=== PATIENT | male | born 1940 | race Two or more races ===

== ENCOUNTER 2019-03-22 18:59 | Emergency (ER) | payer MEDICARE, MEDICAID ==
[~2019-03-22] VITALS: Ht 167.6 cm; Wt 68.0 kg
[~2019-03-22 18:59] MED LIST: CLOPIDOGREL75 MG ORAL; ESCITALOPRAM OX20 MG ORAL; METOPROLOL TART25 MG ORAL; PRAVASTATIN SOD80 M1 PO
--- NOTE | 2019-03-22 19:05 | NUR ---
ED Nurse Note: Pt brought in by ambulance from [facility]. staff repiorted abnormal labs and pt with increased altered mental status. Pt is A&Ox1, cooperative. VSS
[2019-03-22 19:41] VITALS: BP 118/64
[2019-03-22 20:06] LABS: HEMOGLOBIN 12.7 G/DL (14.2-18.0); MEAN CORPUSCULAR VOLUME 88 FL (80-99); PLATELET COUNT 101 K/UL (150-450); RED BLOOD COUNT 4.33 M/UL (4.70-6.10); RED CELL DISTRIBUTION WIDTH 14.2 % (11.6-14.8); WHITE BLOOD COUNT 5.6 K/UL (4.8-10.8)
[2019-03-22 20:09] LABS: ANION GAP 10 mmol/L (5-15); BLOOD UREA NITROGEN 9 mg/dL (7-18); CALCIUM 8.8 MG/DL (8.5-10.1); CARBON DIOXIDE 30 MMOL/L (21-32); CHLORIDE 104 MMOL/L (98-107); POTASSIUM 4.1 MMOL/L (3.5-5.1); SODIUM 144 MMOL/L (136-145)
[2019-03-22 20:10] LABS: INR 0.9 (0.9-1.1)
[2019-03-22 20:21] LABS: ALANINE AMINOTRANSFERASE 63 U/L (12-78); ALBUMIN 2.7 G/DL (3.4-5.0); ALBUMIN/GLOBULIN RATIO 0.6 (1.0-2.7); ALKALINE PHOSPHATASE 42 U/L (46-116); ASPARTATE AMINO TRANSFERASE 38 U/L (15-37); BILIRUBIN,TOTAL 0.4 MG/DL (0.2-1.0)
--- NOTE | 2019-03-22 21:00 | NUR ---
ED Nurse Note: Pt resting in bed with eyes closed, non-labored breathing, awaiting transport back to SNF
--- NOTE | 2019-03-22 22:01 | Emergency Room Report ---
History of Present Illness General Chief Complaint: Abnormal Labs Source: Patient Present Illness HPI Patient is sent in by paramedics from nursing facility with low platelet count patient himself is a poor historian Does not recall why he was sent to the hospital patient also appears to have had previous CVAs Denies any chest pain denies any vomiting or diarrhea Denies any abdominal pain Allergies: Coded Allergies: No Known Allergies (Unverified , 01/19/13) Patient History Limited by: medical condition Past Medical History: see triage record Reviewed Nursing Documentation: PMH: Agreed; PSxH: Agreed Nursing Documentation-PMH Past Medical History: No History, Except For Hx Cardiac Problems: Yes Hx Hypertension: Yes Hx Cancer: No Hx Gastrointestinal Problems: No Hx Cerebrovascular Accident: Yes - 2008 Review of Systems All Other Systems: limited - Other than the ones mentioned in the history of present illness all others are reviewed however they do stay limited due to the patient's mental status Physical Exam Vital Signs Date Time Temp Pulse Resp B/P (MAP) Pulse Ox O2 Delivery O2 Flow Rate FiO2 03/22/19 19:00 97.9 63 18 118/64 (82) 93 Room Air Sp02 EP Interpretation: reviewed, normal General Appearance: no apparent distress Head: normocephalic, atraumatic Eyes: bilateral eye PERRL ENT: EOM grossly intact Neck: supple Respiratory: lungs clear, no respiratory distress, no retraction Cardiovascular #1: regular rate, rhythm Gastrointestinal: non tender, soft Musculoskeletal: other - Deficits from previous CVA Neurologic: other - Responsive Psychiatric: mood/affect normal Skin: no rash - No petechiae no bruising Lymphatic: normal inspection Medical Decision Making Diagnostic Impression: Primary Impression: thrombocytopenia ER Course Given the patient's complaints from nursing facility blood work is repeated patient's a platelet count is Above 100 Blood work from 2012 reveals levels of 112 This does not appear to be a significant change patient does not show any signs of petechiae or acute hemorrhage Case was discussed with the patient's primary physician at the nursing facility And is considered stable for close outpatient follow-up Labs Test 03/22/19 19:30 White Blood Count 5.6 K/UL (4.8-10.8) Red Blood Count 4.33 M/UL (4.70-6.10) Hemoglobin 12.7 G/DL (14.2-18.0) Hematocrit 38.0 % (42.0-52.0) Mean Corpuscular Volume 88 FL (80-99) Mean Corpuscular Hemoglobin 29.3 PG (27.0-31.0) Mean Corpuscular Hemoglobin Concent 33.3 G/DL (32.0-36.0) Red Cell Distribution Width 14.2 % (11.6-14.8) Platelet Count 101 K/UL (150-450) Mean Platelet Volume 13.6 FL (6.5-10.1) Neutrophils (%) (Auto) % (45.0-75.0) Lymphocytes (%) (Auto) % (20.0-45.0) Monocytes (%) (Auto) % (1.0-10.0) Eosinophils (%) (Auto) % (0.0-3.0) Basophils (%) (Auto) % (0.0-2.0) Differential Total Cells Counted 100 Neutrophils % (Manual) 38 % (45-75) Lymphocytes % (Manual) 44 % (20-45) Monocytes % (Manual) 16 % (1-10) Eosinophils % (Manual) 0 % (0-3) Basophils % (Manual) 0 % (0-2) Band Neutrophils 2 % (0-8) Platelet Estimate Decreased Platelet Morphology Normal Red Blood Cell Morphology Normal Prothrombin Time 9.9 SEC (9.30-11.50) Prothromb Time International Ratio 0.9 (0.9-1.1) Activated Partial Thromboplast Time 23 SEC (23-33) Sodium Level 144 MMOL/L (136-145) Potassium Level 4.1 MMOL/L (3.5-5.1) Chloride Level 104 MMOL/L (98-107) Carbon Dioxide Level 30 MMOL/L (21-32) Anion Gap 10 mmol/L (5-15) Blood Urea Nitrogen 9 mg/dL (7-18) Creatinine 1.0 MG/DL (0.55-1.30) Estimat Glomerular Filtration Rate mL/min (>60) Glucose Level 179 MG/DL (74-106) Calcium Level 8.8 MG/DL (8.5-10.1) Total Bilirubin 0.4 MG/DL (0.2-1.0) Aspartate Amino Transf (AST/SGOT) 38 U/L (15-37) Alanine Aminotransferase (ALT/SGPT) 63 U/L (12-78) Alkaline Phosphatase 42 U/L (46-116) Total Protein 7.1 G/DL (6.4-8.2) Albumin 2.7 G/DL (3.4-5.0) Globulin 4.4 g/dL Albumin/Globulin Ratio 0.6 (1.0-2.7) Rhythm Strip Diag. Results EP Interpretation: yes Rate: 80 Rhythm: NSR, no PVC's, no ectopy Last Vital Signs Date Time Temp Pulse Resp B/P (MAP) Pulse Ox O2 Delivery O2 Flow Rate FiO2 03/22/19 19:41 97.9 100 18 118/64 93 Room Air Status: improved Disposition: ER SNF Condition: Stable Referrals: Edwardo Langley MD (PCP) Patient Instructions: Thrombocytopenia, [id number] Additional Instructions: Contact was made with the primary physician following at the nursing facility. They will arrange appropriate outpatient follow-up Patient's platelet count in 2012 was 112. Today we have a reading of 101 And patient stable for close follow-up Lon Avery DO Mar 22, 2019 22:01
[2019-03-22 22:45] VITALS: BP 118/64
--- NOTE | 2019-03-22 22:45 | NUR ---
ER DISCHARGE NOTE: Patient is cleared to be discharged per ERMD, pt is aox1 per baseline, on room air, with stable vital signs. pt was given dc , pt was able to verbalize understanding, pt id band and iv site removed without complications. pt taken via private ambulance to SNF. pt took all belongings.
--- NOTE | 2019-03-23 10:52 | Diagnostic Imaging Report ---
Indication: Chest pain Technique: One view of the chest Comparison: 01/20/2013 Findings: Exam less heavily exposed. I habitus limits evaluation. No definite acute infiltrates, effusions, or congestion. Normal heart size. Tortuous ectatic calcified aorta. Old healed left rib fracture deformity again demonstrated Impression: No acute process
== END 2019-03-22 22:45 ==
LOC: EDBD 18:59 → EMR 19:20
DX: D69.6 Thrombocytopenia, unspecified (principal); I10 Essential (primary) hypertension; Z86.73 Personal history of transient ischemic attack (TIA), and cerebral infarction without residual deficits
CPT/HCPCS: 36415; 71045; 80053; 85007; 85025; 85610; 85730; 99283

== ENCOUNTER 2019-09-03 10:41 | Inpatient (IN) | payer MEDICARE, MEDICAID ==
[~2019-09-03] VITALS: Ht 170.2 cm; Wt 63.5 kg
[2019-09-03 10:50] VITALS: BP 108/58
--- NOTE | 2019-09-03 10:50 | NUR ---
ED Nurse Note: [id number] c/o fever and episode of desaturation. Pt has hx of COPD. 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 Pt is on 2L nc. Breathing even and unlabored. AAO3, verbally responsive. Pt placed on shank stapler. Covid isolation precaution observed.
--- NOTE | 2019-09-03 11:10 | NUR ---
ED Nurse Note: IV line established. Blood specimen and Covid swab collected and sent to lab.
--- NOTE | 2019-09-03 11:14 | NUR ---
ED Nurse Note: Xray at bedside.
[2019-09-03 11:23] LABS: HEMATOCRIT 32.8 % (42.0-52.0); HEMOGLOBIN 11.5 G/DL (14.2-18.0); MEAN CORPUSCULAR VOLUME 84 FL (80-99); PLATELET COUNT 42 K/UL (150-450); RED BLOOD COUNT 3.92 M/UL (4.70-6.10); RED CELL DISTRIBUTION WIDTH 13.3 % (11.6-14.8); WHITE BLOOD COUNT 9.3 K/UL (4.8-10.8)
[2019-09-03 11:28] LABS: ANION GAP 12 mmol/L (5-15); BLOOD UREA NITROGEN 14 mg/dL (7-18); CALCIUM 8.5 MG/DL (8.5-10.1); CARBON DIOXIDE 24 MMOL/L (21-32); CHLORIDE 106 MMOL/L (98-107); CREATININE 1.3 MG/DL (0.55-1.30); SODIUM 142 MMOL/L (136-145)
[2019-09-03 11:41] LABS: ALANINE AMINOTRANSFERASE 45 U/L (12-78); ALBUMIN 2.6 G/DL (3.4-5.0); ALBUMIN/GLOBULIN RATIO 0.6 (1.0-2.7); ALKALINE PHOSPHATASE 34 U/L (46-116); ASPARTATE AMINO TRANSFERASE 43 U/L (15-37); BILIRUBIN,TOTAL 0.6 MG/DL (0.2-1.0); CKMB < 0.5 NG/ML (0.0-3.6); CREATINE KINASE 57 U/L (26-308)
[2019-09-03] MEDS ORDERED: Milk of Magnesia 30ml Ud ORAL PRN (11:45)
[2019-09-03] MEDS ORDERED: Miralax 17gm pkt ORAL PRN (11:45)
[2019-09-03 12:00] VITALS: BP 110/62
--- NOTE | 2019-09-03 12:08 | NUR ---
ED Nurse Note: Urine specimen collected and sent to lab.
--- NOTE | 2019-09-03 12:14 | History and Physical ---
History of Present Illness General Reason for Hospitalization: Fever Present Illness HPI 79-year-old male with PMH of T2DM, COPD, dysphasia, HLD, HTN, thrombocytopenia, APL and dementia who presents from group home for fevers and hypoxia. Patient poor historian due to history of dementia, history obtained via chart review and patient. According to records, patient was found hypoxic at group home, SPO2 88%, with fevers of 102. Patient has known exposure to COVID as his roommate at the facility was tested COVID positive. Pt currently denies any GRAF, SOB, cough, f/c, CP, abd pain, dysuria, hematuria/hematochezia, pt states he is "thirsty". ED course: On admission, pt w/fever 101.5, thrombocytopenia, and elevated d- dimer. Pt admitted for further treatment and evaluation and for COVID rule out. PMH: Type II DM, dementia, HLD, HTN, COPD, thrombocytopenia, APL, history of internal hemorrhoids, h/o malignant neoplasm of pyloric antrum, major depressive disorder FH: Reviewed and not pertinent Sx: Reviewed, no surgical history SH: Lives at [facility], no tobacco/ETOH use Allergies: NKDA Allergies: Coded Allergies: No Known Allergies (Unverified , 01/19/13) COVID-19 Screening Contact w/high risk pt: No Recent Travel to affected area: No Experienced COVID-19 symptoms?: Yes COVID-19 symptoms experienced: Fever (T>100.4F or >38C), Shortness of Breath, Cough Medication History Scheduled Amlodipine Besylate* (Amlodipine Besylate*), 2.5 MG ORAL DAILY, (Reported) Atenolol* (Tenormin*), 50 MG ORAL DAILY, (Reported) Ca Cmb 1/Vit D3/B-6/Fa/B12/Av (Vitamin D3-Aloe 1,000 Unit Tab), 2 EACH PO DAILY, (Reported) Clopidogrel* (Clopidogrel*), 75 MG ORAL DAILY, (Reported) Danazol (Danazol), 200 MG ORAL TWICE A DAY, (Reported) Docusate Sodium* (Docusate Sodium*), 100 MG ORAL TWICE A DAY, (Reported) Escitalopram Oxalate (Escitalopram Oxalate*), 20 MG ORAL DAILY, (Reported) Lactulose (Lactulose), 20 GM PO Q12HR, (Reported) Metoprolol Tartrate* (Metoprolol Tartrate*), 25 MG ORAL BID, (Reported) Multivitamin With Minerals (Multivitamins With Minerals*), 1 TAB ORAL DAILY, ( Reported) Almond-3 Fatty Acids/Fish Oil (Fish Oil 1,000 Mg Softgel), 1 CAP ORAL DAILY, ( Reported) Pravastatin Sod (Pravastatin Sod), 80 MG PO DAILY, (Reported) Pravastatin Sod (Pravastatin Sod), 40 MG ORAL BEDTIME, (Reported) Sennosides (Cari-Jeremy), 17.2 MG PO BEDTIME, (Reported) Tretinoin (Tretinoin), 10 MG PO TWICE A DAY, (Reported) Scheduled PRN Acetaminophen* (Acetaminophen 325MG Tablet*), 650 MG ORAL Q6H PRN for For Pain, (Reported) Diphenhydramine Hcl* (Benadryl*), 25 MG ORAL Q6H PRN for Itching, (Reported) Patient History Limited by: medical condition - pt with dementia, poor historian Healthcare decision maker Resuscitation status Advanced Directive on File Review of Systems Constitutional: Denies: no symptoms, see HPI, chills, sweats, fever, malaise, weakness, other Eye: Denies: no symptoms, see HPI, eye pain, blurred vision, tearing, double vision, nose pain, nose congestion, acuity changes, discharge, other Respiratory: Denies: no symptoms, see HPI, cough, orthopnea, shortness of breath, stridor, wheezing, GILMAN, sputum, other Cardiovascular: Denies: no symptoms, see HPI, chest pain, edema, palpitations, syncope, PND, other Gastrointestinal: Denies: no symptoms, see HPI, abdominal pain, constipation, diarrhea, nausea, vomiting, melena, hematemesis, other Genitourinary: Denies: no symptoms, see HPI, discharge, dysuria, frequency, hematuria, pain, retention, incontinence, urgency, vag bleed/dc, other Musculoskeletal: Denies: no symptoms, see HPI, back pain, gout, joint pain, joint swelling, muscle pain, muscle stiffness, other Psychiatric: Denies: no symptoms, see HPI, prior hx, anxiety, depressed feelings, emotional problems, SI, HI, hallucinations, other Neurological: Denies: no symptoms, see HPI, headache, numbness, paresthesia, seizure, tingling, tremors, focal weakness, syncope, dizziness, other All Other Systems: negative except mentioned in HPI Physical Exam Physical Exam Narrative General: NAD, awake, alert, not fully participating in questions HEENT: NCAT, EOMi, dry MM CV: RRR, no murmurs, rubs, or gallops Pulm: CTAB, No wheezes, rhonchi, or rales, no accessory muscle usage or conversational dyspnea GI: Soft, nontender, nondistended, bowel sounds present Ext: No lower extremity edema bilaterally Skin: no rashes lesions or ulcers Msk: Joints symmetrical in upper extremity and lower extremity bilaterally, no joint swelling. Neuro: CN 2-12 grossly intact bilaterally, no focal signs. Last 24 Hour Vital Signs Date Time Temp Pulse Resp B/P (MAP) Pulse Ox O2 Delivery O2 Flow Rate FiO2 09/03/19 10:50 74 20 Room Air 09/03/19 10:50 99.2 72 23 108/58 95 Nasal Cannula 2.0 09/03/19 10:42 101.8 74 20 132/62 (85) 92 Room Air Laboratory Tests Test 09/03/19 10:58 White Blood Count 9.3 K/UL (4.8-10.8) Red Blood Count 3.92 M/UL (4.70-6.10) L Hemoglobin 11.5 G/DL (14.2-18.0) L Hematocrit 32.8 % (42.0-52.0) L Mean Corpuscular Volume 84 FL (80-99) Mean Corpuscular Hemoglobin 29.4 PG (27.0-31.0) Mean Corpuscular Hemoglobin Concent 35.2 G/DL (32.0-36.0) Red Cell Distribution Width 13.3 % (11.6-14.8) Platelet Count 42 K/UL (150-450) L Mean Platelet Volume 11.7 FL (6.5-10.1) H Neutrophils (%) (Auto) % (45.0-75.0) Lymphocytes (%) (Auto) % (20.0-45.0) Monocytes (%) (Auto) % (1.0-10.0) Eosinophils (%) (Auto) % (0.0-3.0) Basophils (%) (Auto) % (0.0-2.0) Differential Total Cells Counted 100 Neutrophils % (Manual) 64 % (45-75) Lymphocytes % (Manual) 13 % (20-45) L Monocytes % (Manual) 20 % (1-10) H Eosinophils % (Manual) 0 % (0-3) Basophils % (Manual) 0 % (0-2) Band Neutrophils 3 % (0-8) Platelet Estimate Decreased L Platelet Morphology Normal Hypochromasia 1+ Prothrombin Time 10.4 SEC (9.30-11.50) Prothromb Time International Ratio 1.0 (0.9-1.1) Activated Partial Thromboplast Time 21 SEC (23-33) L D-Dimer 7.00 mg/L FEU (0.00-0.49) H Sodium Level 142 MMOL/L (136-145) Potassium Level 4.0 MMOL/L (3.5-5.1) Chloride Level 106 MMOL/L (98-107) Carbon Dioxide Level 24 MMOL/L (21-32) Anion Gap 12 mmol/L (5-15) Blood Urea Nitrogen 14 mg/dL (7-18) Creatinine 1.3 MG/DL (0.55-1.30) Estimat Glomerular Filtration Rate 53.4 mL/min (>60) Glucose Level 123 MG/DL (74-106) H Lactic Acid Level 1.60 mmol/L (0.4-2.0) Calcium Level 8.5 MG/DL (8.5-10.1) Total Bilirubin 0.6 MG/DL (0.2-1.0) Aspartate Amino Transf (AST/SGOT) 43 U/L (15-37) H Alanine Aminotransferase (ALT/SGPT) 45 U/L (12-78) Alkaline Phosphatase 34 U/L (46-116) L Total Creatine Kinase 57 U/L (26-308) Creatine Kinase MB < 0.5 NG/ML (0.0-3.6) Creatine Kinase MB Relative Index 0.8 Troponin I 0.000 ng/mL (0.000-0.056) C-Reactive Protein, Quantitative 16.8 mg/dL (0.00-0.90) H Total Protein 6.9 G/DL (6.4-8.2) Albumin 2.6 G/DL (3.4-5.0) L Globulin 4.3 g/dL Albumin/Globulin Ratio 0.6 (1.0-2.7) L Height (Feet): 5 Height (Inches): 7.00 Weight (Pounds): 175 Assessment/Plan Assessment/Plan: 79-year-old male with PMH of T2DM, COPD, dysphasia, HLD, HTN, thrombocytopenia, hx of APL and dementia who presents from group home for fevers and hypoxia. On admission, pt w/fever 101.5, thrombocytopenia, and elevated d-dimer. Pt admitted for further treatment and evaluation and for COVID rule out. #Suspect COVID #Fevers, Hypoxia #Elevated d-dimer #Possible HCAP/asp PNA -admit to in-pt, tele -COVID isolation protocol -elevated d-dimer, 7.0, and CRP -pt currently 2L NC SpO2 96% -COVID PCR ordered -monitor predictive parameters q3d, CRP, d-dimer, lactic acid -BCx ordered -Pulm consulted, recs appreciated -ID consulted, d/w ID, will start pt on abx for presumptive nosocomial and aspiration PNA, Vanc and Zosyn, pharmacy to dose #H/o COPD -currently not in exacerbation -ctm, management as above #HTN #HLD -cont home meds, amlodipine 2.5 mg, atenolol 50 mg, -hold home pravastatin 40 mg qhs due to mildly elevated AST #elevated AST -likely 2/2 to infection #Thrombocytopenia #Hx of Acute Promyelocytic Leukemia -plts 42 today, on 08/29 plts 29 -pt f/u w/Dr. Jose as o/p, on danazol 200 mg PO q daily for thrombocytopenia and tretinoin 10 mg PO BID for APL -medications not on formulary per pharmacy -Heme consulted, Dr. Navarrete consulted, recs appreciated DVT PPx - SCDs for now given low plts Time spent on encounter: 71 mins, >50% on counseling, coordination of care, discussed case w/ER physician, Pulm, ID and Heme/Onc. Time of note doesn't reflect time of encounter. Jeremi Toure M.D. September 03, 2019 12:14
[2019-09-03] MEDS ORDERED: ACETAMINOPHEN325 M1 ORAL (12:35)
[2019-09-03] MEDS ORDERED: FISH OIL 1,0001 EAC4 ORAL (12:35)
[2019-09-03] MEDS ORDERED: MULTIVITAMINS1 EAC8 ORAL (12:35)
[2019-09-03] MEDS ORDERED: AMLODIPINE BES2.5 MG ORAL (12:35)
[2019-09-03] MEDS ORDERED: PRAVASTATIN SOD40 M1 ORAL (12:35)
[2019-09-03] MEDS ORDERED: TRETINOIN10 MG PO (12:35)
[2019-09-03] MEDS ORDERED: BENADRYL25 MG ORAL (12:35)
[2019-09-03] MEDS ORDERED: ATENOLOL50 MG ORAL (12:35)
[2019-09-03] MEDS ORDERED: LACTULOSE10 GM/153 PO (12:35)
[2019-09-03] MEDS ORDERED: DANAZOL200 MG ORAL (12:35)
[2019-09-03] MEDS ORDERED: GERI-KOT8.6 MG PO (12:35)
[2019-09-03] MEDS ORDERED: VITAMIN D3-ALO1 EACH PO (12:35)
[2019-09-03] MEDS ORDERED: DOCUSATE SODIU100 MG ORAL (12:35)
[2019-09-03 12:39] LABS: APPEARANCE,URINE CLEAR; BILIRUBIN, URINE 2+ (NEGATIVE); GLUCOSE, URINE (UA) NEGATIVE (NEGATIVE); LEUKOCYTE ESTERASE ,URINE 2+ (NEGATIVE); NITRITE,URINE POSITIVE (NEGATIVE); PH,URINE 5 (4.5-8.0); PROTEIN,URINE 3+ (NEGATIVE); UROBILINOGEN,URINE 12 MG/DL (0.0-1.0)
--- NOTE | 2019-09-03 12:53 | Emergency Room Report ---
History of Present Illness General Chief Complaint: Fever Source: Medical Record, EMS Present Illness HPI This patient is brought in by EMS from a [facility] facility. This nursing facility has had positive COVID 19 cases. The patient is sent in because of hypoxia, fever and cough and concern for COVID-19. There is no report of respiratory distress. There are no other complaints. Allergies: Coded Allergies: No Known Allergies (Unverified , 01/19/13) COVID-19 Screening Contact w/high risk pt: No Recent Travel to affected area: No Experienced COVID-19 symptoms?: Yes COVID-19 symptoms experienced: Fever (T>100.4F or >38C), Shortness of Breath, Cough COVID-19 Testing performed PRESCRIPTION CLERK: No Patient History Past Medical History: see triage record, DM, HTN, PR, CAD, CHF, COPD, GERD, CVA /TIA, dementia Social History: Denies: smoking, alcohol use, drug use Reviewed Nursing Documentation: PMH: Agreed; PSxH: Agreed Nursing Documentation-PMH Past Medical History: No History, Except For Hx Cardiac Problems: Yes Hx Hypertension: Yes Hx Cancer: No Hx Gastrointestinal Problems: No Hx Cerebrovascular Accident: Yes - 2008 Review of Systems All Other Systems: negative except mentioned in HPI Physical Exam Vital Signs Date Time Temp Pulse Resp B/P (MAP) Pulse Ox O2 Delivery O2 Flow Rate FiO2 09/03/19 10:42 101.8 74 20 132/62 (85) 92 Room Air 09/03/19 10:50 2.0 Sp02 EP Interpretation: reviewed, normal General Appearance: no apparent distress, alert, GCS 15, non-toxic Head: normocephalic, atraumatic Eyes: bilateral eye normal inspection, bilateral eye PERRL ENT: hearing grossly normal, normal pharynx, no angioedema, normal voice Neck: full range of motion, supple/symm/no masses Respiratory: no respiratory distress, no retraction, no accessory muscle use Cardiovascular #1: regular rate, rhythm, no edema Gastrointestinal: soft, non-distended, no guarding, no rebound Rectal: deferred Musculoskeletal: normal inspection, normal range of motion, non-tender Neurologic: alert, responsive, no focal defects Psychiatric: mood/affect normal Skin: normal color, other - See RN skin exam Medical Decision Making Diagnostic Impression: Primary Impression: Suspected 2019 novel coronavirus infection Additional Impressions: Fever Hypoxia ER Course This patient presents from a [facility] facility with a presentation consistent with COVID-19. The patient was placed in isolation with droplet precautions. The patient was also given broad-spectrum antibiotics as a precaution given his fever. The patient was maintaining normal oxygen saturations on 2 L nasal cannula and had no evidence of respiratory distress or impending respiratory failure. Therefore, no further airway intervention was indicated during this ED course. The patient is admitted to the ICU stepdown unit. This patient required complex medical decision-making, aggressive intervention, extensive laboratory workup and monitoring. Critical care time: 40 minutes. This patient was evaluated in the context of the global COVID-19 pandemic, which necessitated consideration that the patient might be at risk for infection with the [id number] virus that causes COVID-19. Institutional protocols and algorithms that pertain to the evaluation of patients at risk for COVID-19 and the state of rapid change based on information released by multiple regulatory bodies including the CDC and federal and state organizations. These policies and algorithms were followed during the patient' s care in the ED. Laboratory Tests Test 09/03/19 10:58 09/03/19 12:08 White Blood Count 9.3 K/UL (4.8-10.8) Red Blood Count 3.92 M/UL (4.70-6.10) L Hemoglobin 11.5 G/DL (14.2-18.0) L Hematocrit 32.8 % (42.0-52.0) L Mean Corpuscular Volume 84 FL (80-99) Mean Corpuscular Hemoglobin 29.4 PG (27.0-31.0) Mean Corpuscular Hemoglobin Concent 35.2 G/DL (32.0-36.0) Red Cell Distribution Width 13.3 % (11.6-14.8) Platelet Count 42 K/UL (150-450) L Mean Platelet Volume 11.7 FL (6.5-10.1) H Neutrophils (%) (Auto) % (45.0-75.0) Lymphocytes (%) (Auto) % (20.0-45.0) Monocytes (%) (Auto) % (1.0-10.0) Eosinophils (%) (Auto) % (0.0-3.0) Basophils (%) (Auto) % (0.0-2.0) Differential Total Cells Counted 100 Neutrophils % (Manual) 64 % (45-75) Lymphocytes % (Manual) 13 % (20-45) L Monocytes % (Manual) 20 % (1-10) H Eosinophils % (Manual) 0 % (0-3) Basophils % (Manual) 0 % (0-2) Band Neutrophils 3 % (0-8) Platelet Estimate Decreased L Platelet Morphology Normal Hypochromasia 1+ Prothrombin Time 10.4 SEC (9.30-11.50) Prothrombin Time INR 1.0 (0.9-1.1) Activated Partial Thromboplast Time 21 SEC (23-33) L D-Dimer 7.00 mg/L FEU (0.00-0.49) H Sodium Level 142 MMOL/L (136-145) Potassium Level 4.0 MMOL/L (3.5-5.1) Chloride Level 106 MMOL/L (98-107) Carbon Dioxide Level 24 MMOL/L (21-32) Anion Gap 12 mmol/L (5-15) Blood Urea Nitrogen 14 mg/dL (7-18) Creatinine 1.3 MG/DL (0.55-1.30) Estimated Glomerular Filtration Rate 53.4 mL/min (>60) Glucose Level 123 MG/DL (74-106) H Lactic Acid Level 1.60 mmol/L (0.4-2.0) Calcium Level 8.5 MG/DL (8.5-10.1) Total Bilirubin 0.6 MG/DL (0.2-1.0) Aspartate Amino Transferase (AST) 43 U/L (15-37) H Alanine Aminotransferase (ALT) 45 U/L (12-78) Alkaline Phosphatase 34 U/L (46-116) L Total Creatine Kinase 57 U/L (26-308) Creatine Kinase MB < 0.5 NG/ML (0.0-3.6) Creatine Kinase MB Relative Index 0.8 Troponin I 0.000 ng/mL (0.000-0.056) C-Reactive Protein, Quantitative 16.8 mg/dL (0.00-0.90) H Total Protein 6.9 G/DL (6.4-8.2) Albumin 2.6 G/DL (3.4-5.0) L Globulin 4.3 g/dL Albumin/Globulin Ratio 0.6 (1.0-2.7) L Urine Color Yellow Urine Appearance Clear Urine pH 5 (4.5-8.0) Urine Specific [place] 1.015 (1.005-1.035) Urine Protein 3+ (NEGATIVE) H Urine Glucose (UA) Negative (NEGATIVE) Urine Ketones 1+ (NEGATIVE) H Urine Blood 4+ (NEGATIVE) H Urine Nitrite Positive (NEGATIVE) H Urine Bilirubin 2+ (NEGATIVE) H Urine Ictotest Negative (NEGATIVE) Urine Urobilinogen 12 MG/DL (0.0-1.0) H Urine Leukocyte Esterase 2+ (NEGATIVE) H Urine RBC 2-4 /HPF (0 - 0) H Urine WBC 5-10 /HPF (0 - 0) H Urine Squamous Epithelial Cells Few /LPF (NONE/OCC) Urine Bacteria Few /HPF (NONE) EKG Diagnostic Results Rate: normal Rhythm: NSR ST Segments: no acute changes Rhythm Strip Diag. Results EP Interpretation: yes Rate: 80's Rhythm: NSR, no PVC's, no ectopy Chest X-Ray Diagnostic Results Chest X-Ray Diagnostic Results : Chest X-Ray Ordered: Yes # of Views/Limited/Complete: 1 View Indication: Shortness of Breath EP Interpretation: Yes Interpretation: other - bilateral opacities (poor inspiration) Impression: Other - See above Electronically Signed by: Violette Dawn DO Last Vital Signs Date Time Temp Pulse Resp B/P (MAP) Pulse Ox O2 Delivery O2 Flow Rate FiO2 09/03/19 10:50 74 20 Room Air 09/03/19 10:50 99.2 108/58 95 2.0 Disposition: ADMITTED INPATIENT Condition: Serious Referrals: Edwardo Langley MD (PCP) Violette Dawn DO September 03, 2019 12:53
--- NOTE | 2019-09-03 13:00 | NUR ---
ED Nurse Note: Noted with multiple scratches on bilateral thigh.
--- NOTE | 2019-09-03 13:01 | Infectious Diseases Prog Note ---
Assessment/Plan Assessment/Plan Full consult to follow: A) 1) pna, fevers, sepsis 2) possible covid-19 infection 3) pmh noted 4) allergies - nkda P) 1) zosyn and vancomycin 2) f/u on cultures 3) d/w Dr. Toure 4) thank you Subjective Allergies: Coded Allergies: No Known Allergies (Unverified , 01/19/13) Objective Vital Signs Last 24 Hour Vital Signs Date Time Temp Pulse Resp B/P (MAP) Pulse Ox O2 Delivery O2 Flow Rate FiO2 09/03/19 10:50 74 20 Room Air 09/03/19 10:50 99.2 72 23 108/58 95 Nasal Cannula 2.0 09/03/19 10:42 101.8 74 20 132/62 (85) 92 Room Air Height (Feet): 5 Height (Inches): 7.00 Weight (Pounds): 175 Laboratory Tests Test 09/03/19 10:58 09/03/19 12:08 White Blood Count 9.3 K/UL (4.8-10.8) Red Blood Count 3.92 M/UL (4.70-6.10) L Hemoglobin 11.5 G/DL (14.2-18.0) L Hematocrit 32.8 % (42.0-52.0) L Mean Corpuscular Volume 84 FL (80-99) Mean Corpuscular Hemoglobin 29.4 PG (27.0-31.0) Mean Corpuscular Hemoglobin Concent 35.2 G/DL (32.0-36.0) Red Cell Distribution Width 13.3 % (11.6-14.8) Platelet Count 42 K/UL (150-450) L Mean Platelet Volume 11.7 FL (6.5-10.1) H Neutrophils (%) (Auto) % (45.0-75.0) Lymphocytes (%) (Auto) % (20.0-45.0) Monocytes (%) (Auto) % (1.0-10.0) Eosinophils (%) (Auto) % (0.0-3.0) Basophils (%) (Auto) % (0.0-2.0) Differential Total Cells Counted 100 Neutrophils % (Manual) 64 % (45-75) Lymphocytes % (Manual) 13 % (20-45) L Monocytes % (Manual) 20 % (1-10) H Eosinophils % (Manual) 0 % (0-3) Basophils % (Manual) 0 % (0-2) Band Neutrophils 3 % (0-8) Platelet Estimate Decreased L Platelet Morphology Normal Hypochromasia 1+ Prothrombin Time 10.4 SEC (9.30-11.50) Prothromb Time International Ratio 1.0 (0.9-1.1) Activated Partial Thromboplast Time 21 SEC (23-33) L D-Dimer 7.00 mg/L FEU (0.00-0.49) H Sodium Level 142 MMOL/L (136-145) Potassium Level 4.0 MMOL/L (3.5-5.1) Chloride Level 106 MMOL/L (98-107) Carbon Dioxide Level 24 MMOL/L (21-32) Anion Gap 12 mmol/L (5-15) Blood Urea Nitrogen 14 mg/dL (7-18) Creatinine 1.3 MG/DL (0.55-1.30) Estimat Glomerular Filtration Rate 53.4 mL/min (>60) Glucose Level 123 MG/DL (74-106) H Lactic Acid Level 1.60 mmol/L (0.4-2.0) Calcium Level 8.5 MG/DL (8.5-10.1) Total Bilirubin 0.6 MG/DL (0.2-1.0) Aspartate Amino Transf (AST/SGOT) 43 U/L (15-37) H Alanine Aminotransferase (ALT/SGPT) 45 U/L (12-78) Alkaline Phosphatase 34 U/L (46-116) L Total Creatine Kinase 57 U/L (26-308) Creatine Kinase MB < 0.5 NG/ML (0.0-3.6) Creatine Kinase MB Relative Index 0.8 Troponin I 0.000 ng/mL (0.000-0.056) C-Reactive Protein, Quantitative 16.8 mg/dL (0.00-0.90) H Total Protein 6.9 G/DL (6.4-8.2) Albumin 2.6 G/DL (3.4-5.0) L Globulin 4.3 g/dL Albumin/Globulin Ratio 0.6 (1.0-2.7) L Urine Color Pending Urine Appearance Pending Urine pH Pending Urine Specific [place] Pending Urine Protein Pending Urine Glucose (UA) Pending Urine Ketones Pending Urine Blood Pending Urine Nitrite Pending Urine Bilirubin Pending Urine Urobilinogen Pending Urine Leukocyte Esterase Pending Current Medications Medications (Trade) Dose Ordered Sig/Karlos Route PRN Reason Start Time Stop Time Status Last Admin Dose Admin Acetaminophen (Tylenol) 650 mg Q4H PRN ORAL Mild Pain (Pain Scale 1-3) 09/03/19 11:45 10/03/19 11:44 UNV Acetaminophen (Tylenol) 650 mg Q4H PRN ORAL Temp >100.5 09/03/19 11:45 10/03/19 11:44 UNV Amlodipine Besylate (Norvasc) 2.5 mg DAILY ORAL 09/04/19 09:00 10/04/19 08:59 UNV Atenolol (Tenormin) 50 mg DAILY ORAL 09/04/19 09:00 10/04/19 08:59 UNV Bisacodyl (Dulcolax) 10 mg DAILYPRN PRN RECTAL Constipation 09/03/19 11:45 12/02/19 11:44 UNV Dextrose (Dextrose 50%) 25 ml Q30M PRN IV Hypoglycemia 09/03/19 11:45 12/02/19 11:44 UNV Dextrose (Dextrose 50%) 50 ml Q30M PRN IV Hypoglycemia 09/03/19 11:45 12/02/19 11:44 UNV Docusate Sodium (Colace) 100 mg EVERY 12 HOURS ORAL 09/03/19 21:00 10/03/19 20:59 UNV Magnesium Hydroxide (Mom) 30 ml HSPRN PRN ORAL Constipation 09/03/19 11:45 10/03/19 11:44 UNV Piperacillin Sod/ Tazobactam Sod 3.375 gm/Sodium Chloride 110 ml @ 220 mls/hr DAILY IVPB 09/03/19 12:45 09/10/19 12:44 UNV Polyethylene Glycol (Miralax) 17 gm DAILYPRN PRN ORAL Constipation 09/03/19 11:45 10/03/19 11:44 UNV Vancomycin HCl (Vanco rx to dose) 1 ea DAILY PRN MISC Per rx protocol 09/03/19 12:45 10/03/19 12:44 UNV Vancomycin/Sodium Chloride 275 ml @ 183.333 mls/hr Q24H IVPB 09/03/19 12:45 09/08/19 12:44 Lb Frost MD September 03, 2019 13:01
[2019-09-03 13:04] LABS: KETONES,URINE 1+ (NEGATIVE)
[2019-09-03 13:06] LABS: COLOR,URINE YELLOW
--- NOTE | 2019-09-03 13:21 | NUR ---
ED Nurse Note: Report given to John TONY.
[2019-09-03 13:28] VITALS: BP 112/83
--- NOTE | 2019-09-03 13:28 | NUR ---
TRANSFER TO FLOOR: Patient transferred to Telemetry. Report given to John. Pt AAOx3, verbally responisve. On 2L nc. Sinus rhtym. IV line on right AC 22g patent and intact. Covid isolation precaution observed. Pt left with all belongings.
[2019-09-03] MEDS: Vancomycin 1.25gm/NS Premix 275 ML IVPB SCH (15:30)
[2019-09-03 16:00] VITALS: BP 115/79
[2019-09-03] MEDS: Piperacillin/Tazobactam 3.375 GM in NS 110 ML IVPB SCH (16:00)
--- NOTE | 2019-09-03 16:31 | Diagnostic Imaging Report ---
Procedure: XRAY Chest 1v Reason for study: Cough. Weakness. Comparison films: 03/22/2019. FINDINGS: Left upper lung partially obscured by the patient's hand. Vascularity is normal. There is mild hazy infiltrates lateral right lung. There is mild cardiomegaly. CP angles are sharp. The bony thorax appear unremarkable. IMPRESSION: Hazy right lung infiltrates.
--- NOTE | 2019-09-03 19:29 | Consultation ---
DATE OF CONSULTATION: 09/03/2019 PULMONARY CONSULTATION HISTORY OF PRESENT ILLNESS: The patient is a 79-year-old male with past medical history of diabetes mellitus, COPD, dysphagia, alf resident. He is also known to have hypertension, hyperlipidemia, thrombocytopenia, and dementia. He was brought to the hospital with fever and hypoxia. In the ER, he was found to be saturating 91% on 2 L of oxygen. The patient unable to provide any further history. The patient denies any headaches, cough, shortness of breath. The patient was febrile in the ER to 101.5. He also had elevated D-dimer. PAST MEDICAL HISTORY: COPD, thrombocytopenia, hemorrhoids, depression, dementia, diabetes mellitus. PAST SURGICAL HISTORY: Previous abdominal surgery. ALLERGIES: None. HOME MEDICATIONS: Plavix, Lexapro, metoprolol, and pravastatin. PHYSICAL EXAMINATION: GENERAL: Reveals a 79-year-old male. HEENT: Unremarkable. CHEST: Clear breath sounds bilaterally. ABDOMEN: Soft. EXTREMITIES: There is no edema. LABORATORY AND DIAGNOSTIC DATA: X-ray chest obtained, which shows bilateral hazy infiltrates. Lab testing shows hemoglobin 11.5, otherwise normal CBC and BMP, glucose 125. CRP is 16.8. Lactic acid 1.6. Troponin is negative. D-dimer is elevated to 7. IMPRESSION: 1. Probable COVID-19 pneumonia. 2. Diabetes mellitus. 3. Hypertension. 4. Hyperlipidemia. 5. Thrombocytopenia. DISCUSSION: Admitted to the hospital. Agree with oxygen and pulmonary hygiene. Agree to isolate, rule out COVID-19. We will follow as placement specialist. We will order oxygen and pulmonary hygiene. Elias Marie M.D. DR: Eleazar JOB#: [id number] CC:
[2019-09-03 20:00] VITALS: BP 126/73
--- NOTE | 2019-09-03 20:20 | NUR ---
NURSE NOTES: Received patient report from CECILY Lopez. Patient AO x 1. Shows no signs of distress or pain at the time. IV patent and flushed. There are no signs of erythema, infiltration, or bleeding. Bed is in the lowest position, call light within reach, side rails up x 3, and bed alarm on. Will continue to monitor.
[2019-09-03] MEDS: Docusate 100mg cap ORAL SCH (21:26)
[2019-09-04] VITALS: BP 116/69
[2019-09-04 04:00] VITALS: BP 120/72
--- NOTE | 2019-09-04 07:36 | NUR ---
HAND-OFF: Report given to John. Patient shows no signs of distress or pain at the time. Endorsed plan of care.
[2019-09-04 07:45] LABS: HEMATOCRIT 36.1 % (42.0-52.0); HEMOGLOBIN 12.4 G/DL (14.2-18.0); MEAN CORPUSCULAR VOLUME 84 FL (80-99); PLATELET COUNT 34 K/UL (150-450); RED BLOOD COUNT 4.32 M/UL (4.70-6.10); RED CELL DISTRIBUTION WIDTH 13.4 % (11.6-14.8); WHITE BLOOD COUNT 6.7 K/UL (4.8-10.8)
[2019-09-04 07:55] LABS: ALANINE AMINOTRANSFERASE 42 U/L (12-78); ALBUMIN 2.6 G/DL (3.4-5.0); ALBUMIN/GLOBULIN RATIO 0.6 (1.0-2.7); ALKALINE PHOSPHATASE 32 U/L (46-116); ANION GAP 13 mmol/L (5-15); ASPARTATE AMINO TRANSFERASE 49 U/L (15-37); BILIRUBIN,TOTAL 0.7 MG/DL (0.2-1.0); BLOOD UREA NITROGEN 15 mg/dL (7-18); CALCIUM 8.4 MG/DL (8.5-10.1); CARBON DIOXIDE 24 MMOL/L (21-32); CHLORIDE 107 MMOL/L (98-107); CREATININE 1.2 MG/DL (0.55-1.30); POTASSIUM 3.9 MMOL/L (3.5-5.1); SODIUM 144 MMOL/L (136-145)
[2019-09-04 08:00] VITALS: BP 150/77
[2019-09-04] MEDS: Piperacillin/Tazobactam 3.375 GM in NS 110 ML IVPB SCH ×5 (08:01→23:30)
[2019-09-04] MEDS: Docusate 100mg cap ORAL SCH ×2 (09:00→21:10)
--- NOTE | 2019-09-04 11:56 | Pulmonology Progress Note ---
Subjective Interval Events: None new Constitutional: Reports: no symptoms HEENT: Repors: no symptoms Respiratory: Reports: no symptoms Cardiovascular: Reports: no symptoms Gastrointestinal/Abdominal: Reports: no symptoms Genitourinary: Reports: no symptoms Allergies: Coded Allergies: No Known Allergies (Unverified , 01/19/13) Objective Last 24 Hour Vital Signs Date Time Temp Pulse Resp B/P (MAP) Pulse Ox O2 Delivery O2 Flow Rate FiO2 09/04/19 09:00 66 120/72 09/04/19 09:00 66 120/72 09/04/19 08:00 69 09/04/19 08:00 98.6 69 19 150/77 (101) 93 09/04/19 04:00 66 09/04/19 04:00 98.6 78 18 120/72 (88) 99 09/04/19 00:00 83 09/04/19 00:00 98.9 86 18 116/69 (85) 98 09/03/19 23:51 99.0 09/03/19 21:00 Nasal Cannula 2.0 09/03/19 20:00 101.9 84 18 126/73 (90) 97 09/03/19 20:00 86 09/03/19 20:00 86 09/03/19 16:00 99.2 82 25 115/79 (91) 95 09/03/19 14:15 Nasal Cannula 2.0 09/03/19 13:28 99.2 81 25 112/83 95 Nasal Cannula 2.0 09/03/19 13:28 99.2 81 25 112/83 95 Nasal Cannula 2.0 09/03/19 12:00 99.2 77 29 110/62 94 Nasal Cannula 2.0 Intake and Output 09/03/19 09/04/19 19:00 07:00 Intake Total 150 ml Balance 150 ml Intake Oral 150 ml # Voids 2 2 General Appearance: no acute distress HEENT: normocephalic Respiratory: chest wall non-tender, lungs clear Cardiovascular: normal peripheral pulses Abdomen: normal bowel sounds Laboratory Tests 09/03/19 12:08: Urine Color Yellow, Urine Appearance Clear, Urine pH 5, Urine Specific [place] 1.015, Urine Protein 3+H, Urine Glucose (UA) Negative, Urine Ketones 1+H, Urine Blood 4+H, Urine Nitrite PositiveH, Urine Bilirubin 2+H, Urine Ictotest Negative , Urine Urobilinogen 12H, Urine Leukocyte Esterase 2+H, Urine RBC 2-4H, Urine WBC 5-10H, Urine Squamous Epithelial Cells Few, Urine Bacteria Few 09/04/19 07:05: White Blood Count 6.7, Red Blood Count 4.32L, Hemoglobin 12.4L, Hematocrit 36.1L , Mean Corpuscular Volume 84, Mean Corpuscular Hemoglobin 28.6, Mean Corpuscular Hemoglobin Concent 34.2, Red Cell Distribution Width 13.4, Platelet Count 34L, Mean Platelet Volume 12.6H, Neutrophils (%) (Auto) , Lymphocytes (%) (Auto) , Monocytes (%) (Auto) , Eosinophils (%) (Auto) , Basophils (%) (Auto) , Differential Total Cells Counted 100, Neutrophils % (Manual) 47, Lymphocytes % ( Manual) 20, Monocytes % (Manual) 33H, Eosinophils % (Manual) 0, Basophils % ( Manual) 0, Band Neutrophils 0, Platelet Estimate DecreasedL, Platelet Morphology Normal, Red Blood Cell Morphology Normal, Sodium Level 144, Potassium Level 3.9, Chloride Level 107, Carbon Dioxide Level 24, Anion Gap 13, Blood Urea Nitrogen 15, Creatinine 1.2, Estimat Glomerular Filtration Rate 58.6 , Glucose Level 101, Calcium Level 8.4L, Total Bilirubin 0.7, Aspartate Amino Transf (AST/SGOT) 49H, Alanine Aminotransferase (ALT/SGPT) 42, Alkaline Phosphatase 32L, Total Protein 7.0, Albumin 2.6L, Globulin 4.4, Albumin/ Globulin Ratio 0.6L Current Medications Medications (Trade) Dose Ordered Sig/Karlos Route PRN Reason Start Time Stop Time Status Last Admin Dose Admin Acetaminophen (Tylenol) 650 mg Q4H PRN ORAL Mild Pain (Pain Scale 1-3) 09/03/19 11:45 10/03/19 11:44 09/03/19 23:21 Acetaminophen (Tylenol) 650 mg Q4H PRN ORAL Temp >100.5 09/03/19 11:45 10/03/19 11:44 Amlodipine Besylate (Norvasc) 2.5 mg DAILY ORAL 09/04/19 09:00 10/04/19 08:59 09/04/19 09:00 Atenolol (Tenormin) 50 mg DAILY ORAL 09/04/19 09:00 10/04/19 08:59 09/04/19 09:00 Bisacodyl (Dulcolax) 10 mg DAILYPRN PRN RECTAL Constipation 09/03/19 11:45 12/02/19 11:44 Dextrose (Dextrose 50%) 25 ml Q30M PRN IV Hypoglycemia 09/03/19 11:45 12/02/19 11:44 Dextrose (Dextrose 50%) 50 ml Q30M PRN IV Hypoglycemia 09/03/19 11:45 12/02/19 11:44 Docusate Sodium (Colace) 100 mg EVERY 12 HOURS ORAL 09/03/19 21:00 10/03/19 20:59 09/04/19 09:00 Magnesium Hydroxide (Mom) 30 ml HSPRN PRN ORAL Constipation 09/03/19 11:45 10/03/19 11:44 Piperacillin Sod/ Tazobactam Sod 3.375 gm/Sodium Chloride 110 ml @ 27.5 mls/hr Q8H IVPB 09/03/19 16:00 09/10/19 15:59 09/04/19 08:01 Polyethylene Glycol (Miralax) 17 gm DAILYPRN PRN ORAL Constipation 09/03/19 11:45 10/03/19 11:44 Vancomycin HCl (Vanco rx to dose) 1 ea DAILY PRN MISC Per rx protocol 09/03/19 12:45 10/03/19 12:44 Vancomycin/Sodium Chloride 275 ml @ 183.333 mls/hr Q24H IVPB 09/03/19 15:30 09/08/19 15:29 09/03/19 15:30 Assessment/Plan Assessment/Plan IMPRESSION: 1. Probable COVID-19 pneumonia. 2. Diabetes mellitus. 3. Hypertension. 4. Hyperlipidemia. 5. Thrombocytopenia. DISCUSSION: Continue oxygen and pulmonary hygiene. Agree to isolate, rule out COVID-19. 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 I will order oxygen and pulmonary hygiene. Tresa Mcclellan Omar Syed MD September 04, 2019 11:56
[2019-09-04 12:00] VITALS: BP 131/75
[2019-09-04] MEDS: Vancomycin 1.25gm/NS Premix 275 ML IVPB SCH (15:30)
[2019-09-04 16:00] VITALS: BP 148/66
[2019-09-04 20:00] VITALS: BP 135/86
--- NOTE | 2019-09-04 20:00 | NUR ---
NURSE NOTES: RECEIVED PATIENT LYING IN BED, EYES OPEN, A/O TO PERSON, ALL NEEDS ANTICIPATED AND MET BY NURSING STAFF. HEAD OF BED ELEVATED TO FACILITATE BREATHING, DENIES PAIN, NO SIGNS AND SYMPTOMS OF ACUTE CARDIO RESPIRATORY DISTRESS/SHORTNESS OF BREATH, NO PERIPHERAL EDEMA NOTED, CONTINUE ON LEGAL EDITOR, TEMPERATURE 102.6, BLOOD CULTURES PREVIOUSLY DRAWN/SWABBED FOR COVID 19 ON 09/02 - MEDICATED WITH TYLENOL 650MG PO, TOLERATED WELL. NO REPORT OF GI DISCOMFORT, NO N/V/D, INCONTINENT, CARE PROVIDED, ASSISTED WITH REPOSITIONING, TOLERATED WELL. SIDE RAILS UP X3/BED IN LOWEST POSITION FOR SAFETY, FREQUENT ROUNDING FOR SAFETY/NEEDS. CONTINUE WITH CURRENT PLAN OF CARE. NAD.
--- NOTE | 2019-09-04 20:22 | General Progress Note ---
Assessment/Plan Assessment/Plan: 79-year-old male with PMH of T2DM, COPD, dysphasia, HLD, HTN, thrombocytopenia, hx of APL and dementia who [facility] and [facility]. On admission, pt w/fever 101.5, thrombocytopenia, and elevated d-dimer. Pt admitted for further treatment and evaluation and for COVID rule out. #Suspect COVID #Fevers, Hypoxia #Elevated d-dimer #Possible HCAP/asp PNA -admit to in-pt, tele -COVID isolation protocol -elevated d-dimer, 7.0, and CRP -pt currently 2L NC SpO2 96% -COVID PCR ordered -monitor predictive parameters q3d, CRP, d-dimer, lactic acid -BCx ordered -Pulm consulted, recs appreciated -ID consulted, d/w ID, will start pt on abx for presumptive nosocomial and aspiration PNA, Vanc and Zosyn, pharmacy to dose - Will check venous duplex LE. D/w Heme/onc. If Positive then place IVC filter. Anticoagulation contraindicated due to thrombocytopenia. Unable to check CT PA or VQ scan at this time per hospital protocol. Elevated d-dimer suspected due to presumed COVID infection #H/o COPD -currently not in exacerbation -ctm, management as above #HTN #HLD -cont home meds, amlodipine 2.5 mg, atenolol 50 mg, -hold home pravastatin 40 mg qhs due to mildly elevated AST #elevated AST -likely 2/2 to infection #Thrombocytopenia #Hx of Acute Promyelocytic Leukemia -plts 42 today, on 08/29 plts 29 -pt f/u w/Dr. Jose as o/p, on danazol 200 mg PO q daily for thrombocytopenia and tretinoin 10 mg PO BID for APL -medications not on formulary per pharmacy -Heme consulted, Dr. Navarrete consulted, recs appreciated DVT PPx - SCDs for now given low plts Time spent on encounter: 40 mins, 22 on counseling, coordination of care, discussed case w/ Pulm, ID and Heme/Onc. Time of note doesn't reflect time of encounter. Subjective Date patient seen: September 04, 2019 Allergies: Coded Allergies: No Known Allergies (Unverified , 01/19/13) All Systems: reviewed and negative except above - +Cough, SOB, and fatigue Objective Last 24 Hour Vital Signs Date Time Temp Pulse Resp B/P (MAP) Pulse Ox O2 Delivery O2 Flow Rate FiO2 09/04/19 16:00 74 09/04/19 16:00 96.4 92 19 148/66 (93) 97 09/04/19 12:00 97.2 79 20 131/75 (93) 93 09/04/19 12:00 72 09/04/19 09:00 66 120/72 09/04/19 09:00 66 120/72 09/04/19 09:00 Nasal Cannula 2.0 09/04/19 08:00 69 09/04/19 08:00 98.6 69 19 150/77 (101) 93 09/04/19 04:00 66 09/04/19 04:00 98.6 78 18 120/72 (88) 99 09/04/19 00:00 83 09/04/19 00:00 98.9 86 18 116/69 (85) 98 09/03/19 23:51 99.0 09/03/19 21:00 Nasal Cannula 2.0 Intake and Output 09/03/19 09/04/19 19:00 07:00 Intake Total 150 ml Balance 150 ml Intake Oral 150 ml # Voids 2 2 Laboratory Tests 09/04/19 07:05: White Blood Count 6.7, Red Blood Count 4.32L, Hemoglobin 12.4L, Hematocrit 36.1L , Mean Corpuscular Volume 84, Mean Corpuscular Hemoglobin 28.6, Mean Corpuscular Hemoglobin Concent 34.2, Red Cell Distribution Width 13.4, Platelet Count 34L, Mean Platelet Volume 12.6H, Neutrophils (%) (Auto) , Lymphocytes (%) (Auto) , Monocytes (%) (Auto) , Eosinophils (%) (Auto) , Basophils (%) (Auto) , Differential Total Cells Counted 100, Neutrophils % (Manual) 47, Lymphocytes % ( Manual) 20, Monocytes % (Manual) 33H, Eosinophils % (Manual) 0, Basophils % ( Manual) 0, Band Neutrophils 0, Platelet Estimate DecreasedL, Platelet Morphology Normal, Red Blood Cell Morphology Normal, Sodium Level 144, Potassium Level 3.9, Chloride Level 107, Carbon Dioxide Level 24, Anion Gap 13, Blood Urea Nitrogen 15, Creatinine 1.2, Estimat Glomerular Filtration Rate 58.6 , Glucose Level 101, Calcium Level 8.4L, Total Bilirubin 0.7, Aspartate Amino Transf (AST/SGOT) 49H, Alanine Aminotransferase (ALT/SGPT) 42, Alkaline Phosphatase 32L, Total Protein 7.0, Albumin 2.6L, Globulin 4.4, Albumin/ Globulin Ratio 0.6L Height (Feet): 5 Height (Inches): 7.00 Weight (Pounds): 130 General Appearance: WD/WN, alert oriented x3, other - mild distress EENT: PERRL/EOMI, normal ENT inspection Neck: non-tender, normal alignment Cardiovascular: normal peripheral pulses, normal rate, regular rhythm Respiratory/Chest: other - coarse breath sounds bilaterally Abdomen: normal bowel sounds, non tender, soft Edema: other - no LE edema bilaterally Neurologic: automatic 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 September 04, 2019 20:21
[2019-09-05] VITALS: BP 103/61
--- NOTE | 2019-09-05 00:21 | NUR ---
NURSE NOTES: RESTING WELL ON ROUNDS. NAD.
--- NOTE | 2019-09-05 02:45 | Consultation ---
DATE OF CONSULTATION: 09/04/2019 INFECTIOUS DISEASE CONSULTATION ATTENDING PHYSICIAN: Edwardo Langley MD REFERRING PHYSICIAN: Jaida Toure MD REASON FOR CONSULTATION: Possible COVID-19 virus infection and pneumonia, community-acquired pneumonia, UTI, sepsis, fevers. The patient's chief complaint coming to the hospital is sepsis, possible COVID-19 virus infection. HPI: This is a 79-year-old male who comes into [facility]. The patient is febrile. Temperature has consistently been over 101, as high as 101.8 and 101.9. The patient is in COVID-19 virus isolation for possible COVID-19 virus infection. Chest x-ray has a pneumonia in the right lower lobe with infiltrate. The patient currently is on Zosyn and vancomycin to cover pneumonia and sepsis. Infectious disease consultation is requested for antibiotic management. Cultures are pending at this time. Urinalysis was also positive and patient could have UTI in addition to community-acquired pneumonia. The patient will continue vancomycin and Zosyn at this time. Case was communicated with Dr. Toure yesterday. REVIEW OF SYSTEMS: CONSTITUTIONAL: I did not see a central line or Gregorio. He has generalized fatigue, weakness, mostly nonverbal. He did have fevers. HEAD AND NECK: No head pain or neck pain. CARDIAC: No chest pain. GASTROINTESTINAL: No nausea, vomiting, or diarrhea. GENITOURINARY: I did not see a Gregorio. PULMONARY: No significant congestion, shortness of breath, or lot of secretion. There is mild cough and congestion. SKIN: No rash or itching. EXTREMITIES: No pain. NEUROLOGIC: No seizures. Denies fatigue. No obvious focal weakness. PAST MEDICAL HISTORY: Patient has a past medical history of type 2 diabetes, hypertension, COPD, dysphagia, hyperlipidemia, thrombocytopenia, dementia, APL. ALLERGIES: No known drug allergies. No antibiotic allergies. SOCIAL HISTORY: Negative for smoking, alcohol, or drug abuse. FAMILY HISTORY: Noncontributory. Negative for tuberculosis or cancer. MEDICATIONS: Upon reviewing MAR, the patient is on following medications: He is on Norvasc or amlodipine, atenolol, Zosyn, vancomycin, dosed by pharmacy, acetaminophen, bisacodyl, IV fluids. Outside medications noted and reconciliated. PHYSICAL EXAMINATION: VITAL SIGNS: Temperature is 98.6, pulse rate is 69, respiratory rate 19, blood pressure 115/77, and saturation 93% on 2 L. Patient's temperature maximum was 101.9. Highest respiratory rate was as high as 25. GENERAL: Alert. Opens eyes. Mostly nonverbal. HEENT: Oral exam, no thrush. Eye exam, no icterus. Normocephalic. No icterus or thrush. NECK: Supple. No JVD. HEART: Regular. No gallop or murmur. No friction rub. ABDOMEN: Soft. Positive bowel sounds. Nontender. LUNGS: Fairly clear anteriorly with rales at the bases of the right. SKIN: No rash. MUSCULOSKELETAL: No effusions. Legs have without cellulitis. PERIPHERAL VASCULAR: No cyanosis or gangrene. GENITOURINARY: I do not see a Gregorio. LINE SITES: Without phlebitis. NEUROLOGIC: Generalized weakness, responsive, opens eyes. LABORATORY DATA: UA had positive nitrite and 5-10 white blood cells. Creatinine is 1.2. White count 6.7, hemoglobin 12.4. Cultures are pending. Imaging studies show right-sided infiltrate as noted and reviewed. ASSESSMENT AND PLAN: 1. The patient has possible COVID-19 virus infection with high risk because I think he is [place]. In addition, he has fevers with possible COVID-19 virus pneumonia in addition to COVID-19 virus infection. Continue isolation for COVID-19 virus. Check PCR testing. With regard to the pneumonia, he also could have a community-acquired pneumonia, possible aspiration pneumonia, or healthcare-acquired pneumonia. He also could have UTI. He has fevers, SIRS criteria, and sepsis. Continue vancomycin and Zosyn for pneumonia, UTI, pending cultures. Check followup labs and chest x-ray. Continue supportive care for COVID-19 virus infection. Await PCR testing. Continue isolation for COVID-19 virus. No indication of hydroxychloroquine at this time. 2. The patient has type 2 diabetes. 3. COPD. 4. Dysphagia. 5. Aspiration risk. 6. Hyperlipidemia. 7. Hypertension. 8. Diabetes . 9. Thrombocytopenia. 10. APL. 11. No known drug allergies. 12. Social history is negative. 13. Family history noncontributory. 14. MAR was noted. 15. Case discussed with RN. 16. Continue treatment per primary consultants. 17. Case communicated with Dr. Toure. Lb Solo M.D. DR: ODALIS JOB#: [id number] CC:
[2019-09-05 04:00] VITALS: BP 135/75
--- NOTE | 2019-09-05 05:00 | NUR ---
Episodes of SB mid 30's to 40's. Pt sleeping. Asymptomatic. EKG revealed SR 68. Sent to Dr. Matta. no new orders received. Continue to monitor pt.
--- NOTE | 2019-09-05 06:48 | NUR ---
NURSE NOTES: RESTED WELL, AFEBRILE. NAD.
--- NOTE | 2019-09-05 07:02 | NUR ---
HAND-OFF: Report given to LIBBY Ornelas RN.
[2019-09-05 07:34] LABS: ALANINE AMINOTRANSFERASE 50 U/L (12-78); ALBUMIN 2.4 G/DL (3.4-5.0); ALBUMIN/GLOBULIN RATIO 0.5 (1.0-2.7); ALKALINE PHOSPHATASE 35 U/L (46-116); ANION GAP 12 mmol/L (5-15); ASPARTATE AMINO TRANSFERASE 72 U/L (15-37); BILIRUBIN,TOTAL 0.6 MG/DL (0.2-1.0); BLOOD UREA NITROGEN 15 mg/dL (7-18); CALCIUM 8.3 MG/DL (8.5-10.1); CARBON DIOXIDE 25 MMOL/L (21-32); CHLORIDE 109 MMOL/L (98-107); CREATININE 1.2 MG/DL (0.55-1.30); POTASSIUM 4.1 MMOL/L (3.5-5.1); SODIUM 146 MMOL/L (136-145)
[2019-09-05 07:41] LABS: PHOSPHORUS 3.5 MG/DL (2.5-4.9)
[2019-09-05] MEDS: Piperacillin/Tazobactam 3.375 GM in NS 110 ML IVPB SCH ×2 (08:00→16:03)
[2019-09-05 08:07] VITALS: BP 147/80
--- NOTE | 2019-09-05 08:33 | Pulmonology Progress Note ---
Subjective Interval Events: None new Constitutional: Reports: no symptoms HEENT: Repors: no symptoms Respiratory: Reports: no symptoms Cardiovascular: Reports: no symptoms Gastrointestinal/Abdominal: Reports: no symptoms Genitourinary: Reports: no symptoms Allergies: Coded Allergies: No Known Allergies (Unverified , 01/19/13) All Systems: reviewed and negative except above - +Cough, SOB, and fatigue Objective Last 24 Hour Vital Signs Date Time Temp Pulse Resp B/P (MAP) Pulse Ox O2 Delivery O2 Flow Rate FiO2 09/05/19 08:18 Nasal Cannula 2.0 09/05/19 08:07 100.4 88 18 147/80 (102) 97 09/05/19 04:00 72 09/05/19 04:00 98.8 73 22 135/75 (95) 96 09/05/19 00:00 79 09/05/19 00:00 101.7 83 20 103/61 (75) 94 09/04/19 23:31 99.9 09/04/19 21:00 Nasal Cannula 2.0 09/04/19 20:00 97 09/04/19 20:00 102.6 102 28 135/86 (102) 94 09/04/19 16:00 74 09/04/19 16:00 96.4 92 19 148/66 (93) 97 09/04/19 12:00 97.2 79 20 131/75 (93) 93 09/04/19 12:00 72 09/04/19 09:00 66 120/72 09/04/19 09:00 66 120/72 09/04/19 09:00 Nasal Cannula 2.0 Intake and Output 09/04/19 09/05/19 19:00 07:00 Intake Total 367.5 ml 437.5 ml Output Total 1 ml Balance 366.5 ml 437.5 ml Intake Oral 340 ml 300 ml IV Total 27.5 ml 137.5 ml Output Urine Total 1 ml # Voids 1 3 # Bowel Movements 1 General Appearance: no acute distress HEENT: normocephalic Respiratory: chest wall non-tender, lungs clear Cardiovascular: normal peripheral pulses Abdomen: normal bowel sounds Microbiology Date/Time Source Procedure Growth Status 09/03/19 10:58 Blood Blood Culture - Preliminary NO GROWTH AFTER 24 HOURS Resulted 09/03/19 10:35 Blood Blood Culture - Preliminary NO GROWTH AFTER 24 HOURS Resulted Laboratory Tests 09/05/19 05:30: Sodium Level 146H, Potassium Level 4.1, Chloride Level 109H, Carbon Dioxide Level 25, Anion Gap 12, Blood Urea Nitrogen 15, Creatinine 1.2, Estimat Glomerular Filtration Rate 58.6, Glucose Level 106, Calcium Level 8.3L, Phosphorus Level 3.5, Magnesium Level 2.3, Total Bilirubin 0.6, Aspartate Amino Transf (AST/SGOT) 72H, Alanine Aminotransferase (ALT/SGPT) 50, Alkaline Phosphatase 35L, Total Protein 6.8, Albumin 2.4L, Globulin 4.4, Albumin/ Globulin Ratio 0.5L Current Medications Medications (Trade) Dose Ordered Sig/Karlos Route PRN Reason Start Time Stop Time Status Last Admin Dose Admin Acetaminophen (Tylenol) 650 mg Q4H PRN ORAL Mild Pain (Pain Scale 1-3) 09/03/19 11:45 10/03/19 11:44 09/04/19 21:10 Acetaminophen (Tylenol) 650 mg Q4H PRN ORAL Temp >100.5 09/03/19 11:45 10/03/19 11:44 Amlodipine Besylate (Norvasc) 2.5 mg DAILY ORAL 09/04/19 09:00 10/04/19 08:59 09/04/19 09:00 Atenolol (Tenormin) 50 mg DAILY ORAL 09/04/19 09:00 10/04/19 08:59 09/04/19 09:00 Bisacodyl (Dulcolax) 10 mg DAILYPRN PRN RECTAL Constipation 09/03/19 11:45 12/02/19 11:44 Dextrose (Dextrose 50%) 25 ml Q30M PRN IV Hypoglycemia 09/03/19 11:45 12/02/19 11:44 Dextrose (Dextrose 50%) 50 ml Q30M PRN IV Hypoglycemia 09/03/19 11:45 12/02/19 11:44 Docusate Sodium (Colace) 100 mg EVERY 12 HOURS ORAL 09/03/19 21:00 10/03/19 20:59 09/04/19 21:10 Insulin Aspart (NovoLOG) BEFORE MEALS AND HS SUBQ 09/05/19 11:30 12/04/19 11:29 Magnesium Hydroxide (Mom) 30 ml HSPRN PRN ORAL Constipation 09/03/19 11:45 10/03/19 11:44 Piperacillin Sod/ Tazobactam Sod 3.375 gm/Sodium Chloride 110 ml @ 27.5 mls/hr Q8H IVPB 09/03/19 16:00 09/10/19 15:59 09/04/19 23:30 Polyethylene Glycol (Miralax) 17 gm DAILYPRN PRN ORAL Constipation 09/03/19 11:45 10/03/19 11:44 Vancomycin HCl (Vanco rx to dose) 1 ea DAILY PRN MISC Per rx protocol 09/03/19 12:45 10/03/19 12:44 Vancomycin/Sodium Chloride 275 ml @ 183.333 mls/hr Q24H IVPB 09/03/19 15:30 09/08/19 15:29 09/04/19 15:30 Assessment/Plan Assessment/Plan IMPRESSION: 1. Probable COVID-19 pneumonia. 2. Diabetes mellitus. 3. Hypertension. 4. Hyperlipidemia. 5. Thrombocytopenia. DISCUSSION: Continue oxygen and pulmonary hygiene. Agree to isolate, rule out COVID-19. 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 I will order oxygen and pulmonary hygiene. Currently saturating well on 2L/min o2 Tresa Mcclellan Omar Syed MD September 05, 2019 08:33
--- NOTE | 2019-09-05 08:36 | Diagnostic Imaging Report ---
EXAM: XR Chest, 1 View CLINICAL HISTORY: Shortness of breath TECHNIQUE: Frontal view of the chest. COMPARISON: Chest x-ray dated 09/03/19 FINDINGS: Lungs: Hazy opacities/consolidation along the periphery of bilateral lungs, concerning for pneumonia. Pleural space: Unremarkable. The costophrenic angles are sharp. No visible pneumothorax. Heart: Unremarkable. No cardiomegaly. Mediastinum: Unremarkable. Bones/joints: Degenerative changes throughout the visualized spine and shoulder joints. Vasculature: Atherosclerotic calcifications within the aortic arch. Other findings: Transplant telemetry IMPRESSION: Hazy opacities/consolidation along the periphery of bilateral lungs, concerning for pneumonia. Appearance is not significantly changed compared to the prior chest x-ray.
[2019-09-05] MEDS: Docusate 100mg cap ORAL SCH ×2 (09:00→22:19)
[2019-09-05] MEDS: NovoLOG Insulin Flexpen SUBQ SCH ×3 (11:30→22:36)
--- NOTE | 2019-09-05 12:53 | Consultation ---
History of Present Illness General Chief Complaint: Fever Present Illness Allergies: Coded Allergies: No Known Allergies (Unverified , 01/19/13) Medication History Scheduled Amlodipine Besylate* (Amlodipine Besylate*), 2.5 MG ORAL DAILY, (Reported) Atenolol* (Tenormin*), 50 MG ORAL DAILY, (Reported) Ca Cmb 1/Vit D3/B-6/Fa/B12/Av (Vitamin D3-Aloe 1,000 Unit Tab), 2 EACH PO DAILY, (Reported) Clopidogrel* (Clopidogrel*), 75 MG ORAL DAILY, (Reported) Danazol (Danazol), 200 MG ORAL TWICE A DAY, (Reported) Docusate Sodium* (Docusate Sodium*), 100 MG ORAL TWICE A DAY, (Reported) Multivitamin With Minerals (Multivitamins With Minerals*), 1 TAB ORAL DAILY, ( Reported) [place]-3 Fatty Acids/Fish Oil (Fish Oil 1,000 Mg Softgel), 4 CAP ORAL DAILY, ( Reported) Pravastatin Sod (Pravastatin Sod), 40 MG ORAL BEDTIME, (Reported) Sennosides (Cari-Jeremy), 17.2 MG PO BEDTIME, (Reported) Tretinoin (Tretinoin), 10 MG PO TWICE A DAY, (Reported) Scheduled PRN Acetaminophen* (Acetaminophen 325MG Tablet*), 650 MG ORAL Q6H PRN for For Pain, (Reported) Diphenhydramine Hcl* (Benadryl*), 25 MG ORAL Q12HR PRN for Itching, (Reported) Lactulose (Lactulose), 20 GM PO Q12HR PRN for Constipation, (Reported) Discontinued Medications Escitalopram Oxalate (Escitalopram Oxalate*), 20 MG ORAL DAILY, (Reported) Discontinued Reason: Therapy completed Metoprolol Tartrate* (Metoprolol Tartrate*), 25 MG ORAL BID, (Reported) Discontinued Reason: Therapy completed Pravastatin Sod (Pravastatin Sod), 80 MG PO DAILY, (Reported) Discontinued Reason: Therapy completed Patient History Healthcare decision maker Resuscitation status Advanced Directive on File Physical Exam Last 24 Hour Vital Signs Date Time Temp Pulse Resp B/P (MAP) Pulse Ox O2 Delivery O2 Flow Rate FiO2 09/05/19 12:00 85 09/05/19 09:00 88 147/80 09/05/19 09:00 88 147/80 09/05/19 08:18 Nasal Cannula 2.0 09/05/19 08:07 100.4 88 18 147/80 (102) 97 09/05/19 08:00 87 09/05/19 04:00 72 09/05/19 04:00 98.8 73 22 135/75 (95) 96 09/05/19 00:00 79 09/05/19 00:00 101.7 83 20 103/61 (75) 94 09/04/19 23:31 99.9 09/04/19 21:00 Nasal Cannula 2.0 09/04/19 20:00 97 09/04/19 20:00 102.6 102 28 135/86 (102) 94 09/04/19 16:00 74 09/04/19 16:00 96.4 92 19 148/66 (93) 97 Intake and Output 09/04/19 09/05/19 19:00 07:00 Intake Total 367.5 ml 437.5 ml Output Total 1 ml Balance 366.5 ml 437.5 ml Intake Oral 340 ml 300 ml IV Total 27.5 ml 137.5 ml Output Urine Total 1 ml # Voids 1 3 # Bowel Movements 1 Laboratory Tests Test 09/05/19 05:30 Sodium Level 146 MMOL/L (136-145) H Potassium Level 4.1 MMOL/L (3.5-5.1) Chloride Level 109 MMOL/L (98-107) H Carbon Dioxide Level 25 MMOL/L (21-32) Anion Gap 12 mmol/L (5-15) Blood Urea Nitrogen 15 mg/dL (7-18) Creatinine 1.2 MG/DL (0.55-1.30) Estimat Glomerular Filtration Rate 58.6 mL/min (>60) Glucose Level 106 MG/DL (74-106) Calcium Level 8.3 MG/DL (8.5-10.1) L Phosphorus Level 3.5 MG/DL (2.5-4.9) Magnesium Level 2.3 MG/DL (1.8-2.4) Total Bilirubin 0.6 MG/DL (0.2-1.0) Aspartate Amino Transf (AST/SGOT) 72 U/L (15-37) H Alanine Aminotransferase (ALT/SGPT) 50 U/L (12-78) Alkaline Phosphatase 35 U/L (46-116) L Total Protein 6.8 G/DL (6.4-8.2) Albumin 2.4 G/DL (3.4-5.0) L Globulin 4.4 g/dL Albumin/Globulin Ratio 0.5 (1.0-2.7) L Height (Feet): 5 Height (Inches): 7.00 Weight (Pounds): 130 Medications Current Medications Medications (Trade) Dose Ordered Sig/Karlos Route PRN Reason Start Time Stop Time Status Last Admin Dose Admin Acetaminophen (Tylenol) 650 mg Q4H PRN ORAL Mild Pain (Pain Scale 1-3) 09/03/19 11:45 10/03/19 11:44 09/04/19 21:10 Acetaminophen (Tylenol) 650 mg Q4H PRN ORAL Temp >100.5 09/03/19 11:45 10/03/19 11:44 Amlodipine Besylate (Norvasc) 2.5 mg DAILY ORAL 09/04/19 09:00 10/04/19 08:59 09/05/19 09:00 Atenolol (Tenormin) 50 mg DAILY ORAL 09/04/19 09:00 10/04/19 08:59 09/05/19 09:00 Bisacodyl (Dulcolax) 10 mg DAILYPRN PRN RECTAL Constipation 09/03/19 11:45 12/02/19 11:44 Dextrose (Dextrose 50%) 25 ml Q30M PRN IV Hypoglycemia 09/03/19 11:45 12/02/19 11:44 Dextrose (Dextrose 50%) 50 ml Q30M PRN IV Hypoglycemia 09/03/19 11:45 12/02/19 11:44 Docusate Sodium (Colace) 100 mg EVERY 12 HOURS ORAL 09/03/19 21:00 10/03/19 20:59 09/05/19 09:00 Insulin Aspart (NovoLOG) BEFORE MEALS AND HS SUBQ 09/05/19 11:30 12/04/19 11:29 Magnesium Hydroxide (Mom) 30 ml HSPRN PRN ORAL Constipation 09/03/19 11:45 10/03/19 11:44 Piperacillin Sod/ Tazobactam Sod 3.375 gm/Sodium Chloride 110 ml @ 27.5 mls/hr Q8H IVPB 09/03/19 16:00 09/10/19 15:59 09/05/19 08:00 Polyethylene Glycol (Miralax) 17 gm DAILYPRN PRN ORAL Constipation 09/03/19 11:45 10/03/19 11:44 Vancomycin HCl (Vanco rx to dose) 1 ea DAILY PRN MISC Per rx protocol 09/03/19 12:45 10/03/19 12:44 Vancomycin/Sodium Chloride 275 ml @ 183.333 mls/hr Q24H IVPB 09/03/19 15:30 09/08/19 15:29 09/04/19 15:30 Assessment/Plan Assessment/Plan: Hematology Consultation REQ MD: Ochoa Langley DOS: 09/03/2019 RFC: APL HPI 79-year-old male with PMH of T2DM, COPD, dysphasia, HLD, HTN, thrombocytopenia, APL and dementia who presents from longterm for fevers and hypoxia. Patient poor historian due to history of dementia, history obtained via chart review and patient. According to records, patient was found hypoxic at longterm, SPO2 88%, with fevers of 102. Patient has known exposure to COVID as his roommate at the facility was tested COVID positive. Pt currently denies any GRAF, SOB, cough, f/c, CP, abd pain, dysuria, hematuria/hematochezia, pt states he is "thirsty". ED course: On admission, pt w/fever 101.5, thrombocytopenia, and elevated d- dimer. Pt admitted for further treatment and evaluation and for COVID rule out. I have seen him before at [facility] and he has a hx of APL, his usual plt count approx 90-100k PMH: Type II DM, dementia, HLD, HTN, COPD, thrombocytopenia, APL, history of internal hemorrhoids, h/o malignant neoplasm of pyloric antrum, major depressive disorder FH: Reviewed and not pertinent Sx: No surgical history SH: Lives at [facility], no tobacco/ETOH use Coded Allergies: No Known Allergies (Unverified , 01/19/13) COVID-19 Screening Contact w/high risk pt: No Recent Travel to affected area: No Experienced COVID-19 symptoms?: Yes COVID-19 symptoms experienced: Fever (T>100.4F or >38C), Shortness of Breath, Cough Medication History Scheduled Amlodipine Besylate* (Amlodipine Besylate*), 2.5 MG ORAL DAILY, (Reported) Atenolol* (Tenormin*), 50 MG ORAL DAILY, (Reported) Ca Cmb 1/Vit D3/B-6/Fa/B12/Av (Vitamin D3-Aloe 1,000 Unit Tab), 2 EACH PO DAILY , (Reported) Clopidogrel* (Clopidogrel*), 75 MG ORAL DAILY, (Reported) Danazol (Danazol), 200 MG ORAL TWICE A DAY, (Reported) Docusate Sodium* (Docusate Sodium*), 100 MG ORAL TWICE A DAY, (Reported) Escitalopram Oxalate (Escitalopram Oxalate*), 20 MG ORAL DAILY, (Reported) Lactulose (Lactulose), 20 GM PO Q12HR, (Reported) Metoprolol Tartrate* (Metoprolol Tartrate*), 25 MG ORAL BID, (Reported) Multivitamin With Minerals (Multivitamins With Minerals*), 1 TAB ORAL DAILY, ( Reported) [place]-3 Fatty Acids/Fish Oil (Fish Oil 1,000 Mg Softgel), 1 CAP ORAL DAILY, ( Reported) Pravastatin Sod (Pravastatin Sod), 80 MG PO DAILY, (Reported) Pravastatin Sod (Pravastatin Sod), 40 MG ORAL BEDTIME, (Reported) Sennosides (Cari-Jeremy), 17.2 MG PO BEDTIME, (Reported) Tretinoin (Tretinoin), 10 MG PO TWICE A DAY, (Reported) Review of Systems Constitutional: Denies: no symptoms, see HPI, chills, sweats, fever, malaise, weakness, other Eye: Denies: no symptoms, see HPI, eye pain, blurred vision, tearing Respiratory: Denies: no symptoms, see HPI, cough, orthopnea Cardiovascular: Denies: no symptoms, see HPI, chest pain, edema, palpitations, syncope, PND, other Gastrointestinal: Denies: no symptoms, see HPI, abdominal pain Genitourinary: Denies: no symptoms, see HPI, discharge, dysuria Musculoskeletal: Denies: no symptoms, see HPI, back pain Psychiatric: Denies: no symptoms, see HPI, prior hx, anxiety Neurological: Denies: no symptoms, see HPi All Other Systems: negative except Physical Exam Physical Exam Narrative General: NAD, awake, alert, not fully participating in questions HEENT: NCAT, EOMi, dry MM CV: RRR, no murmurs, rubs, or gallops Pulm: CTAB, No wheezes, rhonchi, or rales GI: Soft, nontender, nondistended, bowel sounds present Ext: No lower extremity edema bilaterally Skin: no rashes lesions or ulcers Msk: Joints symmetrical in upper extremity and lower extremity bilaterally Neuro: CN 2-12 grossly intact bilaterally, no focal signs. Labs: noted Imaging: reviewed Assessment and Recs # Thombocytopenia is likely related to APL he has at baseline as well as coivd infection --> trend as needed plt 42k --> abx okay for zosyn and vanc --> smear is noted --> labs reviewed, c/w infection --> ok to continue home apl meds --> if plt less than 20k transfuse # Acute promyelocytic leukemia --> need to obtain hematology number so can contact them re his meds --> okay at this time to resume home meds --> important for next week heme followup --> was on danazol and tretinoin the last time i saw him # Fevers and chills rule out covid --> covid19 testing --> per id # T2DM --> iss and as per endo # COPD # Dysphasia, HLD, HTN The timing of this note does not necessarily reflect the time of the patient was seen. Greatly appreciate consultation. Kashmir Jose MD September 05, 2019 12:53
[2019-09-05 15:17] LABS: HEMATOCRIT 37.5 % (42.0-52.0); HEMOGLOBIN 12.8 G/DL (14.2-18.0); MEAN CORPUSCULAR VOLUME 85 FL (80-99); PLATELET COUNT 42 K/UL (150-450); RED BLOOD COUNT 4.44 M/UL (4.70-6.10); RED CELL DISTRIBUTION WIDTH 13.8 % (11.6-14.8); WHITE BLOOD COUNT 7.5 K/UL (4.8-10.8)
[2019-09-05 16:24] VITALS: BP 135/75
[2019-09-05] MEDS: Vancomycin 750 MG in NS 275 ML IVPB SCH (17:10)
--- NOTE | 2019-09-05 19:19 | General Progress Note ---
Assessment/Plan Assessment/Plan: 79-year-old male with PMH of T2DM, COPD, dysphasia, HLD, HTN, thrombocytopenia, hx of APL and dementia who presents from custodial for fevers and hypoxia. On admission, pt w/fever 101.5, thrombocytopenia, and elevated d-dimer. Pt admitted for further treatment and evaluation and for COVID rule out. #Suspect COVID #Fevers, Hypoxia #Elevated d-dimer #Possible HCAP/asp PNA -admit to in-pt, tele -COVID isolation protocol -elevated d-dimer, 7.0, and CRP -pt currently 2L NC SpO2 96% -COVID PCR ordered - STILL PENDING -monitor predictive parameters q3d, CRP, d-dimer, lactic acid -BCx ordered: Pending -Pulm consulted, recs appreciated -ID consulted, d/w ID, will start pt on abx for presumptive nosocomial and aspiration PNA, Vanc and Zosyn, pharmacy to dose - Will check venous duplex LE. D/w Heme/onc. If Positive then place IVC filter. Anticoagulation contraindicated due to thrombocytopenia. Unable to check CT PA or VQ scan at this time per hospital protocol. Elevated d-dimer suspected due to presumed COVID infection - Unable to also check venous duplex at this time due to COVID still pending #H/o COPD -currently not in exacerbation -ctm, management as above #HTN #HLD -cont home meds, amlodipine 2.5 mg, atenolol 50 mg, -hold home pravastatin 40 mg qhs due to mildly elevated AST #elevated AST -likely 2/2 to infection #Thrombocytopenia #Hx of Acute Promyelocytic Leukemia -plts 42 today, on 08/29 plts 29 -pt f/u w/Dr. Jose as o/p, on danazol 200 mg PO q daily for thrombocytopenia and tretinoin 10 mg PO BID for APL -medications not on formulary per pharmacy -Heme consulted, Dr. Navarrete consulted, recs appreciated DVT PPx - SCDs for now given low plts Time spent on encounter: 38 mins, 21 on counseling, coordination of care, discussed case w/ Pulm, ID and Heme/Onc. Time of note doesn't reflect time of encounter. Subjective Date patient seen: September 05, 2019 Constitutional: Reports: weakness Allergies: Coded Allergies: No Known Allergies (Unverified , 01/19/13) All Systems: reviewed and negative except above - 12 point ROS Subjective Patient feels much better today. Stable on 2L nasal cannula. Venous duplex still pending. Continues to spike fevers. on Broad spectrum abx. Clinically improving. Objective Last 24 Hour Vital Signs Date Time Temp Pulse Resp B/P (MAP) Pulse Ox O2 Delivery O2 Flow Rate FiO2 09/05/19 16:24 98.0 73 22 135/75 (95) 96 09/05/19 16:00 72 09/05/19 12:00 85 09/05/19 09:00 88 147/80 09/05/19 09:00 88 147/80 09/05/19 08:18 Nasal Cannula 2.0 09/05/19 08:07 100.4 88 18 147/80 (102) 97 09/05/19 08:00 87 09/05/19 04:00 72 09/05/19 04:00 98.8 73 22 135/75 (95) 96 09/05/19 00:00 79 09/05/19 00:00 101.7 83 20 103/61 (75) 94 09/04/19 23:31 99.9 09/04/19 21:00 Nasal Cannula 2.0 09/04/19 20:00 97 09/04/19 20:00 102.6 102 28 135/86 (102) 94 Intake and Output 09/04/19 09/05/19 19:00 07:00 Intake Total 367.5 ml 437.5 ml Output Total 1 ml Balance 366.5 ml 437.5 ml Intake Oral 340 ml 300 ml IV Total 27.5 ml 137.5 ml Output Urine Total 1 ml # Voids 1 3 # Bowel Movements 1 Laboratory Tests 09/05/19 05:30: Sodium Level 146H, Potassium Level 4.1, Chloride Level 109H, Carbon Dioxide Level 25, Anion Gap 12, Blood Urea Nitrogen 15, Creatinine 1.2, Estimat Glomerular Filtration Rate 58.6, Glucose Level 106, Calcium Level 8.3L, Phosphorus Level 3.5, Magnesium Level 2.3, Total Bilirubin 0.6, Aspartate Amino Transf (AST/SGOT) 72H, Alanine Aminotransferase (ALT/SGPT) 50, Alkaline Phosphatase 35L, Total Protein 6.8, Albumin 2.4L, Globulin 4.4, Albumin/ Globulin Ratio 0.5L 09/05/19 15:00: White Blood Count 7.5, Red Blood Count 4.44L, Hemoglobin 12.8L, Hematocrit 37.5L , Mean Corpuscular Volume 85, Mean Corpuscular Hemoglobin 28.9, Mean Corpuscular Hemoglobin Concent 34.2, Red Cell Distribution Width 13.8, Platelet Count 42L, Mean Platelet Volume 12.0H, Neutrophils (%) (Auto) , Lymphocytes (%) (Auto) , Monocytes (%) (Auto) , Eosinophils (%) (Auto) , Basophils (%) (Auto) , Differential Total Cells Counted 100, Neutrophils % (Manual) 20L, Lymphocytes % (Manual) 52H, Monocytes % (Manual) 27H, Eosinophils % (Manual) 0, Basophils % ( Manual) 0, Band Neutrophils 1, Nucleated Red Blood Cells 2, Platelet Estimate DecreasedL, Platelet Morphology See comment, Giant Platelets Occasional, Anisocytosis 1+, Hemoglobin A1c 5.9, Vancomycin Level Trough 6.8 Height (Feet): 5 Height (Inches): 7.00 Weight (Pounds): 130 General Appearance: WD/WN, no apparent distress EENT: PERRL/EOMI, normal ENT inspection Neck: non-tender, normal alignment Cardiovascular: normal peripheral pulses, normal rate, regular rhythm Respiratory/Chest: chest wall non-tender, lungs clear, normal breath sounds Abdomen: normal bowel sounds, non tender, soft, no organomegaly, no mass Extremities: normal range of motion, other - no LE edema bilaterally Edema: other - No LE edema bilaterally 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 September 05, 2019 19:19
[2019-09-05 20:00] VITALS: BP 142/73
--- NOTE | 2019-09-05 20:07 | NUR ---
HAND-OFF: Report given to Kirsty Dunn RN. Patient sitting up in bed, awake and alert to name, bed in lowest position, call light within reach, side rails up x 3, on 2 liters nasal cannula, patient is sinus tachycardia, paroxysmal 109 to 130's. Kirsty Dunn RN, contacted Dr. Edwardo Langley's office.
--- NOTE | 2019-09-05 20:10 | NUR ---
HANDOFF REPORT PM Received handoff report from Gene TONY. Pt awake in bed heart rate 109 with episodes increasing rate into 160's non-sustained. Pt asymptomatic. Left page for Dr. Stephens office for call back.
--- NOTE | 2019-09-05 20:20 | NUR ---
NURSING NOTES Received call from on-call Dr. Matta. order received for EKG to be sent directly to . Atenolol 5o mg po after EKG. Pt remains Asymptomatic.
[2019-09-06] VITALS (21 sets, daily range): BP systolic 77–143; BP diastolic 49–87
[2019-09-06] MEDS: Piperacillin/Tazobactam 3.375 GM in NS 110 ML IVPB SCH ×4 (01:07→21:51)
[2019-09-06] MEDS: NovoLOG Insulin Flexpen SUBQ SCH ×4 (06:30→21:00)
[2019-09-06 06:51] LABS: HEMATOCRIT 35.2 % (42.0-52.0); HEMOGLOBIN 12.4 G/DL (14.2-18.0); MEAN CORPUSCULAR VOLUME 83 FL (80-99); PLATELET COUNT 46 K/UL (150-450); RED BLOOD COUNT 4.24 M/UL (4.70-6.10); RED CELL DISTRIBUTION WIDTH 13.5 % (11.6-14.8); WHITE BLOOD COUNT 7.2 K/UL (4.8-10.8)
[2019-09-06] MEDS: Vancomycin 750 MG in NS 275 ML IVPB SCH ×2 (07:04→18:15)
[2019-09-06 07:18] LABS: ALANINE AMINOTRANSFERASE 61 U/L (12-78); ALBUMIN 2.2 G/DL (3.4-5.0); ALBUMIN/GLOBULIN RATIO 0.5 (1.0-2.7); ALKALINE PHOSPHATASE 30 U/L (46-116); ANION GAP 13 mmol/L (5-15); ASPARTATE AMINO TRANSFERASE 94 U/L (15-37); BILIRUBIN,TOTAL 0.6 MG/DL (0.2-1.0); BLOOD UREA NITROGEN 17 mg/dL (7-18); CARBON DIOXIDE 23 MMOL/L (21-32); CHLORIDE 109 MMOL/L (98-107); CREATININE 1.5 MG/DL (0.55-1.30); POTASSIUM 3.8 MMOL/L (3.5-5.1); SODIUM 145 MMOL/L (136-145)
--- NOTE | 2019-09-06 07:30 | NUR ---
HANDOFF REPORT: Verbal report given to Gilda TONY. Endorsed contacted Dr. Matta with EKG's for tachy and [place] episodes, see nurses notes. Pt remains asymptomatic thru out. Denies chest pain or respiratory distress. Enc. deep breathing. O2 sat 91-93%.
--- NOTE | 2019-09-06 07:40 | NUR ---
NURSE NOTES: Received report from CECILY Dunn. The patient is being anxious and agitated. The patient is AOx2, verbal, and able to make needs known but confused. The patient's bed in the lowest position, call light in reach, and fall and aspiration precaution reinforced. IV site on R AC 20G and R FA 22G intact and patent and running antibiotics per order. 2L NC, but oxygen saturation was of 71% noted upon checking the SpO2 during initial assessment. Immediately notified to Dr. Marie and changed oxygen therapy to non-rebreather per order. Oxygen saturation rechecked and checked as 96% on non-rebreather. The patient is incontinent x2 and no skin issue noted. Will continue plan of care. 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 Will closely monitor the patient. Will continue plan of care.
[2019-09-06] MEDS: Docusate 100mg cap ORAL SCH ×2 (08:43→21:00)
--- NOTE | 2019-09-06 09:10 | NUR ---
AMBULATORY CARE COORDINATOR Swallow Evaluation Report (please see complete report in care activity section.) PT REFERRED FOR BEDSIDE SWALLOW EVALUATION BY: Dr. Toure DYSPHAGIA RISK FACTORS FOR THIS 79 Y.O. MALE ACUTE ISSUES: Sepsis, PNA (community acquired vs COVID 19), possible UTI, fatigue, weakness, fever. COMORBIDITIES: Thrombocytopenia, diverticulitis of intestine, malignant neoplasm of pyloric antrum, DM w/ hyperglycemia, hypercholesterolemia, oropharyngeal dysphagia, acute promyelocytic leukemia, hyperlipidemia, HTN, acute promyelocytic leukemias, personal h/o PNA, Dementia, COPD. RELEVANT MEDICATIONS: N/A. POLST: Ok w/ temporary alternative nutrition/hydration and for medication management. RESPIRATORY STATUS: on 3 L nasal cannula, Baseline RR: 21; SP02 91%, SPEECH/LANGUAGE: Pt is able to communicate basic wants and needs, however, responses are delayed and Pt's overall output is limited to short phrases, Pt is irritable. RN REPORTS: Pt was able to swallow PO medications whole w/ o any overt s/s of aspiration. INITIAL IMPRESSIONS: Moderate Oral and probable Moderate Pharyngeal phase Dysphagia compounded by PNA (community acquired vs COVID-19), fatigue, h/o Dementia and COPD r/i poor breathing-swallowing coordination and overt s/s of aspiration w/ all PO trials (thin, nectar thick, puree). Laryngeal elevation is poor per palpations. Given Thin liquids via straw, cup sip, and teaspoon Pt w/ overt s/s of aspiration (coughing), throat clear, and seen w/ multiple swallows. Given Puree solids w/ SP02 drop to 78% (baseline 91%) w/ immediate overt s/s of aspiration, RR increased to 27 bpm. PATIENT IS A RISK FOR SILENT ASPIRATION DUE TO POOR BREATHING SWALLOW COORDINATION, HX OF DEMENTIA, AND OVERALL WEAKNESS. RECOMMENDATIONS: 1. NPO w/ NGT (depending on goals of care; 12 Estonian) for nutrition, hydration, and med management/ 2. PLEASE ASSIST PT W/ ORAL HYGIENE BID w/ SUCTION/ 3. ST TO F/U for PO trials and determine Pt's appropriateness for PO diet. RN Made aware of results and recommendations, oral hygiene needs, and aspiration precautions
--- NOTE | 2019-09-06 09:30 | NUR ---
NURSE NOTES: Notified Dr. Marie regarding abnormal ABG. Awaiting for further order. Will closely monitor the patient. Will continue plan of care.
--- NOTE | 2019-09-06 09:30 | Pulmonology Progress Note ---
Subjective Interval Events: oxygenation worse today Constitutional: Reports: no symptoms HEENT: Repors: no symptoms Respiratory: Reports: dry cough, shortness of breath Cardiovascular: Reports: no symptoms Gastrointestinal/Abdominal: Reports: no symptoms Genitourinary: Reports: no symptoms Allergies: Coded Allergies: No Known Allergies (Unverified , 01/19/13) All Systems: reviewed and negative except above - 12 point ROS Objective Last 24 Hour Vital Signs Date Time Temp Pulse Resp B/P (MAP) Pulse Ox O2 Delivery O2 Flow Rate FiO2 09/06/19 08:43 59 109/63 09/06/19 08:43 59 109/63 09/06/19 04:00 97.9 70 21 99/59 (72) 91 09/06/19 04:00 66 09/06/19 00:01 72 19 131/60 (83) 94 09/06/19 00:00 70 09/06/19 00:00 97.9 09/05/19 23:00 99.5 09/05/19 22:49 109 142/73 09/05/19 22:49 99.5 09/05/19 21:00 Nasal Cannula 2.0 09/05/19 20:00 102.4 109 22 142/73 (96) 89 09/05/19 20:00 116 09/05/19 16:24 98.0 73 22 135/75 (95) 96 09/05/19 16:00 72 09/05/19 12:00 85 Intake and Output 09/05/19 09/06/19 19:00 07:00 Intake Total 339.5 ml 500 ml Output Total 1200 ml Balance -860.5 ml 500 ml Intake Oral 120 ml 500 ml IV Total 219.5 ml Output Urine Total 1200 ml # Voids 3 2 General Appearance: no acute distress HEENT: normocephalic Respiratory: chest wall non-tender, lungs clear Cardiovascular: normal peripheral pulses Abdomen: normal bowel sounds Microbiology Date/Time Source Procedure Growth Status 09/03/19 10:58 Blood Blood Culture - Preliminary Gram Positive Cocci Resulted 09/03/19 10:35 Blood Blood Culture - Preliminary NO GROWTH AFTER 48 HOURS Resulted 09/03/19 11:00 Nasopharynx Coronavirus COVID-19 PCR ([facility]) - Final Complete Laboratory Tests 09/05/19 15:00: White Blood Count 7.5, Red Blood Count 4.44L, Hemoglobin 12.8L, Hematocrit 37.5L , Mean Corpuscular Volume 85, Mean Corpuscular Hemoglobin 28.9, Mean Corpuscular Hemoglobin Concent 34.2, Red Cell Distribution Width 13.8, Platelet Count 42L, Mean Platelet Volume 12.0H, Neutrophils (%) (Auto) , Lymphocytes (%) (Auto) , Monocytes (%) (Auto) , Eosinophils (%) (Auto) , Basophils (%) (Auto) , Differential Total Cells Counted 100, Neutrophils % (Manual) 20L, Lymphocytes % (Manual) 52H, Monocytes % (Manual) 27H, Eosinophils % (Manual) 0, Basophils % ( Manual) 0, Band Neutrophils 1, Nucleated Red Blood Cells 2, Platelet Estimate DecreasedL, Platelet Morphology See comment, Giant Platelets Occasional, Anisocytosis 1+, Hemoglobin A1c 5.9, Vancomycin Level Trough 6.8 09/06/19 05:48: White Blood Count 7.2, Red Blood Count 4.24L, Hemoglobin 12.4L, Hematocrit 35.2L , Mean Corpuscular Volume 83, Mean Corpuscular Hemoglobin 29.3, Mean Corpuscular Hemoglobin Concent 35.3, Red Cell Distribution Width 13.5, Platelet Count 46L, Mean Platelet Volume 12.6H, Neutrophils (%) (Auto) , Lymphocytes (%) (Auto) , Monocytes (%) (Auto) , Eosinophils (%) (Auto) , Basophils (%) (Auto) , Differential Total Cells Counted 100, Neutrophils % (Manual) 29L, Lymphocytes % (Manual) 32, Monocytes % (Manual) 37H, Eosinophils % (Manual) 0, Basophils % ( Manual) 0, Band Neutrophils 2, Platelet Estimate DecreasedL, Platelet Morphology , Giant Platelets Occasional, Red Blood Cell Morphology Normal, Sodium Level 145, Potassium Level 3.8, Chloride Level 109H, Carbon Dioxide Level 23, Anion Gap 13, Blood Urea Nitrogen 17, Creatinine 1.5H, Estimat Glomerular Filtration Rate 45.3, Glucose Level 97, Calcium Level 8.0L, Total Bilirubin 0.6, Aspartate Amino Transf (AST/SGOT) 94H, Alanine Aminotransferase ( ALT/SGPT) 61, Alkaline Phosphatase 30L, Total Protein 6.4, Albumin 2.2L, Globulin 4.2, Albumin/Globulin Ratio 0.5L Current Medications Medications (Trade) Dose Ordered Sig/Karlos Route PRN Reason Start Time Stop Time Status Last Admin Dose Admin Acetaminophen (Tylenol) 650 mg Q4H PRN ORAL Mild Pain (Pain Scale 1-3) 09/03/19 11:45 10/03/19 11:44 09/05/19 22:19 Acetaminophen (Tylenol) 650 mg Q4H PRN ORAL Temp >100.5 09/03/19 11:45 10/03/19 11:44 Amlodipine Besylate (Norvasc) 2.5 mg DAILY ORAL 09/04/19 09:00 10/04/19 08:59 09/05/19 09:00 Atenolol (Tenormin) 50 mg DAILY ORAL 09/04/19 09:00 10/04/19 08:59 09/05/19 09:00 Bisacodyl (Dulcolax) 10 mg DAILYPRN PRN RECTAL Constipation 09/03/19 11:45 12/02/19 11:44 Dextrose (Dextrose 50%) 25 ml Q30M PRN IV Hypoglycemia 09/03/19 11:45 12/02/19 11:44 Dextrose (Dextrose 50%) 50 ml Q30M PRN IV Hypoglycemia 09/03/19 11:45 12/02/19 11:44 Docusate Sodium (Colace) 100 mg EVERY 12 HOURS ORAL 09/03/19 21:00 10/03/19 20:59 09/06/19 08:43 Insulin Aspart (NovoLOG) BEFORE MEALS AND HS SUBQ 09/05/19 11:30 12/04/19 11:29 09/05/19 22:36 Magnesium Hydroxide (Mom) 30 ml HSPRN PRN ORAL Constipation 09/03/19 11:45 10/03/19 11:44 Piperacillin Sod/ Tazobactam Sod 3.375 gm/Sodium Chloride 110 ml @ 27.5 mls/hr Q8H IVPB 09/03/19 16:00 09/10/19 15:59 09/06/19 08:43 Polyethylene Glycol (Miralax) 17 gm DAILYPRN PRN ORAL Constipation 09/03/19 11:45 10/03/19 11:44 Vancomycin HCl (Vanco rx to dose) 1 ea DAILY PRN MISC Per rx protocol 09/03/19 12:45 10/03/19 12:44 Vancomycin HCl 750 mg/Sodium Chloride 275 ml @ 183.333 mls/hr Q12HR@0500,1700 IVPB 09/05/19 17:00 09/10/19 16:59 09/06/19 07:04 Assessment/Plan Assessment/Plan IMPRESSION: 1. Confirmed COVID-19 pneumonia. 2. Diabetes mellitus. 3. Hypertension. 4. Hyperlipidemia. 5. Thrombocytopenia. 6. Worsening oxygenation DISCUSSION: Continue oxygen and pulmonary hygiene. 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 Tresa Mcclellan Omar Syed MD September 06, 2019 09:30
--- NOTE | 2019-09-06 09:59 | NUR ---
RADIOLOGY DEPT., CHEST X-RAY DONE.-P.DYE
--- NOTE | 2019-09-06 10:00 | NUR ---
NURSE NOTES: Morning medication administered as ordered. No acute distress at this time. The patient is on 15L non-rebreather and oxygen saturation is 95%. Will closely monitor the patient. Will continue plan of care. Addendum: 09/06/19 at 2206 by Gómez Ratliff RN Unable to administer Amlodipine and Atenolol as the patient's vital signs were out of parameter. Will closely monitor the patient. Will continue plan of care.
--- NOTE | 2019-09-06 10:06 | Diagnostic Imaging Report ---
Procedure: XRAY Chest 1v Reason for study: Shortness of breath Comparison films: 09/05/2019. FINDINGS: A single one view chest is obtained. Bilateral infiltrates not significantly changed. Cardiac and mediastinal silhouette are within normal limits. CP angles are sharp. The bony thorax appear unremarkable. IMPRESSION: NO SIGNIFICANT CHANGE COMPARED TO PREVIOUS EXAM.
--- NOTE | 2019-09-06 10:27 | Hematology/Onc Progress Note ---
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 Greatly appreciate consultation. Subjective Allergies: Coded Allergies: No Known Allergies (Unverified , 01/19/13) All Systems: reviewed and negative except above Subjective 09/05 remains confused, as per cards, pulm and id recs, with tachycardia, plt stable Objective Objective Current Medications Medications (Trade) Dose Ordered Sig/Karlos Route PRN Reason Start Time Stop Time Status Last Admin Dose Admin Acetaminophen (Tylenol) 650 mg Q4H PRN ORAL Mild Pain (Pain Scale 1-3) 09/03/19 11:45 10/03/19 11:44 09/05/19 22:19 Acetaminophen (Tylenol) 650 mg Q4H PRN ORAL Temp >100.5 09/03/19 11:45 10/03/19 11:44 Amlodipine Besylate (Norvasc) 2.5 mg DAILY ORAL 09/04/19 09:00 10/04/19 08:59 09/05/19 09:00 Atenolol (Tenormin) 50 mg DAILY ORAL 09/04/19 09:00 10/04/19 08:59 09/05/19 09:00 Bisacodyl (Dulcolax) 10 mg DAILYPRN PRN RECTAL Constipation 09/03/19 11:45 12/02/19 11:44 Dextrose (Dextrose 50%) 25 ml Q30M PRN IV Hypoglycemia 09/03/19 11:45 12/02/19 11:44 Dextrose (Dextrose 50%) 50 ml Q30M PRN IV Hypoglycemia 09/03/19 11:45 12/02/19 11:44 Docusate Sodium (Colace) 100 mg EVERY 12 HOURS ORAL 09/03/19 21:00 10/03/19 20:59 09/06/19 08:43 Insulin Aspart (NovoLOG) BEFORE MEALS AND HS SUBQ 09/05/19 11:30 12/04/19 11:29 09/05/19 22:36 Magnesium Hydroxide (Mom) 30 ml HSPRN PRN ORAL Constipation 09/03/19 11:45 10/03/19 11:44 Piperacillin Sod/ Tazobactam Sod 3.375 gm/Sodium Chloride 110 ml @ 27.5 mls/hr Q8H IVPB 09/03/19 16:00 09/10/19 15:59 09/06/19 08:43 Polyethylene Glycol (Miralax) 17 gm DAILYPRN PRN ORAL Constipation 09/03/19 11:45 10/03/19 11:44 Vancomycin HCl (Vanco rx to dose) 1 ea DAILY PRN MISC Per rx protocol 09/03/19 12:45 10/03/19 12:44 Vancomycin HCl 750 mg/Sodium Chloride 275 ml @ 183.333 mls/hr Q12HR@0500,1700 IVPB 09/05/19 17:00 09/10/19 16:59 09/06/19 07:04 Last 24 Hour Vital Signs Date Time Temp Pulse Resp B/P (MAP) Pulse Ox O2 Delivery O2 Flow Rate FiO2 09/06/19 08:43 59 109/63 09/06/19 08:43 59 109/63 09/06/19 04:00 97.9 70 21 99/59 (72) 91 09/06/19 04:00 66 09/06/19 00:01 72 19 131/60 (83) 94 09/06/19 00:00 70 09/06/19 00:00 97.9 09/05/19 23:00 99.5 09/05/19 22:49 109 142/73 09/05/19 22:49 99.5 09/05/19 21:00 Nasal Cannula 2.0 09/05/19 20:00 102.4 109 22 142/73 (96) 89 09/05/19 20:00 116 09/05/19 16:24 98.0 73 22 135/75 (95) 96 09/05/19 16:00 72 09/05/19 12:00 85 09/05/19 09:00 88 147/80 09/05/19 09:00 88 147/80 09/05/19 08:18 Nasal Cannula 2.0 09/05/19 08:07 100.4 88 18 147/80 (102) 97 09/05/19 08:00 87 09/05/19 04:00 72 09/05/19 04:00 98.8 73 22 135/75 (95) 96 09/05/19 00:00 79 09/05/19 00:00 101.7 83 20 103/61 (75) 94 09/04/19 21:00 Nasal Cannula 2.0 09/04/19 20:00 97 09/04/19 20:00 102.6 102 28 135/86 (102) 94 09/04/19 16:00 74 09/04/19 16:00 96.4 92 19 148/66 (93) 97 09/04/19 12:00 97.2 79 20 131/75 (93) 93 09/04/19 12:00 72 Intake and Output 09/05/19 09/06/19 19:00 07:00 Intake Total 339.5 ml 500 ml Output Total 1200 ml Balance -860.5 ml 500 ml Intake Oral 120 ml 500 ml IV Total 219.5 ml Output Urine Total 1200 ml # Voids 3 2 Labs Test 09/03/19 10:58 09/03/19 12:08 09/04/19 07:05 09/05/19 05:30 White Blood Count 9.3 K/UL (4.8-10.8) 6.7 K/UL (4.8-10.8) Red Blood Count 3.92 M/UL (4.70-6.10) 4.32 M/UL (4.70-6.10) Hemoglobin 11.5 G/DL (14.2-18.0) 12.4 G/DL (14.2-18.0) Hematocrit 32.8 % (42.0-52.0) 36.1 % (42.0-52.0) Mean Corpuscular Volume 84 FL (80-99) 84 FL (80-99) Mean Corpuscular Hemoglobin 29.4 PG (27.0-31.0) 28.6 PG (27.0-31.0) Mean Corpuscular Hemoglobin Concent 35.2 G/DL (32.0-36.0) 34.2 G/DL (32.0-36.0) Red Cell Distribution Width 13.3 % (11.6-14.8) 13.4 % (11.6-14.8) Platelet Count 42 K/UL (150-450) 34 K/UL (150-450) Mean Platelet Volume 11.7 FL (6.5-10.1) 12.6 FL (6.5-10.1) Neutrophils (%) (Auto) % (45.0-75.0) % (45.0-75.0) Lymphocytes (%) (Auto) % (20.0-45.0) % (20.0-45.0) Monocytes (%) (Auto) % (1.0-10.0) % (1.0-10.0) Eosinophils (%) (Auto) % (0.0-3.0) % (0.0-3.0) Basophils (%) (Auto) % (0.0-2.0) % (0.0-2.0) Differential Total Cells Counted 100 100 Neutrophils % (Manual) 64 % (45-75) 47 % (45-75) Lymphocytes % (Manual) 13 % (20-45) 20 % (20-45) Monocytes % (Manual) 20 % (1-10) 33 % (1-10) Eosinophils % (Manual) 0 % (0-3) 0 % (0-3) Basophils % (Manual) 0 % (0-2) 0 % (0-2) Band Neutrophils 3 % (0-8) 0 % (0-8) Platelet Estimate Decreased Decreased Platelet Morphology Normal Normal Hypochromasia 1+ Prothrombin Time 10.4 SEC (9.30-11.50) Prothromb Time International Ratio 1.0 (0.9-1.1) Activated Partial Thromboplast Time 21 SEC (23-33) D-Dimer 7.00 mg/L FEU (0.00-0.49) Sodium Level 142 MMOL/L (136-145) 144 MMOL/L (136-145) 146 MMOL/L (136-145) Potassium Level 4.0 MMOL/L (3.5-5.1) 3.9 MMOL/L (3.5-5.1) 4.1 MMOL/L (3.5-5.1) Chloride Level 106 MMOL/L (98-107) 107 MMOL/L (98-107) 109 MMOL/L (98-107) Carbon Dioxide Level 24 MMOL/L (21-32) 24 MMOL/L (21-32) 25 MMOL/L (21-32) Anion Gap 12 mmol/L (5-15) 13 mmol/L (5-15) 12 mmol/L (5-15) Blood Urea Nitrogen 14 mg/dL (7-18) 15 mg/dL (7-18) 15 mg/dL (7-18) Creatinine 1.3 MG/DL (0.55-1.30) 1.2 MG/DL (0.55-1.30) 1.2 MG/DL (0.55-1.30) Estimat Glomerular Filtration Rate 53.4 mL/min (>60) 58.6 mL/min (>60) 58.6 mL/min (>60) Glucose Level 123 MG/DL (74-106) 101 MG/DL (74-106) 106 MG/DL (74-106) Lactic Acid Level 1.60 mmol/L (0.4-2.0) Calcium Level 8.5 MG/DL (8.5-10.1) 8.4 MG/DL (8.5-10.1) 8.3 MG/DL (8.5-10.1) Total Bilirubin 0.6 MG/DL (0.2-1.0) 0.7 MG/DL (0.2-1.0) 0.6 MG/DL (0.2-1.0) Aspartate Amino Transf (AST/SGOT) 43 U/L (15-37) 49 U/L (15-37) 72 U/L (15-37) Alanine Aminotransferase (ALT/SGPT) 45 U/L (12-78) 42 U/L (12-78) 50 U/L (12-78) Alkaline Phosphatase 34 U/L (46-116) 32 U/L (46-116) 35 U/L (46-116) Total Creatine Kinase 57 U/L (26-308) Creatine Kinase MB < 0.5 NG/ML (0.0-3.6) Creatine Kinase MB Relative Index 0.8 Troponin I 0.000 ng/mL (0.000-0.056) C-Reactive Protein, Quantitative 16.8 mg/dL (0.00-0.90) Total Protein 6.9 G/DL (6.4-8.2) 7.0 G/DL (6.4-8.2) 6.8 G/DL (6.4-8.2) Albumin 2.6 G/DL (3.4-5.0) 2.6 G/DL (3.4-5.0) 2.4 G/DL (3.4-5.0) Globulin 4.3 g/dL 4.4 g/dL 4.4 g/dL Albumin/Globulin Ratio 0.6 (1.0-2.7) 0.6 (1.0-2.7) 0.5 (1.0-2.7) Urine Color Yellow Urine Appearance Clear Urine pH 5 (4.5-8.0) Urine Specific [place] 1.015 (1.005-1.035) Urine Protein 3+ (NEGATIVE) Urine Glucose (UA) Negative (NEGATIVE) Urine Ketones 1+ (NEGATIVE) Urine Blood 4+ (NEGATIVE) Urine Nitrite Positive (NEGATIVE) Urine Bilirubin 2+ (NEGATIVE) Urine Ictotest Negative (NEGATIVE) Urine Urobilinogen 12 MG/DL (0.0-1.0) Urine Leukocyte Esterase 2+ (NEGATIVE) Urine RBC 2-4 /HPF (0 - 0) Urine WBC 5-10 /HPF (0 - 0) Urine Squamous Epithelial Cells Few /LPF (NONE/OCC) Urine Bacteria Few /HPF (NONE) Red Blood Cell Morphology Normal Phosphorus Level 3.5 MG/DL (2.5-4.9) Magnesium Level 2.3 MG/DL (1.8-2.4) Test 09/05/19 15:00 09/06/19 05:48 09/06/19 09:16 White Blood Count 7.5 K/UL (4.8-10.8) 7.2 K/UL (4.8-10.8) Red Blood Count 4.44 M/UL (4.70-6.10) 4.24 M/UL (4.70-6.10) Hemoglobin 12.8 G/DL (14.2-18.0) 12.4 G/DL (14.2-18.0) Hematocrit 37.5 % (42.0-52.0) 35.2 % (42.0-52.0) Mean Corpuscular Volume 85 FL (80-99) 83 FL (80-99) Mean Corpuscular Hemoglobin 28.9 PG (27.0-31.0) 29.3 PG (27.0-31.0) Mean Corpuscular Hemoglobin Concent 34.2 G/DL (32.0-36.0) 35.3 G/DL (32.0-36.0) Red Cell Distribution Width 13.8 % (11.6-14.8) 13.5 % (11.6-14.8) Platelet Count 42 K/UL (150-450) 46 K/UL (150-450) Mean Platelet Volume 12.0 FL (6.5-10.1) 12.6 FL (6.5-10.1) Neutrophils (%) (Auto) % (45.0-75.0) % (45.0-75.0) Lymphocytes (%) (Auto) % (20.0-45.0) % (20.0-45.0) Monocytes (%) (Auto) % (1.0-10.0) % (1.0-10.0) Eosinophils (%) (Auto) % (0.0-3.0) % (0.0-3.0) Basophils (%) (Auto) % (0.0-2.0) % (0.0-2.0) Differential Total Cells Counted 100 100 Neutrophils % (Manual) 20 % (45-75) 29 % (45-75) Lymphocytes % (Manual) 52 % (20-45) 32 % (20-45) Monocytes % (Manual) 27 % (1-10) 37 % (1-10) Eosinophils % (Manual) 0 % (0-3) 0 % (0-3) Basophils % (Manual) 0 % (0-2) 0 % (0-2) Band Neutrophils 1 % (0-8) 2 % (0-8) Nucleated Red Blood Cells 2 /100 WBC Platelet Estimate Decreased Decreased Platelet Morphology See comment Giant Platelets Occasional Occasional Anisocytosis 1+ Hemoglobin A1c 5.9 % (4.3-6.0) Vancomycin Level Trough 6.8 ug/mL (5.0-12.0) Red Blood Cell Morphology Normal Sodium Level 145 MMOL/L (136-145) Potassium Level 3.8 MMOL/L (3.5-5.1) Chloride Level 109 MMOL/L (98-107) Carbon Dioxide Level 23 MMOL/L (21-32) Anion Gap 13 mmol/L (5-15) Blood Urea Nitrogen 17 mg/dL (7-18) Creatinine 1.5 MG/DL (0.55-1.30) Estimat Glomerular Filtration Rate 45.3 mL/min (>60) Glucose Level 97 MG/DL (74-106) Calcium Level 8.0 MG/DL (8.5-10.1) Total Bilirubin 0.6 MG/DL (0.2-1.0) Aspartate Amino Transf (AST/SGOT) 94 U/L (15-37) Alanine Aminotransferase (ALT/SGPT) 61 U/L (12-78) Alkaline Phosphatase 30 U/L (46-116) Total Protein 6.4 G/DL (6.4-8.2) Albumin 2.2 G/DL (3.4-5.0) Globulin 4.2 g/dL Albumin/Globulin Ratio 0.5 (1.0-2.7) Arterial Blood pH 7.480 (7.350-7.450) Arterial Blood Partial Pressure CO2 27.2 mmHg (35.0-45.0) Arterial Blood Partial Pressure O2 60.7 mmHg (75.0-100.0) Arterial Blood HCO3 19.8 mmol/L (22.0-26.0) Arterial Blood Oxygen Saturation 90.2 % (95-100) Arterial Blood Base Excess -2.5 (-2-2) Freddie Test Positive Height (Feet): 5 Height (Inches): 7.00 Weight (Pounds): 130 Objective General: NAD, awake, alert, not fully participating in questions HEENT: NCAT, EOMi, dry MM CV: RRR, no murmurs, rubs, or gallops Pulm: CTAB, No wheezes, rhonchi, or rales GI: Soft, nontender, nondistended, bowel sounds present Ext: No lower extremity edema bilaterally Skin: no rashes lesions or ulcers Msk: Joints symmetrical in upper extremity and lower extremity bilaterally Neuro: CN 2-12 grossly intact bilaterally, no focal signs. Kashmir Jose MD September 06, 2019 10:27
--- NOTE | 2019-09-06 11:30 | NUR ---
NURSE NOTES: Blood sugar of 113 noted. Per protocol, Novolog not administered. Will closely monitor the patient. Will continue plan of care.
--- NOTE | 2019-09-06 12:29 | General Progress Note ---
Assessment/Plan Assessment/Plan: 79-year-old male with PMH of T2DM, COPD, dysphasia, HLD, HTN, thrombocytopenia, hx of APL and dementia who presents from assisted for fevers and hypoxia. On admission, pt w/fever 101.5, thrombocytopenia, and elevated d-dimer. #Severe sepsis, present on admission #Acute hypoxic respiratory failure, present on admission #COVID19 positive #Elevated d-dimer #Possible HCAP/asp PNA -Continue inpatient level of care -COVID isolation protocol -elevated d-dimer, 7.0, and CRP -Continue supplemental oxygen -monitor predictive parameters q3d, CRP, d-dimer, lactic acid -Pulm and ID following -Cont vanco and Zosyn #H/o COPD -currently not in exacerbation -ctm, management as above #HTN #HLD -cont home meds, amlodipine 2.5 mg, atenolol 50 mg, -hold home pravastatin 40 mg qhs due to mildly elevated AST #elevated AST -likely 2/2 to infection #Thrombocytopenia #Hx of Acute Promyelocytic Leukemia -pt f/u w/Dr. Jose as o/p, on danazol 200 mg PO q daily for thrombocytopenia and tretinoin 10 mg PO BID for APL -medications not on formulary per pharmacy -Heme eval appreciated DVT PPx - SCDs for now given low plts Time spent on encounter: 35 mins, 20 on counseling, coordination of care, discussed case w/ RN, Pulm, ID and Heme/Onc. I spent an additional 36 minutes on review of medical records including prior hospital records, consult notes, progress notes, procedures, imaging, labs, hemodynamics, and other clinical documentation. Subjective Date patient seen: September 06, 2019 Time patient seen: 12:00 ROS Limited/Unobtainable: Yes Constitutional: Denies: fever Cardiovascular: Denies: chest pain Respiratory: Denies: cough Gastrointestinal/Abdominal: Denies: abdominal pain Allergies: Coded Allergies: No Known Allergies (Unverified , 01/19/13) Subjective Follow up for sepsis, acute hypoxic respiratory failure, COVID19+ Patient remains tenuous, now on NRB mask. Objective Last 24 Hour Vital Signs Date Time Temp Pulse Resp B/P (MAP) Pulse Ox O2 Delivery O2 Flow Rate FiO2 09/06/19 08:43 59 109/63 5/18/20 08:43 59 109/63 09/06/19 08:00 69 09/06/19 04:00 97.9 70 21 99/59 (72) 91 09/06/19 04:00 66 09/06/19 00:01 72 19 131/60 (83) 94 09/06/19 00:00 70 09/06/19 00:00 97.9 09/05/19 23:00 99.5 09/05/19 22:49 109 142/73 09/05/19 22:49 99.5 09/05/19 21:00 Nasal Cannula 2.0 09/05/19 20:00 102.4 109 22 142/73 (96) 89 09/05/19 20:00 116 09/05/19 16:24 98.0 73 22 135/75 (95) 96 09/05/19 16:00 72 Intake and Output 09/05/19 09/06/19 19:00 07:00 Intake Total 339.5 ml 500 ml Output Total 1200 ml Balance -860.5 ml 500 ml Intake Oral 120 ml 500 ml IV Total 219.5 ml Output Urine Total 1200 ml # Voids 3 2 Laboratory Tests 09/05/19 15:00: White Blood Count 7.5, Red Blood Count 4.44L, Hemoglobin 12.8L, Hematocrit 37.5L , Mean Corpuscular Volume 85, Mean Corpuscular Hemoglobin 28.9, Mean Corpuscular Hemoglobin Concent 34.2, Red Cell Distribution Width 13.8, Platelet Count 42L, Mean Platelet Volume 12.0H, Neutrophils (%) (Auto) , Lymphocytes (%) (Auto) , Monocytes (%) (Auto) , Eosinophils (%) (Auto) , Basophils (%) (Auto) , Differential Total Cells Counted 100, Neutrophils % (Manual) 20L, Lymphocytes % (Manual) 52H, Monocytes % (Manual) 27H, Eosinophils % (Manual) 0, Basophils % ( Manual) 0, Band Neutrophils 1, Nucleated Red Blood Cells 2, Platelet Estimate DecreasedL, Platelet Morphology See comment, Giant Platelets Occasional, Anisocytosis 1+, Hemoglobin A1c 5.9, Vancomycin Level Trough 6.8 09/06/19 05:48: White Blood Count 7.2, Red Blood Count 4.24L, Hemoglobin 12.4L, Hematocrit 35.2L , Mean Corpuscular Volume 83, Mean Corpuscular Hemoglobin 29.3, Mean Corpuscular Hemoglobin Concent 35.3, Red Cell Distribution Width 13.5, Platelet Count 46L, Mean Platelet Volume 12.6H, Neutrophils (%) (Auto) , Lymphocytes (%) (Auto) , Monocytes (%) (Auto) , Eosinophils (%) (Auto) , Basophils (%) (Auto) , Differential Total Cells Counted 100, Neutrophils % (Manual) 29L, Lymphocytes % (Manual) 32, Monocytes % (Manual) 37H, Eosinophils % (Manual) 0, Basophils % ( Manual) 0, Band Neutrophils 2, Platelet Estimate DecreasedL, Platelet Morphology , Giant Platelets Occasional, Red Blood Cell Morphology Normal, Sodium Level 145, Potassium Level 3.8, Chloride Level 109H, Carbon Dioxide Level 23, Anion Gap 13, Blood Urea Nitrogen 17, Creatinine 1.5H, Estimat Glomerular Filtration Rate 45.3, Glucose Level 97, Calcium Level 8.0L, Total Bilirubin 0.6, Aspartate Amino Transf (AST/SGOT) 94H, Alanine Aminotransferase ( ALT/SGPT) 61, Alkaline Phosphatase 30L, Total Protein 6.4, Albumin 2.2L, Globulin 4.2, Albumin/Globulin Ratio 0.5L 09/06/19 09:16: Arterial Blood pH 7.480H, Arterial Blood Partial Pressure CO2 27.2L, Arterial Blood Partial Pressure O2 60.7L, Arterial Blood HCO3 19.8L, Arterial Blood Oxygen Saturation 90.2L, Arterial Blood Base Excess -2.5L, Freddie Test Positive Height (Feet): 5 Height (Inches): 7.00 Weight (Pounds): 130 General Appearance: alert Neck: normal alignment, supple Cardiovascular: normal rate, regular rhythm Respiratory/Chest: lungs clear, normal breath sounds, no respiratory distress, no accessory muscle use Abdomen: non tender, soft Seth Mullen MD September 06, 2019 12:29
--- NOTE | 2019-09-06 12:30 | NUR ---
NURSE NOTES: Paged Dr. Marie regarding abnormal ABG again and oxygen saturation of 88-95% on 15L non-rebreather. The patient is confused and tachypnic. Dr. Marie ordered the patient to be transferred to ICU for intubation. Notified to charge nurse and incinerator plant supervisor. Will continue plan of care until transfer to ICU.
--- NOTE | 2019-09-06 12:55 | NUR ---
CASE MANAGEMENT:REVIEW 79 YR OLD MALE BIBA FROM [facility] CC: FEVER AND DESATURATION SI: SEPSIS. SUSPECTED COVID 19 FEVER. HYPOXIA 101.8 74 20 108/58 92% ON RA H/H-11.5/32.8 PLT-42 PH-7.48 PCO2-27.2 PO2-60.7 HCO3-19.8 IS: BLOOD CX CHEST XRAY : TO TELEMETRY 09/06/19 SI: COVID 19 PNA H/O PROMYELOCYTIC LEUKEMIA TEMP 103.4 AND 99.5 LAST NIGHT 97.9 70 21 99/59 91% ON 2L/NC H/H-12.4/35.2 PLT-46 CR+1.5 IS: IV VANCOMYCIN Q12 IV ZOSYN Q8HRS NORVASC PO QD ATENOLOL PO QD : TELEMETRY STATUS DCP: FROM [facility] PLAN: TRANSFER TO ICU
--- NOTE | 2019-09-06 13:30 | NUR ---
NURSE NOTES: The patient is still agitated and confused. The patient is on 15L non-rebreather and saturation fluctuating from 90-93%. Awaiting from the bed to be transferred to ICU. Will closely monitor the patient until transfer. Will continue plan of care.
--- NOTE | 2019-09-06 14:06 | Consultation ---
History of Present Illness General Chief Complaint: Fever Reason for Consultation: ALEXUS Present Illness HPI This is a 79 addison old male with past medical history of T2DM, COPD, dysphasia, HLD, HTN, thrombocytopenia, APL and dementia who presents from [facility] for fevers and hypoxia. Patient poor historian due to history of dementia, history obtained via chart review and patient. According to records, patient was found hypoxic at [facility], SPO2 88%, with fevers of 102. Patient has known exposure to COVID as his roommate at the facility was tested COVID positive. ED course: On admission, pt w/fever 101.5, thrombocytopenia, and elevated d- dimer. Pt admitted for further treatment and evaluation and for COVID rule out. PMH: Type II DM, dementia, HLD, HTN, COPD, thrombocytopenia, APL, history of internal hemorrhoids, h/o malignant neoplasm of pyloric antrum, major depressive disorder chest xray: Bilateral infiltrates not significantly changed. Cardiac and mediastinal silhouette are within normal limits. CP angles are sharp. The bony thorax appear unremarkable. Allergies: Coded Allergies: No Known Allergies (Unverified , 01/19/13) Medication History Scheduled Amlodipine Besylate* (Amlodipine Besylate*), 2.5 MG ORAL DAILY, (Reported) Atenolol* (Tenormin*), 50 MG ORAL DAILY, (Reported) Ca Cmb 1/Vit D3/B-6/Fa/B12/Av (Vitamin D3-Aloe 1,000 Unit Tab), 2 EACH PO DAILY, (Reported) Clopidogrel* (Clopidogrel*), 75 MG ORAL DAILY, (Reported) Danazol (Danazol), 200 MG ORAL TWICE A DAY, (Reported) Docusate Sodium* (Docusate Sodium*), 100 MG ORAL TWICE A DAY, (Reported) Multivitamin With Minerals (Multivitamins With Minerals*), 1 TAB ORAL DAILY, ( Reported) [place]-3 Fatty Acids/Fish Oil (Fish Oil 1,000 Mg Softgel), 4 CAP ORAL DAILY, ( Reported) Pravastatin Sod (Pravastatin Sod), 40 MG ORAL BEDTIME, (Reported) Sennosides (Cari-Jeremy), 17.2 MG PO BEDTIME, (Reported) Tretinoin (Tretinoin), 10 MG PO TWICE A DAY, (Reported) Scheduled PRN Acetaminophen* (Acetaminophen 325MG Tablet*), 650 MG ORAL Q6H PRN for For Pain, (Reported) Diphenhydramine Hcl* (Benadryl*), 25 MG ORAL Q12HR PRN for Itching, (Reported) Lactulose (Lactulose), 20 GM PO Q12HR PRN for Constipation, (Reported) Discontinued Medications Escitalopram Oxalate (Escitalopram Oxalate*), 20 MG ORAL DAILY, (Reported) Discontinued Reason: Therapy completed Metoprolol Tartrate* (Metoprolol Tartrate*), 25 MG ORAL BID, (Reported) Discontinued Reason: Therapy completed Pravastatin Sod (Pravastatin Sod), 80 MG PO DAILY, (Reported) Discontinued Reason: Therapy completed Patient History Limited by: medical condition History Provided By: Medical Record Healthcare decision maker Resuscitation status Advanced Directive on File Physical Exam Physical Exam Narrative General Appearance: alert Neck: normal alignment, supple Cardiovascular: normal rate, regular rhythm Respiratory/Chest: lungs clear, normal breath sounds, no respiratory distress, no accessory muscle use Abdomen: non tender, soft Last 24 Hour Vital Signs Date Time Temp Pulse Resp B/P (MAP) Pulse Ox O2 Delivery O2 Flow Rate FiO2 09/06/19 08:43 59 109/63 09/06/19 08:43 59 109/63 09/06/19 08:00 69 09/06/19 04:00 97.9 70 21 99/59 (72) 91 09/06/19 04:00 66 09/06/19 00:01 72 19 131/60 (83) 94 09/06/19 00:00 70 09/06/19 00:00 97.9 09/05/19 23:00 99.5 09/05/19 22:49 109 142/73 09/05/19 22:49 99.5 09/05/19 21:00 Nasal Cannula 2.0 09/05/19 20:00 102.4 109 22 142/73 (96) 89 09/05/19 20:00 116 09/05/19 16:24 98.0 73 22 135/75 (95) 96 09/05/19 16:00 72 Intake and Output 09/05/19 09/06/19 19:00 07:00 Intake Total 339.5 ml 500 ml Output Total 1200 ml Balance -860.5 ml 500 ml Intake Oral 120 ml 500 ml IV Total 219.5 ml Output Urine Total 1200 ml # Voids 3 2 Laboratory Tests Test 09/05/19 15:00 09/06/19 05:48 09/06/19 09:16 White Blood Count 7.5 K/UL (4.8-10.8) 7.2 K/UL (4.8-10.8) Red Blood Count 4.44 M/UL (4.70-6.10) L 4.24 M/UL (4.70-6.10) L Hemoglobin 12.8 G/DL (14.2-18.0) L 12.4 G/DL (14.2-18.0) L Hematocrit 37.5 % (42.0-52.0) L 35.2 % (42.0-52.0) L Mean Corpuscular Volume 85 FL (80-99) 83 FL (80-99) Mean Corpuscular Hemoglobin 28.9 PG (27.0-31.0) 29.3 PG (27.0-31.0) Mean Corpuscular Hemoglobin Concent 34.2 G/DL (32.0-36.0) 35.3 G/DL (32.0-36.0) Red Cell Distribution Width 13.8 % (11.6-14.8) 13.5 % (11.6-14.8) Platelet Count 42 K/UL (150-450) L 46 K/UL (150-450) L Mean Platelet Volume 12.0 FL (6.5-10.1) H 12.6 FL (6.5-10.1) H Neutrophils (%) (Auto) % (45.0-75.0) % (45.0-75.0) Lymphocytes (%) (Auto) % (20.0-45.0) % (20.0-45.0) Monocytes (%) (Auto) % (1.0-10.0) % (1.0-10.0) Eosinophils (%) (Auto) % (0.0-3.0) % (0.0-3.0) Basophils (%) (Auto) % (0.0-2.0) % (0.0-2.0) Differential Total Cells Counted 100 100 Neutrophils % (Manual) 20 % (45-75) L 29 % (45-75) L Lymphocytes % (Manual) 52 % (20-45) H 32 % (20-45) Monocytes % (Manual) 27 % (1-10) H 37 % (1-10) H Eosinophils % (Manual) 0 % (0-3) 0 % (0-3) Basophils % (Manual) 0 % (0-2) 0 % (0-2) Band Neutrophils 1 % (0-8) 2 % (0-8) Nucleated Red Blood Cells 2 /100 WBC Platelet Estimate Decreased L Decreased L Platelet Morphology See comment Giant Platelets Occasional Occasional Anisocytosis 1+ Hemoglobin A1c 5.9 % (4.3-6.0) Vancomycin Level Trough 6.8 ug/mL (5.0-12.0) Red Blood Cell Morphology Normal Sodium Level 145 MMOL/L (136-145) Potassium Level 3.8 MMOL/L (3.5-5.1) Chloride Level 109 MMOL/L (98-107) H Carbon Dioxide Level 23 MMOL/L (21-32) Anion Gap 13 mmol/L (5-15) Blood Urea Nitrogen 17 mg/dL (7-18) Creatinine 1.5 MG/DL (0.55-1.30) H Estimat Glomerular Filtration Rate 45.3 mL/min (>60) Glucose Level 97 MG/DL (74-106) Calcium Level 8.0 MG/DL (8.5-10.1) L Total Bilirubin 0.6 MG/DL (0.2-1.0) Aspartate Amino Transf (AST/SGOT) 94 U/L (15-37) H Alanine Aminotransferase (ALT/SGPT) 61 U/L (12-78) Alkaline Phosphatase 30 U/L (46-116) L Total Protein 6.4 G/DL (6.4-8.2) Albumin 2.2 G/DL (3.4-5.0) L Globulin 4.2 g/dL Albumin/Globulin Ratio 0.5 (1.0-2.7) L Arterial Blood pH 7.480 (7.350-7.450) Arterial Blood Partial Pressure CO2 27.2 mmHg (35.0-45.0) L Arterial Blood Partial Pressure O2 60.7 mmHg (75.0-100.0) L Arterial Blood HCO3 19.8 mmol/L (22.0-26.0) L Arterial Blood Oxygen Saturation 90.2 % (95-100) L Arterial Blood Base Excess -2.5 (-2-2) L Freddie Test Positive Height (Feet): 5 Height (Inches): 7.00 Weight (Pounds): 130 Medications Current Medications Medications (Trade) Dose Ordered Sig/Karlos Route PRN Reason Start Time Stop Time Status Last Admin Dose Admin Acetaminophen (Tylenol) 650 mg Q4H PRN ORAL Mild Pain (Pain Scale 1-3) 09/03/19 11:45 10/03/19 11:44 09/05/19 22:19 Acetaminophen (Tylenol) 650 mg Q4H PRN ORAL Temp >100.5 09/03/19 11:45 10/03/19 11:44 Amlodipine Besylate (Norvasc) 2.5 mg DAILY ORAL 09/04/19 09:00 10/04/19 08:59 09/05/19 09:00 Atenolol (Tenormin) 50 mg DAILY ORAL 09/04/19 09:00 10/04/19 08:59 09/05/19 09:00 Bisacodyl (Dulcolax) 10 mg DAILYPRN PRN RECTAL Constipation 09/03/19 11:45 12/02/19 11:44 Dextrose (Dextrose 50%) 25 ml Q30M PRN IV Hypoglycemia 09/03/19 11:45 12/02/19 11:44 Dextrose (Dextrose 50%) 50 ml Q30M PRN IV Hypoglycemia 09/03/19 11:45 12/02/19 11:44 Docusate Sodium (Colace) 100 mg EVERY 12 HOURS ORAL 09/03/19 21:00 10/03/19 20:59 09/06/19 08:43 Insulin Aspart (NovoLOG) BEFORE MEALS AND HS SUBQ 09/05/19 11:30 12/04/19 11:29 09/05/19 22:36 Magnesium Hydroxide (Mom) 30 ml HSPRN PRN ORAL Constipation 09/03/19 11:45 10/03/19 11:44 Piperacillin Sod/ Tazobactam Sod 3.375 gm/Sodium Chloride 110 ml @ 27.5 mls/hr Q8H IVPB 09/03/19 16:00 09/10/19 15:59 09/06/19 08:43 Polyethylene Glycol (Miralax) 17 gm DAILYPRN PRN ORAL Constipation 09/03/19 11:45 10/03/19 11:44 Vancomycin HCl (Vanco rx to dose) 1 ea DAILY PRN MISC Per rx protocol 09/03/19 12:45 10/03/19 12:44 Vancomycin HCl 750 mg/Sodium Chloride 275 ml @ 183.333 mls/hr Q12HR@0500,1700 IVPB 09/05/19 17:00 09/10/19 16:59 09/06/19 07:04 Assessment/Plan Diagnosis Bonifay I: #Acute kidney injury due to pre- renal azotemia- concerns for vanco toxicity #COVID infection #Hypoxemic respiratory failure #pneumonia #T2DM # COPD #Dysphasia #HLD #HTN #thrombocytopenia, #APL #dementia #hypoalbuminemia - check urine chem - check urine microscopy - on vanco and zosyn - avoid supratherapeutic level - consider switching vanco if Cr continues to rise - avoid nephrooxins - strict I&Os - monitor weights - Defer renal imaging for now - continue atenolol 50mg daily - continue amlodipine 2.5mg daily - monitor BP closely - check BMP, mag and phos daily Time spent 70min, more than 50% on care coordination and counseling Janelle Guzman M.D. September 06, 2019 14:06
--- NOTE | 2019-09-06 14:30 | NUR ---
NURSE NOTES: The patient's mental status is same as before. The patient is on 15L non-rebreather and saturation is 88-95%. Bed bath given and cleaned the patient's bowel movement. Awaiting for bed to be transferred to ICU. Will continue plan of care until transfer.
--- NOTE | 2019-09-06 15:00 | NUR ---
NURSE NOTES: The patient got safely transferred to ICU [id number] for intubation based on Dr. Marie's order. Paged Dr. Marie so that Dr. Marie can contact ERMD for intubation procedure. Notified Angelica critical care chargemaster specialist regarding communication made with Dr. Marie. Will continue plan of care and follow up the status for intubation. Will continue plan of care.
--- NOTE | 2019-09-06 16:00 | NUR ---
NURSE NOTES: Still awaiting for ERMD to come for intubation procedure. Called ED to follow up the status and was told that ERMD was notified regarding the patient's intubation and will come up as soon as possible. The patient is still on 15L non-rebreather and saturation is 90-92%. Will closely monitor the patient. Will continue plan of care.
[2019-09-06] MEDS ORDERED: Acetaminophen 650 MG SUPP RECTAL PRN (16:30)
--- NOTE | 2019-09-06 16:30 | NUR ---
NURSE NOTES: Medication administered per order. Per protocol, Novolog not administered as the patient's blood glucose is within normal range. Will closely monitor the patient. Will continue plan of care.
--- NOTE | 2019-09-06 17:00 | NUR ---
NURSE NOTES: PRN rectal Tylenol administered per order due to fever. Cooling measure applied to the patient for fever. Will recheck the body temperature. Will continue plan of care.
--- NOTE | 2019-09-06 17:20 | NUR ---
NURSE NOTES: ADRID at the bedside for intubation. CECILY Milligan administered following medication prior to intubation: Etomidate 20mg IVP and Rocuronium 100mg IVP. The patient got safely intubated at the bedside by ERMD, and RT set up the ventilator setting as follows: ETT 7.5, 23 @ Lipline, AC 16, TV 450, PEEP 5, FiO2 100%. Will closely monitor the patient. Will continue plan of care.
--- NOTE | 2019-09-06 17:30 | NUR ---
NURSE NOTES: Rechecked the patient's body temperature. Body temperature dropped from 100.6F to 99.5F. Will closely monitor the patient. Will continue plan of care.
--- NOTE | 2019-09-06 18:00 | NUR ---
NURSE NOTES: Dr. Keys at the bedside assessed the patient. Notified Dr. Keys regarding fever today. Dr. Keys will make further review and give orders. Will closely monitor the patient. Will continue plan of care.
--- NOTE | 2019-09-06 18:20 | NUR ---
NURSE NOTES: Notified Dr. Marie regarding abnormal ABG 1hour s/p intubation. Awaiting for response. No new order at this time. Will closely monitor the patient. Will continue plan of care.
--- NOTE | 2019-09-06 18:30 | NUR ---
NURSE NOTES: The patient is tolerating vent setting well. Will closely monitor the patient. Will continue plan of care.
--- NOTE | 2019-09-06 18:30 | Diagnostic Imaging Report ---
EXAM: XR Chest, 1 View CLINICAL HISTORY: Tube placement TECHNIQUE: Frontal view of the chest. COMPARISON: 09/06/19 at 0939 hours. FINDINGS: Interval intubation. The tip of the endotracheal tube is appropriately positioned, projecting 2.2 cm above the delroy. Redemonstrated extensive pulmonary parenchymal consolidation, most pronounced in the upper lobes, right greater than left. Atypical gas densities projecting over the right upper arm. I spoke with the nurse, who states there isn't been a procedure in this area. This could be from overlying materials. Recommend a single frontal humerus view with all materials removed to ensure that there are sternotomy more sinister process such as gas-forming infection. IMPRESSION: Appropriately positioned ET tube. Stable upper lobe-predominant airspace consolidation. Recommend frontal right humerus radiograph with removal of any overlying materials to exclude soft tissue gas. <MYCVCSECTION> Communications: 09/06/19 18:25 Call Nurse charge poster ALma
--- NOTE | 2019-09-06 18:49 | NUR ---
NURSE NOTES: Dr. Aguila ordered bilateral soft wrist restraints for pulling out the certified medical technician. Applied bilateral soft wrist restraints per order. The patient is stable at this time. Will closely monitor the patient.
--- NOTE | 2019-09-06 19:00 | Emergency Room Report ---
Physical Exam Vital Signs Date Time Temp Pulse Resp B/P (MAP) Pulse Ox O2 Delivery O2 Flow Rate FiO2 09/03/19 10:42 101.8 74 20 132/62 (85) 92 Room Air 09/03/19 10:50 2.0 09/06/19 17:19 100 Medical Decision Making Diagnostic Impression: Primary Impression: Suspected 2019 novel coronavirus infection Additional Impressions: Fever Hypoxia ER Course Called to the ICU for emergency intubation of patient for respiratory failure. Full PPE was warned by me, nursing staff and respiratory therapy. Patient was successfully intubated on first attempt with a 7.5 endotracheal tube secured at 24 cm at the lip. Intubated using glide scope with direct visualization of tube passing through the cords. Post procedure x-ray shows ET tube is in appropriate position. Remainder of care per ICU team. Recall as needed. Last Vital Signs Date Time Temp Pulse Resp B/P (MAP) Pulse Ox O2 Delivery O2 Flow Rate FiO2 09/06/19 17:19 113 16 100 Mechanical Ventilator 100 09/06/19 17:13 99.5 09/06/19 08:43 109/63 09/05/19 21:00 2.0 Disposition: ADMITTED INPATIENT Condition: Serious Referrals: Edwardo Langley MD (PCP) Procedures Intubation Intubation : Consent: Emergent Intubation Method: orotracheal Tube Size (cm): 7.5 Medications: Etomidate, Rocuronium Breath Sounds after Intubation: equal Intubation Complications: no complications Post Intubation Xray: Yes Progress/Xray Impression: Endotracheal tube in position above the delroy Attempts: One Patient Tolerated: Well Complications: None Niels Vela MD September 06, 2019 19:00
--- NOTE | 2019-09-06 19:20 | NUR ---
HAND-OFF: Report given to CECILY Gaytan. The patient is resting on the bed without acute distress or shortness of breath. The patient's bed in the lowest position, call light in reach, and fall and aspiration precaution reinforced. The patient is on following vent setting: ETT 7.5, 23 @ lip line, AC 16, TV 450, PEEP 5, FiO2 100%, and oxygen saturation is 100%. Bilateral soft wrist restraints on per order and skin and circulation intact. IV site on R AC 20G, R FA 22G, and L hand 20G intact and patent. Condom cath draining by gravity and intact. Asked CECILY Gaytan to follow up followings: diet and abnormal chest x-ray and recommendation from x-ray department for frontal right arm humurus 1 view x-ray. Endorsed plan of care.
--- NOTE | 2019-09-06 19:30 | NUR ---
NURSE NOTES: Received pt from CECILY Vo. pt is observed in bed, nonverbal, no s/sx of pain noted at this time. pt is intubated: ET tube: 7.5, 24 cm at lip line, AC: 16, VT: 450, FiO2: 100%; no s/sx of respiratory distress noted at this time. no acute cardiac distress noted at this time. condom catheter applied to patient. RAC 20 G, LH 20 G, RFA 22 G IV sites are patent and intact, asymptomatic. bed in lowest position and locked, siderails up X3, all needs attended to. will continue to monitor. will follow up with MD regarding sedation and diet.
--- NOTE | 2019-09-06 19:52 | NUR ---
NURSE NOTES: left message with Dr. Aguila's answering service regarding order for sedation and diet. awaiting call back.
--- NOTE | 2019-09-06 19:56 | NUR ---
NURSE NOTES: Received call from Dr. Matta to follow up with Dr. Marie regarding sedation and diet orders.
--- NOTE | 2019-09-06 19:58 | Infectious Diseases Prog Note ---
Assessment/Plan Assessment/Plan ASSESSMENT AND PLAN: 1. covid-19 virus infection/pna, ? aspiration pna/HCAP, ? cap, sepsis, respiratory failure, vent, fevers, leukocytosis ? gram + bacteremia, ? uti, + ua - vancomycin and zosyn - f/u on sputum culture, bc, uc, labs and chest x-ray - continue supportive care - d/w RN 2. respiratory failure, vent, icu care 3. COPD. 4. Dysphagia. 5. Aspiration risk. 6. Hyperlipidemia. 7. Hypertension - treatment per primary team 8. Diabetes type 2- tx per primary team 9. Thrombocytopenia. 10. APL. 11. No known drug allergies. 12. Social history is negative. 13. Family history noncontributory. 14. MAR was noted. 15. Case discussed with RN. 16. Continue treatment per primary consultants. 17. Case communicated with primary care team Subjective Constitutional: Reports: fever, fatigue, other - on vent, no pressors HEENT: Denies: congestion Respiratory: Denies: shortness of breath Cardiovascular: Reports: other - no pressors Gastrointestinal/Abdominal: Denies: nausea, vomiting, diarrhea Genitourinary: Reports: other - + sales Neurologic: Reports: weakness, other - lethargic Psychiatric: Reports: other - NA Skin: Denies: rash Hematologic: Denies: bleeding Musculoskeletal: Denies: pain Allergies: Coded Allergies: No Known Allergies (Unverified , 01/19/13) Objective Vital Signs Last 24 Hour Vital Signs Date Time Temp Pulse Resp B/P (MAP) Pulse Ox O2 Delivery O2 Flow Rate FiO2 09/06/19 19:43 113 18 100 09/06/19 17:19 113 16 100 Mechanical Ventilator 100 09/06/19 17:19 113 16 100 09/06/19 17:13 99.5 09/06/19 08:43 59 109/63 09/06/19 08:43 59 109/63 09/06/19 08:00 69 09/06/19 04:00 97.9 70 21 99/59 (72) 91 09/06/19 04:00 66 09/06/19 00:01 72 19 131/60 (83) 94 09/06/19 00:00 70 09/06/19 00:00 97.9 09/05/19 23:00 99.5 09/05/19 22:49 109 142/73 09/05/19 22:49 99.5 09/05/19 21:00 Nasal Cannula 2.0 09/05/19 20:00 102.4 109 22 142/73 (96) 89 09/05/19 20:00 116 Height (Feet): 5 Height (Inches): 7.00 Weight (Pounds): 130 General Appearance: no acute distress HEENT: normocephalic, atraumatic, anicteric, mucous membranes moist Respiratory/Chest: crackles/rales, rhonchi - bilaterally Cardiovascular: normal rate, regular rhythm, no gallop/murmur, no JVD Abdomen: normal bowel sounds, soft, non tender, no organomegaly, non distended Genitourinary: other - + sales - urine clear Extremities: no cyanosis Skin: no rash Neurologic/Psychiatric: paperhanger contractor II-XII grossly normal, other - sedated, weak Lymphatic: no neck adenopathy Musculoskeletal: no effusion Objective CLINICAL HISTORY: Tube placement TECHNIQUE: Frontal view of the chest. COMPARISON: 09/06/19 at 0939 hours. FINDINGS: Interval intubation. The tip of the endotracheal tube is appropriately positioned, projecting 2.2 cm above the delroy. Redemonstrated extensive pulmonary parenchymal consolidation, most pronounced in the upper lobes, right greater than left. Atypical gas densities projecting over the right upper arm. I spoke with the nurse, who states there isn't been a procedure in this area. This could be from overlying materials. Recommend a single frontal humerus view with all materials removed to ensure that there are sternotomy more sinister process such as gas-forming infection. IMPRESSION: Appropriately positioned ET tube. Stable upper lobe-predominant airspace consolidation. Microbiology Date/Time Source Procedure Growth Status 09/03/19 10:58 Blood Blood Culture - Preliminary Gram Positive Cocci Resulted 09/03/19 11:00 Nasopharynx Coronavirus COVID-19 PCR ([facility]) - Final Complete covid - pcr test + Laboratory Tests Test 09/06/19 05:48 09/06/19 09:16 09/06/19 18:10 White Blood Count 7.2 K/UL (4.8-10.8) Red Blood Count 4.24 M/UL (4.70-6.10) L Hemoglobin 12.4 G/DL (14.2-18.0) L Hematocrit 35.2 % (42.0-52.0) L Mean Corpuscular Volume 83 FL (80-99) Mean Corpuscular Hemoglobin 29.3 PG (27.0-31.0) Mean Corpuscular Hemoglobin Concent 35.3 G/DL (32.0-36.0) Red Cell Distribution Width 13.5 % (11.6-14.8) Platelet Count 46 K/UL (150-450) L Mean Platelet Volume 12.6 FL (6.5-10.1) H Neutrophils (%) (Auto) % (45.0-75.0) Lymphocytes (%) (Auto) % (20.0-45.0) Monocytes (%) (Auto) % (1.0-10.0) Eosinophils (%) (Auto) % (0.0-3.0) Basophils (%) (Auto) % (0.0-2.0) Differential Total Cells Counted 100 Neutrophils % (Manual) 29 % (45-75) L Lymphocytes % (Manual) 32 % (20-45) Monocytes % (Manual) 37 % (1-10) H Eosinophils % (Manual) 0 % (0-3) Basophils % (Manual) 0 % (0-2) Band Neutrophils 2 % (0-8) Platelet Estimate Decreased L Platelet Morphology Giant Platelets Occasional Red Blood Cell Morphology Normal Sodium Level 145 MMOL/L (136-145) Potassium Level 3.8 MMOL/L (3.5-5.1) Chloride Level 109 MMOL/L (98-107) H Carbon Dioxide Level 23 MMOL/L (21-32) Anion Gap 13 mmol/L (5-15) Blood Urea Nitrogen 17 mg/dL (7-18) Creatinine 1.5 MG/DL (0.55-1.30) H Estimat Glomerular Filtration Rate 45.3 mL/min (>60) Glucose Level 97 MG/DL (74-106) Calcium Level 8.0 MG/DL (8.5-10.1) L Total Bilirubin 0.6 MG/DL (0.2-1.0) Aspartate Amino Transf (AST/SGOT) 94 U/L (15-37) H Alanine Aminotransferase (ALT/SGPT) 61 U/L (12-78) Alkaline Phosphatase 30 U/L (46-116) L Total Protein 6.4 G/DL (6.4-8.2) Albumin 2.2 G/DL (3.4-5.0) L Globulin 4.2 g/dL Albumin/Globulin Ratio 0.5 (1.0-2.7) L Arterial Blood pH 7.480 (7.350-7.450) 7.224 (7.350-7.450) Arterial Blood Partial Pressure CO2 27.2 mmHg (35.0-45.0) L 48.8 mmHg (35.0-45.0) H Arterial Blood Partial Pressure O2 60.7 mmHg (75.0-100.0) L 151.5 mmHg (75.0-100.0) H Arterial Blood HCO3 19.8 mmol/L (22.0-26.0) L 19.7 mmol/L (22.0-26.0) L Arterial Blood Oxygen Saturation 90.2 % (95-100) L 98.2 % (95-100) Arterial Blood Base Excess -2.5 (-2-2) L -8.0 (-2-2) L Freddie Test Positive Positive Current Medications Medications (Trade) Dose Ordered Sig/Karlos Route PRN Reason Start Time Stop Time Status Last Admin Dose Admin Acetaminophen (Tylenol) 650 mg Q4H PRN ORAL Mild Pain (Pain Scale 1-3) 09/03/19 11:45 10/03/19 11:44 09/05/19 22:19 Acetaminophen (Tylenol) 650 mg Q4H PRN ORAL Temp >100.5 09/03/19 11:45 10/03/19 11:44 Acetaminophen (Tylenol) 650 mg Q4H PRN RECTAL Temp >100.5 09/06/19 16:30 10/06/19 16:29 09/06/19 16:43 Amlodipine Besylate (Norvasc) 2.5 mg DAILY ORAL 09/04/19 09:00 10/04/19 08:59 09/05/19 09:00 Atenolol (Tenormin) 50 mg DAILY ORAL 09/04/19 09:00 10/04/19 08:59 09/05/19 09:00 Bisacodyl (Dulcolax) 10 mg DAILYPRN PRN RECTAL Constipation 09/03/19 11:45 12/02/19 11:44 Dextrose (Dextrose 50%) 25 ml Q30M PRN IV Hypoglycemia 09/03/19 11:45 12/02/19 11:44 Dextrose (Dextrose 50%) 50 ml Q30M PRN IV Hypoglycemia 09/03/19 11:45 12/02/19 11:44 Docusate Sodium (Colace) 100 mg EVERY 12 HOURS ORAL 09/03/19 21:00 10/03/19 20:59 09/06/19 08:43 Insulin Aspart (NovoLOG) BEFORE MEALS AND HS SUBQ 09/05/19 11:30 12/04/19 11:29 09/05/19 22:36 Magnesium Hydroxide (Mom) 30 ml HSPRN PRN ORAL Constipation 09/03/19 11:45 10/03/19 11:44 Piperacillin Sod/ Tazobactam Sod 3.375 gm/Sodium Chloride 110 ml @ 27.5 mls/hr Q8H IVPB 09/03/19 16:00 09/10/19 15:59 09/06/19 16:41 Polyethylene Glycol (Miralax) 17 gm DAILYPRN PRN ORAL Constipation 09/03/19 11:45 10/03/19 11:44 Vancomycin HCl (Vanco rx to dose) 1 ea DAILY PRN MISC Per rx protocol 09/03/19 12:45 10/03/19 12:44 Vancomycin HCl 750 mg/Sodium Chloride 275 ml @ 183.333 mls/hr Q12HR@0500,1700 IVPB 09/05/19 17:00 09/10/19 16:59 09/06/19 18:15 bL Solo MD September 06, 2019 19:58
--- NOTE | 2019-09-06 20:26 | NUR ---
NURSE NOTES: spoke with Dr. Marie and received order for propofol drip. will carry out.
[2019-09-06] MEDS ORDERED: propofoL 1,000mg/100ml 100 ML IV SCH (20:45)
--- NOTE | 2019-09-06 21:20 | NUR ---
NURSE NOTES: Received call from Dr. Marie with new orders. will carry out.
--- NOTE | 2019-09-06 22:50 | NUR ---
NURSE NOTES: propofol drip started and titrated as per protocol. NGT and F/C inserted as ordered per MD. no s/sx of acute distress noted. will continue to monitor.
[2019-09-07] VITALS (30 sets, daily range): BP systolic 67–119; BP diastolic 41–65
--- NOTE | 2019-09-07 00:06 | Diagnostic Imaging Report ---
EXAM: XR Abdomen, 1 View CLINICAL HISTORY: NGT TECHNIQUE: Frontal supine view of the abdomen/pelvis. COMPARISON: No relevant prior studies available. FINDINGS: Lower thorax: Bilateral interstitial pulmonary opacities. Gastrointestinal tract: Unremarkable. Bones/joints: No acute fracture. Tubes, lines and devices: Enteric tube in the stomach. Other findings: Single view 09/06/19 at 2328 IMPRESSION: Enteric tube in the stomach.
--- NOTE | 2019-09-07 00:15 | NUR ---
NURSE NOTES: pt's SBP: 91. pt continues to receive propofol at 10 mcg/kg/hr. will continue to monitor closely.
--- NOTE | 2019-09-07 02:00 | NUR ---
NURSE NOTES: pt's BP noted to be 101/56. no s/sx of acute distress noted at this time. will continue to monitor.
[2019-09-07 03:29] LABS: APPEARANCE,URINE TURBID; COLOR,URINE YELLOW
[2019-09-07 03:30] LABS: BILIRUBIN, URINE NEGATIVE (NEGATIVE); GLUCOSE, URINE (UA) 1+ (NEGATIVE); KETONES,URINE 3+ (NEGATIVE); PH,URINE 5 (4.5-8.0); PROTEIN,URINE 3+ (NEGATIVE)
[2019-09-07 03:31] LABS: LEUKOCYTE ESTERASE ,URINE NEGATIVE (NEGATIVE); NITRITE,URINE NEGATIVE (NEGATIVE); UROBILINOGEN,URINE 1 MG/DL (0.0-1.0)
--- NOTE | 2019-09-07 04:00 | NUR ---
NURSE NOTES: AM labs drawn. bed bath given; new gown and linens applied. pt tolerated well. bed in lowest position and locked, siderails up X3, all needs attended to. VS: BP: 119/65, HR: 79, RR: 22, sat: 100%, temp: 98.7. will continue to monitor.
[2019-09-07] MEDS ORDERED: Acetaminophen 650 MG SUPP RECTAL PRN (04:30)
[2019-09-07] MEDS: Vancomycin 750 MG in NS 275 ML IVPB SCH ×2 (05:00→17:47)
[2019-09-07 05:25] LABS: HEMATOCRIT 32.8 % (42.0-52.0); HEMOGLOBIN 11.3 G/DL (14.2-18.0); MEAN CORPUSCULAR VOLUME 84 FL (80-99); PLATELET COUNT 64 K/UL (150-450); RED BLOOD COUNT 3.89 M/UL (4.70-6.10); RED CELL DISTRIBUTION WIDTH 13.8 % (11.6-14.8); WHITE BLOOD COUNT 6.5 K/UL (4.8-10.8)
[2019-09-07 05:48] LABS: ALANINE AMINOTRANSFERASE 57 U/L (12-78); ALBUMIN/GLOBULIN RATIO 0.5 (1.0-2.7); ALKALINE PHOSPHATASE 37 U/L (46-116); ANION GAP 14 mmol/L (5-15); ASPARTATE AMINO TRANSFERASE 97 U/L (15-37); BILIRUBIN,TOTAL 0.7 MG/DL (0.2-1.0); BLOOD UREA NITROGEN 22 mg/dL (7-18); CALCIUM 7.7 MG/DL (8.5-10.1); CARBON DIOXIDE 21 MMOL/L (21-32); CHLORIDE 112 MMOL/L (98-107); CREATININE 1.6 MG/DL (0.55-1.30); PHOSPHORUS 3.7 MG/DL (2.5-4.9); POTASSIUM 3.7 MMOL/L (3.5-5.1); SODIUM 147 MMOL/L (136-145); TRIGLYCERIDES 236 MG/DL (30-150)
--- NOTE | 2019-09-07 06:15 | NUR ---
NURSE NOTES: pt's bedside glucose: 99. per sliding scale, no insulin coverage needed. will continue to monitor.
[2019-09-07] MEDS: NovoLOG Insulin Flexpen SUBQ SCH ×4 (06:30→21:00)
--- NOTE | 2019-09-07 07:35 | NUR ---
HAND-OFF: Report given to CECILY Thomas. endorsed plan of care.
--- NOTE | 2019-09-07 07:40 | Hematology/Onc Progress Note ---
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 Greatly appreciate consultation. Subjective Allergies: Coded Allergies: No Known Allergies (Unverified , 01/19/13) Subjective 09/05 remains confused, as per cards, pulm and id recs, with tachycardia, plt stable 09/06 icu, no overnight events, vent, iv abx Objective Objective Current Medications Medications (Trade) Dose Ordered Sig/Karlos Route PRN Reason Start Time Stop Time Status Last Admin Dose Admin Acetaminophen (Tylenol) 650 mg Q4H PRN ORAL Mild Pain (Pain Scale 1-3) 09/07/19 03:45 10/03/19 11:44 Acetaminophen (Tylenol) 650 mg Q4H PRN ORAL Temp >100.5 09/07/19 03:45 10/03/19 11:44 Acetaminophen (Tylenol) 650 mg Q4H PRN RECTAL Temp >100.5 09/07/19 04:30 10/06/19 16:29 Amlodipine Besylate (Norvasc) 2.5 mg DAILY ORAL 09/07/19 09:00 10/04/19 08:59 Atenolol (Tenormin) 50 mg DAILY ORAL 09/07/19 09:00 10/04/19 08:59 Bisacodyl (Dulcolax) 10 mg DAILYPRN PRN RECTAL Constipation 09/07/19 11:45 12/02/19 11:44 Dextrose (Dextrose 50%) 25 ml Q30M PRN IV Hypoglycemia 09/07/19 00:45 12/02/19 11:44 Dextrose (Dextrose 50%) 50 ml Q30M PRN IV Hypoglycemia 09/07/19 00:45 12/02/19 11:44 Docusate Sodium (Colace) 100 mg EVERY 12 HOURS ORAL 09/07/19 09:00 10/03/19 20:59 Insulin Aspart (NovoLOG) BEFORE MEALS AND HS SUBQ 09/07/19 06:30 12/04/19 11:29 Magnesium Hydroxide (Mom) 30 ml HSPRN PRN ORAL Constipation 09/07/19 11:45 10/03/19 11:44 Piperacillin Sod/ Tazobactam Sod 3.375 gm/Sodium Chloride 110 ml @ 27.5 mls/hr Q8H IVPB 09/07/19 08:00 09/10/19 15:59 Polyethylene Glycol (Miralax) 17 gm DAILYPRN PRN ORAL Constipation 09/07/19 11:45 10/03/19 11:44 Propofol 100 ml @ 0 mls/hr Q24H IV 09/07/19 20:45 09/09/19 20:44 09/06/19 22:00 Vancomycin HCl (Vanco rx to dose) 1 ea DAILY PRN MISC Per rx protocol 09/07/19 09:00 10/03/19 12:44 Vancomycin HCl 750 mg/Sodium Chloride 275 ml @ 183.333 mls/hr Q12HR@0500,1700 IVPB 09/07/19 05:00 09/10/19 16:59 09/07/19 05:00 Last 24 Hour Vital Signs Date Time Temp Pulse Resp B/P (MAP) Pulse Ox O2 Delivery O2 Flow Rate FiO2 09/07/19 07:00 83 31 99/61 (74) 99 09/07/19 06:00 85 29 97/61 (73) 100 09/07/19 05:00 29 104/60 Mechanical Ventilator 80 09/07/19 05:00 76 29 104/60 (75) 100 09/07/19 04:00 77 09/07/19 04:00 80 09/07/19 04:00 98.7 79 22 119/65 (83) 100 09/07/19 04:00 22 119/65 Mechanical Ventilator 80 09/07/19 04:00 Mechanical Ventilator 09/07/19 03:04 76 34 80 09/07/19 03:00 23 107/63 Mechanical Ventilator 100 09/07/19 03:00 70 23 107/63 (78) 99 09/07/19 02:00 73 27 101/56 (71) 100 73 09/07/19 02:00 27 101/56 Mechanical Ventilator 100 09/07/19 01:00 71 29 92/58 (69) 100 09/07/19 01:00 29 92/58 Mechanical Ventilator 100 09/07/19 00:45 74 33 92/52 (65) 100 09/07/19 00:45 33 92/52 Mechanical Ventilator 100 09/07/19 00:30 74 33 91/56 (68) 100 09/07/19 00:30 33 91/56 Mechanical Ventilator 100 09/07/19 00:15 31 91/54 Mechanical Ventilator 100 09/07/19 00:15 81 31 91/54 (66) 100 09/07/19 00:00 Mechanical Ventilator 09/07/19 00:00 87 09/07/19 00:00 36 98/61 Mechanical Ventilator 100 09/07/19 00:00 100 09/07/19 00:00 98.7 80 36 98/61 (73) 100 09/06/19 23:45 38 105/68 Mechanical Ventilator 100 09/06/19 23:30 40 110/71 Mechanical Ventilator 100 09/06/19 23:30 86 40 110/71 (84) 100 09/06/19 23:21 78 33 78/49 (59) 100 09/06/19 23:15 79 33 77/52 (60) 100 09/06/19 23:15 33 77/52 Mechanical Ventilator 100 09/06/19 23:00 83 32 81/55 (64) 100 09/06/19 23:00 32 81/55 Mechanical Ventilator 100 09/06/19 22:54 75 26 100 09/06/19 22:45 36 102/69 Mechanical Ventilator 100 09/06/19 22:45 92 36 102/69 (80) 100 09/06/19 22:30 102 30 124/65 (84) 100 09/06/19 22:30 30 124/65 Mechanical Ventilator 100 5/18/20 22:15 102 25 131/74 (93) 100 09/06/19 22:15 30 131/74 Mechanical Ventilator 100 09/06/19 22:00 93 32 101/61 (74) 100 09/06/19 22:00 20 123/56 Mechanical Ventilator 100 20 21:48 18 125/71 Mechanical Ventilator 100 09/06/19 21:45 99 31 108/64 (79) 99 09/06/19 21:00 104 29 108/65 (79) 100 09/06/19 20:00 98.9 109 33 126/68 (87) 100 109 09/06/19 20:00 Mechanical Ventilator 09/06/19 20:00 100 09/06/19 20:00 101 09/06/19 19:43 113 18 100 09/06/19 19:00 117 17 124/80 (95) 100 09/06/19 18:00 127 16 143/75 (97) 100 09/06/19 17:20 100 09/06/19 17:19 113 16 100 Mechanical Ventilator 100 09/06/19 17:19 113 16 100 09/06/19 17:13 99.5 09/06/19 17:00 106 16 142/86 (104) 100 09/06/19 16:30 100.6 89 25 114/67 (83) 93 09/06/19 16:00 91 09/06/19 16:00 89 25 114/67 (83) 93 09/06/19 16:00 Non-Rebreather 15.0 09/06/19 15:00 86 30 106/87 (93) 95 09/06/19 14:47 86 09/06/19 12:00 98.9 82 20 115/66 (82) 93 09/06/19 09:00 Non-Rebreather 15.0 09/06/19 08:43 59 109/63 09/06/19 08:43 59 109/63 09/06/19 08:00 69 09/06/19 08:00 98.2 79 20 126/63 (84) 95 79 09/06/19 04:00 97.9 70 21 99/59 (72) 91 09/06/19 04:00 66 09/06/19 00:01 72 19 131/60 (83) 94 09/06/19 00:00 70 09/06/19 00:00 97.9 09/05/19 23:00 99.5 09/05/19 22:49 109 142/73 09/05/19 22:49 99.5 09/05/19 21:00 Nasal Cannula 2.0 09/05/19 20:00 102.4 109 22 142/73 (96) 89 09/05/19 20:00 116 09/05/19 16:24 98.0 73 22 135/75 (95) 96 09/05/19 16:00 72 09/05/19 12:00 85 09/05/19 09:00 88 147/80 09/05/19 09:00 88 147/80 09/05/19 08:18 Nasal Cannula 2.0 09/05/19 08:07 100.4 88 18 147/80 (102) 97 09/05/19 08:00 87 Intake and Output 09/06/19 09/07/19 19:00 07:00 Intake Total 240 ml 316.075 ml Output Total 800 ml Balance -560 ml 316.075 ml Intake Oral 240 ml IV Total 286.075 ml Tube Feeding 30 ml Output Urine Total 800 ml # Voids 161 # Bowel Movements 3 Labs Test 09/05/19 05:30 09/05/19 15:00 09/06/19 05:48 09/06/19 09:16 Sodium Level 146 MMOL/L (136-145) 145 MMOL/L (136-145) Potassium Level 4.1 MMOL/L (3.5-5.1) 3.8 MMOL/L (3.5-5.1) Chloride Level 109 MMOL/L (98-107) 109 MMOL/L (98-107) Carbon Dioxide Level 25 MMOL/L (21-32) 23 MMOL/L (21-32) Anion Gap 12 mmol/L (5-15) 13 mmol/L (5-15) Blood Urea Nitrogen 15 mg/dL (7-18) 17 mg/dL (7-18) Creatinine 1.2 MG/DL (0.55-1.30) 1.5 MG/DL (0.55-1.30) Estimat Glomerular Filtration Rate 58.6 mL/min (>60) 45.3 mL/min (>60) Glucose Level 106 MG/DL (74-106) 97 MG/DL (74-106) Calcium Level 8.3 MG/DL (8.5-10.1) 8.0 MG/DL (8.5-10.1) Phosphorus Level 3.5 MG/DL (2.5-4.9) Magnesium Level 2.3 MG/DL (1.8-2.4) Total Bilirubin 0.6 MG/DL (0.2-1.0) 0.6 MG/DL (0.2-1.0) Aspartate Amino Transf (AST/SGOT) 72 U/L (15-37) 94 U/L (15-37) Alanine Aminotransferase (ALT/SGPT) 50 U/L (12-78) 61 U/L (12-78) Alkaline Phosphatase 35 U/L (46-116) 30 U/L (46-116) Total Protein 6.8 G/DL (6.4-8.2) 6.4 G/DL (6.4-8.2) Albumin 2.4 G/DL (3.4-5.0) 2.2 G/DL (3.4-5.0) Globulin 4.4 g/dL 4.2 g/dL Albumin/Globulin Ratio 0.5 (1.0-2.7) 0.5 (1.0-2.7) White Blood Count 7.5 K/UL (4.8-10.8) 7.2 K/UL (4.8-10.8) Red Blood Count 4.44 M/UL (4.70-6.10) 4.24 M/UL (4.70-6.10) Hemoglobin 12.8 G/DL (14.2-18.0) 12.4 G/DL (14.2-18.0) Hematocrit 37.5 % (42.0-52.0) 35.2 % (42.0-52.0) Mean Corpuscular Volume 85 FL (80-99) 83 FL (80-99) Mean Corpuscular Hemoglobin 28.9 PG (27.0-31.0) 29.3 PG (27.0-31.0) Mean Corpuscular Hemoglobin Concent 34.2 G/DL (32.0-36.0) 35.3 G/DL (32.0-36.0) Red Cell Distribution Width 13.8 % (11.6-14.8) 13.5 % (11.6-14.8) Platelet Count 42 K/UL (150-450) 46 K/UL (150-450) Mean Platelet Volume 12.0 FL (6.5-10.1) 12.6 FL (6.5-10.1) Neutrophils (%) (Auto) % (45.0-75.0) % (45.0-75.0) Lymphocytes (%) (Auto) % (20.0-45.0) % (20.0-45.0) Monocytes (%) (Auto) % (1.0-10.0) % (1.0-10.0) Eosinophils (%) (Auto) % (0.0-3.0) % (0.0-3.0) Basophils (%) (Auto) % (0.0-2.0) % (0.0-2.0) Differential Total Cells Counted 100 100 Neutrophils % (Manual) 20 % (45-75) 29 % (45-75) Lymphocytes % (Manual) 52 % (20-45) 32 % (20-45) Monocytes % (Manual) 27 % (1-10) 37 % (1-10) Eosinophils % (Manual) 0 % (0-3) 0 % (0-3) Basophils % (Manual) 0 % (0-2) 0 % (0-2) Band Neutrophils 1 % (0-8) 2 % (0-8) Nucleated Red Blood Cells 2 /100 WBC Platelet Estimate Decreased Decreased Platelet Morphology See comment Giant Platelets Occasional Occasional Anisocytosis 1+ Hemoglobin A1c 5.9 % (4.3-6.0) Vancomycin Level Trough 6.8 ug/mL (5.0-12.0) Red Blood Cell Morphology Normal Triglycerides Level 187 MG/DL (30-150) Arterial Blood pH 7.480 (7.350-7.450) Arterial Blood Partial Pressure CO2 27.2 mmHg (35.0-45.0) Arterial Blood Partial Pressure O2 60.7 mmHg (75.0-100.0) Arterial Blood HCO3 19.8 mmol/L (22.0-26.0) Arterial Blood Oxygen Saturation 90.2 % (95-100) Arterial Blood Base Excess -2.5 (-2-2) Freddie Test Positive Test 09/06/19 18:10 09/06/19 22:30 09/07/19 04:15 Arterial Blood pH 7.224 (7.350-7.450) Arterial Blood Partial Pressure CO2 48.8 mmHg (35.0-45.0) Arterial Blood Partial Pressure O2 151.5 mmHg (75.0-100.0) Arterial Blood HCO3 19.7 mmol/L (22.0-26.0) Arterial Blood Oxygen Saturation 98.2 % (95-100) Arterial Blood Base Excess -8.0 (-2-2) Freddie Test Positive Urine Color Yellow Urine Appearance Turbid Urine pH 5 (4.5-8.0) Urine Specific [place] 1.025 (1.005-1.035) Urine Protein 3+ (NEGATIVE) Urine Glucose (UA) 1+ (NEGATIVE) Urine Ketones 3+ (NEGATIVE) Urine Blood 4+ (NEGATIVE) Urine Nitrite Negative (NEGATIVE) Urine Bilirubin Negative (NEGATIVE) Urine Urobilinogen 1 MG/DL (0.0-1.0) Urine Leukocyte Esterase Negative (NEGATIVE) Urine RBC 10-15 /HPF (0 - 0) Urine WBC 2-4 /HPF (0 - 0) Urine Squamous Epithelial Cells Few /LPF (NONE/OCC) Urine Amorphous Sediment Many /LPF (NONE) Urine Bacteria Many /HPF (NONE) Urine Coarse Granular Casts 5-10 /LPF (NONE) Urine Random Sodium < 20 mmol/L (20-110) Urine Creatinine < 5.0 MG/DL (30.0-125.0) White Blood Count 6.5 K/UL (4.8-10.8) Red Blood Count 3.89 M/UL (4.70-6.10) Hemoglobin 11.3 G/DL (14.2-18.0) Hematocrit 32.8 % (42.0-52.0) Mean Corpuscular Volume 84 FL (80-99) Mean Corpuscular Hemoglobin 29.0 PG (27.0-31.0) Mean Corpuscular Hemoglobin Concent 34.4 G/DL (32.0-36.0) Red Cell Distribution Width 13.8 % (11.6-14.8) Platelet Count 64 K/UL (150-450) Mean Platelet Volume 12.3 FL (6.5-10.1) Neutrophils (%) (Auto) % (45.0-75.0) Lymphocytes (%) (Auto) % (20.0-45.0) Monocytes (%) (Auto) % (1.0-10.0) Eosinophils (%) (Auto) % (0.0-3.0) Basophils (%) (Auto) % (0.0-2.0) Sodium Level 147 MMOL/L (136-145) Potassium Level 3.7 MMOL/L (3.5-5.1) Chloride Level 112 MMOL/L (98-107) Carbon Dioxide Level 21 MMOL/L (21-32) Anion Gap 14 mmol/L (5-15) Blood Urea Nitrogen 22 mg/dL (7-18) Creatinine 1.6 MG/DL (0.55-1.30) Estimat Glomerular Filtration Rate 42.0 mL/min (>60) Glucose Level 98 MG/DL (74-106) Calcium Level 7.7 MG/DL (8.5-10.1) Phosphorus Level 3.7 MG/DL (2.5-4.9) Magnesium Level 2.3 MG/DL (1.8-2.4) Total Bilirubin 0.7 MG/DL (0.2-1.0) Aspartate Amino Transf (AST/SGOT) 97 U/L (15-37) Alanine Aminotransferase (ALT/SGPT) 57 U/L (12-78) Alkaline Phosphatase 37 U/L (46-116) Total Protein 6.1 G/DL (6.4-8.2) Albumin 2.0 G/DL (3.4-5.0) Globulin 4.1 g/dL Albumin/Globulin Ratio 0.5 (1.0-2.7) Triglycerides Level 236 MG/DL (30-150) Height (Feet): 5 Height (Inches): 7.00 Weight (Pounds): 125 Objective General: NAD HEENT: NCAT, EOMi, dry MM CV: RRR, no murmurs, rubs, or gallops Pulm: vent+ GI: Soft, nontender, nondistended, bowel sounds present Ext: No lower extremity edema bilaterally Skin: no rashes lesions or ulcers Msk: Joints symmetrical in upper extremity and lower extremity bilaterally Neuro: CN 2-12 grossly intact bilaterally, no focal signs. Kashmir Jose MD September 07, 2019 07:40
--- NOTE | 2019-09-07 07:48 | NUR ---
NURSE NOTES: Report received from CECILY Gaytan.Patient asleep, easily arousal to tactile stimuli.Afebrile at this time, orally intubated at 7.5/24 AC 16 VT 450 Fio2 60% and Peep 5. NGT in place feeding running Glucerna 1.2 at 10cc with goal 30cc/hr.No residual at this time.HOB elevated to prevent aspiration. Peripheral line LH running Propofol at 10mcg/hr and RFA with no apparent infiltrate at this time.Mouth care done, turned and repositioned for skin management.Will continue close monitoring. Addendum: 09/07/19 at 0802 by Martha Maxwell RN Isolation precaution to be maintained at all the times. Good handwashing done before and after care.COV (+) 09/02.
--- NOTE | 2019-09-07 08:58 | NUR ---
RD ASSESSMENT & RECOMMENDATIONS SEE CARE ACTIVITY FOR COMPLETE ASSESSMENT DAILY ESTIMATED NEEDS: Needs based on Critical care 56.7kg 22-28 kcals/kg 0935-3777 total kcals 1.2-2 g protein/kg 68-113 g total protein 25-30 mL/kg 6043-8615 total fluid mLs NUTRITION DIAGNOSIS: Swallowing difficulty r/t respiratory failure as evidenced by pt is covid pna++, s/p emergency intubation, on NGT feeds. (CURRENT TF: Glucerna 1.2 @30) ENTERAL NUTRITION RECOMMENDATIONS: Glucerna 1.2 OOS-> rec TF change to Glucerna 1.5 goal 35ml/hr x24 hrs to provide 840ml, 1260 kcal, 69g pro, 638ml free H2O - Rec TF change to Glucerna 1.5 as Glucerna 1.2 is OOS. - Start @15ml/hr for 6hrs, advance as tolerated 10ml/hr q4-6 hrs to goal. - Flush per MD. HOB over 30 degrees. * TF at goal meets 100% est kcal and pro needs. * With current propofol @3.538ml/hr, added 93kcal, does not exceed est needs (Reassess TF rate w/ propofol cessation) ----- ADDITIONAL RECOMMENDATIONS: 1) Maintain calibrated bed scale wts 2) Tf recs as above/ reassess w/ propofol cessation 3) rec WC RN for wound photo 4) Feed w/ hemodynamic stability
[2019-09-07] MEDS: Piperacillin/Tazobactam 3.375 GM in NS 110 ML IVPB SCH ×3 (09:03→23:47)
[2019-09-07] MEDS: Docusate 100mg cap ORAL SCH ×2 (09:04→21:20)
--- NOTE | 2019-09-07 10:11 | NUR ---
NURSE NOTES: Patient turned and repositioned for skin management. Will continue close monitoring. No significant change at this time. On Propofol at 15mcg/hr and pt remains restless. Will titrated as tolerated.
[2019-09-07] MEDS ORDERED: propofoL 1,000mg/100ml 100 ML IV SCH ×2 (10:30→20:45)
--- NOTE | 2019-09-07 11:00 | NUR ---
NURSE NOTES: Propofol scanned at 1054 but never started due to Elevated triglyceride level result 236. Dr Marie paged for Fentanyl order.
[2019-09-07] MEDS ORDERED: Miralax 17gm pkt ORAL PRN (11:45)
[2019-09-07] MEDS ORDERED: Milk of Magnesia 30ml Ud ORAL PRN (11:45)
--- NOTE | 2019-09-07 12:35 | NUR ---
NURSE NOTES: Received call back from Dr Marie with order to change Propofol to Fentanyl drip due to elevated Triglyceride 236.Order noted and carried out.Pt turned and repositioned for skin management.Mouth care done, HOB elevated at 35 degree to prevent aspiration.Update given to the sister Leigh Ann Whitney and made aware of the transfer in ICU and pt been COV(+) and intubated. Will continue close monitoring.
--- NOTE | 2019-09-07 12:56 | Cardiac Electrophysiology PN ---
Subjective Subjective [id number] Objective Last 24 Hour Vital Signs Date Time Temp Pulse Resp B/P (MAP) Pulse Ox O2 Delivery O2 Flow Rate FiO2 09/07/19 12:00 Mechanical Ventilator 09/07/19 12:00 60 09/07/19 11:24 86 33 60 09/07/19 11:00 87 23 107/63 (78) 100 87 09/07/19 10:54 42 101/60 Mechanical Ventilator 09/07/19 10:00 85 32 101/60 (74) 100 85 09/07/19 10:00 29 109/62 Mechanical Ventilator 09/07/19 10:00 26 138/60 Mechanical Ventilator 09/07/19 10:00 29 109/62 Mechanical Ventilator 09/07/19 09:04 85 109/62 09/07/19 09:03 85 109/62 09/07/19 09:03 30 101/60 Mechanical Ventilator 09/07/19 09:03 30 101/60 Mechanical Ventilator 09/07/19 09:03 26 137/60 Mechanical Ventilator 09/07/19 09:00 87 29 109/62 (78) 100 87 09/07/19 08:00 79 09/07/19 08:00 60 09/07/19 08:00 29 126/55 Mechanical Ventilator 09/07/19 08:00 28 115/61 Mechanical Ventilator 09/07/19 08:00 28 115/61 Mechanical Ventilator 09/07/19 08:00 99.8 86 31 115/61 (79) 100 86 09/07/19 08:00 Mechanical Ventilator 09/07/19 07:28 88 36 60 09/07/19 07:00 83 31 99/61 (74) 99 09/07/19 07:00 31 99/61 Mechanical Ventilator 60 09/07/19 06:00 29 97/61 Mechanical Ventilator 60 09/07/19 06:00 85 29 97/61 (73) 100 09/07/19 05:00 29 104/60 Mechanical Ventilator 80 09/07/19 05:00 76 29 104/60 (75) 100 09/07/19 04:00 77 09/07/19 04:00 80 09/07/19 04:00 98.7 79 22 119/65 (83) 100 09/07/19 04:00 22 119/65 Mechanical Ventilator 80 09/07/19 04:00 Mechanical Ventilator 09/07/19 03:04 76 34 80 09/07/19 03:00 23 107/63 Mechanical Ventilator 100 09/07/19 03:00 70 23 107/63 (78) 99 09/07/19 02:00 73 27 101/56 (71) 100 73 09/07/19 02:00 27 101/56 Mechanical Ventilator 100 09/07/19 01:00 71 29 92/58 (69) 100 09/07/19 01:00 29 92/58 Mechanical Ventilator 100 09/07/19 00:45 74 33 92/52 (65) 100 09/07/19 00:45 33 92/52 Mechanical Ventilator 100 09/07/19 00:30 74 33 91/56 (68) 100 09/07/19 00:30 33 91/56 Mechanical Ventilator 100 09/07/19 00:15 31 91/54 Mechanical Ventilator 100 09/07/19 00:15 81 31 91/54 (66) 100 09/07/19 00:00 Mechanical Ventilator 09/07/19 00:00 87 09/07/19 00:00 36 98/61 Mechanical Ventilator 100 09/07/19 00:00 100 09/07/19 00:00 98.7 80 36 98/61 (73) 100 09/06/19 23:45 38 105/68 Mechanical Ventilator 100 09/06/19 23:30 40 110/71 Mechanical Ventilator 100 09/06/19 23:30 86 40 110/71 (84) 100 09/06/19 23:21 78 33 78/49 (59) 100 09/06/19 23:15 79 33 77/52 (60) 100 09/06/19 23:15 33 77/52 Mechanical Ventilator 100 09/06/19 23:00 83 32 81/55 (64) 100 09/06/19 23:00 32 81/55 Mechanical Ventilator 100 09/06/19 22:54 75 26 100 09/06/19 22:45 36 102/69 Mechanical Ventilator 100 09/06/19 22:45 92 36 102/69 (80) 100 09/06/19 22:30 102 30 124/65 (84) 100 09/06/19 22:30 30 124/65 Mechanical Ventilator 100 09/06/19 22:15 102 25 131/74 (93) 100 09/06/19 22:15 30 131/74 Mechanical Ventilator 100 09/06/19 22:00 93 32 101/61 (74) 100 09/06/19 22:00 20 123/56 Mechanical Ventilator 100 09/06/19 21:48 18 125/71 Mechanical Ventilator 100 09/06/19 21:45 99 31 108/64 (79) 99 09/06/19 21:00 104 29 108/65 (79) 100 09/06/19 20:00 98.9 109 33 126/68 (87) 100 109 09/06/19 20:00 Mechanical Ventilator 09/06/19 20:00 100 09/06/19 20:00 101 09/06/19 19:43 113 18 100 09/06/19 19:00 117 17 124/80 (95) 100 09/06/19 18:00 127 16 143/75 (97) 100 09/06/19 17:20 100 09/06/19 17:19 113 16 100 Mechanical Ventilator 100 09/06/19 17:19 113 16 100 09/06/19 17:13 99.5 09/06/19 17:00 106 16 142/86 (104) 100 09/06/19 16:30 100.6 89 25 114/67 (83) 93 09/06/19 16:00 91 09/06/19 16:00 89 25 114/67 (83) 93 09/06/19 16:00 Non-Rebreather 15.0 09/06/19 15:00 86 30 106/87 (93) 95 09/06/19 14:47 86 Intake and Output 09/06/19 09/07/19 19:00 07:00 Intake Total 240 ml 316.960 ml Output Total 800 ml Balance -560 ml 316.960 ml Intake Oral 240 ml IV Total 286.960 ml Tube Feeding 30 ml Output Urine Total 800 ml # Voids 161 # Bowel Movements 3 Laboratory Tests Test 09/06/19 18:10 09/06/19 22:30 09/07/19 04:15 09/07/19 08:06 Arterial Blood pH 7.224 (7.350-7.450) 7.407 (7.350-7.450) Arterial Blood Partial Pressure CO2 48.8 mmHg (35.0-45.0) H 30.4 mmHg (35.0-45.0) L Arterial Blood Partial Pressure O2 151.5 mmHg (75.0-100.0) H 105.8 mmHg (75.0-100.0) H Arterial Blood HCO3 19.7 mmol/L (22.0-26.0) L 18.7 mmol/L (22.0-26.0) L Arterial Blood Oxygen Saturation 98.2 % (95-100) 97.1 % (95-100) Arterial Blood Base Excess -8.0 (-2-2) L -4.9 (-2-2) L Freddie Test Positive Positive Urine Color Yellow Urine Appearance Turbid Urine pH 5 (4.5-8.0) Urine Specific [place] 1.025 (1.005-1.035) Urine Protein 3+ (NEGATIVE) H Urine Glucose (UA) 1+ (NEGATIVE) H Urine Ketones 3+ (NEGATIVE) H Urine Blood 4+ (NEGATIVE) H Urine Nitrite Negative (NEGATIVE) Urine Bilirubin Negative (NEGATIVE) Urine Urobilinogen 1 MG/DL (0.0-1.0) H Urine Leukocyte Esterase Negative (NEGATIVE) Urine RBC 10-15 /HPF (0 - 0) H Urine WBC 2-4 /HPF (0 - 0) Urine Squamous Epithelial Cells Few /LPF (NONE/OCC) Urine Amorphous Sediment Many /LPF (NONE) H Urine Bacteria Many /HPF (NONE) H Urine Coarse Granular Casts 5-10 /LPF (NONE) H Urine Random Sodium < 20 mmol/L (20-110) L Urine Creatinine < 5.0 MG/DL (30.0-125.0) L White Blood Count 6.5 K/UL (4.8-10.8) Red Blood Count 3.89 M/UL (4.70-6.10) L Hemoglobin 11.3 G/DL (14.2-18.0) L Hematocrit 32.8 % (42.0-52.0) L Mean Corpuscular Volume 84 FL (80-99) Mean Corpuscular Hemoglobin 29.0 PG (27.0-31.0) Mean Corpuscular Hemoglobin Concent 34.4 G/DL (32.0-36.0) Red Cell Distribution Width 13.8 % (11.6-14.8) Platelet Count 64 K/UL (150-450) L Mean Platelet Volume 12.3 FL (6.5-10.1) H Neutrophils (%) (Auto) % (45.0-75.0) Lymphocytes (%) (Auto) % (20.0-45.0) Monocytes (%) (Auto) % (1.0-10.0) Eosinophils (%) (Auto) % (0.0-3.0) Basophils (%) (Auto) % (0.0-2.0) Differential Total Cells Counted 100 Neutrophils % (Manual) 26 % (45-75) L Lymphocytes % (Manual) 32 % (20-45) Monocytes % (Manual) 41 % (1-10) H Eosinophils % (Manual) 0 % (0-3) Basophils % (Manual) 0 % (0-2) Band Neutrophils 1 % (0-8) Platelet Estimate Decreased L Platelet Morphology Normal Red Blood Cell Morphology Normal Sodium Level 147 MMOL/L (136-145) H Potassium Level 3.7 MMOL/L (3.5-5.1) Chloride Level 112 MMOL/L (98-107) H Carbon Dioxide Level 21 MMOL/L (21-32) Anion Gap 14 mmol/L (5-15) Blood Urea Nitrogen 22 mg/dL (7-18) H Creatinine 1.6 MG/DL (0.55-1.30) H Estimat Glomerular Filtration Rate 42.0 mL/min (>60) Glucose Level 98 MG/DL (74-106) Calcium Level 7.7 MG/DL (8.5-10.1) L Phosphorus Level 3.7 MG/DL (2.5-4.9) Magnesium Level 2.3 MG/DL (1.8-2.4) Total Bilirubin 0.7 MG/DL (0.2-1.0) Aspartate Amino Transf (AST/SGOT) 97 U/L (15-37) H Alanine Aminotransferase (ALT/SGPT) 57 U/L (12-78) Alkaline Phosphatase 37 U/L (46-116) L Total Protein 6.1 G/DL (6.4-8.2) L Albumin 2.0 G/DL (3.4-5.0) L Globulin 4.1 g/dL Albumin/Globulin Ratio 0.5 (1.0-2.7) L Triglycerides Level 236 MG/DL (30-150) H Gabriel Cantor MD September 07, 2019 12:56
[2019-09-07] MEDS: fentaNYL 2500mcg/NS 250ml 250 ML IV SCH ×2 (12:58→21:22)
--- NOTE | 2019-09-07 13:42 | Nephrology Progress Note ---
Assessment/Plan Plan #Acute kidney injury due to pre- renal azotemia- concerns for vanco toxicity #hypernatremia with free water deficit #COVID infection #Hypoxemic respiratory failure now intubated #pneumonia #T2DM # COPD #Dysphasia #HLD #HTN #thrombocytopenia, #APL #dementia #hypoalbuminemia - D5w 500cc x1 - on vanco and zosyn - avoid supratherapeutic level - consider switching vanco if Cr continues to rise - avoid nephrooxins - strict I&Os - monitor weights - Defer renal imaging for now - continue atenolol 50mg daily - hold amlodipine 2.5mg daily - monitor BP closely - check BMP, mag and phos daily Time spent 70min, more than 50% on care coordination and counseling Critical Care Services performed include: Telemetry Review Hemodynamic measurement interpretation Laboratory data review and interpretation Radiology image review and interpretation Ventilator setting review, management, and adjustment Interpretation of ABG's Discussion of patient's care with ICU team, ICU Nursing staff and/or consulting services Subjective ROS Limited/Unobtainable: Yes Subjective Transferred to ICU Intubated Cr slighly uptrending sodium uptrending Objective Objective Last 24 Hour Vital Signs Date Time Temp Pulse Resp B/P (MAP) Pulse Ox O2 Delivery O2 Flow Rate FiO2 09/07/19 12:58 33 85/51 Mechanical Ventilator 09/07/19 12:00 Mechanical Ventilator 09/07/19 12:00 60 09/07/19 11:24 86 33 60 09/07/19 11:00 87 23 107/63 (78) 100 87 09/07/19 10:54 42 101/60 Mechanical Ventilator 09/07/19 10:00 85 32 101/60 (74) 100 85 09/07/19 10:00 29 109/62 Mechanical Ventilator 09/07/19 10:00 26 138/60 Mechanical Ventilator 09/07/19 10:00 29 109/62 Mechanical Ventilator 09/07/19 09:04 85 109/62 09/07/19 09:03 85 109/62 09/07/19 09:03 30 101/60 Mechanical Ventilator 09/07/19 09:03 30 101/60 Mechanical Ventilator 09/07/19 09:03 26 137/60 Mechanical Ventilator 09/07/19 09:00 87 29 109/62 (78) 100 87 5/19/20 08:00 79 09/07/19 08:00 60 09/07/19 08:00 29 126/55 Mechanical Ventilator 09/07/19 08:00 28 115/61 Mechanical Ventilator 09/07/19 08:00 28 115/61 Mechanical Ventilator 09/07/19 08:00 99.8 86 31 115/61 (79) 100 86 09/07/19 08:00 Mechanical Ventilator 09/07/19 07:28 88 36 60 09/07/19 07:00 83 31 99/61 (74) 99 09/07/19 07:00 31 99/61 Mechanical Ventilator 60 09/07/19 06:00 29 97/61 Mechanical Ventilator 60 09/07/19 06:00 85 29 97/61 (73) 100 09/07/19 05:00 29 104/60 Mechanical Ventilator 80 09/07/19 05:00 76 29 104/60 (75) 100 09/07/19 04:00 77 09/07/19 04:00 80 09/07/19 04:00 98.7 79 22 119/65 (83) 100 09/07/19 04:00 22 119/65 Mechanical Ventilator 80 09/07/19 04:00 Mechanical Ventilator 09/07/19 03:04 76 34 80 09/07/19 03:00 23 107/63 Mechanical Ventilator 100 09/07/19 03:00 70 23 107/63 (78) 99 09/07/19 02:00 73 27 101/56 (71) 100 73 09/07/19 02:00 27 101/56 Mechanical Ventilator 100 09/07/19 01:00 71 29 92/58 (69) 100 09/07/19 01:00 29 92/58 Mechanical Ventilator 100 09/07/19 00:45 74 33 92/52 (65) 100 09/07/19 00:45 33 92/52 Mechanical Ventilator 100 09/07/19 00:30 74 33 91/56 (68) 100 09/07/19 00:30 33 91/56 Mechanical Ventilator 100 09/07/19 00:15 31 91/54 Mechanical Ventilator 100 09/07/19 00:15 81 31 91/54 (66) 100 09/07/19 00:00 Mechanical Ventilator 09/07/19 00:00 87 09/07/19 00:00 36 98/61 Mechanical Ventilator 100 09/07/19 00:00 100 09/07/19 00:00 98.7 80 36 98/61 (73) 100 09/06/19 23:45 38 105/68 Mechanical Ventilator 100 09/06/19 23:30 40 110/71 Mechanical Ventilator 100 09/06/19 23:30 86 40 110/71 (84) 100 09/06/19 23:21 78 33 78/49 (59) 100 09/06/19 23:15 79 33 77/52 (60) 100 09/06/19 23:15 33 77/52 Mechanical Ventilator 100 09/06/19 23:00 83 32 81/55 (64) 100 09/06/19 23:00 32 81/55 Mechanical Ventilator 100 09/06/19 22:54 75 26 100 09/06/19 22:45 36 102/69 Mechanical Ventilator 100 09/06/19 22:45 92 36 102/69 (80) 100 09/06/19 22:30 102 30 124/65 (84) 100 09/06/19 22:30 30 124/65 Mechanical Ventilator 100 09/06/19 22:15 102 25 131/74 (93) 100 09/06/19 22:15 30 131/74 Mechanical Ventilator 100 09/06/19 22:00 93 32 101/61 (74) 100 09/06/19 22:00 20 123/56 Mechanical Ventilator 100 09/06/19 21:48 18 125/71 Mechanical Ventilator 100 09/06/19 21:45 99 31 108/64 (79) 99 20 21:00 104 29 108/65 (79) 100 09/06/19 20:00 98.9 109 33 126/68 (87) 100 109 20 20:00 Mechanical Ventilator 20 20:00 100 20 20:00 101 20 19:43 113 18 100 09/06/19 19:00 117 17 124/80 (95) 100 09/06/19 18:00 127 16 143/75 (97) 100 20 17:20 100 20 17:19 113 16 100 Mechanical Ventilator 100 09/06/19 17:19 113 16 100 09/06/19 17:13 99.5 09/06/19 17:00 106 16 142/86 (104) 100 5/18/20 16:30 100.6 89 25 114/67 (83) 93 09/06/19 16:00 91 09/06/19 16:00 89 25 114/67 (83) 93 09/06/19 16:00 Non-Rebreather 15.0 09/06/19 15:00 86 30 106/87 (93) 95 09/06/19 14:47 86 Intake and Output 09/06/19 09/07/19 19:00 07:00 Intake Total 240 ml 316.960 ml Output Total 800 ml Balance -560 ml 316.960 ml Intake Oral 240 ml IV Total 286.960 ml Tube Feeding 30 ml Output Urine Total 800 ml # Voids 161 # Bowel Movements 3 Laboratory Tests 09/06/19 18:10: Arterial Blood pH 7.224*L, Arterial Blood Partial Pressure CO2 48.8H, Arterial Blood Partial Pressure O2 151.5H, Arterial Blood HCO3 19.7L, Arterial Blood Oxygen Saturation 98.2, Arterial Blood Base Excess -8.0L, Freddie Test Positive 09/06/19 22:30: Urine Color Yellow, Urine Appearance Turbid, Urine pH 5, Urine Specific [place] 1.025, Urine Protein 3+H, Urine Glucose (UA) 1+H, Urine Ketones 3+H, Urine Blood 4+H, Urine Nitrite Negative, Urine Bilirubin Negative, Urine Urobilinogen 1H, Urine Leukocyte Esterase Negative, Urine RBC 10-15H, Urine WBC 2-4, Urine Squamous Epithelial Cells Few, Urine Amorphous Sediment ManyH, Urine Bacteria ManyH, Urine Coarse Granular Casts 5-10H, Urine Random Sodium < 20L, Urine Creatinine < 5.0L 09/07/19 04:15: White Blood Count 6.5, Red Blood Count 3.89L, Hemoglobin 11.3L, Hematocrit 32.8L , Mean Corpuscular Volume 84, Mean Corpuscular Hemoglobin 29.0, Mean Corpuscular Hemoglobin Concent 34.4, Red Cell Distribution Width 13.8, Platelet Count 64L, Mean Platelet Volume 12.3H, Neutrophils (%) (Auto) , Lymphocytes (%) (Auto) , Monocytes (%) (Auto) , Eosinophils (%) (Auto) , Basophils (%) (Auto) , Differential Total Cells Counted 100, Neutrophils % (Manual) 26L, Lymphocytes % (Manual) 32, Monocytes % (Manual) 41H, Eosinophils % (Manual) 0, Basophils % ( Manual) 0, Band Neutrophils 1, Platelet Estimate DecreasedL, Platelet Morphology Normal, Red Blood Cell Morphology Normal, Sodium Level 147H, Potassium Level 3.7, Chloride Level 112H, Carbon Dioxide Level 21, Anion Gap 14 , Blood Urea Nitrogen 22H, Creatinine 1.6H, Estimat Glomerular Filtration Rate 42.0, Glucose Level 98, Calcium Level 7.7L, Phosphorus Level 3.7, Magnesium Level 2.3, Total Bilirubin 0.7, Aspartate Amino Transf (AST/SGOT) 97H, Alanine Aminotransferase (ALT/SGPT) 57, Alkaline Phosphatase 37L, Total Protein 6.1L, Albumin 2.0L, Globulin 4.1, Albumin/Globulin Ratio 0.5L, Triglycerides Level 236H 09/07/19 08:06: Arterial Blood pH 7.407, Arterial Blood Partial Pressure CO2 30.4L, Arterial Blood Partial Pressure O2 105.8H, Arterial Blood HCO3 18.7L, Arterial Blood Oxygen Saturation 97.1, Arterial Blood Base Excess -4.9L, Freddie Test Positive Height (Feet): 5 Height (Inches): 7.00 Weight (Pounds): 125 General Appearance: other - intubatd Cardiovascular: normal peripheral pulses Respiratory/Chest: rhonchi - bilaterally Abdomen: normal bowel sounds, no organomegaly, no mass, hypoactive bowel sounds Extremities: no edema Janelle Guzman M.D. September 07, 2019 13:42
--- NOTE | 2019-09-07 14:04 | NUR ---
NURSE NOTES: Patient propofol was picked up by clinical pharmacy specialist. Pt started on Fentanyl drip, will continue close monitoring.Turned and repositioned for skin management.HOB elevated at 35 degree to prevent aspiration.No significant change in condition at this time.Will continue close monitoring
--- NOTE | 2019-09-07 15:21 | NUR ---
LAWN CARE TECHNICIAN NOTE Pt was transferred to ICU on 09/06/2019. PEr chart review, pt is currently non-verbal and is intubated. There is a copy of POLST in chart-full code signed by pt in March 2019. Pt is from [address] [address] SW attempted to call pt's sister, Leigh Ann Whitney [phone], no answer and no vm option. SW will attempt again.
--- NOTE | 2019-09-07 15:30 | Pulmonology Progress Note ---
Subjective ROS Limited/Unobtainable: Yes Interval Events: S/p intubation 09/06/19 HEENT: Repors: no symptoms Respiratory: Reports: no symptoms Cardiovascular: Reports: no symptoms Gastrointestinal/Abdominal: Denies: nausea, vomiting, diarrhea Genitourinary: Reports: no symptoms Psychiatric: Reports: other - NA Skin: Denies: rash Musculoskeletal: Denies: pain Allergies: Coded Allergies: No Known Allergies (Unverified , 01/19/13) All Systems: reviewed and negative except above Objective Last 24 Hour Vital Signs Date Time Temp Pulse Resp B/P (MAP) Pulse Ox O2 Delivery O2 Flow Rate FiO2 09/07/19 13:00 83 31 92/58 (69) 99 83 09/07/19 12:58 33 85/51 Mechanical Ventilator 09/07/19 12:00 Mechanical Ventilator 09/07/19 12:00 83 09/07/19 12:00 60 09/07/19 12:00 98.8 82 30 85/51 (62) 100 82 09/07/19 11:24 86 33 60 09/07/19 11:00 87 23 107/63 (78) 100 87 09/07/19 10:54 42 101/60 Mechanical Ventilator 09/07/19 10:00 85 32 101/60 (74) 100 85 09/07/19 10:00 29 109/62 Mechanical Ventilator 09/07/19 10:00 26 138/60 Mechanical Ventilator 09/07/19 10:00 29 109/62 Mechanical Ventilator 09/07/19 09:04 85 109/62 09/07/19 09:03 85 109/62 09/07/19 09:03 30 101/60 Mechanical Ventilator 09/07/19 09:03 30 101/60 Mechanical Ventilator 09/07/19 09:03 26 137/60 Mechanical Ventilator 09/07/19 09:00 87 29 109/62 (78) 100 87 09/07/19 08:00 79 09/07/19 08:00 60 09/07/19 08:00 29 126/55 Mechanical Ventilator 09/07/19 08:00 28 115/61 Mechanical Ventilator 09/07/19 08:00 28 115/61 Mechanical Ventilator 09/07/19 08:00 99.8 86 31 115/61 (79) 100 86 09/07/19 08:00 Mechanical Ventilator 09/07/19 07:28 88 36 60 09/07/19 07:00 83 31 99/61 (74) 99 09/07/19 07:00 31 99/61 Mechanical Ventilator 60 09/07/19 06:00 29 97/61 Mechanical Ventilator 60 09/07/19 06:00 85 29 97/61 (73) 100 09/07/19 05:00 29 104/60 Mechanical Ventilator 80 09/07/19 05:00 76 29 104/60 (75) 100 09/07/19 04:00 77 09/07/19 04:00 80 09/07/19 04:00 98.7 79 22 119/65 (83) 100 09/07/19 04:00 22 119/65 Mechanical Ventilator 80 09/07/19 04:00 Mechanical Ventilator 09/07/19 03:04 76 34 80 09/07/19 03:00 23 107/63 Mechanical Ventilator 100 09/07/19 03:00 70 23 107/63 (78) 99 09/07/19 02:00 73 27 101/56 (71) 100 73 09/07/19 02:00 27 101/56 Mechanical Ventilator 100 09/07/19 01:00 71 29 92/58 (69) 100 09/07/19 01:00 29 92/58 Mechanical Ventilator 100 09/07/19 00:45 74 33 92/52 (65) 100 09/07/19 00:45 33 92/52 Mechanical Ventilator 100 09/07/19 00:30 74 33 91/56 (68) 100 09/07/19 00:30 33 91/56 Mechanical Ventilator 100 09/07/19 00:15 31 91/54 Mechanical Ventilator 100 09/07/19 00:15 81 31 91/54 (66) 100 09/07/19 00:00 Mechanical Ventilator 09/07/19 00:00 87 09/07/19 00:00 36 98/61 Mechanical Ventilator 100 09/07/19 00:00 100 09/07/19 00:00 98.7 80 36 98/61 (73) 100 09/06/19 23:45 38 105/68 Mechanical Ventilator 100 09/06/19 23:30 40 110/71 Mechanical Ventilator 100 09/06/19 23:30 86 40 110/71 (84) 100 09/06/19 23:21 78 33 78/49 (59) 100 09/06/19 23:15 79 33 77/52 (60) 100 20 23:15 33 77/52 Mechanical Ventilator 100 09/06/19 23:00 83 32 81/55 (64) 100 18/20 23:00 32 81/55 Mechanical Ventilator 100 1820 22:54 75 26 100 09/06/19 22:45 36 102/69 Mechanical Ventilator 100 20 22:45 92 36 102/69 (80) 100 20 22:30 102 30 124/65 (84) 100 20 22:30 30 124/65 Mechanical Ventilator 100 09/06/19 22:15 102 25 131/74 (93) 100 20 22:15 30 131/74 Mechanical Ventilator 100 09/06/19 22:00 93 32 101/61 (74) 100 09/06/19 22:00 20 123/56 Mechanical Ventilator 100 09/06/19 21:48 18 125/71 Mechanical Ventilator 100 09/06/19 21:45 99 31 108/64 (79) 99 09/06/19 21:00 104 29 108/65 (79) 100 20 20:00 98.9 109 33 126/68 (87) 100 109 20 20:00 Mechanical Ventilator 09/06/19 20:00 100 09/06/19 20:00 101 09/06/19 19:43 113 18 100 09/06/19 19:00 117 17 124/80 (95) 100 09/06/19 18:00 127 16 143/75 (97) 100 09/06/19 17:20 100 09/06/19 17:19 113 16 100 Mechanical Ventilator 100 09/06/19 17:19 113 16 100 09/06/19 17:13 99.5 09/06/19 17:00 106 16 142/86 (104) 100 09/06/19 16:30 100.6 89 25 114/67 (83) 93 20 16:00 91 09/06/19 16:00 89 25 114/67 (83) 93 09/06/19 16:00 Non-Rebreather 15.0 Intake and Output 20 09/07/19 19:00 07:00 Intake Total 240 ml 316.960 ml Output Total 800 ml Balance -560 ml 316.960 ml Intake Oral 240 ml IV Total 286.960 ml Tube Feeding 30 ml Output Urine Total 800 ml # Voids 161 # Bowel Movements 3 General Appearance: no acute distress HEENT: normocephalic Respiratory: chest wall non-tender, lungs clear Cardiovascular: normal peripheral pulses Abdomen: normal bowel sounds Laboratory Tests 09/06/19 18:10: Arterial Blood pH 7.224*L, Arterial Blood Partial Pressure CO2 48.8H, Arterial Blood Partial Pressure O2 151.5H, Arterial Blood HCO3 19.7L, Arterial Blood Oxygen Saturation 98.2, Arterial Blood Base Excess -8.0L, Freddie Test Positive 09/06/19 22:30: Urine Color Yellow, Urine Appearance Turbid, Urine pH 5, Urine Specific [place] 1.025, Urine Protein 3+H, Urine Glucose (UA) 1+H, Urine Ketones 3+H, Urine Blood 4+H, Urine Nitrite Negative, Urine Bilirubin Negative, Urine Urobilinogen 1H, Urine Leukocyte Esterase Negative, Urine RBC 10-15H, Urine WBC 2-4, Urine Squamous Epithelial Cells Few, Urine Amorphous Sediment ManyH, Urine Bacteria ManyH, Urine Coarse Granular Casts 5-10H, Urine Random Sodium < 20L, Urine Creatinine < 5.0L 09/07/19 04:15: White Blood Count 6.5, Red Blood Count 3.89L, Hemoglobin 11.3L, Hematocrit 32.8L , Mean Corpuscular Volume 84, Mean Corpuscular Hemoglobin 29.0, Mean Corpuscular Hemoglobin Concent 34.4, Red Cell Distribution Width 13.8, Platelet Count 64L, Mean Platelet Volume 12.3H, Neutrophils (%) (Auto) , Lymphocytes (%) (Auto) , Monocytes (%) (Auto) , Eosinophils (%) (Auto) , Basophils (%) (Auto) , Differential Total Cells Counted 100, Neutrophils % (Manual) 26L, Lymphocytes % (Manual) 32, Monocytes % (Manual) 41H, Eosinophils % (Manual) 0, Basophils % ( Manual) 0, Band Neutrophils 1, Platelet Estimate DecreasedL, Platelet Morphology Normal, Red Blood Cell Morphology Normal, Sodium Level 147H, Potassium Level 3.7, Chloride Level 112H, Carbon Dioxide Level 21, Anion Gap 14 , Blood Urea Nitrogen 22H, Creatinine 1.6H, Estimat Glomerular Filtration Rate 42.0, Glucose Level 98, Calcium Level 7.7L, Phosphorus Level 3.7, Magnesium Level 2.3, Total Bilirubin 0.7, Aspartate Amino Transf (AST/SGOT) 97H, Alanine Aminotransferase (ALT/SGPT) 57, Alkaline Phosphatase 37L, Total Protein 6.1L, Albumin 2.0L, Globulin 4.1, Albumin/Globulin Ratio 0.5L, Triglycerides Level 236H 09/07/19 08:06: Arterial Blood pH 7.407, Arterial Blood Partial Pressure CO2 30.4L, Arterial Blood Partial Pressure O2 105.8H, Arterial Blood HCO3 18.7L, Arterial Blood Oxygen Saturation 97.1, Arterial Blood Base Excess -4.9L, Freddie Test Positive Current Medications Medications (Trade) Dose Ordered Sig/Karlos Route PRN Reason Start Time Stop Time Status Last Admin Dose Admin Acetaminophen (Tylenol) 650 mg Q4H PRN ORAL Mild Pain (Pain Scale 1-3) 09/07/19 03:45 10/03/19 11:44 Acetaminophen (Tylenol) 650 mg Q4H PRN ORAL Temp >100.5 09/07/19 03:45 10/03/19 11:44 Acetaminophen (Tylenol) 650 mg Q4H PRN RECTAL Temp >100.5 09/07/19 04:30 10/06/19 16:29 Atenolol (Tenormin) 50 mg DAILY ORAL 09/07/19 09:00 10/04/19 08:59 09/07/19 09:04 Bisacodyl (Dulcolax) 10 mg DAILYPRN PRN RECTAL Constipation 09/07/19 11:45 12/02/19 11:44 Dextrose (Dextrose 50%) 25 ml Q30M PRN IV Hypoglycemia 09/07/19 00:45 12/02/19 11:44 Dextrose (Dextrose 50%) 50 ml Q30M PRN IV Hypoglycemia 09/07/19 00:45 12/02/19 11:44 Docusate Sodium (Colace) 100 mg EVERY 12 HOURS ORAL 09/07/19 09:00 10/03/19 20:59 09/07/19 09:04 Fentanyl Citrate 250 ml @ 0 mls/hr Q24H IV 09/07/19 12:45 12/06/19 12:44 09/07/19 12:58 Insulin Aspart (NovoLOG) BEFORE MEALS AND HS SUBQ 09/07/19 06:30 12/04/19 11:29 Magnesium Hydroxide (Mom) 30 ml HSPRN PRN ORAL Constipation 09/07/19 11:45 10/03/19 11:44 Piperacillin Sod/ Tazobactam Sod 3.375 gm/Sodium Chloride 110 ml @ 27.5 mls/hr Q8H IVPB 09/07/19 08:00 09/10/19 15:59 09/07/19 15:00 Polyethylene Glycol (Miralax) 17 gm DAILYPRN PRN ORAL Constipation 09/07/19 11:45 10/03/19 11:44 Vancomycin HCl (Vanco rx to dose) 1 ea DAILY PRN MISC Per rx protocol 09/07/19 09:00 10/03/19 12:44 Vancomycin HCl 750 mg/Sodium Chloride 275 ml @ 183.333 mls/hr Q12HR@0500,1700 IVPB 09/07/19 05:00 09/10/19 16:59 09/07/19 05:00 Assessment/Plan Assessment/Plan IMPRESSION: 1. Confirmed COVID-19 pneumonia. 2. Diabetes mellitus. 3. Hypertension. 4. Hyperlipidemia. 5. Thrombocytopenia. 6. Respiratory failure DISCUSSION: Continue vent as is Propofol switch to Fentanyl due to high TG I will follow as sheet sorter. Tresa Mcclellan Omar Syed MD September 07, 2019 15:30
--- NOTE | 2019-09-07 16:15 | NUR ---
NURSE NOTES: Feeding held for an hour due residual and episode of tachypnea. Pt on Fentanyl at 300mcg/hr, suctioned and tolerated and Fi02 increase to 70% will continue close monitoring.
--- NOTE | 2019-09-07 16:31 | NUR ---
CASE MANAGEMENT: REVIEW SI: COVID-19 PNEUMONIA . DM . RESP FAILURE T 98.8 HR 82 RR 30 BP 85/51 SAT 99% MECH VENT FIO2 60 NA 147 BUN 22 CR 1.6 CALCIUM 7.7 ABG: PCO2 30.4 PO2 105.8 2D ECHO PENDING BLOOD CX -- GRAM POS [facility]I [employer] IS: FENTANYL IV Q24HR ZOSYN IV Q8HR VANCOMYCIN IV Q12HR ICU STATUS DCP: PATIENT IS FROM [facility]
--- NOTE | 2019-09-07 17:47 | General Progress Note ---
Assessment/Plan Assessment/Plan: 79-year-old male with PMH of T2DM, COPD, dysphasia, HLD, HTN, thrombocytopenia, hx of APL and dementia who presents from long term for fevers and hypoxia. On admission, pt w/fever 101.5, thrombocytopenia, and elevated d-dimer. #Severe sepsis, present on admission #Acute hypoxic respiratory failure, present on admission #COVID19 positive #Elevated d-dimer #Possible HCAP/asp PNA -Continue ICU level of care -COVID isolation protocol -elevated d-dimer, 7.0, and CRP -Vent management as per [facility] -monitor predictive parameters q3d, CRP, d-dimer, lactic acid -Pulm and ID following -Cont vanco and Zosyn #H/o COPD -currently not in exacerbation -ctm, management as above #HTN #HLD -cont atenolol -amlodipine stopped -hold home pravastatin 40 mg qhs due to mildly elevated AST #elevated AST -likely 2/2 to infection #Thrombocytopenia, improved counts #Hx of Acute Promyelocytic Leukemia -pt f/u w/Dr. Jose as o/p, on danazol 200 mg PO q daily for thrombocytopenia and tretinoin 10 mg PO BID for APL -medications not on formulary per pharmacy -Heme following -monitor CBC DVT PPx - SCDs for now given low plts .I spent 76 minutes on this patient's case, and 39 mins was dedicated to critical care Critical Care Services performed include: Telemetry Review Hemodynamic measurement interpretation Laboratory data review and interpretation Radiology image review and interpretation Ventilator setting review, management, and adjustment Interpretation of ABG's Discussion of patient's care with ICU team, ICU Nursing staff and/or consulting services Subjective Date patient seen: September 07, 2019 Time patient seen: 09:00 ROS Limited/Unobtainable: Yes Allergies: Coded Allergies: No Known Allergies (Unverified , 01/19/13) Subjective Follow up for sepsis, acute hypoxic respiratory failure, COVID19+ Intubated and admitted to ICU yesterday. Objective Last 24 Hour Vital Signs Date Time Temp Pulse Resp B/P (MAP) Pulse Ox O2 Delivery O2 Flow Rate FiO2 09/07/19 17:00 100 26 103/63 (76) 91 100 09/07/19 16:00 70 09/07/19 16:00 99.4 99 25 99/62 (74) 94 99 09/07/19 16:00 Mechanical Ventilator 09/07/19 16:00 92 09/07/19 15:17 98 29 70 09/07/19 15:00 91 26 101/59 (73) 91 91 09/07/19 14:00 88 31 94/58 (70) 96 88 09/07/19 13:00 83 31 92/58 (69) 99 83 09/07/19 12:58 33 85/51 Mechanical Ventilator 09/07/19 12:00 Mechanical Ventilator 09/07/19 12:00 83 09/07/19 12:00 60 09/07/19 12:00 98.8 82 30 85/51 (62) 100 82 09/07/19 11:24 86 33 60 09/07/19 11:00 87 23 107/63 (78) 100 87 09/07/19 10:54 42 101/60 Mechanical Ventilator 09/07/19 10:00 85 32 101/60 (74) 100 85 09/07/19 10:00 29 109/62 Mechanical Ventilator 09/07/19 10:00 26 138/60 Mechanical Ventilator 09/07/19 10:00 29 109/62 Mechanical Ventilator 09/07/19 09:04 85 109/62 09/07/19 09:03 85 109/62 09/07/19 09:03 30 101/60 Mechanical Ventilator 09/07/19 09:03 30 101/60 Mechanical Ventilator 09/07/19 09:03 26 137/60 Mechanical Ventilator 09/07/19 09:00 87 29 109/62 (78) 100 87 09/07/19 08:00 79 09/07/19 08:00 60 09/07/19 08:00 29 126/55 Mechanical Ventilator 09/07/19 08:00 28 115/61 Mechanical Ventilator 09/07/19 08:00 28 115/61 Mechanical Ventilator 09/07/19 08:00 99.8 86 31 115/61 (79) 100 86 09/07/19 08:00 Mechanical Ventilator 09/07/19 07:28 88 36 60 09/07/19 07:00 83 31 99/61 (74) 99 09/07/19 07:00 31 99/61 Mechanical Ventilator 60 09/07/19 06:00 29 97/61 Mechanical Ventilator 60 09/07/19 06:00 85 29 97/61 (73) 100 09/07/19 05:00 29 104/60 Mechanical Ventilator 80 09/07/19 05:00 76 29 104/60 (75) 100 09/07/19 04:00 77 09/07/19 04:00 80 09/07/19 04:00 98.7 79 22 119/65 (83) 100 09/07/19 04:00 22 119/65 Mechanical Ventilator 80 09/07/19 04:00 Mechanical Ventilator 09/07/19 03:04 76 34 80 09/07/19 03:00 23 107/63 Mechanical Ventilator 100 09/07/19 03:00 70 23 107/63 (78) 99 09/07/19 02:00 73 27 101/56 (71) 100 73 09/07/19 02:00 27 101/56 Mechanical Ventilator 100 09/07/19 01:00 71 29 92/58 (69) 100 09/07/19 01:00 29 92/58 Mechanical Ventilator 100 09/07/19 00:45 74 33 92/52 (65) 100 09/07/19 00:45 33 92/52 Mechanical Ventilator 100 09/07/19 00:30 74 33 91/56 (68) 100 09/07/19 00:30 33 91/56 Mechanical Ventilator 100 09/07/19 00:15 31 91/54 Mechanical Ventilator 100 09/07/19 00:15 81 31 91/54 (66) 100 09/07/19 00:00 Mechanical Ventilator 09/07/19 00:00 87 09/07/19 00:00 36 98/61 Mechanical Ventilator 100 09/07/19 00:00 100 09/07/19 00:00 98.7 80 36 98/61 (73) 100 09/06/19 23:45 38 105/68 Mechanical Ventilator 100 09/06/19 23:30 40 110/71 Mechanical Ventilator 100 09/06/19 23:30 86 40 110/71 (84) 100 09/06/19 23:21 78 33 78/49 (59) 100 09/06/19 23:15 79 33 77/52 (60) 100 09/06/19 23:15 33 77/52 Mechanical Ventilator 100 09/06/19 23:00 83 32 81/55 (64) 100 09/06/19 23:00 32 81/55 Mechanical Ventilator 100 09/06/19 22:54 75 26 100 5/18/20 22:45 36 102/69 Mechanical Ventilator 100 09/06/19 22:45 92 36 102/69 (80) 100 09/06/19 22:30 102 30 124/65 (84) 100 09/06/19 22:30 30 124/65 Mechanical Ventilator 100 09/06/19 22:15 102 25 131/74 (93) 100 09/06/19 22:15 30 131/74 Mechanical Ventilator 100 09/06/19 22:00 93 32 101/61 (74) 100 09/06/19 22:00 20 123/56 Mechanical Ventilator 100 09/06/19 21:48 18 125/71 Mechanical Ventilator 100 09/06/19 21:45 99 31 108/64 (79) 99 09/06/19 21:00 104 29 108/65 (79) 100 09/06/19 20:00 98.9 109 33 126/68 (87) 100 109 09/06/19 20:00 Mechanical Ventilator 09/06/19 20:00 100 09/06/19 20:00 101 09/06/19 19:43 113 18 100 09/06/19 19:00 117 17 124/80 (95) 100 09/06/19 18:00 127 16 143/75 (97) 100 Intake and Output 09/06/19 09/07/19 19:00 07:00 Intake Total 240 ml 316.960 ml Output Total 800 ml Balance -560 ml 316.960 ml Intake Oral 240 ml IV Total 286.960 ml Tube Feeding 30 ml Output Urine Total 800 ml # Voids 161 # Bowel Movements 3 Laboratory Tests 09/06/19 18:10: Arterial Blood pH 7.224*L, Arterial Blood Partial Pressure CO2 48.8H, Arterial Blood Partial Pressure O2 151.5H, Arterial Blood HCO3 19.7L, Arterial Blood Oxygen Saturation 98.2, Arterial Blood Base Excess -8.0L, Freddie Test Positive 09/06/19 22:30: Urine Color Yellow, Urine Appearance Turbid, Urine pH 5, Urine Specific [place] 1.025, Urine Protein 3+H, Urine Glucose (UA) 1+H, Urine Ketones 3+H, Urine Blood 4+H, Urine Nitrite Negative, Urine Bilirubin Negative, Urine Urobilinogen 1H, Urine Leukocyte Esterase Negative, Urine RBC 10-15H, Urine WBC 2-4, Urine Squamous Epithelial Cells Few, Urine Amorphous Sediment ManyH, Urine Bacteria ManyH, Urine Coarse Granular Casts 5-10H, Urine Random Sodium < 20L, Urine Creatinine < 5.0L 09/07/19 04:15: White Blood Count 6.5, Red Blood Count 3.89L, Hemoglobin 11.3L, Hematocrit 32.8L , Mean Corpuscular Volume 84, Mean Corpuscular Hemoglobin 29.0, Mean Corpuscular Hemoglobin Concent 34.4, Red Cell Distribution Width 13.8, Platelet Count 64L, Mean Platelet Volume 12.3H, Neutrophils (%) (Auto) , Lymphocytes (%) (Auto) , Monocytes (%) (Auto) , Eosinophils (%) (Auto) , Basophils (%) (Auto) , Differential Total Cells Counted 100, Neutrophils % (Manual) 26L, Lymphocytes % (Manual) 32, Monocytes % (Manual) 41H, Eosinophils % (Manual) 0, Basophils % ( Manual) 0, Band Neutrophils 1, Platelet Estimate DecreasedL, Platelet Morphology Normal, Red Blood Cell Morphology Normal, Sodium Level 147H, Potassium Level 3.7, Chloride Level 112H, Carbon Dioxide Level 21, Anion Gap 14 , Blood Urea Nitrogen 22H, Creatinine 1.6H, Estimat Glomerular Filtration Rate 42.0, Glucose Level 98, Calcium Level 7.7L, Phosphorus Level 3.7, Magnesium Level 2.3, Total Bilirubin 0.7, Aspartate Amino Transf (AST/SGOT) 97H, Alanine Aminotransferase (ALT/SGPT) 57, Alkaline Phosphatase 37L, Total Protein 6.1L, Albumin 2.0L, Globulin 4.1, Albumin/Globulin Ratio 0.5L, Triglycerides Level 236H 09/07/19 08:06: Arterial Blood pH 7.407, Arterial Blood Partial Pressure CO2 30.4L, Arterial Blood Partial Pressure O2 105.8H, Arterial Blood HCO3 18.7L, Arterial Blood Oxygen Saturation 97.1, Arterial Blood Base Excess -4.9L, Freddie Test Positive 09/07/19 16:00: Vancomycin Level Trough 15.7H Height (Feet): 5 Height (Inches): 7.00 Weight (Pounds): 125 General Appearance: no apparent distress, other - Intubated Cardiovascular: normal rate, regular rhythm Respiratory/Chest: lungs clear, normal breath sounds Abdomen: non tender, soft Molazadeh-Yazdi,Seth MD September 07, 2019 17:47
--- NOTE | 2019-09-07 18:07 | NUR ---
NURSE NOTES: Adls done, turned and repositioned.Mouth care perform, HOB elevated to prevent aspiration. Call light within easy reach.Will continue to monitor
--- NOTE | 2019-09-07 19:35 | NUR ---
NURSE NOTES: Received pt from CECILY Thomas. pt is observed in bed, arousable to name and light shaking, no s/sx of pain noted at this time. pt is intubated: ETT: 7.5, 24 cm at lip, AC: 16, VT: 450, PEEP: 5, FiO2: 100%. pt appears to have even and labored breathing, saturation at 89%. will monitor closely. NGT noted in left nare, marked at 70 cm. per previous shift nurse, feeding stopped d/t tachypnea and risk for aspiration. will reassess. HOB elevated to 30 degrees at this time. F/C is patent and intact, draining [place] urine to gravity. LH 20 G and RFA 22 G IV sites are patent and intact, asymptomatic; currently running Fentanyl and 300 mcg/kg/hr and Vancomycin at prescribed rate. Bilateral soft restraints in place; skin in surrounding areas intact, bilateral peripheral pulses present upon palpation. bed in lowest position and locked, siderails up X3, all needs attended to. will continue to monitor closely.
--- NOTE | 2019-09-07 19:40 | NUR ---
HAND-OFF: Report given to CECILY SCHMIDT.
--- NOTE | 2019-09-07 21:14 | Consultation ---
DATE OF CONSULTATION: 09/07/2019 CARDIOLOGY CONSULTATION CONSULTING PHYSICIAN: Gabriel Cantor MD. REFERRING PHYSICIAN: Edwardo Langley MD. REASON FOR CONSULTATION: Management of respiratory failure and atrial fibrillation as well as bradycardia. HISTORY OF PRESENT ILLNESS: Patient is a 79-year-old gentleman who presented to [facility] with temperature of almost 102. Patient was admitted to intensive care unit on COVID isolation. He is on the ventilator with 60% FiO2 and PEEP of 5 . Cardiology consultation was requested for further evaluation and management of atrial fibrillation and history of hypertension. REVIEW OF SYSTEMS: Cannot be obtained. PAST MEDICAL HISTORY: As mentioned above. FAMILY HISTORY: Noncontributory. SOCIAL HISTORY: senior living resident. Does not smoke or drink alcohol. PHYSICAL EXAMINATION: VITAL SIGNS: Show blood pressure of 107/63, pulse is 86, respirations 33. HEAD AND NECK: Orally intubated. LUNGS: Coarse rhonchi. CARDIOVASCULAR: Irregular S1 and S2 with no gallop. ABDOMEN: Soft. EXTREMITIES: No pitting edema. LABORATORY AND DIAGNOSTIC DATA: His EKG from today showed atrial fibrillation with controlled ventricular response. His labs show white count of 6.1, hemoglobin 11.2, hematocrit of 33, and platelet count is 64. Sodium 147, potassium 3.7, BUN of 22, creatinine 1.6, and glucose of 98. His troponin is negative. ASSESSMENT AND PLAN: 1. Atrial fibrillation. Rate is currently controlled and gets bradycardic. Patient is on atenolol 50 mg daily, which will be continued. 2. Hold off on anticoagulation in view of patient's thrombocytopenia. 3. Hypertension, on atenolol 50 daily as well as amlodipine 2.5 mg daily. 4. Respiratory failure, on ventilator for COVID isolation. 5. Thrombocytopenia. 6. Acute promyelocytic leukemia. Further evaluation by Dr. Jose. 7. Diabetes. 8. COPD. Thank you very much for allowing me to participate in the care of this patient. Please do not hesitate to contact me for any questions regarding my evaluation. Gabriel Cantor M.D. DR: DESHAWN JOB#: [id number] CC:
--- NOTE | 2019-09-07 21:30 | NUR ---
NURSE NOTES: pt's BP noted to 67/44. fentanyl drip stopped. will continue to monitor closely.
--- NOTE | 2019-09-07 22:05 | NUR ---
NURSE NOTES: pt's SBP still remains in the 70s after stopping fentanyl drip and placing patient in Trendelenburg position. pt's saturation falling to high 60s-low 70s.
--- NOTE | 2019-09-07 22:30 | NUR ---
NURSE NOTES: pt given 700 cc bolus of NS and PEEP increased to 10. pt's sat ranges from 70s-low 80s. BP remains low with SBP of 68. will notify Dr. Marie.
--- NOTE | 2019-09-07 22:45 | NUR ---
NURSE NOTES: Dr. Vela at bedside for central line placement. Addendum: 09/08/19 at 0451 by BRAYAN PATTON RN RN wrong time
--- NOTE | 2019-09-07 22:50 | NUR ---
NURSE NOTES: spoke to Dr. Marie regarding pt's low SBP of 70s and increase of PEEP to 10. given new orders for levophed and for central line placement. will carry out and will continue to monitor pt closely.
--- NOTE | 2019-09-07 23:00 | NUR ---
NURSE NOTES: Dr. Vela at bedside for central line placement.
[2019-09-07] MEDS ORDERED: Lidocaine 1% 10mg/ml/Epi 0.005mg/ml 30ml vial INJ ONE (23:15)
--- NOTE | 2019-09-07 23:40 | NUR ---
NURSE NOTES: pt's SBP noted to be >100. levophed not started; fentanyl drip resumed. will continue to monitor closely.
--- NOTE | 2019-09-07 23:48 | Emergency Room Report ---
Physical Exam Vital Signs Date Time Temp Pulse Resp B/P (MAP) Pulse Ox O2 Delivery O2 Flow Rate FiO2 09/03/19 10:42 101.8 74 20 132/62 (85) 92 Room Air 09/03/19 10:50 2.0 09/06/19 17:19 100 Medical Decision Making Diagnostic Impression: Primary Impression: Suspected 2019 novel coronavirus infection Additional Impressions: Fever Hypoxia ER Course Called to the ICU to place a central line on admitted patient due to persistent hypotension and need for pressors. A left femoral vein was identified under ultrasound and a triple-lumen central line was placed using Seldinger technique and full sterile precautions. Both I and nurse were also wearing full proper as the patient is COVID positive. Good blood return and flushed and all lines. Sutured in place. Sterile dressing applied. No complications and no significant blood loss. Remainder of care per ICU team. Recall as needed. Last Vital Signs Date Time Temp Pulse Resp B/P (MAP) Pulse Ox O2 Delivery O2 Flow Rate FiO2 09/07/19 22:31 81 26 100 09/07/19 21:22 114/56 Mechanical Ventilator 15.0 09/07/19 18:00 91 09/07/19 16:00 99.4 Disposition: ADMITTED INPATIENT Condition: Serious Referrals: Edwardo Langley MD (PCP) Procedures Central Line Central Line : Consent: Emergent Central Line Lumen: triple Maximal Sterile Barrier Tech: yes cap, yes mask, yes sterile gown, yes sterile gloves, yes large sterile sheet, yes hand hygiene, yes chlorhexidine prep Central Line Postion: femoral (L) Anesthesia: Lidocaine cc's of anesthesia: 5 Complications: none Central Line Post Position: sutured, good blood return Attempts: One Patient Tolerated: Well Complications: None Niels Vela MD September 07, 2019 23:48
[2019-09-08] VITALS (46 sets, daily range): BP systolic 71–127; BP diastolic 38–96
--- NOTE | 2019-09-08 00:35 | NUR ---
NURSE NOTES: pt's BP noted to be 87/49. levophed drip started at 2mcg/ml. will continue to monitor closely.
--- NOTE | 2019-09-08 00:40 | NUR ---
NURSE NOTES: pt's saturation remains in the 70s. STAT ABGs drawn. awaiting results.
--- NOTE | 2019-09-08 00:42 | NUR ---
NURSE NOTES: called and spoke with Dr. Marie with ABG results. per Dr. Marie, increase PEEP between 12-15. will carry out.
--- NOTE | 2019-09-08 01:00 | NUR ---
NURSE NOTES: pt's PEEP increased to 15, saturation: 100%. will continue to monitor closely.
--- NOTE | 2019-09-08 02:05 | NUR ---
NURSE NOTES: pt's SBP noted to be in the 70s. increased levo to 5 mcg/hr. will continue to monitor closely.
--- NOTE | 2019-09-08 03:15 | NUR ---
NURSE NOTES: BP: 89/53, saturation: 97%. will continue to monitor closely.
--- NOTE | 2019-09-08 04:15 | NUR ---
NURSE NOTES: AM labs drawn via left femoral TLC. bed bath given. new linens and gown applied. pt remains on levophed and fentanyl drips; remains in critical condition. saturation: 97%. will continue to monitor closely. Addendum: 09/08/19 at 0501 by BRAYAN PATTON RN RN NURSE NOTES: cooling blanket applied to pt d/t elevated temp of 99.9.
[2019-09-08 05:49] LABS: HEMATOCRIT 31.6 % (42.0-52.0); HEMOGLOBIN 10.4 G/DL (14.2-18.0); MEAN CORPUSCULAR VOLUME 85 FL (80-99); PLATELET COUNT 62 K/UL (150-450); WHITE BLOOD COUNT 6.5 K/UL (4.8-10.8)
[2019-09-08] MEDS: Vancomycin 750 MG in NS 275 ML IVPB SCH (05:51)
[2019-09-08 05:54] LABS: ANION GAP 12 mmol/L (5-15); BLOOD UREA NITROGEN 30 mg/dL (7-18); CALCIUM 7.2 MG/DL (8.5-10.1); CARBON DIOXIDE 24 MMOL/L (21-32); CHLORIDE 113 MMOL/L (98-107); CREATININE 2.6 MG/DL (0.55-1.30); POTASSIUM 4.1 MMOL/L (3.5-5.1); SODIUM 149 MMOL/L (136-145)
--- NOTE | 2019-09-08 06:20 | NUR ---
NURSE NOTES: bedside glucose: 130. per insulin sliding scale, no coverage needed. pt remains in critical condition. will continue to monitor closely.
[2019-09-08] MEDS: NovoLOG Insulin Flexpen SUBQ SCH ×4 (06:30→20:37)
[2019-09-08] MEDS: fentaNYL 2500mcg/NS 250ml 250 ML IV SCH ×3 (07:02→23:20)
--- NOTE | 2019-09-08 07:45 | NUR ---
HAND-OFF: Report given to CECILY Mo. endorsed plan of care.
--- NOTE | 2019-09-08 08:00 | NUR ---
NURSE NOTES: Received change of shift report from Lucila TONY. Pt is sedated -2 light sedation RASS score while on Fentanyl drip at 300mcg/hr. Pt is orally intubated, ETT 7.5 at 24cm lipline with vent settings AC16, VT450, Peep 15, FIO2 100% with O2sat fluctuating in the upper 90%. Bilateral diminished lung sounds with rales/rhonchi. Heart rate is fluctuating from upper 90s to 110s while pt is maintained on Levophed at 5mcg/min to maintain SBP above 90 and MAP above 60-65, Levophed is infusing via left femoral TLC. Pt also has two peripheral IV access, left hand #20 and right FA #22G, both patent/intact. Pt has cooling blanket with rectal thermometer in place, continuously monitoring body temp, currently 100.5F. Left nare NGT with feeding Glucerna 1.2 infusing at 10ml/hour. Gregorio catheter is present draining dark [place]/cloudy urine to gravity. Skin is intact with left foot bruise. Pt has bilateral soft wrist restraints to prevent self-extubation, as pt is noted to reach for ET tube despite light sedation while on Fentanyl. HOB is at 30 degrees, bed locked, in lowest position and three side rails up. Will continue to monitor pt and follow plan of care per MD orders and protocol.
--- NOTE | 2019-09-08 08:54 | Hematology/Onc Progress Note ---
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 Greatly appreciate consultation. Subjective Allergies: Coded Allergies: No Known Allergies (Unverified , 01/19/13) Subjective 09/05 remains confused, as per cards, pulm and id recs, with tachycardia, plt stable 09/06 icu, no overnight events, vent, iv abx 09/07 no overnight events, levo gtt, labs reviewed Objective Objective Current Medications Medications (Trade) Dose Ordered Sig/Karlos Route PRN Reason Start Time Stop Time Status Last Admin Dose Admin Acetaminophen (Tylenol) 650 mg Q4H PRN ORAL Mild Pain (Pain Scale 1-3) 09/07/19 03:45 10/03/19 11:44 09/08/19 01:07 Acetaminophen (Tylenol) 650 mg Q4H PRN ORAL Temp >100.5 09/07/19 03:45 10/03/19 11:44 Acetaminophen (Tylenol) 650 mg Q4H PRN RECTAL Temp >100.5 09/07/19 04:30 10/06/19 16:29 Atenolol (Tenormin) 50 mg DAILY ORAL 09/07/19 09:00 10/04/19 08:59 09/07/19 09:04 Bisacodyl (Dulcolax) 10 mg DAILYPRN PRN RECTAL Constipation 09/07/19 11:45 12/02/19 11:44 Dextrose (Dextrose 50%) 25 ml Q30M PRN IV Hypoglycemia 09/07/19 00:45 12/02/19 11:44 Dextrose (Dextrose 50%) 50 ml Q30M PRN IV Hypoglycemia 09/07/19 00:45 12/02/19 11:44 Docusate Sodium (Colace) 100 mg EVERY 12 HOURS ORAL 09/07/19 09:00 10/03/19 20:59 09/07/19 21:20 Fentanyl Citrate 250 ml @ 0 mls/hr Q24H IV 09/07/19 12:45 12/06/19 12:44 09/08/19 07:02 Insulin Aspart (NovoLOG) BEFORE MEALS AND HS SUBQ 09/07/19 06:30 12/04/19 11:29 Magnesium Hydroxide (Mom) 30 ml HSPRN PRN ORAL Constipation 09/07/19 11:45 10/03/19 11:44 Norepinephrine Bitartrate 4 mg/ Dextrose 250 ml @ 0 mls/hr Q24H IV 09/07/19 23:00 10/07/19 22:59 09/08/19 01:06 Piperacillin Sod/ Tazobactam Sod 3.375 gm/Sodium Chloride 110 ml @ 27.5 mls/hr Q12H IVPB 09/08/19 13:00 09/15/19 12:59 Polyethylene Glycol (Miralax) 17 gm DAILYPRN PRN ORAL Constipation 09/07/19 11:45 10/03/19 11:44 Vancomycin HCl (Vanco rx to dose) 1 ea DAILY PRN MISC Per rx protocol 09/07/19 09:00 10/03/19 12:44 Last 24 Hour Vital Signs Date Time Temp Pulse Resp B/P (MAP) Pulse Ox O2 Delivery O2 Flow Rate FiO2 09/08/19 07:30 72 20 100 09/08/19 07:30 71 15 101/65 (77) 100 09/08/19 07:02 90/58 09/08/19 07:02 22 84/59 Mechanical Ventilator 15.0 100 09/08/19 07:00 69 11 90/58 (69) 100 09/08/19 06:30 69 22 84/59 (67) 100 5/20/20 06:00 84/59 09/08/19 06:00 22 91/60 Mechanical Ventilator 100 09/08/19 06:00 69 15 91/60 (70) 100 09/08/19 05:00 69 16 103/66 (78) 100 09/08/19 05:00 103/66 09/08/19 05:00 22 103/66 Mechanical Ventilator 100 09/08/19 04:00 100 09/08/19 04:00 Mechanical Ventilator 09/08/19 04:00 97/60 09/08/19 04:00 19 97/60 Mechanical Ventilator 100 09/08/19 04:00 76 09/08/19 04:00 99.9 69 15 97/60 (72) 100 09/08/19 03:30 71 20 85/51 (62) 92 09/08/19 03:00 71 19 89/53 (65) 97 09/08/19 03:00 85/54 09/08/19 03:00 19 89/53 Mechanical Ventilator 100 09/08/19 02:53 88 29 100 09/08/19 02:30 71 19 85/54 (64) 97 09/08/19 02:00 76 18 73/48 (56) 98 09/08/19 02:00 73/48 09/08/19 02:00 18 73/48 Mechanical Ventilator 100 09/08/19 01:37 99.9 09/08/19 01:30 73 18 71/42 (52) 98 09/08/19 01:06 87/49 09/08/19 01:00 83 25 105/54 (71) 99 09/08/19 01:00 25 105/54 100 09/08/19 00:30 100 27 87/49 (62) 98 09/08/19 00:00 100.7 109 44 118/71 (87) 77 09/08/19 00:00 44 118/71 Mechanical Ventilator 100 09/08/19 00:00 100 09/08/19 00:00 110 09/08/19 00:00 Mechanical Ventilator 09/07/19 23:30 95 37 91/45 (60) 81 09/07/19 23:30 37 91/45 Mechanical Ventilator 100 09/07/19 23:00 77 22 92/47 (62) 100 09/07/19 23:00 22 92/47 Mechanical Ventilator 100 09/07/19 22:31 81 26 100 09/07/19 22:30 81 22 68/41 (50) 97 09/07/19 22:00 88 22 70/43 (52) 91 20 22:00 22 70/43 Mechanical Ventilator 100 20 21:30 111 37 67/44 (52) 86 20 21:30 37 67/44 Mechanical Ventilator 100 09/07/19 21:22 27 114/56 Mechanical Ventilator 15.0 100 09/07/19 21:00 100 29 114/56 (75) 84 20 21:00 29 114/56 Mechanical Ventilator 100 20 20:00 Mechanical Ventilator 09/07/19 20:00 100 09/07/19 20:00 27 109/55 Mechanical Ventilator 100 09/07/19 20:00 95 27 109/55 (73) 98 09/07/19 20:00 98 09/07/19 19:22 101 27 100 09/07/19 19:00 23 101/59 Mechanical Ventilator 100 09/07/19 19:00 101 23 101/59 (73) 92 09/07/19 18:00 100 25 110/56 (74) 91 94 09/07/19 18:00 24 110/56 Mechanical Ventilator 70 09/07/19 17:00 29 103/63 Mechanical Ventilator 70 09/07/19 17:00 100 26 103/63 (76) 91 100 09/07/19 16:00 70 09/07/19 16:00 99.4 99 25 99/62 (74) 94 99 09/07/19 16:00 Mechanical Ventilator 09/07/19 16:00 26 99/62 Mechanical Ventilator 60 20 16:00 92 09/07/19 15:17 98 29 70 20 15:00 91 26 101/59 (73) 91 91 09/07/19 15:00 26 101/59 Mechanical Ventilator 60 09/07/19 14:00 88 31 94/58 (70) 96 88 09/07/19 14:00 30 94/58 Mechanical Ventilator 60 09/07/19 13:00 83 31 92/58 (69) 99 83 09/07/19 12:58 33 85/51 Mechanical Ventilator 09/07/19 12:00 Mechanical Ventilator 09/07/19 12:00 83 09/07/19 12:00 60 09/07/19 12:00 98.8 82 30 85/51 (62) 100 82 09/07/19 11:24 86 33 60 09/07/19 11:00 87 23 107/63 (78) 100 87 09/07/19 10:54 42 101/60 Mechanical Ventilator 09/07/19 10:00 85 32 101/60 (74) 100 85 09/07/19 10:00 29 109/62 Mechanical Ventilator 09/07/19 10:00 26 138/60 Mechanical Ventilator 09/07/19 10:00 29 109/62 Mechanical Ventilator 09/07/19 09:04 85 109/62 09/07/19 09:03 85 109/62 09/07/19 09:03 30 101/60 Mechanical Ventilator 09/07/19 09:03 30 101/60 Mechanical Ventilator 09/07/19 09:03 26 137/60 Mechanical Ventilator 09/07/19 09:00 87 29 109/62 (78) 100 87 09/07/19 08:00 79 09/07/19 08:00 60 09/07/19 08:00 29 126/55 Mechanical Ventilator 09/07/19 08:00 28 115/61 Mechanical Ventilator 09/07/19 08:00 28 115/61 Mechanical Ventilator 09/07/19 08:00 99.8 86 31 115/61 (79) 100 86 09/07/19 08:00 Mechanical Ventilator 09/07/19 07:28 88 36 60 09/07/19 07:00 83 31 99/61 (74) 99 09/07/19 07:00 31 99/61 Mechanical Ventilator 60 09/07/19 06:00 29 97/61 Mechanical Ventilator 60 09/07/19 06:00 85 29 97/61 (73) 100 09/07/19 05:00 29 104/60 Mechanical Ventilator 80 09/07/19 05:00 76 29 104/60 (75) 100 09/07/19 04:00 77 09/07/19 04:00 80 09/07/19 04:00 98.7 79 22 119/65 (83) 100 09/07/19 04:00 22 119/65 Mechanical Ventilator 80 09/07/19 04:00 Mechanical Ventilator 09/07/19 03:04 76 34 80 09/07/19 03:00 23 107/63 Mechanical Ventilator 100 09/07/19 03:00 70 23 107/63 (78) 99 09/07/19 02:00 73 27 101/56 (71) 100 73 09/07/19 02:00 27 101/56 Mechanical Ventilator 100 09/07/19 01:00 71 29 92/58 (69) 100 09/07/19 01:00 29 92/58 Mechanical Ventilator 100 09/07/19 00:45 74 33 92/52 (65) 100 09/07/19 00:45 33 92/52 Mechanical Ventilator 100 09/07/19 00:30 74 33 91/56 (68) 100 09/07/19 00:30 33 91/56 Mechanical Ventilator 100 09/07/19 00:15 31 91/54 Mechanical Ventilator 100 09/07/19 00:15 81 31 91/54 (66) 100 09/07/19 00:00 Mechanical Ventilator 09/07/19 00:00 87 09/07/19 00:00 36 98/61 Mechanical Ventilator 100 09/07/19 00:00 100 09/07/19 00:00 98.7 80 36 98/61 (73) 100 09/06/19 23:45 38 105/68 Mechanical Ventilator 100 09/06/19 23:30 40 110/71 Mechanical Ventilator 100 09/06/19 23:30 86 40 110/71 (84) 100 09/06/19 23:21 78 33 78/49 (59) 100 09/06/19 23:15 79 33 77/52 (60) 100 09/06/19 23:15 33 77/52 Mechanical Ventilator 100 09/06/19 23:00 83 32 81/55 (64) 100 09/06/19 23:00 32 81/55 Mechanical Ventilator 100 09/06/19 22:54 75 26 100 09/06/19 22:45 36 102/69 Mechanical Ventilator 100 09/06/19 22:45 92 36 102/69 (80) 100 09/06/19 22:30 102 30 124/65 (84) 100 09/06/19 22:30 30 124/65 Mechanical Ventilator 100 09/06/19 22:15 102 25 131/74 (93) 100 09/06/19 22:15 30 131/74 Mechanical Ventilator 100 09/06/19 22:00 93 32 101/61 (74) 100 09/06/19 22:00 20 123/56 Mechanical Ventilator 100 09/06/19 21:48 18 125/71 Mechanical Ventilator 100 09/06/19 21:45 99 31 108/64 (79) 99 09/06/19 21:00 104 29 108/65 (79) 100 09/06/19 20:00 98.9 109 33 126/68 (87) 100 109 09/06/19 20:00 Mechanical Ventilator 09/06/19 20:00 100 09/06/19 20:00 101 09/06/19 19:43 113 18 100 09/06/19 19:00 117 17 124/80 (95) 100 09/06/19 18:00 127 16 143/75 (97) 100 09/06/19 17:20 100 09/06/19 17:19 113 16 100 Mechanical Ventilator 100 09/06/19 17:19 113 16 100 09/06/19 17:13 99.5 09/06/19 17:00 106 16 142/86 (104) 100 09/06/19 16:30 100.6 89 25 114/67 (83) 93 09/06/19 16:00 91 09/06/19 16:00 89 25 114/67 (83) 93 09/06/19 16:00 Non-Rebreather 15.0 09/06/19 15:00 86 30 106/87 (93) 95 09/06/19 14:47 86 09/06/19 12:00 98.9 82 20 115/66 (82) 93 09/06/19 09:00 Non-Rebreather 15.0 Intake and Output 09/07/19 09/08/19 19:00 07:00 Intake Total 737.938 ml 406.50 ml Balance 737.938 ml 406.50 ml Free Water 200 ml IV Total 357.938 ml 386.50 ml Tube Feeding 180 ml 20 ml # Voids 365 600 # Bowel Movements 1 Labs Test 09/05/19 15:00 09/06/19 05:48 09/06/19 09:16 09/06/19 18:10 White Blood Count 7.5 K/UL (4.8-10.8) 7.2 K/UL (4.8-10.8) Red Blood Count 4.44 M/UL (4.70-6.10) 4.24 M/UL (4.70-6.10) Hemoglobin 12.8 G/DL (14.2-18.0) 12.4 G/DL (14.2-18.0) Hematocrit 37.5 % (42.0-52.0) 35.2 % (42.0-52.0) Mean Corpuscular Volume 85 FL (80-99) 83 FL (80-99) Mean Corpuscular Hemoglobin 28.9 PG (27.0-31.0) 29.3 PG (27.0-31.0) Mean Corpuscular Hemoglobin Concent 34.2 G/DL (32.0-36.0) 35.3 G/DL (32.0-36.0) Red Cell Distribution Width 13.8 % (11.6-14.8) 13.5 % (11.6-14.8) Platelet Count 42 K/UL (150-450) 46 K/UL (150-450) Mean Platelet Volume 12.0 FL (6.5-10.1) 12.6 FL (6.5-10.1) Neutrophils (%) (Auto) % (45.0-75.0) % (45.0-75.0) Lymphocytes (%) (Auto) % (20.0-45.0) % (20.0-45.0) Monocytes (%) (Auto) % (1.0-10.0) % (1.0-10.0) Eosinophils (%) (Auto) % (0.0-3.0) % (0.0-3.0) Basophils (%) (Auto) % (0.0-2.0) % (0.0-2.0) Differential Total Cells Counted 100 100 Neutrophils % (Manual) 20 % (45-75) 29 % (45-75) Lymphocytes % (Manual) 52 % (20-45) 32 % (20-45) Monocytes % (Manual) 27 % (1-10) 37 % (1-10) Eosinophils % (Manual) 0 % (0-3) 0 % (0-3) Basophils % (Manual) 0 % (0-2) 0 % (0-2) Band Neutrophils 1 % (0-8) 2 % (0-8) Nucleated Red Blood Cells 2 /100 WBC Platelet Estimate Decreased Decreased Platelet Morphology See comment Giant Platelets Occasional Occasional Anisocytosis 1+ Hemoglobin A1c 5.9 % (4.3-6.0) Vancomycin Level Trough 6.8 ug/mL (5.0-12.0) Red Blood Cell Morphology Normal Sodium Level 145 MMOL/L (136-145) Potassium Level 3.8 MMOL/L (3.5-5.1) Chloride Level 109 MMOL/L (98-107) Carbon Dioxide Level 23 MMOL/L (21-32) Anion Gap 13 mmol/L (5-15) Blood Urea Nitrogen 17 mg/dL (7-18) Creatinine 1.5 MG/DL (0.55-1.30) Estimat Glomerular Filtration Rate 45.3 mL/min (>60) Glucose Level 97 MG/DL (74-106) Calcium Level 8.0 MG/DL (8.5-10.1) Total Bilirubin 0.6 MG/DL (0.2-1.0) Aspartate Amino Transf (AST/SGOT) 94 U/L (15-37) Alanine Aminotransferase (ALT/SGPT) 61 U/L (12-78) Alkaline Phosphatase 30 U/L (46-116) Total Protein 6.4 G/DL (6.4-8.2) Albumin 2.2 G/DL (3.4-5.0) Globulin 4.2 g/dL Albumin/Globulin Ratio 0.5 (1.0-2.7) Triglycerides Level 187 MG/DL (30-150) Arterial Blood pH 7.480 (7.350-7.450) 7.224 (7.350-7.450) Arterial Blood Partial Pressure CO2 27.2 mmHg (35.0-45.0) 48.8 mmHg (35.0-45.0) Arterial Blood Partial Pressure O2 60.7 mmHg (75.0-100.0) 151.5 mmHg (75.0-100.0) Arterial Blood HCO3 19.8 mmol/L (22.0-26.0) 19.7 mmol/L (22.0-26.0) Arterial Blood Oxygen Saturation 90.2 % (95-100) 98.2 % (95-100) Arterial Blood Base Excess -2.5 (-2-2) -8.0 (-2-2) Freddie Test Positive Positive Test 09/06/19 22:30 09/07/19 04:15 09/07/19 08:06 09/07/19 16:00 Urine Color Yellow Urine Appearance Turbid Urine pH 5 (4.5-8.0) Urine Specific [place] 1.025 (1.005-1.035) Urine Protein 3+ (NEGATIVE) Urine Glucose (UA) 1+ (NEGATIVE) Urine Ketones 3+ (NEGATIVE) Urine Blood 4+ (NEGATIVE) Urine Nitrite Negative (NEGATIVE) Urine Bilirubin Negative (NEGATIVE) Urine Urobilinogen 1 MG/DL (0.0-1.0) Urine Leukocyte Esterase Negative (NEGATIVE) Urine RBC 10-15 /HPF (0 - 0) Urine WBC 2-4 /HPF (0 - 0) Urine Squamous Epithelial Cells Few /LPF (NONE/OCC) Urine Amorphous Sediment Many /LPF (NONE) Urine Bacteria Many /HPF (NONE) Urine Coarse Granular Casts 5-10 /LPF (NONE) Urine Random Sodium < 20 mmol/L (20-110) Urine Creatinine < 5.0 MG/DL (30.0-125.0) White Blood Count 6.5 K/UL (4.8-10.8) Red Blood Count 3.89 M/UL (4.70-6.10) Hemoglobin 11.3 G/DL (14.2-18.0) Hematocrit 32.8 % (42.0-52.0) Mean Corpuscular Volume 84 FL (80-99) Mean Corpuscular Hemoglobin 29.0 PG (27.0-31.0) Mean Corpuscular Hemoglobin Concent 34.4 G/DL (32.0-36.0) Red Cell Distribution Width 13.8 % (11.6-14.8) Platelet Count 64 K/UL (150-450) Mean Platelet Volume 12.3 FL (6.5-10.1) Neutrophils (%) (Auto) % (45.0-75.0) Lymphocytes (%) (Auto) % (20.0-45.0) Monocytes (%) (Auto) % (1.0-10.0) Eosinophils (%) (Auto) % (0.0-3.0) Basophils (%) (Auto) % (0.0-2.0) Differential Total Cells Counted 100 Neutrophils % (Manual) 26 % (45-75) Lymphocytes % (Manual) 32 % (20-45) Monocytes % (Manual) 41 % (1-10) Eosinophils % (Manual) 0 % (0-3) Basophils % (Manual) 0 % (0-2) Band Neutrophils 1 % (0-8) Platelet Estimate Decreased Platelet Morphology Normal Red Blood Cell Morphology Normal Sodium Level 147 MMOL/L (136-145) Potassium Level 3.7 MMOL/L (3.5-5.1) Chloride Level 112 MMOL/L (98-107) Carbon Dioxide Level 21 MMOL/L (21-32) Anion Gap 14 mmol/L (5-15) Blood Urea Nitrogen 22 mg/dL (7-18) Creatinine 1.6 MG/DL (0.55-1.30) Estimat Glomerular Filtration Rate 42.0 mL/min (>60) Glucose Level 98 MG/DL (74-106) Calcium Level 7.7 MG/DL (8.5-10.1) Phosphorus Level 3.7 MG/DL (2.5-4.9) Magnesium Level 2.3 MG/DL (1.8-2.4) Total Bilirubin 0.7 MG/DL (0.2-1.0) Aspartate Amino Transf (AST/SGOT) 97 U/L (15-37) Alanine Aminotransferase (ALT/SGPT) 57 U/L (12-78) Alkaline Phosphatase 37 U/L (46-116) Total Protein 6.1 G/DL (6.4-8.2) Albumin 2.0 G/DL (3.4-5.0) Globulin 4.1 g/dL Albumin/Globulin Ratio 0.5 (1.0-2.7) Triglycerides Level 236 MG/DL (30-150) Arterial Blood pH 7.407 (7.350-7.450) Arterial Blood Partial Pressure CO2 30.4 mmHg (35.0-45.0) Arterial Blood Partial Pressure O2 105.8 mmHg (75.0-100.0) Arterial Blood HCO3 18.7 mmol/L (22.0-26.0) Arterial Blood Oxygen Saturation 97.1 % (95-100) Arterial Blood Base Excess -4.9 (-2-2) Freddie Test Positive Vancomycin Level Trough 15.7 ug/mL (5.0-12.0) Test 09/08/19 00:30 09/08/19 04:00 09/08/19 08:19 Arterial Blood pH 7.284 (7.350-7.450) 7.237 (7.350-7.450) Arterial Blood Partial Pressure CO2 41.1 mmHg (35.0-45.0) 47.6 mmHg (35.0-45.0) Arterial Blood Partial Pressure O2 40.7 mmHg (75.0-100.0) 80.5 mmHg (75.0-100.0) Arterial Blood HCO3 19.1 mmol/L (22.0-26.0) 19.8 mmol/L (22.0-26.0) Arterial Blood Oxygen Saturation 71.0 % (95-100) 93.6 % (95-100) Arterial Blood Base Excess -7.2 (-2-2) -7.5 (-2-2) Freddie Test Positive Positive White Blood Count 6.5 K/UL (4.8-10.8) Red Blood Count 3.70 M/UL (4.70-6.10) Hemoglobin 10.4 G/DL (14.2-18.0) Hematocrit 31.6 % (42.0-52.0) Mean Corpuscular Volume 85 FL (80-99) Mean Corpuscular Hemoglobin 28.1 PG (27.0-31.0) Mean Corpuscular Hemoglobin Concent 33.0 G/DL (32.0-36.0) Red Cell Distribution Width 14.0 % (11.6-14.8) Platelet Count 62 K/UL (150-450) Mean Platelet Volume 10.8 FL (6.5-10.1) Neutrophils (%) (Auto) % (45.0-75.0) Lymphocytes (%) (Auto) % (20.0-45.0) Monocytes (%) (Auto) % (1.0-10.0) Eosinophils (%) (Auto) % (0.0-3.0) Basophils (%) (Auto) % (0.0-2.0) Sodium Level 149 MMOL/L (136-145) Potassium Level 4.1 MMOL/L (3.5-5.1) Chloride Level 113 MMOL/L (98-107) Carbon Dioxide Level 24 MMOL/L (21-32) Anion Gap 12 mmol/L (5-15) Blood Urea Nitrogen 30 mg/dL (7-18) Creatinine 2.6 MG/DL (0.55-1.30) Estimat Glomerular Filtration Rate 24.0 mL/min (>60) Glucose Level 125 MG/DL (74-106) Calcium Level 7.2 MG/DL (8.5-10.1) Phosphorus Level 4.1 MG/DL (2.5-4.9) Troponin I 0.106 ng/mL (0.000-0.056) Micro Microbiology Date/Time Source Procedure Growth Status 09/07/19 17:00 Sputum Expectorated Gram Stain Pending Resulted 09/07/19 17:00 Sputum Expectorated Sputum Culture - Preliminary NORMAL UPPER RESPIRATORY AZUCENA AT 24 ... Resulted Height (Feet): 5 Height (Inches): 7.00 Weight (Pounds): 132 Objective General: NAD HEENT: NCAT, EOMi, dry MM CV: RRR, no murmurs, rubs, or gallops Pulm: vent+ GI: Soft, nontender, nondistended, bowel sounds present Ext: No lower extremity edema bilaterally Skin: no rashes lesions or ulcers Msk: Joints symmetrical in upper extremity and lower extremity bilaterally Neuro: CN 2-12 grossly intact bilaterally, no focal signs. Kashmir Jose MD September 08, 2019 08:54
--- NOTE | 2019-09-08 08:58 | NUR ---
RADIOLOGY DEPT., CHEST X-RAY DONE.-P.DYE
--- NOTE | 2019-09-08 09:17 | Diagnostic Imaging Report ---
Procedure: XRAY Chest 1v Reason for study: Shortness of breath. Comparison films: 09/06/2019. FINDINGS: Endotracheal tube remains in place. There is a new NG tube. Bilateral hazy infiltrates not significantly changed. Cardiac and mediastinal silhouette are within normal limits. CP angles are sharp. Old left rib fracture noted. IMPRESSION: New NG tube in good position. Otherwise no significant change.
[2019-09-08] MEDS: Docusate 100mg/10ml Liq NG SCH ×2 (09:31→20:18)
--- NOTE | 2019-09-08 10:00 | NUR ---
NURSE NOTES: Cardiology heat treat technician is at bedside, completing 2D echo per MD order, preliminary result 55-60%. AM meds were administered, oral care was done, and pt was repositioned.
--- NOTE | 2019-09-08 10:20 | Cardiac Electrophysiology PN ---
Subjective Subjective In ICU on 100% Fio2 and 15 PEEP. Had T 103 Objective Last 24 Hour Vital Signs Date Time Temp Pulse Resp B/P (MAP) Pulse Ox O2 Delivery O2 Flow Rate FiO2 09/08/19 10:02 94 34 100 09/08/19 07:30 72 20 100 09/08/19 07:30 71 15 101/65 (77) 100 09/08/19 07:02 90/58 09/08/19 07:02 22 84/59 Mechanical Ventilator 15.0 100 09/08/19 07:00 69 11 90/58 (69) 100 09/08/19 06:30 69 22 84/59 (67) 100 09/08/19 06:00 84/59 09/08/19 06:00 22 91/60 Mechanical Ventilator 100 09/08/19 06:00 69 15 91/60 (70) 100 09/08/19 05:00 69 16 103/66 (78) 100 09/08/19 05:00 103/66 09/08/19 05:00 22 103/66 Mechanical Ventilator 100 09/08/19 04:00 100 09/08/19 04:00 Mechanical Ventilator 09/08/19 04:00 97/60 09/08/19 04:00 19 97/60 Mechanical Ventilator 100 09/08/19 04:00 76 09/08/19 04:00 99.9 69 15 97/60 (72) 100 09/08/19 03:30 71 20 85/51 (62) 92 09/08/19 03:00 71 19 89/53 (65) 97 09/08/19 03:00 85/54 09/08/19 03:00 19 89/53 Mechanical Ventilator 100 09/08/19 02:53 88 29 100 09/08/19 02:30 71 19 85/54 (64) 97 09/08/19 02:00 76 18 73/48 (56) 98 09/08/19 02:00 73/48 09/08/19 02:00 18 73/48 Mechanical Ventilator 100 09/08/19 01:37 99.9 09/08/19 01:30 73 18 71/42 (52) 98 09/08/19 01:06 87/49 09/08/19 01:00 83 25 105/54 (71) 99 09/08/19 01:00 25 105/54 100 09/08/19 00:30 100 27 87/49 (62) 98 09/08/19 00:00 100.7 109 44 118/71 (87) 77 09/08/19 00:00 44 118/71 Mechanical Ventilator 100 09/08/19 00:00 100 09/08/19 00:00 110 09/08/19 00:00 Mechanical Ventilator 09/07/19 23:30 95 37 91/45 (60) 81 09/07/19 23:30 37 91/45 Mechanical Ventilator 100 09/07/19 23:00 77 22 92/47 (62) 100 09/07/19 23:00 22 92/47 Mechanical Ventilator 100 09/07/19 22:31 81 26 100 09/07/19 22:30 81 22 68/41 (50) 97 09/07/19 22:00 88 22 70/43 (52) 91 09/07/19 22:00 22 70/43 Mechanical Ventilator 100 09/07/19 21:30 111 37 67/44 (52) 86 09/07/19 21:30 37 67/44 Mechanical Ventilator 100 09/07/19 21:22 27 114/56 Mechanical Ventilator 15.0 100 09/07/19 21:00 100 29 114/56 (75) 84 09/07/19 21:00 29 114/56 Mechanical Ventilator 100 09/07/19 20:00 Mechanical Ventilator 09/07/19 20:00 100 09/07/19 20:00 27 109/55 Mechanical Ventilator 100 09/07/19 20:00 95 27 109/55 (73) 98 09/07/19 20:00 98 09/07/19 19:22 101 27 100 09/07/19 19:00 23 101/59 Mechanical Ventilator 100 09/07/19 19:00 101 23 101/59 (73) 92 09/07/19 18:00 100 25 110/56 (74) 91 94 09/07/19 18:00 24 110/56 Mechanical Ventilator 70 09/07/19 17:00 29 103/63 Mechanical Ventilator 70 20 17:00 100 26 103/63 (76) 91 100 20 16:00 70 09/07/19 16:00 99.4 99 25 99/62 (74) 94 99 09/07/19 16:00 Mechanical Ventilator 09/07/19 16:00 26 99/62 Mechanical Ventilator 60 09/07/19 16:00 92 09/07/19 15:17 98 29 70 09/07/19 15:00 91 26 101/59 (73) 91 91 09/07/19 15:00 26 101/59 Mechanical Ventilator 60 09/07/19 14:00 88 31 94/58 (70) 96 88 09/07/19 14:00 30 94/58 Mechanical Ventilator 60 09/07/19 13:00 83 31 92/58 (69) 99 83 09/07/19 12:58 33 85/51 Mechanical Ventilator 09/07/19 12:00 Mechanical Ventilator 09/07/19 12:00 83 09/07/19 12:00 60 09/07/19 12:00 98.8 82 30 85/51 (62) 100 82 09/07/19 11:24 86 33 60 09/07/19 11:00 87 23 107/63 (78) 100 87 09/07/19 10:54 42 101/60 Mechanical Ventilator Intake and Output 09/07/19 09/08/19 19:00 07:00 Intake Total 737.938 ml 406.50 ml Balance 737.938 ml 406.50 ml Free Water 200 ml IV Total 357.938 ml 386.50 ml Tube Feeding 180 ml 20 ml # Voids 365 600 # Bowel Movements 1 Laboratory Tests Test 09/07/19 16:00 09/08/19 00:30 09/08/19 04:00 09/08/19 08:19 Vancomycin Level Trough 15.7 ug/mL (5.0-12.0) H Arterial Blood pH 7.284 (7.350-7.450) 7.237 (7.350-7.450) Arterial Blood Partial Pressure CO2 41.1 mmHg (35.0-45.0) 47.6 mmHg (35.0-45.0) H Arterial Blood Partial Pressure O2 40.7 mmHg (75.0-100.0) 80.5 mmHg (75.0-100.0) Arterial Blood HCO3 19.1 mmol/L (22.0-26.0) L 19.8 mmol/L (22.0-26.0) L Arterial Blood Oxygen Saturation 71.0 % (95-100) *L 93.6 % (95-100) L Arterial Blood Base Excess -7.2 (-2-2) L -7.5 (-2-2) L Freddie Test Positive Positive White Blood Count 6.5 K/UL (4.8-10.8) Red Blood Count 3.70 M/UL (4.70-6.10) L Hemoglobin 10.4 G/DL (14.2-18.0) L Hematocrit 31.6 % (42.0-52.0) L Mean Corpuscular Volume 85 FL (80-99) Mean Corpuscular Hemoglobin 28.1 PG (27.0-31.0) Mean Corpuscular Hemoglobin Concent 33.0 G/DL (32.0-36.0) Red Cell Distribution Width 14.0 % (11.6-14.8) Platelet Count 62 K/UL (150-450) L Mean Platelet Volume 10.8 FL (6.5-10.1) H Neutrophils (%) (Auto) % (45.0-75.0) Lymphocytes (%) (Auto) % (20.0-45.0) Monocytes (%) (Auto) % (1.0-10.0) Eosinophils (%) (Auto) % (0.0-3.0) Basophils (%) (Auto) % (0.0-2.0) Differential Total Cells Counted 100 Neutrophils % (Manual) 38 % (45-75) L Lymphocytes % (Manual) 26 % (20-45) Monocytes % (Manual) 35 % (1-10) H Eosinophils % (Manual) 0 % (0-3) Basophils % (Manual) 0 % (0-2) Band Neutrophils 1 % (0-8) Reactive Lymphocytes Occasional Platelet Estimate Decreased L Platelet Morphology Giant Platelets Occasional Polychromasia Hypochromasia 1+ Anisocytosis 1+ Sodium Level 149 MMOL/L (136-145) H Potassium Level 4.1 MMOL/L (3.5-5.1) Chloride Level 113 MMOL/L (98-107) H Carbon Dioxide Level 24 MMOL/L (21-32) Anion Gap 12 mmol/L (5-15) Blood Urea Nitrogen 30 mg/dL (7-18) H Creatinine 2.6 MG/DL (0.55-1.30) #H Estimat Glomerular Filtration Rate 24.0 mL/min (>60) Glucose Level 125 MG/DL (74-106) H Calcium Level 7.2 MG/DL (8.5-10.1) L Phosphorus Level 4.1 MG/DL (2.5-4.9) Troponin I 0.106 ng/mL (0.000-0.056) Microbiology Date/Time Source Procedure Growth Status 09/07/19 04:15 Blood Blood Culture - Preliminary NO GROWTH AFTER 24 HOURS Resulted 09/07/19 04:15 Blood Blood Culture - Preliminary NO GROWTH AFTER 24 HOURS Resulted 09/07/19 17:00 Sputum Expectorated Gram Stain Pending Resulted 09/07/19 17:00 Sputum Expectorated Sputum Culture - Preliminary NORMAL UPPER RESPIRATORY AZUCENA AT 24 ... Resulted 09/06/19 22:30 Urine,Clean Catch Urine Culture - Preliminary NO GROWTH AFTER 24 HOURS Resulted Objective 1. Atrial fibrillation. DC atenolol 2. Hold off on anticoagulation in view of patient's thrombocytopenia. 3. Hypertension, off atenolol and amlodipine as now in septic shock 4. Respiratory failure, on ventilator with 100% fio2 and PEEP 15 for COVID isolation. 5. Thrombocytopenia. 6. Acute promyelocytic leukemia. Further evaluation by Dr. Jose. 7. Diabetes. 8. COPD. LEWIS TONY and Gabriel Mccoy MD September 08, 2019 10:20
--- NOTE | 2019-09-08 10:24 | Cardiac Electrophysiology PN ---
Assessment/Plan Assessment/Plan 1. Atrial fibrillation. DC atenolol for hypotension, Give Dig 0.5 iv and check Dig level in am Hold off on anticoagulation in view of patient's thrombocytopenia. 2. Troponin leak. Could be due to renal failure and septic shock 3. Hypotension, off atenolol and amlodipine as now in septic shock on Levophed 4. Respiratory failure, on ventilator with 100% fio2 and PEEP 15 for COVID isolation. 5. Thrombocytopenia. 6. Acute promyelocytic leukemia. Further evaluation by Dr. Jose. 7. Diabetes. 8. COPD. 9. Acute renal failure with Cr 2.[address] Aguila Subjective Subjective In ICU on 100% Fio2 and 15 [address]EEP. Had T 103 Objective Last 24 Hour Vital Signs Date Time Temp Pulse Resp B/P (MAP) Pulse Ox O2 Delivery O2 Flow Rate FiO2 09/08/19 10:02 94 34 100 09/08/19 07:30 72 20 100 09/08/19 07:30 71 15 101/65 (77) 100 09/08/19 07:02 90/58 09/08/19 07:02 22 84/59 Mechanical Ventilator 15.0 100 09/08/19 07:00 69 11 90/58 (69) 100 09/08/19 06:30 69 22 84/59 (67) 100 09/08/19 06:00 84/59 09/08/19 06:00 22 91/60 Mechanical Ventilator 100 09/08/19 06:00 69 15 91/60 (70) 100 09/08/19 05:00 69 16 103/66 (78) 100 09/08/19 05:00 103/66 09/08/19 05:00 22 103/66 Mechanical Ventilator 100 09/08/19 04:00 100 09/08/19 04:00 Mechanical Ventilator 09/08/19 04:00 97/60 09/08/19 04:00 19 97/60 Mechanical Ventilator 100 09/08/19 04:00 76 09/08/19 04:00 99.9 69 15 97/60 (72) 100 09/08/19 03:30 71 20 85/51 (62) 92 09/08/19 03:00 71 19 89/53 (65) 97 09/08/19 03:00 85/54 09/08/19 03:00 19 89/53 Mechanical Ventilator 100 09/08/19 02:53 88 29 100 09/08/19 02:30 71 19 85/54 (64) 97 09/08/19 02:00 76 18 73/48 (56) 98 09/08/19 02:00 73/48 09/08/19 02:00 18 73/48 Mechanical Ventilator 100 09/08/19 01:37 99.9 09/08/19 01:30 73 18 71/42 (52) 98 09/08/19 01:06 87/49 09/08/19 01:00 83 25 105/54 (71) 99 09/08/19 01:00 25 105/54 100 09/08/19 00:30 100 27 87/49 (62) 98 09/08/19 00:00 100.7 109 44 118/71 (87) 77 09/08/19 00:00 44 118/71 Mechanical Ventilator 100 09/08/19 00:00 100 09/08/19 00:00 110 09/08/19 00:00 Mechanical Ventilator 09/07/19 23:30 95 37 91/45 (60) 81 09/07/19 23:30 37 91/45 Mechanical Ventilator 100 09/07/19 23:00 77 22 92/47 (62) 100 09/07/19 23:00 22 92/47 Mechanical Ventilator 100 09/07/19 22:31 81 26 100 09/07/19 22:30 81 22 68/41 (50) 97 09/07/19 22:00 88 22 70/43 (52) 91 09/07/19 22:00 22 70/43 Mechanical Ventilator 100 09/07/19 21:30 111 37 67/44 (52) 86 09/07/19 21:30 37 67/44 Mechanical Ventilator 100 09/07/19 21:22 27 114/56 Mechanical Ventilator 15.0 100 09/07/19 21:00 100 29 114/56 (75) 84 09/07/19 21:00 29 114/56 Mechanical Ventilator 100 09/07/19 20:00 Mechanical Ventilator 09/07/19 20:00 100 09/07/19 20:00 27 109/55 Mechanical Ventilator 100 20 20:00 95 27 109/55 (73) 98 09/07/19 20:00 98 09/07/19 19:22 101 27 100 09/07/19 19:00 23 101/59 Mechanical Ventilator 100 09/07/19 19:00 101 23 101/59 (73) 92 09/07/19 18:00 100 25 110/56 (74) 91 94 09/07/19 18:00 24 110/56 Mechanical Ventilator 70 09/07/19 17:00 29 103/63 Mechanical Ventilator 70 09/07/19 17:00 100 26 103/63 (76) 91 100 09/07/19 16:00 70 09/07/19 16:00 99.4 99 25 99/62 (74) 94 99 09/07/19 16:00 Mechanical Ventilator 09/07/19 16:00 26 99/62 Mechanical Ventilator 60 09/07/19 16:00 92 09/07/19 15:17 98 29 70 09/07/19 15:00 91 26 101/59 (73) 91 91 09/07/19 15:00 26 101/59 Mechanical Ventilator 60 09/07/19 14:00 88 31 94/58 (70) 96 88 09/07/19 14:00 30 94/58 Mechanical Ventilator 60 09/07/19 13:00 83 31 92/58 (69) 99 83 09/07/19 12:58 33 85/51 Mechanical Ventilator 09/07/19 12:00 Mechanical Ventilator 09/07/19 12:00 83 09/07/19 12:00 60 09/07/19 12:00 98.8 82 30 85/51 (62) 100 82 09/07/19 11:24 86 33 60 09/07/19 11:00 87 23 107/63 (78) 100 87 09/07/19 10:54 42 101/60 Mechanical Ventilator Intake and Output 09/07/19 09/08/19 19:00 07:00 Intake Total 737.938 ml 406.50 ml Balance 737.938 ml 406.50 ml Free Water 200 ml IV Total 357.938 ml 386.50 ml Tube Feeding 180 ml 20 ml # Voids 365 600 # Bowel Movements 1 Laboratory Tests Test 09/07/19 16:00 09/08/19 00:30 09/08/19 04:00 09/08/19 08:19 Vancomycin Level Trough 15.7 ug/mL (5.0-12.0) H Arterial Blood pH 7.284 (7.350-7.450) 7.237 (7.350-7.450) Arterial Blood Partial Pressure CO2 41.1 mmHg (35.0-45.0) 47.6 mmHg (35.0-45.0) H Arterial Blood Partial Pressure O2 40.7 mmHg (75.0-100.0) 80.5 mmHg (75.0-100.0) Arterial Blood HCO3 19.1 mmol/L (22.0-26.0) L 19.8 mmol/L (22.0-26.0) L Arterial Blood Oxygen Saturation 71.0 % (95-100) *L 93.6 % (95-100) L Arterial Blood Base Excess -7.2 (-2-2) L -7.5 (-2-2) L Freddie Test Positive Positive White Blood Count 6.5 K/UL (4.8-10.8) Red Blood Count 3.70 M/UL (4.70-6.10) L Hemoglobin 10.4 G/DL (14.2-18.0) L Hematocrit 31.6 % (42.0-52.0) L Mean Corpuscular Volume 85 FL (80-99) Mean Corpuscular Hemoglobin 28.1 PG (27.0-31.0) Mean Corpuscular Hemoglobin Concent 33.0 G/DL (32.0-36.0) Red Cell Distribution Width 14.0 % (11.6-14.8) Platelet Count 62 K/UL (150-450) L Mean Platelet Volume 10.8 FL (6.5-10.1) H Neutrophils (%) (Auto) % (45.0-75.0) Lymphocytes (%) (Auto) % (20.0-45.0) Monocytes (%) (Auto) % (1.0-10.0) Eosinophils (%) (Auto) % (0.0-3.0) Basophils (%) (Auto) % (0.0-2.0) Differential Total Cells Counted 100 Neutrophils % (Manual) 38 % (45-75) L Lymphocytes % (Manual) 26 % (20-45) Monocytes % (Manual) 35 % (1-10) H Eosinophils % (Manual) 0 % (0-3) Basophils % (Manual) 0 % (0-2) Band Neutrophils 1 % (0-8) Reactive Lymphocytes Occasional Platelet Estimate Decreased L Platelet Morphology Giant Platelets Occasional Polychromasia Hypochromasia 1+ Anisocytosis 1+ Sodium Level 149 MMOL/L (136-145) H Potassium Level 4.1 MMOL/L (3.5-5.1) Chloride Level 113 MMOL/L (98-107) H Carbon Dioxide Level 24 MMOL/L (21-32) Anion Gap 12 mmol/L (5-15) Blood Urea Nitrogen 30 mg/dL (7-18) H Creatinine 2.6 MG/DL (0.55-1.30) #H Estimat Glomerular Filtration Rate 24.0 mL/min (>60) Glucose Level 125 MG/DL (74-106) H Calcium Level 7.2 MG/DL (8.5-10.1) L Phosphorus Level 4.1 MG/DL (2.5-4.9) Troponin I 0.106 ng/mL (0.000-0.056) Microbiology Date/Time Source Procedure Growth Status 09/07/19 04:15 Blood Blood Culture - Preliminary NO GROWTH AFTER 24 HOURS Resulted 09/07/19 04:15 Blood Blood Culture - Preliminary NO GROWTH AFTER 24 HOURS Resulted 09/07/19 17:00 Sputum Expectorated Gram Stain Pending Resulted 09/07/19 17:00 Sputum Expectorated Sputum Culture - Preliminary NORMAL UPPER RESPIRATORY AZUCENA AT 24 ... Resulted 09/06/19 22:30 Urine,Clean Catch Urine Culture - Preliminary NO GROWTH AFTER 24 HOURS Resulted Objective HEAD AND NECK: Orally intubated. LUNGS: Coarse rhonchi. CARDIOVASCULAR: Irregular S1 and S2 with no gallop. ABDOMEN: Soft. EXTREMITIES: No pitting edema. Garbiel Cantor MD September 08, 2019 10:24
[2019-09-08] MEDS ORDERED: Digoxin 0.5mg/2ml Inj IVP SCH (10:30)
--- NOTE | 2019-09-08 10:48 | Nephrology Progress Note ---
Assessment/Plan Plan #Acute kidney injury due to pre- renal azotemia- concerns for vanco toxicity - now concerns for developing ischemic ATN #hypernatremia with free water deficit #COVID infection #Hypoxemic respiratory failure now intubated #pneumonia #T2DM # COPD #Dysphasia #HLD #HTN #thrombocytopenia, #APL #dementia #hypoalbuminemia - place [facility] in the event of needing HD over the next few days - monitor UOP - strict I&Os - started on levophed - continue pressors to maintain MAP > 65 - on vanco and zosyn - avoid supratherapeutic level - consider switching vanco - avoid nephrooxins - strict I&Os - monitor weights - Defer renal imaging for now - DC atenolol 50mg daily - hold amlodipine 2.5mg daily - monitor BP closely - check BMP, mag and phos daily Time spent 70min, more than 50% on care coordination and counseling Critical Care Services performed include: Telemetry Review Hemodynamic measurement interpretation Laboratory data review and interpretation Radiology image review and interpretation Ventilator setting review, management, and adjustment Interpretation of ABG's Discussion of patient's care with ICU team, ICU Nursing staff and/or consulting services Subjective ROS Limited/Unobtainable: No Subjective Transferred to ICU Intubated Fio2 100 Cr uptrending sodium uptrending Objective Objective Last 24 Hour Vital Signs Date Time Temp Pulse Resp B/P (MAP) Pulse Ox O2 Delivery O2 Flow Rate FiO2 09/08/19 10:02 94 34 100 09/08/19 07:30 72 20 100 09/08/19 07:30 71 15 101/65 (77) 100 09/08/19 07:02 90/58 09/08/19 07:02 22 84/59 Mechanical Ventilator 15.0 100 09/08/19 07:00 69 11 90/58 (69) 100 09/08/19 06:30 69 22 84/59 (67) 100 09/08/19 06:00 84/59 09/08/19 06:00 22 91/60 Mechanical Ventilator 100 09/08/19 06:00 69 15 91/60 (70) 100 09/08/19 05:00 69 16 103/66 (78) 100 09/08/19 05:00 103/66 09/08/19 05:00 22 103/66 Mechanical Ventilator 100 09/08/19 04:00 100 5/20/20 04:00 Mechanical Ventilator 09/08/19 04:00 97/60 09/08/19 04:00 19 97/60 Mechanical Ventilator 100 09/08/19 04:00 76 09/08/19 04:00 99.9 69 15 97/60 (72) 100 09/08/19 03:30 71 20 85/51 (62) 92 09/08/19 03:00 71 19 89/53 (65) 97 09/08/19 03:00 85/54 09/08/19 03:00 19 89/53 Mechanical Ventilator 100 09/08/19 02:53 88 29 100 09/08/19 02:30 71 19 85/54 (64) 97 09/08/19 02:00 76 18 73/48 (56) 98 09/08/19 02:00 73/48 09/08/19 02:00 18 73/48 Mechanical Ventilator 100 09/08/19 01:37 99.9 09/08/19 01:30 73 18 71/42 (52) 98 09/08/19 01:06 87/49 09/08/19 01:00 83 25 105/54 (71) 99 09/08/19 01:00 25 105/54 100 09/08/19 00:30 100 27 87/49 (62) 98 09/08/19 00:00 100.7 109 44 118/71 (87) 77 09/08/19 00:00 44 118/71 Mechanical Ventilator 100 09/08/19 00:00 100 09/08/19 00:00 110 09/08/19 00:00 Mechanical Ventilator 09/07/19 23:30 95 37 91/45 (60) 81 09/07/19 23:30 37 91/45 Mechanical Ventilator 100 09/07/19 23:00 77 22 92/47 (62) 100 09/07/19 23:00 22 92/47 Mechanical Ventilator 100 09/07/19 22:31 81 26 100 09/07/19 22:30 81 22 68/41 (50) 97 09/07/19 22:00 88 22 70/43 (52) 91 09/07/19 22:00 22 70/43 Mechanical Ventilator 100 09/07/19 21:30 111 37 67/44 (52) 86 09/07/19 21:30 37 67/44 Mechanical Ventilator 100 09/07/19 21:22 27 114/56 Mechanical Ventilator 15.0 100 09/07/19 21:00 100 29 114/56 (75) 84 20 21:00 29 114/56 Mechanical Ventilator 100 20 20:00 Mechanical Ventilator 09/07/19 20:00 100 20 20:00 27 109/55 Mechanical Ventilator 100 09/07/19 20:00 95 27 109/55 (73) 98 09/07/19 20:00 98 09/07/19 19:22 101 27 100 09/07/19 19:00 23 101/59 Mechanical Ventilator 100 09/07/19 19:00 101 23 101/59 (73) 92 09/07/19 18:00 100 25 110/56 (74) 91 94 09/07/19 18:00 24 110/56 Mechanical Ventilator 70 09/07/19 17:00 29 103/63 Mechanical Ventilator 70 09/07/19 17:00 100 26 103/63 (76) 91 100 09/07/19 16:00 70 09/07/19 16:00 99.4 99 25 99/62 (74) 94 99 09/07/19 16:00 Mechanical Ventilator 09/07/19 16:00 26 99/62 Mechanical Ventilator 60 09/07/19 16:00 92 09/07/19 15:17 98 29 70 09/07/19 15:00 91 26 101/59 (73) 91 91 09/07/19 15:00 26 101/59 Mechanical Ventilator 60 09/07/19 14:00 88 31 94/58 (70) 96 88 09/07/19 14:00 30 94/58 Mechanical Ventilator 60 09/07/19 13:00 83 31 92/58 (69) 99 83 09/07/19 12:58 33 85/51 Mechanical Ventilator 09/07/19 12:00 Mechanical Ventilator 09/07/19 12:00 83 09/07/19 12:00 60 09/07/19 12:00 98.8 82 30 85/51 (62) 100 82 09/07/19 11:24 86 33 60 09/07/19 11:00 87 23 107/63 (78) 100 87 09/07/19 10:54 42 101/60 Mechanical Ventilator Intake and Output 09/07/19 09/08/19 19:00 07:00 Intake Total 737.938 ml 406.50 ml Balance 737.938 ml 406.50 ml Free Water 200 ml IV Total 357.938 ml 386.50 ml Tube Feeding 180 ml 20 ml # Voids 365 600 # Bowel Movements 1 Laboratory Tests 09/07/19 16:00: Vancomycin Level Trough 15.7H 09/08/19 00:30: Arterial Blood pH 7.284L, Arterial Blood Partial Pressure CO2 41.1, Arterial Blood Partial Pressure O2 40.7*L, Arterial Blood HCO3 19.1L, Arterial Blood Oxygen Saturation 71.0*L, Arterial Blood Base Excess -7.2L, Freddie Test Positive 09/08/19 04:00: White Blood Count 6.5, Red Blood Count 3.70L, Hemoglobin 10.4L, Hematocrit 31.6L , Mean Corpuscular Volume 85, Mean Corpuscular Hemoglobin 28.1, Mean Corpuscular Hemoglobin Concent 33.0, Red Cell Distribution Width 14.0, Platelet Count 62L, Mean Platelet Volume 10.8H, Neutrophils (%) (Auto) , Lymphocytes (%) (Auto) , Monocytes (%) (Auto) , Eosinophils (%) (Auto) , Basophils (%) (Auto) , Differential Total Cells Counted 100, Neutrophils % (Manual) 38L, Lymphocytes % (Manual) 26, Monocytes % (Manual) 35H, Eosinophils % (Manual) 0, Basophils % ( Manual) 0, Band Neutrophils 1, Reactive Lymphocytes Occasional, Platelet Estimate DecreasedL, Platelet Morphology , Giant Platelets Occasional, Polychromasia , Hypochromasia 1+, Anisocytosis 1+, Sodium Level 149H, Potassium Level 4.1, Chloride Level 113H, Carbon Dioxide Level 24, Anion Gap 12, Blood Urea Nitrogen 30H, Creatinine 2.6#H, Estimat Glomerular Filtration Rate 24.0, Glucose Level 125H, Calcium Level 7.2L, Phosphorus Level 4.1, Troponin I 0.106H 09/08/19 08:19: Arterial Blood pH 7.237*L, Arterial Blood Partial Pressure CO2 47.6H, Arterial Blood Partial Pressure O2 80.5, Arterial Blood HCO3 19.8L, Arterial Blood Oxygen Saturation 93.6L, Arterial Blood Base Excess -7.5L, Freddie Test Positive Height (Feet): 5 Height (Inches): 7.00 Weight (Pounds): 132 Janelle Guzman M.D. September 08, 2019 10:47
--- NOTE | 2019-09-08 11:10 | General Progress Note ---
Assessment/Plan Assessment/Plan: 79-year-old male with PMH of T2DM, COPD, dysphasia, HLD, HTN, thrombocytopenia, hx of APL and dementia who presents from snf for fevers and hypoxia. On admission, pt w/fever 101.5, thrombocytopenia, and elevated d-dimer. #Severe sepsis progressing to septic shock #Acute hypoxic respiratory failure, present on admission #COVID19 positive #Elevated d-dimer #Possible HCAP/asp PNA -Continue ICU level of care -COVID isolation protocol -elevated d-dimer, 7.0, and CRP -Vent management as per [facility] -monitor predictive parameters q3d, CRP, d-dimer, lactic acid -Pulm and ID following -Cont broad spectrum antibiotics -Advanced care planning discussion had with sister by telephone, she reports that per prior discussions with the patient he would not have wanted heroic/ extraordinary measures to prolong his life. She was agreeable with changing code status to DNR. May want to pursue comfort measures if his condition continues to deteriorate. #ALEXUS -Renal following -?Need for HD #H/o COPD -currently not in exacerbation -ctm, management as above #HTN #HLD -cont atenolol -amlodipine stopped -hold home pravastatin 40 mg qhs due to mildly elevated AST #elevated AST -likely 2/2 to infection #Thrombocytopenia, improved counts #Hx of Acute Promyelocytic Leukemia -pt f/u w/Dr. Jose as o/p, on danazol 200 mg PO q daily for thrombocytopenia and tretinoin 10 mg PO BID for APL -medications not on formulary per pharmacy -Heme following -monitor CBC .I spent 78 minutes on this patient's case, and 39 mins was dedicated to critical care Critical Care Services performed include: Telemetry Review Hemodynamic measurement interpretation Laboratory data review and interpretation Radiology image review and interpretation Ventilator setting review, management, and adjustment Interpretation of ABG's Discussion of patient's care with ICU team, ICU Nursing staff and/or consulting services Date of Discussion: 09/08/2019 A telephone discussion with his closest living relative and power of [place] attorney, Leigh Ann Araujo regarding the patient's advanced care planning took place during this hospitalization on the above date. The discussion included the explanation and discussion of advance directives and associated forms/documents , as well as the patient's current code status. We also discussed at length the patient's medical conditions (both acute and chronic), general prognosis, treatment options, and goals of care. The following summarizes the discussion: Advance Care Planning/Goals of Care: - Will attempt to fill out an AD and/or POLST with the patient prior to discharge, if not already completed - Continue current evaluation and management of any acute and chronic medical issues - Will continue to support the patient/family - Will continue to discuss both short- and long-term goals of care DPOA-HC/Surrogate Decision Maker: Sister, Leigh Ann Whitney (Mobile ) Code Status: DNR Advanced Care Planning Forms/Documents Completed: Deferred until later encounter/visit I spent a total of 17 minutes was spent on this discussion, including counseling , answering questions, and completing, if any, pertinent advanced care planning forms/documents. Subjective Date patient seen: September 08, 2019 Time patient seen: 08:23 ROS Limited/Unobtainable: Yes Allergies: Coded Allergies: No Known Allergies (Unverified , 01/19/13) Subjective Follow up for sepsis, acute hypoxic respiratory failure, COVID19+ Remains intubated, max fiO2 and peep 15 Creatinine increased to 2.6 Objective Last 24 Hour Vital Signs Date Time Temp Pulse Resp B/P (MAP) Pulse Ox O2 Delivery O2 Flow Rate FiO2 09/08/19 10:02 94 34 100 09/08/19 07:30 72 20 100 09/08/19 07:30 71 15 101/65 (77) 100 09/08/19 07:02 90/58 09/08/19 07:02 22 84/59 Mechanical Ventilator 15.0 100 09/08/19 07:00 69 11 90/58 (69) 100 09/08/19 06:30 69 22 84/59 (67) 100 09/08/19 06:00 84/59 09/08/19 06:00 22 91/60 Mechanical Ventilator 100 09/08/19 06:00 69 15 91/60 (70) 100 09/08/19 05:00 69 16 103/66 (78) 100 09/08/19 05:00 103/66 09/08/19 05:00 22 103/66 Mechanical Ventilator 100 09/08/19 04:00 100 09/08/19 04:00 Mechanical Ventilator 09/08/19 04:00 97/60 09/08/19 04:00 19 97/60 Mechanical Ventilator 100 09/08/19 04:00 76 09/08/19 04:00 99.9 69 15 97/60 (72) 100 09/08/19 03:30 71 20 85/51 (62) 92 09/08/19 03:00 71 19 89/53 (65) 97 09/08/19 03:00 85/54 09/08/19 03:00 19 89/53 Mechanical Ventilator 100 09/08/19 02:53 88 29 100 09/08/19 02:30 71 19 85/54 (64) 97 09/08/19 02:00 76 18 73/48 (56) 98 09/08/19 02:00 73/48 09/08/19 02:00 18 73/48 Mechanical Ventilator 100 09/08/19 01:37 99.9 09/08/19 01:30 73 18 71/42 (52) 98 09/08/19 01:06 87/49 09/08/19 01:00 83 25 105/54 (71) 99 09/08/19 01:00 25 105/54 100 09/08/19 00:30 100 27 87/49 (62) 98 09/08/19 00:00 100.7 109 44 118/71 (87) 77 09/08/19 00:00 44 118/71 Mechanical Ventilator 100 09/08/19 00:00 100 09/08/19 00:00 110 09/08/19 00:00 Mechanical Ventilator 09/07/19 23:30 95 37 91/45 (60) 81 09/07/19 23:30 37 91/45 Mechanical Ventilator 100 09/07/19 23:00 77 22 92/47 (62) 100 09/07/19 23:00 22 92/47 Mechanical Ventilator 100 09/07/19 22:31 81 26 100 09/07/19 22:30 81 22 68/41 (50) 97 09/07/19 22:00 88 22 70/43 (52) 91 09/07/19 22:00 22 70/43 Mechanical Ventilator 100 09/07/19 21:30 111 37 67/44 (52) 86 09/07/19 21:30 37 67/44 Mechanical Ventilator 100 09/07/19 21:22 27 114/56 Mechanical Ventilator 15.0 100 5/19/20 21:00 100 29 114/56 (75) 84 09/07/19 21:00 29 114/56 Mechanical Ventilator 100 09/07/19 20:00 Mechanical Ventilator 09/07/19 20:00 100 09/07/19 20:00 27 109/55 Mechanical Ventilator 100 09/07/19 20:00 95 27 109/55 (73) 98 09/07/19 20:00 98 09/07/19 19:22 101 27 100 09/07/19 19:00 23 101/59 Mechanical Ventilator 100 09/07/19 19:00 101 23 101/59 (73) 92 09/07/19 18:00 100 25 110/56 (74) 91 94 09/07/19 18:00 24 110/56 Mechanical Ventilator 70 09/07/19 17:00 29 103/63 Mechanical Ventilator 70 09/07/19 17:00 100 26 103/63 (76) 91 100 09/07/19 16:00 70 09/07/19 16:00 99.4 99 25 99/62 (74) 94 99 09/07/19 16:00 Mechanical Ventilator 09/07/19 16:00 26 99/62 Mechanical Ventilator 60 09/07/19 16:00 92 09/07/19 15:17 98 29 70 09/07/19 15:00 91 26 101/59 (73) 91 91 09/07/19 15:00 26 101/59 Mechanical Ventilator 60 09/07/19 14:00 88 31 94/58 (70) 96 88 09/07/19 14:00 30 94/58 Mechanical Ventilator 60 09/07/19 13:00 83 31 92/58 (69) 99 83 09/07/19 12:58 33 85/51 Mechanical Ventilator 09/07/19 12:00 Mechanical Ventilator 09/07/19 12:00 83 09/07/19 12:00 60 09/07/19 12:00 98.8 82 30 85/51 (62) 100 82 09/07/19 11:24 86 33 60 09/07/19 11:00 87 23 107/63 (78) 100 87 Intake and Output 09/07/19 09/08/19 19:00 07:00 Intake Total 737.938 ml 406.50 ml Balance 737.938 ml 406.50 ml Free Water 200 ml IV Total 357.938 ml 386.50 ml Tube Feeding 180 ml 20 ml # Voids 365 600 # Bowel Movements 1 Laboratory Tests 09/07/19 16:00: Vancomycin Level Trough 15.7H 09/08/19 00:30: Arterial Blood pH 7.284L, Arterial Blood Partial Pressure CO2 41.1, Arterial Blood Partial Pressure O2 40.7*L, Arterial Blood HCO3 19.1L, Arterial Blood Oxygen Saturation 71.0*L, Arterial Blood Base Excess -7.2L, Freddie Test Positive 09/08/19 04:00: White Blood Count 6.5, Red Blood Count 3.70L, Hemoglobin 10.4L, Hematocrit 31.6L , Mean Corpuscular Volume 85, Mean Corpuscular Hemoglobin 28.1, Mean Corpuscular Hemoglobin Concent 33.0, Red Cell Distribution Width 14.0, Platelet Count 62L, Mean Platelet Volume 10.8H, Neutrophils (%) (Auto) , Lymphocytes (%) (Auto) , Monocytes (%) (Auto) , Eosinophils (%) (Auto) , Basophils (%) (Auto) , Differential Total Cells Counted 100, Neutrophils % (Manual) 38L, Lymphocytes % (Manual) 26, Monocytes % (Manual) 35H, Eosinophils % (Manual) 0, Basophils % ( Manual) 0, Band Neutrophils 1, Reactive Lymphocytes Occasional, Platelet Estimate DecreasedL, Platelet Morphology , Giant Platelets Occasional, Polychromasia , Hypochromasia 1+, Anisocytosis 1+, Sodium Level 149H, Potassium Level 4.1, Chloride Level 113H, Carbon Dioxide Level 24, Anion Gap 12, Blood Urea Nitrogen 30H, Creatinine 2.6#H, Estimat Glomerular Filtration Rate 24.0, Glucose Level 125H, Calcium Level 7.2L, Phosphorus Level 4.1, Troponin I 0.106H 09/08/19 08:19: Arterial Blood pH 7.237*L, Arterial Blood Partial Pressure CO2 47.6H, Arterial Blood Partial Pressure O2 80.5, Arterial Blood HCO3 19.8L, Arterial Blood Oxygen Saturation 93.6L, Arterial Blood Base Excess -7.5L, Freddie Test Positive Height (Feet): 5 Height (Inches): 7.00 Weight (Pounds): 132 General Appearance: other - Intubated Cardiovascular: regular rhythm, tachycardia Respiratory/Chest: lungs clear, normal breath sounds Abdomen: non tender, soft Seth Mullen MD September 08, 2019 11:10
--- NOTE | 2019-09-08 11:50 | Pulmonology Progress Note ---
Subjective ROS Limited/Unobtainable: Yes Interval Events: S/p intubation 09/06/19 HEENT: Repors: no symptoms Respiratory: Reports: no symptoms Cardiovascular: Reports: no symptoms Gastrointestinal/Abdominal: Denies: nausea, vomiting, diarrhea Genitourinary: Reports: no symptoms Psychiatric: Reports: other - NA Skin: Denies: rash Musculoskeletal: Denies: pain Allergies: Coded Allergies: No Known Allergies (Unverified , 01/19/13) All Systems: reviewed and negative except above Objective Last 24 Hour Vital Signs Date Time Temp Pulse Resp B/P (MAP) Pulse Ox O2 Delivery O2 Flow Rate FiO2 09/08/19 11:37 81 28 100 09/08/19 10:02 94 34 100 09/08/19 07:30 72 20 100 09/08/19 07:30 71 15 101/65 (77) 100 09/08/19 07:02 90/58 09/08/19 07:02 22 84/59 Mechanical Ventilator 15.0 100 09/08/19 07:00 69 11 90/58 (69) 100 09/08/19 06:30 69 22 84/59 (67) 100 09/08/19 06:00 84/59 09/08/19 06:00 22 91/60 Mechanical Ventilator 100 09/08/19 06:00 69 15 91/60 (70) 100 09/08/19 05:00 69 16 103/66 (78) 100 09/08/19 05:00 103/66 09/08/19 05:00 22 103/66 Mechanical Ventilator 100 09/08/19 04:00 100 09/08/19 04:00 Mechanical Ventilator 09/08/19 04:00 97/60 09/08/19 04:00 19 97/60 Mechanical Ventilator 100 09/08/19 04:00 76 09/08/19 04:00 99.9 69 15 97/60 (72) 100 09/08/19 03:30 71 20 85/51 (62) 92 09/08/19 03:00 71 19 89/53 (65) 97 09/08/19 03:00 85/54 09/08/19 03:00 19 89/53 Mechanical Ventilator 100 09/08/19 02:53 88 29 100 09/08/19 02:30 71 19 85/54 (64) 97 5/20/20 02:00 76 18 73/48 (56) 98 09/08/19 02:00 73/48 09/08/19 02:00 18 73/48 Mechanical Ventilator 100 09/08/19 01:37 99.9 09/08/19 01:30 73 18 71/42 (52) 98 09/08/19 01:06 87/49 09/08/19 01:00 83 25 105/54 (71) 99 09/08/19 01:00 25 105/54 100 09/08/19 00:30 100 27 87/49 (62) 98 09/08/19 00:00 100.7 109 44 118/71 (87) 77 09/08/19 00:00 44 118/71 Mechanical Ventilator 100 09/08/19 00:00 100 09/08/19 00:00 110 09/08/19 00:00 Mechanical Ventilator 09/07/19 23:30 95 37 91/45 (60) 81 09/07/19 23:30 37 91/45 Mechanical Ventilator 100 09/07/19 23:00 77 22 92/47 (62) 100 09/07/19 23:00 22 92/47 Mechanical Ventilator 100 09/07/19 22:31 81 26 100 09/07/19 22:30 81 22 68/41 (50) 97 09/07/19 22:00 88 22 70/43 (52) 91 09/07/19 22:00 22 70/43 Mechanical Ventilator 100 09/07/19 21:30 111 37 67/44 (52) 86 09/07/19 21:30 37 67/44 Mechanical Ventilator 100 09/07/19 21:22 27 114/56 Mechanical Ventilator 15.0 100 09/07/19 21:00 100 29 114/56 (75) 84 09/07/19 21:00 29 114/56 Mechanical Ventilator 100 09/07/19 20:00 Mechanical Ventilator 09/07/19 20:00 100 09/07/19 20:00 27 109/55 Mechanical Ventilator 100 09/07/19 20:00 95 27 109/55 (73) 98 09/07/19 20:00 98 09/07/19 19:22 101 27 100 09/07/19 19:00 23 101/59 Mechanical Ventilator 100 09/07/19 19:00 101 23 101/59 (73) 92 09/07/19 18:00 100 25 110/56 (74) 91 94 09/07/19 18:00 24 110/56 Mechanical Ventilator 70 09/07/19 17:00 29 103/63 Mechanical Ventilator 70 09/07/19 17:00 100 26 103/63 (76) 91 100 09/07/19 16:00 70 09/07/19 16:00 99.4 99 25 99/62 (74) 94 99 09/07/19 16:00 Mechanical Ventilator 09/07/19 16:00 26 99/62 Mechanical Ventilator 60 09/07/19 16:00 92 09/07/19 15:17 98 29 70 09/07/19 15:00 91 26 101/59 (73) 91 91 09/07/19 15:00 26 101/59 Mechanical Ventilator 60 09/07/19 14:00 88 31 94/58 (70) 96 88 09/07/19 14:00 30 94/58 Mechanical Ventilator 60 09/07/19 13:00 83 31 92/58 (69) 99 83 09/07/19 12:58 33 85/51 Mechanical Ventilator 09/07/19 12:00 Mechanical Ventilator 09/07/19 12:00 83 09/07/19 12:00 60 09/07/19 12:00 98.8 82 30 85/51 (62) 100 82 Intake and Output 09/07/19 09/08/19 19:00 07:00 Intake Total 737.938 ml 406.50 ml Balance 737.938 ml 406.50 ml Free Water 200 ml IV Total 357.938 ml 386.50 ml Tube Feeding 180 ml 20 ml # Voids 365 600 # Bowel Movements 1 General Appearance: no acute distress HEENT: normocephalic Respiratory: chest wall non-tender, decreased breath sounds Cardiovascular: normal peripheral pulses Abdomen: normal bowel sounds Microbiology Date/Time Source Procedure Growth Status 09/07/19 04:15 Blood Blood Culture - Preliminary NO GROWTH AFTER 24 HOURS Resulted 09/07/19 04:15 Blood Blood Culture - Preliminary NO GROWTH AFTER 24 HOURS Resulted 09/07/19 17:00 Sputum Expectorated Gram Stain Pending Resulted 09/07/19 17:00 Sputum Expectorated Sputum Culture - Preliminary NORMAL UPPER RESPIRATORY AZUCENA AT 24 ... Resulted 09/06/19 22:30 Urine,Clean Catch Urine Culture - Preliminary NO GROWTH AFTER 24 HOURS Resulted Laboratory Tests 09/07/19 16:00: Vancomycin Level Trough 15.7H 09/08/19 00:30: Arterial Blood pH 7.284L, Arterial Blood Partial Pressure CO2 41.1, Arterial Blood Partial Pressure O2 40.7*L, Arterial Blood HCO3 19.1L, Arterial Blood Oxygen Saturation 71.0*L, Arterial Blood Base Excess -7.2L, Freddie Test Positive 09/08/19 04:00: White Blood Count 6.5, Red Blood Count 3.70L, Hemoglobin 10.4L, Hematocrit 31.6L , Mean Corpuscular Volume 85, Mean Corpuscular Hemoglobin 28.1, Mean Corpuscular Hemoglobin Concent 33.0, Red Cell Distribution Width 14.0, Platelet Count 62L, Mean Platelet Volume 10.8H, Neutrophils (%) (Auto) , Lymphocytes (%) (Auto) , Monocytes (%) (Auto) , Eosinophils (%) (Auto) , Basophils (%) (Auto) , Differential Total Cells Counted 100, Neutrophils % (Manual) 38L, Lymphocytes % (Manual) 26, Monocytes % (Manual) 35H, Eosinophils % (Manual) 0, Basophils % ( Manual) 0, Band Neutrophils 1, Reactive Lymphocytes Occasional, Platelet Estimate DecreasedL, Platelet Morphology , Giant Platelets Occasional, Polychromasia , Hypochromasia 1+, Anisocytosis 1+, Sodium Level 149H, Potassium Level 4.1, Chloride Level 113H, Carbon Dioxide Level 24, Anion Gap 12, Blood Urea Nitrogen 30H, Creatinine 2.6#H, Estimat Glomerular Filtration Rate 24.0, Glucose Level 125H, Calcium Level 7.2L, Phosphorus Level 4.1, Troponin I 0.106H 09/08/19 08:19: Arterial Blood pH 7.237*L, Arterial Blood Partial Pressure CO2 47.6H, Arterial Blood Partial Pressure O2 80.5, Arterial Blood HCO3 19.8L, Arterial Blood Oxygen Saturation 93.6L, Arterial Blood Base Excess -7.5L, Freddie Test Positive Current Medications Medications (Trade) Dose Ordered Sig/Karlos Route PRN Reason Start Time Stop Time Status Last Admin Dose Admin Acetaminophen (Tylenol) 650 mg Q4H PRN ORAL Mild Pain (Pain Scale 1-3) 09/07/19 03:45 10/03/19 11:44 09/08/19 01:07 Acetaminophen (Tylenol) 650 mg Q4H PRN ORAL Temp >100.5 09/07/19 03:45 10/03/19 11:44 Acetaminophen (Tylenol) 650 mg Q4H PRN RECTAL Temp >100.5 09/07/19 04:30 10/06/19 16:29 Atenolol (Tenormin) 50 mg DAILY ORAL 09/07/19 09:00 10/04/19 08:59 09/07/19 09:04 Bisacodyl (Dulcolax) 10 mg DAILYPRN PRN RECTAL Constipation 09/07/19 11:45 12/02/19 11:44 Dextrose (Dextrose 50%) 25 ml Q30M PRN IV Hypoglycemia 09/07/19 00:45 12/02/19 11:44 Dextrose (Dextrose 50%) 50 ml Q30M PRN IV Hypoglycemia 09/07/19 00:45 12/02/19 11:44 Docusate Sodium (Colace) 100 mg Q12HR NG 09/08/19 09:15 10/08/19 09:14 09/08/19 09:31 Fentanyl Citrate 250 ml @ 0 mls/hr Q24H IV 09/07/19 12:45 12/06/19 12:44 09/08/19 07:02 Insulin Aspart (NovoLOG) BEFORE MEALS AND HS SUBQ 09/07/19 06:30 12/04/19 11:29 Magnesium Hydroxide (Mom) 30 ml HSPRN PRN ORAL Constipation 09/07/19 11:45 10/03/19 11:44 Norepinephrine Bitartrate 4 mg/ Dextrose 250 ml @ 0 mls/hr Q24H IV 09/07/19 23:00 10/07/19 22:59 09/08/19 01:06 Piperacillin Sod/ Tazobactam Sod 3.375 gm/Sodium Chloride 110 ml @ 27.5 mls/hr Q12H IVPB 09/08/19 13:00 09/15/19 12:59 Polyethylene Glycol (Miralax) 17 gm DAILYPRN PRN ORAL Constipation 09/07/19 11:45 10/03/19 11:44 Vancomycin HCl (Vanco rx to dose) 1 ea DAILY PRN MISC Per rx protocol 09/07/19 09:00 10/03/19 12:44 Assessment/Plan Assessment/Plan IMPRESSION: 1. Confirmed COVID-19 pneumonia. 2. Diabetes mellitus. 3. Hypertension. 4. Hyperlipidemia. 5. Thrombocytopenia. 6. Respiratory failure DISCUSSION: Continue vent as is Doing very poorly On Ac, 100% FiO2; PEEP 15 Propofol switch to Fentanyl due to high TG I will follow as manager domestic. Now DNR Elias Marie M.D. Elias Marie MD September 08, 2019 11:50
--- NOTE | 2019-09-08 12:00 | NUR ---
NURSE NOTES: Pt was seen by Dr Mingo MD was updated on pt's condition including recent high body Temp fluctuating from 101 to 103F, increased Peep to 15 and increased FIO2 to 100%. MD spoke with family and pt's code status is noted to be changed to DNR per family request/MD order. Pt was also seen by Dr Marie. aware of currently Peep of 15 and FIO2 100%. No new orders were received at this time. Levophed has now been titrated up to 8mcg/min to maintain SBP above 90.
[2019-09-08] MEDS: Piperacillin/Tazobactam 3.375 GM in NS 110 ML IVPB SCH (12:01)
--- NOTE | 2019-09-08 13:00 | NUR ---
NURSE NOTES: Pt was administered Tylenol per PRN order as Temp is currently above 101F rectal, while cooling measures are in place including cooling blanket on pt. Pt was seen by Dr Thao. Per , plan for permacath placement is currently on hold pending consent from family, who requested to change code status to DNR. Creatinine is 2.6. Will reassess labs.
--- NOTE | 2019-09-08 13:25 | NUR ---
CASE MANAGEMENT: REVIEW SI: COVID-19 PNA . DM . RESP FAILURE T 100.1 HR 87 RR 28 BP 86/38 SAT 100% MECH VENT FIO2 100 H/H 10.4/31.6 NA 149 BUN 30 CR 2.6 TRIGLYCERIDES 236 IS: FENTANYL IV Q24HR LEVOPHED IV Q24HR ZOSYN IV Q8HR VANCOMYCIN IV Q12HR NGT FEEDING ICU STATUS DCP: PATIENT IS FROM [facility]
--- NOTE | 2019-09-08 14:00 | NUR ---
NURSE NOTES: Pt was seen by Dr Cantor. Order was received to DC Atenolol. VS currently remain stable while pt is maintained on Levophed at 8mcg/min and Fentanyl 300mcg/hr for -2 light sedation on RASS score.
--- NOTE | 2019-09-08 14:59 | Consultation ---
History of Present Illness General Date patient seen: September 08, 2019 Chief Complaint: Fever Reason for Consultation: ALEXUS Present Illness HPI 79-year-old male with PMH of T2DM, COPD, dysphasia, HLD, HTN, thrombocytopenia, APL and dementia who presents from half-way for fevers and hypoxia. Since admission has significant deteriorated currently in the intensive care unit on support. Worsening renal insufficiency. Considerations for dialysis. Surgery called to evaluate and assist with care as well as placement of temporary hemodialysis catheter. Patient seen, [facility] [place], chart reviewed. Case discussed with crew chief and PCP in nursing staff. Patient unable provide history given current medical condition and mental status he is very ill in the ICU PEEP 15 FiO2 100% on significant support Allergies: Coded Allergies: No Known Allergies (Unverified , 01/19/13) Medication History Scheduled Amlodipine Besylate* (Amlodipine Besylate*), 2.5 MG ORAL DAILY, (Reported) Atenolol* (Tenormin*), 50 MG ORAL DAILY, (Reported) Ca Cmb 1/Vit D3/B-6/Fa/B12/Av (Vitamin D3-Aloe 1,000 Unit Tab), 2 EACH PO DAILY, (Reported) Clopidogrel* (Clopidogrel*), 75 MG ORAL DAILY, (Reported) Danazol (Danazol), 200 MG ORAL TWICE A DAY, (Reported) Docusate Sodium* (Docusate Sodium*), 100 MG ORAL TWICE A DAY, (Reported) Multivitamin With Minerals (Multivitamins With Minerals*), 1 TAB ORAL DAILY, ( Reported) [place]-3 Fatty Acids/Fish Oil (Fish Oil 1,000 Mg Softgel), 4 CAP ORAL DAILY, ( Reported) Pravastatin Sod (Pravastatin Sod), 40 MG ORAL BEDTIME, (Reported) Sennosides (Cari-Jeremy), 17.2 MG PO BEDTIME, (Reported) Tretinoin (Tretinoin), 10 MG PO TWICE A DAY, (Reported) Scheduled PRN Acetaminophen* (Acetaminophen 325MG Tablet*), 650 MG ORAL Q6H PRN for For Pain, (Reported) Diphenhydramine Hcl* (Benadryl*), 25 MG ORAL Q12HR PRN for Itching, (Reported) Lactulose (Lactulose), 20 GM PO Q12HR PRN for Constipation, (Reported) Discontinued Medications Escitalopram Oxalate (Escitalopram Oxalate*), 20 MG ORAL DAILY, (Reported) Discontinued Reason: Therapy completed Metoprolol Tartrate* (Metoprolol Tartrate*), 25 MG ORAL BID, (Reported) Discontinued Reason: Therapy completed Pravastatin Sod (Pravastatin Sod), 80 MG PO DAILY, (Reported) Discontinued Reason: Therapy completed Patient History Limited by: medical condition History Provided By: Medical Record, PMD Healthcare decision maker Resuscitation status Advanced Directive on File Past Medical/Surgical History Past Medical/Surgical History: (1) HTN (hypertension) (2) Thrombocytopenia (3) Diabetes type 2, controlled (4) Sepsis (5) COVID-19 ruled out (6) Hypoxia (7) Suspected 2019 novel coronavirus infection (8) Fever Review of Systems ROS Narrative Unable to obtain given patient's current medical condition Physical Exam General Appearance: severe distress Lines, tubes and drains: central line HEENT: other Neck: supple, other - ET tube Respiratory/Chest: on vent Cardiovascular/Chest: tachycardia, other - Hypotensive Abdomen: soft, no organomegaly, no mass Genitourinary/Rectal: other Extremities: inflammation, slow capillary refill Skin Exam: warm/dry Neurologic: unresponsiveness Last 24 Hour Vital Signs Date Time Temp Pulse Resp B/P (MAP) Pulse Ox O2 Delivery O2 Flow Rate FiO2 09/08/19 14:44 12 86/48 Mechanical Ventilator 15.0 100 09/08/19 13:32 101.2 09/08/19 13:30 133 12 86/48 (61) 100 09/08/19 13:00 139 12 108/70 (83) 100 09/08/19 13:00 86/38 09/08/19 13:00 24 107/60 Mechanical Ventilator 100 09/08/19 12:30 80 12 108/69 (82) 100 09/08/19 12:00 100 09/08/19 12:00 100.3 87 19 86/38 (54) 100 09/08/19 12:00 Mechanical Ventilator 09/08/19 12:00 91 09/08/19 12:00 86/38 09/08/19 12:00 19 86/38 Mechanical Ventilator 100 09/08/19 12:00 96 09/08/19 11:37 81 28 100 09/08/19 11:30 80 12 108/69 (82) 100 09/08/19 11:00 83 8 101/49 (66) 100 5/20/20 11:00 101/49 5/20/20 11:00 11 101/49 Mechanical Ventilator 100 5/20/20 10:30 88 18 96/43 (60) 100 5/20/20 10:02 94 34 100 5/20/20 10:00 96/43 5/20/20 10:00 20 96/43 Mechanical Ventilator 100 5/20/20 10:00 97 18 96/54 (68) 94 520/20 09:30 92 19 115/96 (102) 98 5/20/20 09:00 101 19 107/62 (77) 94 520/20 09:00 107/62 5/20/20 09:00 21 107/62 Mechanical Ventilator 96 20 08:00 113/74 520/20 08:00 15 113/74 Mechanical Ventilator 100 520/20 08:00 99 5/20/20 08:00 100 5/20/20 08:00 Mechanical Ventilator 20 08:00 100.1 73 15 113/74 (87) 100 520/20 07:30 72 20 100 5/20/20 07:30 71 15 101/65 (77) 100 5/20/20 07:02 90/58 5/20/20 07:02 22 84/59 Mechanical Ventilator 15.0 100 520/20 07:00 69 11 90/58 (69) 100 5/20/20 06:30 69 22 84/59 (67) 100 5/20/20 06:00 84/59 5/20/20 06:00 22 91/60 Mechanical Ventilator 100 520/20 06:00 69 15 91/60 (70) 100 5/20/20 05:00 69 16 103/66 (78) 100 5/20/20 05:00 103/66 5/20/20 05:00 22 103/66 Mechanical Ventilator 100 520/20 04:00 100 520/20 04:00 Mechanical Ventilator 520/20 04:00 97/60 5/20/20 04:00 19 97/60 Mechanical Ventilator 100 5/20/20 04:00 76 5/20/20 04:00 99.9 69 15 97/60 (72) 100 520/20 03:30 71 20 85/51 (62) 92 5/20/20 03:00 71 19 89/53 (65) 97 09/08/19 03:00 85/54 5 03:00 19 89/53 Mechanical Ventilator 100 09/08/19 02:53 88 29 100 09/08/19 02:30 71 19 85/54 (64) 97 09/08/19 02:00 76 18 73/48 (56) 98 09/08/19 02:00 73/48 09/08/19 02:00 18 73/48 Mechanical Ventilator 100 09/08/19 01:30 73 18 71/42 (52) 98 09/08/19 01:06 87/49 09/08/19 01:00 83 25 105/54 (71) 99 09/08/19 01:00 25 105/54 100 09/08/19 00:30 100 27 87/49 (62) 98 09/08/19 00:00 100.7 109 44 118/71 (87) 77 09/08/19 00:00 44 118/71 Mechanical Ventilator 100 09/08/19 00:00 100 09/08/19 00:00 110 09/08/19 00:00 Mechanical Ventilator 09/07/19 23:30 95 37 91/45 (60) 81 09/07/19 23:30 37 91/45 Mechanical Ventilator 100 09/07/19 23:00 77 22 92/47 (62) 100 09/07/19 23:00 22 92/47 Mechanical Ventilator 100 09/07/19 22:31 81 26 100 09/07/19 22:30 81 22 68/41 (50) 97 09/07/19 22:00 88 22 70/43 (52) 91 09/07/19 22:00 22 70/43 Mechanical Ventilator 100 09/07/19 21:30 111 37 67/44 (52) 86 09/07/19 21:30 37 67/44 Mechanical Ventilator 100 09/07/19 21:22 27 114/56 Mechanical Ventilator 15.0 100 09/07/19 21:00 100 29 114/56 (75) 84 20 21:00 29 114/56 Mechanical Ventilator 100 20 20:00 Mechanical Ventilator 09/07/19 20:00 100 20 20:00 27 109/55 Mechanical Ventilator 100 09/07/19 20:00 95 27 109/55 (73) 98 09/07/19 20:00 98 09/07/19 19:22 101 27 100 09/07/19 19:00 23 101/59 Mechanical Ventilator 100 09/07/19 19:00 101 23 101/59 (73) 92 09/07/19 18:00 100 25 110/56 (74) 91 94 09/07/19 18:00 24 110/56 Mechanical Ventilator 70 09/07/19 17:00 29 103/63 Mechanical Ventilator 70 09/07/19 17:00 100 26 103/63 (76) 91 100 09/07/19 16:00 70 09/07/19 16:00 99.4 99 25 99/62 (74) 94 99 09/07/19 16:00 Mechanical Ventilator 09/07/19 16:00 26 99/62 Mechanical Ventilator 60 09/07/19 16:00 92 09/07/19 15:17 98 29 70 09/07/19 15:00 91 26 101/59 (73) 91 91 09/07/19 15:00 26 101/59 Mechanical Ventilator 60 Intake and Output 09/07/19 09/08/19 19:00 07:00 Intake Total 737.938 ml 406.50 ml Balance 737.938 ml 406.50 ml Free Water 200 ml IV Total 357.938 ml 386.50 ml Tube Feeding 180 ml 20 ml # Voids 365 600 # Bowel Movements 1 Laboratory Tests Test 09/07/19 16:00 09/08/19 00:30 09/08/19 04:00 09/08/19 08:19 Vancomycin Level Trough 15.7 ug/mL (5.0-12.0) H Arterial Blood pH 7.284 (7.350-7.450) 7.237 (7.350-7.450) Arterial Blood Partial Pressure CO2 41.1 mmHg (35.0-45.0) 47.6 mmHg (35.0-45.0) H Arterial Blood Partial Pressure O2 40.7 mmHg (75.0-100.0) 80.5 mmHg (75.0-100.0) Arterial Blood HCO3 19.1 mmol/L (22.0-26.0) L 19.8 mmol/L (22.0-26.0) L Arterial Blood Oxygen Saturation 71.0 % (95-100) *L 93.6 % (95-100) L Arterial Blood Base Excess -7.2 (-2-2) L -7.5 (-2-2) L Freddie Test Positive Positive White Blood Count 6.5 K/UL (4.8-10.8) Red Blood Count 3.70 M/UL (4.70-6.10) L Hemoglobin 10.4 G/DL (14.2-18.0) L Hematocrit 31.6 % (42.0-52.0) L Mean Corpuscular Volume 85 FL (80-99) Mean Corpuscular Hemoglobin 28.1 PG (27.0-31.0) Mean Corpuscular Hemoglobin Concent 33.0 G/DL (32.0-36.0) Red Cell Distribution Width 14.0 % (11.6-14.8) Platelet Count 62 K/UL (150-450) L Mean Platelet Volume 10.8 FL (6.5-10.1) H Neutrophils (%) (Auto) % (45.0-75.0) Lymphocytes (%) (Auto) % (20.0-45.0) Monocytes (%) (Auto) % (1.0-10.0) Eosinophils (%) (Auto) % (0.0-3.0) Basophils (%) (Auto) % (0.0-2.0) Differential Total Cells Counted 100 Neutrophils % (Manual) 38 % (45-75) L Lymphocytes % (Manual) 26 % (20-45) Monocytes % (Manual) 35 % (1-10) H Eosinophils % (Manual) 0 % (0-3) Basophils % (Manual) 0 % (0-2) Band Neutrophils 1 % (0-8) Reactive Lymphocytes Occasional Platelet Estimate Decreased L Platelet Morphology Giant Platelets Occasional Polychromasia Hypochromasia 1+ Anisocytosis 1+ Sodium Level 149 MMOL/L (136-145) H Potassium Level 4.1 MMOL/L (3.5-5.1) Chloride Level 113 MMOL/L (98-107) H Carbon Dioxide Level 24 MMOL/L (21-32) Anion Gap 12 mmol/L (5-15) Blood Urea Nitrogen 30 mg/dL (7-18) H Creatinine 2.6 MG/DL (0.55-1.30) #H Estimat Glomerular Filtration Rate 24.0 mL/min (>60) Glucose Level 125 MG/DL (74-106) H Calcium Level 7.2 MG/DL (8.5-10.1) L Phosphorus Level 4.1 MG/DL (2.5-4.9) Troponin I 0.106 ng/mL (0.000-0.056) Microbiology Date/Time Source Procedure Growth Status 09/07/19 17:00 Sputum Expectorated Gram Stain Pending Resulted 09/07/19 17:00 Sputum Expectorated Sputum Culture - Preliminary NORMAL UPPER RESPIRATORY AZUCENA AT 24 ... Resulted Height (Feet): 5 Height (Inches): 7.00 Weight (Pounds): 132 Medications Current Medications Medications (Trade) Dose Ordered Sig/Karlos Route PRN Reason Start Time Stop Time Status Last Admin Dose Admin Acetaminophen (Tylenol) 650 mg Q4H PRN ORAL Mild Pain (Pain Scale 1-3) 09/07/19 03:45 10/03/19 11:44 09/08/19 13:02 Acetaminophen (Tylenol) 650 mg Q4H PRN ORAL Temp >100.5 09/07/19 03:45 10/03/19 11:44 Acetaminophen (Tylenol) 650 mg Q4H PRN RECTAL Temp >100.5 09/07/19 04:30 10/06/19 16:29 Atenolol (Tenormin) 50 mg DAILY ORAL 09/07/19 09:00 10/04/19 08:59 09/07/19 09:04 Bisacodyl (Dulcolax) 10 mg DAILYPRN PRN RECTAL Constipation 09/07/19 11:45 12/02/19 11:44 Dextrose (Dextrose 50%) 25 ml Q30M PRN IV Hypoglycemia 09/07/19 00:45 12/02/19 11:44 Dextrose (Dextrose 50%) 50 ml Q30M PRN IV Hypoglycemia 09/07/19 00:45 12/02/19 11:44 Docusate Sodium (Colace) 100 mg Q12HR NG 09/08/19 09:15 10/08/19 09:14 09/08/19 09:31 Fentanyl Citrate 250 ml @ 0 mls/hr Q24H IV 09/07/19 12:45 12/06/19 12:44 09/08/19 14:44 Insulin Aspart (NovoLOG) BEFORE MEALS AND HS SUBQ 09/07/19 06:30 12/04/19 11:29 Magnesium Hydroxide (Mom) 30 ml HSPRN PRN ORAL Constipation 09/07/19 11:45 10/03/19 11:44 Norepinephrine Bitartrate 4 mg/ Dextrose 250 ml @ 0 mls/hr Q24H IV 09/07/19 23:00 10/07/19 22:59 09/08/19 13:00 Piperacillin Sod/ Tazobactam Sod 3.375 gm/Sodium Chloride 110 ml @ 27.5 mls/hr Q12H IVPB 09/08/19 13:00 09/15/19 12:59 09/08/19 12:01 Polyethylene Glycol (Miralax) 17 gm DAILYPRN PRN ORAL Constipation 09/07/19 11:45 10/03/19 11:44 Vancomycin HCl (Vanco rx to dose) 1 ea DAILY PRN MISC Per rx protocol 09/07/19 09:00 10/03/19 12:44 Assessment/Plan Problem List: (1) Fever ICD Codes: R50.9 - Fever, unspecified SNOMED: 541178805 (2) Thrombocytopenia ICD Codes: D69.6 - Thrombocytopenia, unspecified SNOMED: 539938170 (3) Hypoxia ICD Codes: R09.02 - Hypoxemia SNOMED: 202585295 (4) Sepsis Assessment & Plan: Patient severely septic in ICU on pressors on vent supportMaximal support PEEP 15 FiO2 100% Labs noted worsening acute renal insufficiency potentially requiring hemodialysis Patient with significant deterioration initially admitted on 2 L nasal cannula with hypoxia and now intubated on very high vent support. Prognosis very guarded currently DNR discussed with family and discussion with PCP and considerations for no escalation of care will hold on placement of temporal hemodialysis access until further evaluation and patient did show improvement prior to proceeding with further intervention Patient is currently very sick and prognosis is guarded given his CODE STATUS current status and he would not tolerate dialysis so we will hold on placement of line ICD Codes: A41.9 - Sepsis, unspecified organism SNOMED: 38603989 (5) HTN (hypertension) ICD Codes: I10 - Essential (primary) hypertension SNOMED: 09353627 (6) Diabetes type 2, controlled ICD Codes: E11.9 - Type 2 diabetes mellitus without complications SNOMED: 17911290, 882275066 (7) Suspected 2019 novel coronavirus infection ICD Codes: Z20.828 - Contact with and (suspected) exposure to other viral communicable diseases SNOMED: 600574631 (8) COVID-19 ruled out ICD Codes: Z03.818 - Encounter for observation for suspected exposure to other biological agents ruled out SNOMED: 430052164, 781062514 Jeremy Thao September 08, 2019 14:59
--- NOTE | 2019-09-08 16:26 | NUR ---
DIGITAL MEDIA INTERN DISCHARGE NOTE PATIENT IS INTUBATED AND NOT APPROPRIATE FOR DYSPHAGIA TX AND MANAGEMENT AT THIS TIME. PLEASE RE-REFER PATIENT TO DIGITAL MEDIA INTERN WHEN ABLE TO TOLERATE VENT WEANING AND APPROPRIATE FOR SWALLOW EVALUATION.
--- NOTE | 2019-09-08 16:30 | NUR ---
NURSE NOTES: Pt was cleaned, gown/bed linens were changed, pt was repositioned with bilateral extremities elevated on pillows. Oral care was done. Levophed is maintained 8mcg/min and Fentanyl drip at 300mcg/hr to maintain SBP above 90 and -2 light sedation on RASS score. Pt has had episode of ST, with heart rate fluctuating above 100-140 and return back to normal at 90.
--- NOTE | 2019-09-08 18:00 | NUR ---
NURSE NOTES: Cooling blanket remains on pt to regulate body temp below 100.5. VS remain stable.
--- NOTE | 2019-09-08 18:11 | Infectious Diseases Prog Note ---
Assessment/Plan Assessment/Plan ASSESSMENT AND PLAN: 1. covid-19 virus infection/pna, ? aspiration pna/HCAP, ? cap, sepsis, respiratory failure, vent, fevers, leukocytosis coag neg staph blood cultures - contaminant > bacteremia, ? uti, + ua ARF, ? HD - zyvox and zosyn - day # 5 abx - supportive icu care - surveillance blood cultures negative - d/w RN 2. respiratory failure, vent, icu care 3. COPD. 4. Dysphagia. 5. Aspiration risk. 6. Hyperlipidemia. 7. Hypertension - treatment per primary team 8. Diabetes type 2- tx per primary team 9. Thrombocytopenia. 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 11. No known drug allergies. 12. Social history is negative. 13. Family history noncontributory. 14. MAR was noted. 15. Case discussed with RN. 16. Continue treatment per primary consultants. 17. Case communicated with primary care team Subjective Constitutional: Reports: fever, other - on pressors, [id number]%, doing poorly, on vent HEENT: Reports: congestion Respiratory: Reports: shortness of breath Cardiovascular: Reports: other - + pressors Gastrointestinal/Abdominal: Denies: nausea, vomiting, diarrhea Genitourinary: Reports: other - + sales Neurologic: Reports: weakness, other - lethargic Psychiatric: Reports: other - NA Skin: Denies: rash Hematologic: Denies: bleeding Musculoskeletal: Reports: other - NA Allergies: Coded Allergies: No Known Allergies (Unverified , 01/19/13) Objective Vital Signs Last 24 Hour Vital Signs Date Time Temp Pulse Resp B/P (MAP) Pulse Ox O2 Delivery O2 Flow Rate FiO2 09/08/19 17:39 93 25 100 09/08/19 17:00 120 18 114/61 (78) 100 09/08/19 16:30 131 16 79/59 (66) 99 09/08/19 16:00 99.7 142 13 91/63 (72) 100 09/08/19 16:00 100 09/08/19 16:00 Mechanical Ventilator 09/08/19 16:00 148 09/08/19 15:30 137 17 98/63 (75) 100 09/08/19 15:05 128 25 100 09/08/19 15:00 131 14 107/80 (89) 100 09/08/19 14:51 130 20 89/69 (76) 100 20 14:44 12 86/48 Mechanical Ventilator 15.0 100 09/08/19 14:30 123 14 77/62 (67) 99 20 14:00 128 14 87/53 (64) 100 520 13:32 101.2 5 13:30 133 12 86/48 (61) 100 20 13:00 139 12 108/70 (83) 100 20 13:00 86/38 520 13:00 24 107/60 Mechanical Ventilator 100 09/08/19 12:30 80 12 108/69 (82) 100 09/08/19 12:00 100 09/08/19 12:00 100.3 87 19 86/38 (54) 100 09/08/19 12:00 Mechanical Ventilator 09/08/19 12:00 91 09/08/19 12:00 86/38 520 12:00 19 86/38 Mechanical Ventilator 100 09/08/19 12:00 96 09/08/19 11:37 81 28 100 09/08/19 11:30 80 12 108/69 (82) 100 09/08/19 11:00 83 8 101/49 (66) 100 09/08/19 11:00 101/49 09/08/19 11:00 11 101/49 Mechanical Ventilator 100 09/08/19 10:30 88 18 96/43 (60) 100 09/08/19 10:02 94 34 100 09/08/19 10:00 96/43 09/08/19 10:00 20 96/43 Mechanical Ventilator 100 09/08/19 10:00 97 18 96/54 (68) 94 20 09:30 92 19 115/96 (102) 98 20 09:00 101 19 107/62 (77) 94 20 09:00 107/62 520 09:00 21 107/62 Mechanical Ventilator 96 09/08/19 08:00 113/74 520 08:00 15 113/74 Mechanical Ventilator 100 09/08/19 08:00 99 20 08:00 100 5 08:00 Mechanical Ventilator 09/08/19 08:00 100.1 73 15 113/74 (87) 100 5/20/20 07:30 72 20 100 520 07:30 71 15 101/65 (77) 100 09/08/19 07:02 90/58 5 07:02 22 84/59 Mechanical Ventilator 15.0 100 09/08/19 07:00 69 11 90/58 (69) 100 20 06:30 69 22 84/59 (67) 100 09/08/19 06:00 84/59 520 06:00 22 91/60 Mechanical Ventilator 100 09/08/19 06:00 69 15 91/60 (70) 100 09/08/19 05:00 69 16 103/66 (78) 100 09/08/19 05:00 103/66 09/08/19 05:00 22 103/66 Mechanical Ventilator 100 09/08/19 04:00 100 09/08/19 04:00 Mechanical Ventilator 09/08/19 04:00 97/60 09/08/19 04:00 19 97/60 Mechanical Ventilator 100 09/08/19 04:00 76 09/08/19 04:00 99.9 69 15 97/60 (72) 100 09/08/19 03:30 71 20 85/51 (62) 92 09/08/19 03:00 71 19 89/53 (65) 97 09/08/19 03:00 85/54 09/08/19 03:00 19 89/53 Mechanical Ventilator 100 09/08/19 02:53 88 29 100 09/08/19 02:30 71 19 85/54 (64) 97 09/08/19 02:00 76 18 73/48 (56) 98 20 02:00 73/48 09/08/19 02:00 18 73/48 Mechanical Ventilator 100 09/08/19 01:30 73 18 71/42 (52) 98 20 01:06 87/49 09/08/19 01:00 83 25 105/54 (71) 99 20 01:00 25 105/54 100 09/08/19 00:30 100 27 87/49 (62) 98 20 00:00 100.7 109 44 118/71 (87) 77 09/08/19 00:00 44 118/71 Mechanical Ventilator 100 09/08/19 00:00 100 09/08/19 00:00 110 09/08/19 00:00 Mechanical Ventilator 09/07/19 23:30 95 37 91/45 (60) 81 09/07/19 23:30 37 91/45 Mechanical Ventilator 100 09/07/19 23:00 77 22 92/47 (62) 100 09/07/19 23:00 22 92/47 Mechanical Ventilator 100 09/07/19 22:31 81 26 100 09/07/19 22:30 81 22 68/41 (50) 97 09/07/19 22:00 88 22 70/43 (52) 91 09/07/19 22:00 22 70/43 Mechanical Ventilator 100 09/07/19 21:30 111 37 67/44 (52) 86 09/07/19 21:30 37 67/44 Mechanical Ventilator 100 09/07/19 21:22 27 114/56 Mechanical Ventilator 15.0 100 09/07/19 21:00 100 29 114/56 (75) 84 09/07/19 21:00 29 114/56 Mechanical Ventilator 100 09/07/19 20:00 Mechanical Ventilator 09/07/19 20:00 100 09/07/19 20:00 27 109/55 Mechanical Ventilator 100 09/07/19 20:00 95 27 109/55 (73) 98 09/07/19 20:00 98 09/07/19 19:22 101 27 100 09/07/19 19:00 23 101/59 Mechanical Ventilator 100 09/07/19 19:00 101 23 101/59 (73) 92 09/07/19 18:00 100 25 110/56 (74) 91 94 09/07/19 18:00 24 110/56 Mechanical Ventilator 70 Height (Feet): 5 Height (Inches): 7.00 Weight (Pounds): 132 General Appearance: other - on pressors and vent, poorly responsive HEENT: normocephalic, atraumatic, anicteric, no JVD, other - oral - intubated Respiratory/Chest: crackles/rales, rhonchi - bilaterally Cardiovascular: normal rate, regular rhythm, no gallop/murmur, no JVD Abdomen: normal bowel sounds, soft, non tender, no organomegaly, non distended Genitourinary: other - + sales - urine clear Extremities: no cyanosis Skin: no rash Neurologic/Psychiatric: other - letharg, weak, on vent Lymphatic: no neck adenopathy Musculoskeletal: no effusion Objective CLINICAL HISTORY: Tube placement TECHNIQUE: Frontal view of the chest. COMPARISON: 09/06/19 at 0939 hours. FINDINGS: Interval intubation. The tip of the endotracheal tube is appropriately positioned, projecting 2.2 cm above the delroy. Redemonstrated extensive pulmonary parenchymal consolidation, most pronounced in the upper lobes, right greater than left. Atypical gas densities projecting over the right upper arm. I spoke with the nurse, who states there isn't been a procedure in this area. This could be from overlying materials. Recommend a single frontal humerus view with all materials removed to ensure that there are sternotomy more sinister process such as gas-forming infection. IMPRESSION: Appropriately positioned ET tube. Stable upper lobe-predominant airspace consolidation. Chest x-ray - 09/08/19 - Procedure: XRAY Chest 1v Procedure: XRAY Chest 1v Reason for study: Shortness of breath. Comparison films: 09/06/2019. FINDINGS: Endotracheal tube remains in place. There is a new NG tube. Bilateral hazy infiltrates not significantly changed. Cardiac and mediastinal silhouette are within normal limits. CP angles are sharp. Old left rib fracture noted. IMPRESSION: New NG tube in good position. Otherwise no significant change. Microbiology Date/Time Source Procedure Growth Status 09/07/19 04:15 Blood Blood Culture - Preliminary NO GROWTH AFTER 24 HOURS Resulted 09/07/19 04:15 Blood Blood Culture - Preliminary NO GROWTH AFTER 24 HOURS Resulted 09/07/19 17:00 Sputum Expectorated Gram Stain Pending Resulted 09/07/19 17:00 Sputum Expectorated Sputum Culture - Preliminary NORMAL UPPER RESPIRATORY AZUCENA AT 24 ... Resulted 09/06/19 22:30 Urine,Clean Catch Urine Culture - Preliminary NO GROWTH AFTER 24 HOURS Resulted Laboratory Tests Test 09/08/19 00:30 09/08/19 04:00 09/08/19 08:19 Arterial Blood pH 7.284 (7.350-7.450) 7.237 (7.350-7.450) Arterial Blood Partial Pressure CO2 41.1 mmHg (35.0-45.0) 47.6 mmHg (35.0-45.0) H Arterial Blood Partial Pressure O2 40.7 mmHg (75.0-100.0) 80.5 mmHg (75.0-100.0) Arterial Blood HCO3 19.1 mmol/L (22.0-26.0) L 19.8 mmol/L (22.0-26.0) L Arterial Blood Oxygen Saturation 71.0 % (95-100) *L 93.6 % (95-100) L Arterial Blood Base Excess -7.2 (-2-2) L -7.5 (-2-2) L Freddie Test Positive Positive White Blood Count 6.5 K/UL (4.8-10.8) Red Blood Count 3.70 M/UL (4.70-6.10) L Hemoglobin 10.4 G/DL (14.2-18.0) L Hematocrit 31.6 % (42.0-52.0) L Mean Corpuscular Volume 85 FL (80-99) Mean Corpuscular Hemoglobin 28.1 PG (27.0-31.0) Mean Corpuscular Hemoglobin Concent 33.0 G/DL (32.0-36.0) Red Cell Distribution Width 14.0 % (11.6-14.8) Platelet Count 62 K/UL (150-450) L Mean Platelet Volume 10.8 FL (6.5-10.1) H Neutrophils (%) (Auto) % (45.0-75.0) Lymphocytes (%) (Auto) % (20.0-45.0) Monocytes (%) (Auto) % (1.0-10.0) Eosinophils (%) (Auto) % (0.0-3.0) Basophils (%) (Auto) % (0.0-2.0) Differential Total Cells Counted 100 Neutrophils % (Manual) 38 % (45-75) L Lymphocytes % (Manual) 26 % (20-45) Monocytes % (Manual) 35 % (1-10) H Eosinophils % (Manual) 0 % (0-3) Basophils % (Manual) 0 % (0-2) Band Neutrophils 1 % (0-8) Reactive Lymphocytes Occasional Platelet Estimate Decreased L Platelet Morphology Giant Platelets Occasional Polychromasia Hypochromasia 1+ Anisocytosis 1+ Sodium Level 149 MMOL/L (136-145) H Potassium Level 4.1 MMOL/L (3.5-5.1) Chloride Level 113 MMOL/L (98-107) H Carbon Dioxide Level 24 MMOL/L (21-32) Anion Gap 12 mmol/L (5-15) Blood Urea Nitrogen 30 mg/dL (7-18) H Creatinine 2.6 MG/DL (0.55-1.30) #H Estimat Glomerular Filtration Rate 24.0 mL/min (>60) Glucose Level 125 MG/DL (74-106) H Calcium Level 7.2 MG/DL (8.5-10.1) L Phosphorus Level 4.1 MG/DL (2.5-4.9) Troponin I 0.106 ng/mL (0.000-0.056) Current Medications Medications (Trade) Dose Ordered Sig/Karlos Route PRN Reason Start Time Stop Time Status Last Admin Dose Admin Acetaminophen (Tylenol) 650 mg Q4H PRN ORAL Mild Pain (Pain Scale 1-3) 09/07/19 03:45 10/03/19 11:44 09/08/19 13:02 Acetaminophen (Tylenol) 650 mg Q4H PRN ORAL Temp >100.5 09/07/19 03:45 10/03/19 11:44 Acetaminophen (Tylenol) 650 mg Q4H PRN RECTAL Temp >100.5 09/07/19 04:30 10/06/19 16:29 Bisacodyl (Dulcolax) 10 mg DAILYPRN PRN RECTAL Constipation 09/07/19 11:45 12/02/19 11:44 Dextrose (Dextrose 50%) 25 ml Q30M PRN IV Hypoglycemia 09/07/19 00:45 12/02/19 11:44 Dextrose (Dextrose 50%) 50 ml Q30M PRN IV Hypoglycemia 09/07/19 00:45 12/02/19 11:44 Docusate Sodium (Colace) 100 mg Q12HR NG 09/08/19 09:15 10/08/19 09:14 09/08/19 09:31 Fentanyl Citrate 250 ml @ 0 mls/hr Q24H IV 09/07/19 12:45 12/06/19 12:44 09/08/19 14:44 Insulin Aspart (NovoLOG) BEFORE MEALS AND HS SUBQ 09/07/19 06:30 12/04/19 11:29 Magnesium Hydroxide (Mom) 30 ml HSPRN PRN ORAL Constipation 09/07/19 11:45 10/03/19 11:44 Norepinephrine Bitartrate 4 mg/ Dextrose 250 ml @ 0 mls/hr Q24H IV 09/07/19 23:00 10/07/19 22:59 09/08/19 13:00 Piperacillin Sod/ Tazobactam Sod 3.375 gm/Sodium Chloride 110 ml @ 27.5 mls/hr Q12H IVPB 09/08/19 13:00 09/15/19 12:59 09/08/19 12:01 Polyethylene Glycol (Miralax) 17 gm DAILYPRN PRN ORAL Constipation 09/07/19 11:45 10/03/19 11:44 Vancomycin HCl (Vanco rx to dose) 1 ea DAILY PRN MISC Per rx protocol 09/07/19 09:00 10/03/19 12:44 Lb Solo MD September 08, 2019 18:11
--- NOTE | 2019-09-08 19:48 | NUR ---
HAND-OFF: Report given to Latoya TONY. Endorsed plan of care. VS remain stable.
--- NOTE | 2019-09-08 19:49 | NUR ---
NURSE NOTES: patient received from CECILY Mo. patient awake oriented to self with 7.5 ETT at 24cm on ventilator AC 16 TV 450 FiO2 100% PEEP 15. BP 114/68 HR86 oxygen saturation 100% temp 100F axillary with cooling blanket on top of patient. left femoral TLC running fentanyl 300mcg/hr, Levophed 8mcg/min clean and asymptomatic. left nare NGT running glucerna 1.2 @ 20ml/hr. sales catheter draining scant amount of yellow urine. skin warm intact with left foot ecchymosis noted. will continue to monitor.
[2019-09-08] MEDS: Doxycycline Monohydrate 100mg ORAL SCH (20:18)
[2019-09-08] MEDS: Dyna-Hex 2% Top Sol 2oz TOPIC SCH (21:35)
--- NOTE | 2019-09-08 22:00 | NUR ---
NURSE NOTES: patient asleep arousable to shaking on ventilator AC 16 TV 450 FiO2 100% PEEP 15. BP 100/53 HR80 oxygen saturation 100%. left femoral TLC running fentanyl 300mcg/hr, Levophed 8mcg/min. left nare NGT running glucerna 1.2 @ 20ml/hr. sales catheter draining scant amount of yellow urine. patient repositioned and oral care provided. will continue to monitor.
[2019-09-09] VITALS (69 sets, daily range): BP systolic 66–138; BP diastolic 20–101
--- NOTE | 2019-09-09 | NUR ---
NURSE NOTES: patient sedated to RASS -2 arousable to name, on ventilator AC 16 TV 450 FiO2 100% PEEP 15. BP 108/54 HR75 oxygen saturation 100%. left femoral TLC running fentanyl 300mcg/hr, Levophed 8mcg/min. left nare NGT running glucerna 1.2 @ 30ml/hr. saels catheter draining scant amount of yellow urine. patient repositioned and oral care provided. will continue to monitor.
[2019-09-09] MEDS: Piperacillin/Tazobactam 3.375 GM in NS 110 ML IVPB SCH ×3 (00:16→20:46)
--- NOTE | 2019-09-09 02:00 | NUR ---
NURSE NOTES: patient sedated arousable to name, on ventilator AC 16 TV 450 FiO2 100% PEEP 15. BP 117/59 HR107 oxygen saturation 100%. left femoral TLC running fentanyl 300mcg/hr, Levophed 8mcg/min. left nare NGT running glucerna 1.2 @ 30ml/hr. sales catheter draining scant amount of yellow urine. patient given CHG bath, repositioned, and oral care provided. will continue to monitor.
--- NOTE | 2019-09-09 04:00 | NUR ---
NURSE NOTES: patient awake on ventilator AC 16 TV 450 FiO2 100% PEEP 15. BP 112/80 HR119 oxygen saturation 93%. left femoral TLC running fentanyl 300mcg/hr, Levophed 8mcg/min. left nare NGT running glucerna 1.2 @ 30ml/hr. sales catheter draining scant amount of yellow urine. patient repositioned and oral care provided. will continue to monitor.
[2019-09-09 04:58] LABS: HEMATOCRIT 31.4 % (42.0-52.0); HEMOGLOBIN 10.5 G/DL (14.2-18.0); MEAN CORPUSCULAR VOLUME 86 FL (80-99); PLATELET COUNT 77 K/UL (150-450); RED BLOOD COUNT 3.65 M/UL (4.70-6.10); RED CELL DISTRIBUTION WIDTH 14.1 % (11.6-14.8); WHITE BLOOD COUNT 13.1 K/UL (4.8-10.8)
[2019-09-09 05:39] LABS: PHOSPHORUS 5.1 MG/DL (2.5-4.9)
[2019-09-09 05:41] LABS: ALANINE AMINOTRANSFERASE 53 U/L (12-78); ALBUMIN 1.8 G/DL (3.4-5.0); ALBUMIN/GLOBULIN RATIO 0.4 (1.0-2.7); ANION GAP 21 mmol/L (5-15); ASPARTATE AMINO TRANSFERASE 122 U/L (15-37); BILIRUBIN,TOTAL 0.8 MG/DL (0.2-1.0); BLOOD UREA NITROGEN 43 mg/dL (7-18); CALCIUM 6.9 MG/DL (8.5-10.1); CARBON DIOXIDE 16 MMOL/L (21-32); CHLORIDE 109 MMOL/L (98-107); CREATININE 4.2 MG/DL (0.55-1.30); POTASSIUM 4.9 MMOL/L (3.5-5.1); SODIUM 146 MMOL/L (136-145)
--- NOTE | 2019-09-09 06:00 | NUR ---
NURSE NOTES: patient sedated arousable to name, on ventilator AC 16 TV 450 FiO2 100% PEEP 15. BP 116/89 HR112 oxygen saturation 90%. left femoral TLC running fentanyl 320mcg/hr, Levophed 8mcg/min. left nare NGT running glucerna 1.2 @ 30ml/hr. sales catheter draining scant amount of yellow urine. patient repositioned and oral care provided. will continue to monitor.
[2019-09-09] MEDS: NovoLOG Insulin Flexpen SUBQ SCH ×4 (06:30→21:11)
[2019-09-09] MEDS: fentaNYL 2500mcg/NS 250ml 250 ML IV SCH ×3 (07:25→21:16)
--- NOTE | 2019-09-09 07:27 | NUR ---
HAND-OFF: Report given to CECILY Joiner.
--- NOTE | 2019-09-09 07:28 | NUR ---
NURSE NOTES: Received patient from CECILY Klein. Patient sedated with RASS score -2 on fentanyl at 320mcg/hr. Patient orally intubated with ET tube 7.5cm at 24cm at the lip line. Ventilator setting AC 16, tidal volume 450mL, FiO2 100%, and PEEP 15. Patient has nasal gastric tube in left nares that is patent, asymptomatic, and running glucerna 1.2 at 30mL/hr with no residual noted. Patient has sales for urine retention that is patent and draining. Patient skin intact with ecchymosis on left foot. Patient has left hand 20 gauge peripheral IV that is patent, asymptomatic and saline locked and left femoral triple lumen catheter that is patent, asymptomatic, and running fentanyl at 320mcg/hr and levophed at 10mcg/min with blood pressure 104/47. Will continue to monitor and titrate per protocol. Patient on bilateral soft wrist restraint due to patient pulling on medical devices. Peripheral pulses present. Bed in low position with bed alarm on and call light in reach. Will continue to monitor. Oral care and repositioning done at this time.
[2019-09-09 07:30] LABS: ALKALINE PHOSPHATASE 51 U/L (46-116)
--- NOTE | 2019-09-09 08:00 | NUR ---
NURSE NOTES: Received telephone call from Dr Leigh. Received order to pull back ET tube 1.5cm. Order read back, verified, and placed. Will notify RT. Addendum: 09/09/19 at 0804 by Marisel Mead RN disregard this note. Meant for another patient.
--- NOTE | 2019-09-09 08:03 | Hematology/Onc Progress Note ---
Assessment/Plan Assessment/Plan # Thombocytopenia is likely related to APL he has at baseline as well as coivd infection --> trend as needed plt 42k-->46k-->64-->77 --> abx okay for zosyn and vanc --> smear is noted --> labs reviewed, c/w infection --> ok to continue home apl meds --> if plt less than 20k transfuse --> blood cultures negative # Acute promyelocytic leukemia --> need to obtain hematology number so can contact them re his meds --> okay at this time to resume home meds --> important for next week heme followup --> was on danazol and tretinoin the last time i saw him # Fevers and chills rule out covid --> covid19 pcr pend --> per id # Tachycardia as per cards eval # T2DM --> iss and as per endo # COPD # Dysphasia, HLD, HTN # Dvt ppx scds The timing of this note does not necessarily reflect the time of the patient was seen. Greatly appreciate consultation. Subjective Allergies: Coded Allergies: No Known Allergies (Unverified , 01/19/13) Subjective 09/05 remains confused, as per cards, pulm and id recs, with tachycardia, plt stable 09/06 icu, no overnight events, vent, iv abx 09/07 no overnight events, levo gtt, labs reviewed 09/08 icu, no acute events, bp stable Objective Objective Current Medications Medications (Trade) Dose Ordered Sig/Karlos Route PRN Reason Start Time Stop Time Status Last Admin Dose Admin Acetaminophen (Tylenol) 650 mg Q4H PRN ORAL Mild Pain (Pain Scale 1-3) 09/07/19 03:45 10/03/19 11:44 09/08/19 13:02 Acetaminophen (Tylenol) 650 mg Q4H PRN ORAL Temp >100.5 09/07/19 03:45 10/03/19 11:44 Acetaminophen (Tylenol) 650 mg Q4H PRN RECTAL Temp >100.5 09/07/19 04:30 10/06/19 16:29 Bisacodyl (Dulcolax) 10 mg DAILYPRN PRN RECTAL Constipation 09/07/19 11:45 12/02/19 11:44 Chlorhexidine Gluconate (Nely-Hex 2%) 1 applic DAILY@2000 TOPIC 09/08/19 21:00 12/07/19 20:59 09/08/19 21:35 Dextrose (Dextrose 50%) 25 ml Q30M PRN IV Hypoglycemia 09/07/19 00:45 12/02/19 11:44 Dextrose (Dextrose 50%) 50 ml Q30M PRN IV Hypoglycemia 09/07/19 00:45 12/02/19 11:44 Docusate Sodium (Colace) 100 mg Q12HR NG 09/08/19 09:15 10/08/19 09:14 09/08/19 20:18 Doxycycline Monohydrate (Doxycycline Monohydrate) 100 mg EVERY 12 HOURS ORAL 09/08/19 21:00 09/15/19 20:59 09/08/19 20:18 Fentanyl Citrate 250 ml @ 0 mls/hr Q24H IV 09/07/19 12:45 12/06/19 12:44 09/09/19 07:25 Insulin Aspart (NovoLOG) BEFORE MEALS AND HS SUBQ 09/07/19 06:30 12/04/19 11:29 Linezolid 300 ml @ 300 mls/hr EVERY 12 HOURS IVPB 09/08/19 21:00 09/15/19 20:59 09/08/19 20:18 Magnesium Hydroxide (Mom) 30 ml HSPRN PRN ORAL Constipation 09/07/19 11:45 10/03/19 11:44 Norepinephrine Bitartrate 8 mg/ Dextrose 508 ml @ 0 mls/hr Q24H IV 09/08/19 21:00 10/08/19 20:59 09/08/19 20:42 Piperacillin Sod/ Tazobactam Sod 3.375 gm/Sodium Chloride 110 ml @ 27.5 mls/hr Q12H IVPB 09/08/19 13:00 09/15/19 12:59 09/09/19 00:16 Polyethylene Glycol (Miralax) 17 gm DAILYPRN PRN ORAL Constipation 09/07/19 11:45 10/03/19 11:44 Last 24 Hour Vital Signs Date Time Temp Pulse Resp B/P (MAP) Pulse Ox O2 Delivery O2 Flow Rate FiO2 09/09/19 07:30 100 23 104/55 (71) 92 5/21/20 07:28 88 19 100 09/09/19 07:25 17 86/32 Mechanical Ventilator 100 09/09/19 07:00 97 21 86/53 (64) 94 09/09/19 07:00 86/53 09/09/19 07:00 17 86/53 Mechanical Ventilator 100 09/09/19 06:30 113 21 115/52 (73) 88 09/09/19 06:00 112 22 116/89 (98) 90 09/09/19 06:00 116/89 09/09/19 06:00 22 116/89 Mechanical Ventilator 100 09/09/19 05:30 111 19 105/52 (69) 82 09/09/19 05:00 112 21 121/94 (103) 80 09/09/19 05:00 121/94 09/09/19 05:00 21 121/94 Mechanical Ventilator 100 09/09/19 04:30 117 20 127/101 (110) 88 09/09/19 04:00 100 09/09/19 04:00 115 09/09/19 04:00 99.5 119 20 112/80 (91) 93 09/09/19 04:00 112/80 09/09/19 04:00 20 112/80 Mechanical Ventilator 100 09/09/19 04:00 Mechanical Ventilator 09/09/19 03:30 115 22 106/72 (83) 98 09/09/19 03:04 106 28 100 09/09/19 03:00 106/72 09/09/19 03:00 22 106/72 Mechanical Ventilator 100 09/09/19 03:00 115 22 106/72 (83) 98 09/09/19 02:30 111 23 113/83 (93) 99 09/09/19 02:00 107 20 117/59 (78) 100 09/09/19 02:00 117/59 09/09/19 02:00 21 117/59 Mechanical Ventilator 100 09/09/19 01:30 100 20 105/46 (65) 100 09/09/19 01:00 117/46 09/09/19 01:00 21 105/46 Mechanical Ventilator 100 09/09/19 01:00 105 22 111/80 (90) 98 09/09/19 00:30 98 20 138/60 (86) 99 09/09/19 00:00 100.3 75 18 108/54 (72) 100 5/21/20 00:00 Mechanical Ventilator 521/20 00:00 138/60 5/21/20 00:00 21 138/60 Mechanical Ventilator 100 5/21/20 00:00 75 5/20/20 23:30 75 20 109/62 (78) 100 5/20/20 23:20 16 109/58 Mechanical Ventilator 100 5/20/20 23:00 75 17 109/58 (75) 100 5/20/20 23:00 109/58 5/20/20 23:00 17 109/58 Mechanical Ventilator 100 5/20/20 22:50 74 22 100 5/20/20 22:30 75 14 96/55 (69) 100 5/20/20 22:00 100/53 5/20/20 22:00 15 100/53 Mechanical Ventilator 100 520/20 22:00 80 15 100/53 (69) 100 5/20/20 21:30 89 16 108/50 (69) 100 5/20/20 21:00 115/73 5/20/20 21:00 16 115/73 Mechanical Ventilator 100 5/20/20 21:00 90 20 115/73 (87) 100 5/20/20 20:42 101/58 5/20/20 20:30 87 18 101/58 (72) 100 5/20/20 20:00 Mechanical Ventilator 520/20 20:00 100/80 5/20/20 20:00 15 100/80 Mechanical Ventilator 100 5/20/20 20:00 86 5/20/20 20:00 100.0 89 16 100/80 (87) 100 5/20/20 20:00 100 5/20/20 19:30 86 18 95/63 (74) 100 5/20/20 19:10 86 22 100 5/20/20 19:00 86 16 114/68 (83) 100 5/20/20 19:00 95/63 5/20/20 19:00 20 95/63 Mechanical Ventilator 100 5/20/20 18:30 94 21 86/66 (73) 99 5/20/20 18:00 93 19 91/72 (78) 99 5/20/20 18:00 91/72 5/20/20 18:00 21 91/72 Mechanical Ventilator 100 5/20/20 17:39 93 25 100 5/20/20 17:30 80 16 127/64 (85) 100 520 17:00 120 18 114/61 (78) 100 20 17:00 127/64 520 17:00 16 127/64 Mechanical Ventilator 100 20 16:30 131 16 79/59 (66) 99 20 16:00 99.7 142 13 91/63 (72) 100 09/08/19 16:00 114/61 520 16:00 17 91/63 Mechanical Ventilator 100 09/08/19 16:00 100 09/08/19 16:00 Mechanical Ventilator 09/08/19 16:00 148 09/08/19 15:30 137 17 98/63 (75) 100 09/08/19 15:05 128 25 100 09/08/19 15:00 91/63 09/08/19 15:00 17 98/63 Mechanical Ventilator 100 09/08/19 15:00 131 14 107/80 (89) 100 09/08/19 14:51 130 20 89/69 (76) 100 09/08/19 14:44 12 86/48 Mechanical Ventilator 15.0 100 09/08/19 14:30 123 14 77/62 (67) 99 09/08/19 14:00 128 14 87/53 (64) 100 09/08/19 14:00 77/62 09/08/19 14:00 15 87/53 Mechanical Ventilator 30 09/08/19 13:32 101.2 09/08/19 13:30 133 12 86/48 (61) 100 09/08/19 13:00 139 12 108/70 (83) 100 09/08/19 13:00 86/38 5 13:00 24 107/60 Mechanical Ventilator 100 09/08/19 12:30 80 12 108/69 (82) 100 09/08/19 12:00 100 09/08/19 12:00 100.3 87 19 86/38 (54) 100 09/08/19 12:00 Mechanical Ventilator 09/08/19 12:00 91 09/08/19 12:00 86/38 520 12:00 19 86/38 Mechanical Ventilator 100 09/08/19 12:00 96 09/08/19 11:37 81 28 100 5/20/20 11:30 80 12 108/69 (82) 100 5/20/20 11:00 83 8 101/49 (66) 100 520 11:00 101/49 52020 11:00 11 101/49 Mechanical Ventilator 100 520 10:30 88 18 96/43 (60) 100 520 10:02 94 34 100 520 10:00 96/43 520 10:00 20 96/43 Mechanical Ventilator 100 20 10:00 97 18 96/54 (68) 94 20 09:30 92 19 115/96 (102) 98 20 09:00 101 19 107/62 (77) 94 09/08/19 09:00 107/62 5 09:00 21 107/62 Mechanical Ventilator 96 09/08/19 08:00 113/74 5 08:00 15 113/74 Mechanical Ventilator 100 09/08/19 08:00 99 09/08/19 08:00 100 09/08/19 08:00 Mechanical Ventilator 09/08/19 08:00 100.1 73 15 113/74 (87) 100 520 07:30 72 20 100 520 07:30 71 15 101/65 (77) 100 20 07:02 90/58 5 07:02 22 84/59 Mechanical Ventilator 15.0 100 09/08/19 07:00 69 11 90/58 (69) 100 20 06:30 69 22 84/59 (67) 100 20 06:00 84/59 520/20 06:00 22 91/60 Mechanical Ventilator 100 20 06:00 69 15 91/60 (70) 100 520/20 05:00 69 16 103/66 (78) 100 20 05:00 103/66 520 05:00 22 103/66 Mechanical Ventilator 100 20 04:00 100 20 04:00 Mechanical Ventilator 09/08/19 04:00 97/60 520 04:00 19 97/60 Mechanical Ventilator 100 09/08/19 04:00 76 5 04:00 99.9 69 15 97/60 (72) 100 09/08/19 03:30 71 20 85/51 (62) 92 09/08/19 03:00 71 19 89/53 (65) 97 09/08/19 03:00 85/54 5 03:00 19 89/53 Mechanical Ventilator 100 09/08/19 02:53 88 29 100 09/08/19 02:30 71 19 85/54 (64) 97 09/08/19 02:00 76 18 73/48 (56) 98 09/08/19 02:00 73/48 09/08/19 02:00 18 73/48 Mechanical Ventilator 100 09/08/19 01:30 73 18 71/42 (52) 98 09/08/19 01:06 87/49 09/08/19 01:00 83 25 105/54 (71) 99 09/08/19 01:00 25 105/54 100 09/08/19 00:30 100 27 87/49 (62) 98 09/08/19 00:00 100.7 109 44 118/71 (87) 77 09/08/19 00:00 44 118/71 Mechanical Ventilator 100 09/08/19 00:00 100 09/08/19 00:00 110 09/08/19 00:00 Mechanical Ventilator 09/07/19 23:30 95 37 91/45 (60) 81 09/07/19 23:30 37 91/45 Mechanical Ventilator 100 09/07/19 23:00 77 22 92/47 (62) 100 09/07/19 23:00 22 92/47 Mechanical Ventilator 100 09/07/19 22:31 81 26 100 09/07/19 22:30 81 22 68/41 (50) 97 09/07/19 22:00 88 22 70/43 (52) 91 09/07/19 22:00 22 70/43 Mechanical Ventilator 100 09/07/19 21:30 111 37 67/44 (52) 86 09/07/19 21:30 37 67/44 Mechanical Ventilator 100 09/07/19 21:22 27 114/56 Mechanical Ventilator 15.0 100 09/07/19 21:00 100 29 114/56 (75) 84 09/07/19 21:00 29 114/56 Mechanical Ventilator 100 09/07/19 20:00 Mechanical Ventilator 09/07/19 20:00 100 5/19/20 20:00 27 109/55 Mechanical Ventilator 100 09/07/19 20:00 95 27 109/55 (73) 98 09/07/19 20:00 98 09/07/19 19:22 101 27 100 09/07/19 19:00 23 101/59 Mechanical Ventilator 100 09/07/19 19:00 101 23 101/59 (73) 92 09/07/19 18:00 100 25 110/56 (74) 91 94 09/07/19 18:00 24 110/56 Mechanical Ventilator 70 09/07/19 17:00 29 103/63 Mechanical Ventilator 70 09/07/19 17:00 100 26 103/63 (76) 91 100 09/07/19 16:00 70 09/07/19 16:00 99.4 99 25 99/62 (74) 94 99 09/07/19 16:00 Mechanical Ventilator 09/07/19 16:00 26 99/62 Mechanical Ventilator 60 09/07/19 16:00 92 09/07/19 15:17 98 29 70 09/07/19 15:00 91 26 101/59 (73) 91 91 09/07/19 15:00 26 101/59 Mechanical Ventilator 60 09/07/19 14:00 88 31 94/58 (70) 96 88 09/07/19 14:00 30 94/58 Mechanical Ventilator 60 09/07/19 13:00 83 31 92/58 (69) 99 83 09/07/19 12:58 33 85/51 Mechanical Ventilator 09/07/19 12:00 Mechanical Ventilator 09/07/19 12:00 83 09/07/19 12:00 60 09/07/19 12:00 98.8 82 30 85/51 (62) 100 82 09/07/19 11:24 86 33 60 09/07/19 11:00 87 23 107/63 (78) 100 87 09/07/19 10:54 42 101/60 Mechanical Ventilator 09/07/19 10:00 85 32 101/60 (74) 100 85 09/07/19 10:00 29 109/62 Mechanical Ventilator 09/07/19 10:00 26 138/60 Mechanical Ventilator 09/07/19 10:00 29 109/62 Mechanical Ventilator 09/07/19 09:04 85 109/62 09/07/19 09:03 85 109/62 09/07/19 09:03 30 101/60 Mechanical Ventilator 09/07/19 09:03 30 101/60 Mechanical Ventilator 09/07/19 09:03 26 137/60 Mechanical Ventilator 09/07/19 09:00 87 29 109/62 (78) 100 87 Intake and Output 09/08/19 09/09/19 19:00 07:00 Intake Total 1225.00 ml 1407.42 ml Balance 1225.00 ml 1407.42 ml Free Water 60 ml IV Total 1015.00 ml 1087.42 ml Tube Feeding 150 ml 320 ml # Voids 300 280 Labs Test 09/06/19 09:16 09/06/19 18:10 09/06/19 22:30 09/07/19 04:15 Arterial Blood pH 7.480 (7.350-7.450) 7.224 (7.350-7.450) Arterial Blood Partial Pressure CO2 27.2 mmHg (35.0-45.0) 48.8 mmHg (35.0-45.0) Arterial Blood Partial Pressure O2 60.7 mmHg (75.0-100.0) 151.5 mmHg (75.0-100.0) Arterial Blood HCO3 19.8 mmol/L (22.0-26.0) 19.7 mmol/L (22.0-26.0) Arterial Blood Oxygen Saturation 90.2 % (95-100) 98.2 % (95-100) Arterial Blood Base Excess -2.5 (-2-2) -8.0 (-2-2) Freddie Test Positive Positive Urine Color Yellow Urine Appearance Turbid Urine pH 5 (4.5-8.0) Urine Specific [place] 1.025 (1.005-1.035) Urine Protein 3+ (NEGATIVE) Urine Glucose (UA) 1+ (NEGATIVE) Urine Ketones 3+ (NEGATIVE) Urine Blood 4+ (NEGATIVE) Urine Nitrite Negative (NEGATIVE) Urine Bilirubin Negative (NEGATIVE) Urine Urobilinogen 1 MG/DL (0.0-1.0) Urine Leukocyte Esterase Negative (NEGATIVE) Urine RBC 10-15 /HPF (0 - 0) Urine WBC 2-4 /HPF (0 - 0) Urine Squamous Epithelial Cells Few /LPF (NONE/OCC) Urine Amorphous Sediment Many /LPF (NONE) Urine Bacteria Many /HPF (NONE) Urine Coarse Granular Casts 5-10 /LPF (NONE) Urine Random Sodium < 20 mmol/L (20-110) Urine Creatinine < 5.0 MG/DL (30.0-125.0) White Blood Count 6.5 K/UL (4.8-10.8) Red Blood Count 3.89 M/UL (4.70-6.10) Hemoglobin 11.3 G/DL (14.2-18.0) Hematocrit 32.8 % (42.0-52.0) Mean Corpuscular Volume 84 FL (80-99) Mean Corpuscular Hemoglobin 29.0 PG (27.0-31.0) Mean Corpuscular Hemoglobin Concent 34.4 G/DL (32.0-36.0) Red Cell Distribution Width 13.8 % (11.6-14.8) Platelet Count 64 K/UL (150-450) Mean Platelet Volume 12.3 FL (6.5-10.1) Neutrophils (%) (Auto) % (45.0-75.0) Lymphocytes (%) (Auto) % (20.0-45.0) Monocytes (%) (Auto) % (1.0-10.0) Eosinophils (%) (Auto) % (0.0-3.0) Basophils (%) (Auto) % (0.0-2.0) Differential Total Cells Counted 100 Neutrophils % (Manual) 26 % (45-75) Lymphocytes % (Manual) 32 % (20-45) Monocytes % (Manual) 41 % (1-10) Eosinophils % (Manual) 0 % (0-3) Basophils % (Manual) 0 % (0-2) Band Neutrophils 1 % (0-8) Platelet Estimate Decreased Platelet Morphology Normal Red Blood Cell Morphology Normal Sodium Level 147 MMOL/L (136-145) Potassium Level 3.7 MMOL/L (3.5-5.1) Chloride Level 112 MMOL/L (98-107) Carbon Dioxide Level 21 MMOL/L (21-32) Anion Gap 14 mmol/L (5-15) Blood Urea Nitrogen 22 mg/dL (7-18) Creatinine 1.6 MG/DL (0.55-1.30) Estimat Glomerular Filtration Rate 42.0 mL/min (>60) Glucose Level 98 MG/DL (74-106) Calcium Level 7.7 MG/DL (8.5-10.1) Phosphorus Level 3.7 MG/DL (2.5-4.9) Magnesium Level 2.3 MG/DL (1.8-2.4) Total Bilirubin 0.7 MG/DL (0.2-1.0) Aspartate Amino Transf (AST/SGOT) 97 U/L (15-37) Alanine Aminotransferase (ALT/SGPT) 57 U/L (12-78) Alkaline Phosphatase 37 U/L (46-116) Total Protein 6.1 G/DL (6.4-8.2) Albumin 2.0 G/DL (3.4-5.0) Globulin 4.1 g/dL Albumin/Globulin Ratio 0.5 (1.0-2.7) Triglycerides Level 236 MG/DL (30-150) Test 09/07/19 08:06 09/07/19 16:00 09/08/19 00:30 09/08/19 04:00 Arterial Blood pH 7.407 (7.350-7.450) 7.284 (7.350-7.450) Arterial Blood Partial Pressure CO2 30.4 mmHg (35.0-45.0) 41.1 mmHg (35.0-45.0) Arterial Blood Partial Pressure O2 105.8 mmHg (75.0-100.0) 40.7 mmHg (75.0-100.0) Arterial Blood HCO3 18.7 mmol/L (22.0-26.0) 19.1 mmol/L (22.0-26.0) Arterial Blood Oxygen Saturation 97.1 % (95-100) 71.0 % (95-100) Arterial Blood Base Excess -4.9 (-2-2) -7.2 (-2-2) Freddie Test Positive Positive Vancomycin Level Trough 15.7 ug/mL (5.0-12.0) White Blood Count 6.5 K/UL (4.8-10.8) Red Blood Count 3.70 M/UL (4.70-6.10) Hemoglobin 10.4 G/DL (14.2-18.0) Hematocrit 31.6 % (42.0-52.0) Mean Corpuscular Volume 85 FL (80-99) Mean Corpuscular Hemoglobin 28.1 PG (27.0-31.0) Mean Corpuscular Hemoglobin Concent 33.0 G/DL (32.0-36.0) Red Cell Distribution Width 14.0 % (11.6-14.8) Platelet Count 62 K/UL (150-450) Mean Platelet Volume 10.8 FL (6.5-10.1) Neutrophils (%) (Auto) % (45.0-75.0) Lymphocytes (%) (Auto) % (20.0-45.0) Monocytes (%) (Auto) % (1.0-10.0) Eosinophils (%) (Auto) % (0.0-3.0) Basophils (%) (Auto) % (0.0-2.0) Differential Total Cells Counted 100 Neutrophils % (Manual) 38 % (45-75) Lymphocytes % (Manual) 26 % (20-45) Monocytes % (Manual) 35 % (1-10) Eosinophils % (Manual) 0 % (0-3) Basophils % (Manual) 0 % (0-2) Band Neutrophils 1 % (0-8) Reactive Lymphocytes Occasional Platelet Estimate Decreased Platelet Morphology Giant Platelets Occasional Polychromasia Hypochromasia 1+ Anisocytosis 1+ Sodium Level 149 MMOL/L (136-145) Potassium Level 4.1 MMOL/L (3.5-5.1) Chloride Level 113 MMOL/L (98-107) Carbon Dioxide Level 24 MMOL/L (21-32) Anion Gap 12 mmol/L (5-15) Blood Urea Nitrogen 30 mg/dL (7-18) Creatinine 2.6 MG/DL (0.55-1.30) Estimat Glomerular Filtration Rate 24.0 mL/min (>60) Glucose Level 125 MG/DL (74-106) Calcium Level 7.2 MG/DL (8.5-10.1) Phosphorus Level 4.1 MG/DL (2.5-4.9) Troponin I 0.106 ng/mL (0.000-0.056) Test 09/08/19 08:19 09/09/19 03:35 Arterial Blood pH 7.237 (7.350-7.450) Arterial Blood Partial Pressure CO2 47.6 mmHg (35.0-45.0) Arterial Blood Partial Pressure O2 80.5 mmHg (75.0-100.0) Arterial Blood HCO3 19.8 mmol/L (22.0-26.0) Arterial Blood Oxygen Saturation 93.6 % (95-100) Arterial Blood Base Excess -7.5 (-2-2) Freddie Test Positive White Blood Count 13.1 K/UL (4.8-10.8) Red Blood Count 3.65 M/UL (4.70-6.10) Hemoglobin 10.5 G/DL (14.2-18.0) Hematocrit 31.4 % (42.0-52.0) Mean Corpuscular Volume 86 FL (80-99) Mean Corpuscular Hemoglobin 28.7 PG (27.0-31.0) Mean Corpuscular Hemoglobin Concent 33.4 G/DL (32.0-36.0) Red Cell Distribution Width 14.1 % (11.6-14.8) Platelet Count 77 K/UL (150-450) Mean Platelet Volume 10.1 FL (6.5-10.1) Neutrophils (%) (Auto) % (45.0-75.0) Lymphocytes (%) (Auto) % (20.0-45.0) Monocytes (%) (Auto) % (1.0-10.0) Eosinophils (%) (Auto) % (0.0-3.0) Basophils (%) (Auto) % (0.0-2.0) Sodium Level 146 MMOL/L (136-145) Potassium Level 4.9 MMOL/L (3.5-5.1) Chloride Level 109 MMOL/L (98-107) Carbon Dioxide Level 16 MMOL/L (21-32) Anion Gap 21 mmol/L (5-15) Blood Urea Nitrogen 43 mg/dL (7-18) Creatinine 4.2 MG/DL (0.55-1.30) Estimat Glomerular Filtration Rate 13.8 mL/min (>60) Glucose Level 123 MG/DL (74-106) Calcium Level 6.9 MG/DL (8.5-10.1) Phosphorus Level 5.1 MG/DL (2.5-4.9) Magnesium Level 2.0 MG/DL (1.8-2.4) Total Bilirubin 0.8 MG/DL (0.2-1.0) Aspartate Amino Transf (AST/SGOT) 122 U/L (15-37) Alanine Aminotransferase (ALT/SGPT) 53 U/L (12-78) Alkaline Phosphatase 51 U/L (46-116) Total Protein 5.9 G/DL (6.4-8.2) Albumin 1.8 G/DL (3.4-5.0) Globulin 4.1 g/dL Albumin/Globulin Ratio 0.4 (1.0-2.7) Digoxin Level 0.7 NG/ML (0.5-2.0) Height (Feet): 5 Height (Inches): 7.00 Weight (Pounds): 135 Objective General: NAD HEENT: NCAT, EOMi, dry MM CV: RRR, no murmurs, rubs, or gallops Pulm: vent+ GI: Soft, nontender, nondistended, bowel sounds present Ext: No lower extremity edema bilaterally Skin: no rashes lesions or ulcers Msk: Joints symmetrical in upper extremity and lower extremity bilaterally Neuro: CN 2-12 grossly intact bilaterally, no focal signs. Kashmir Jose MD September 09, 2019 08:03
[2019-09-09] MEDS: Docusate 100mg/10ml Liq NG SCH ×2 (08:43→20:45)
[2019-09-09] MEDS: Doxycycline Monohydrate 100mg ORAL SCH ×2 (08:44→20:45)
--- NOTE | 2019-09-09 10:14 | Nephrology Progress Note ---
Assessment/Plan Plan #Acute kidney injury due to pre- renal azotemia- concerns for vanco toxicity - now concerns for developing ischemic ATN - now with progressive ischemic ATN #hypernatremia with free water deficit #COVID infection #Hypoxemic respiratory failure now intubated #pneumonia #T2DM # COPD #Dysphasia #HLD #HTN #thrombocytopenia, #APL #dementia #hypoalbuminemia - place [facility] in the event of needing HD over the next few days - monitor UOP- - strict I&Os - started on levophed - continue pressors to maintain MAP > 65 - on vanco and zosyn - avoid supratherapeutic level - consider switching vanco - avoid nephrooxins - strict I&Os - monitor weights - Defer renal imaging for now - DC atenolol 50mg daily - hold amlodipine 2.5mg daily - monitor BP closely - check BMP, mag and phos daily Time spent 70min, more than 50% on care coordination and counseling Critical Care Services performed include: Telemetry Review Hemodynamic measurement interpretation Laboratory data review and interpretation Radiology image review and interpretation Ventilator setting review, management, and adjustment Interpretation of ABG's Discussion of patient's care with ICU team, ICU Nursing staff and/or consulting services Subjective ROS Limited/Unobtainable: No Subjective Transferred to ICU Intubated Fio2 100 Cr uptrending UOP decreasing pressor requirment increasing Objective Objective Last 24 Hour Vital Signs Date Time Temp Pulse Resp B/P (MAP) Pulse Ox O2 Delivery O2 Flow Rate FiO2 09/09/19 09:14 100.1 09/09/19 08:00 100.5 84 16 104/47 (66) 100 09/09/19 08:00 100 09/09/19 08:00 Mechanical Ventilator 09/09/19 07:30 100 23 104/55 (71) 92 09/09/19 07:28 88 19 100 09/09/19 07:25 17 86/32 Mechanical Ventilator 100 09/09/19 07:00 97 21 86/53 (64) 94 09/09/19 07:00 86/53 09/09/19 07:00 17 86/53 Mechanical Ventilator 100 09/09/19 06:30 113 21 115/52 (73) 88 09/09/19 06:00 112 22 116/89 (98) 90 09/09/19 06:00 116/89 09/09/19 06:00 22 116/89 Mechanical Ventilator 100 09/09/19 05:30 111 19 105/52 (69) 82 09/09/19 05:00 112 21 121/94 (103) 80 09/09/19 05:00 121/94 09/09/19 05:00 21 121/94 Mechanical Ventilator 100 09/09/19 04:30 117 20 127/101 (110) 88 09/09/19 04:00 100 09/09/19 04:00 115 09/09/19 04:00 99.5 119 20 112/80 (91) 93 09/09/19 04:00 112/80 09/09/19 04:00 20 112/80 Mechanical Ventilator 100 09/09/19 04:00 Mechanical Ventilator 09/09/19 03:30 115 22 106/72 (83) 98 09/09/19 03:04 106 28 100 09/09/19 03:00 106/72 09/09/19 03:00 22 106/72 Mechanical Ventilator 100 09/09/19 03:00 115 22 106/72 (83) 98 09/09/19 02:30 111 23 113/83 (93) 99 09/09/19 02:00 107 20 117/59 (78) 100 09/09/19 02:00 117/59 09/09/19 02:00 21 117/59 Mechanical Ventilator 100 09/09/19 01:30 100 20 105/46 (65) 100 09/09/19 01:00 117/46 09/09/19 01:00 21 105/46 Mechanical Ventilator 100 09/09/19 01:00 105 22 111/80 (90) 98 09/09/19 00:30 98 20 138/60 (86) 99 09/09/19 00:00 100.3 75 18 108/54 (72) 100 09/09/19 00:00 Mechanical Ventilator 09/09/19 00:00 138/60 09/09/19 00:00 21 138/60 Mechanical Ventilator 100 09/09/19 00:00 75 09/08/19 23:30 75 20 109/62 (78) 100 09/08/19 23:20 16 109/58 Mechanical Ventilator 100 09/08/19 23:00 75 17 109/58 (75) 100 09/08/19 23:00 109/58 5/20/20 23:00 17 109/58 Mechanical Ventilator 100 5/20/20 22:50 74 22 100 5/20/20 22:30 75 14 96/55 (69) 100 5/20/20 22:00 100/53 5/20/20 22:00 15 100/53 Mechanical Ventilator 100 5/20/20 22:00 80 15 100/53 (69) 100 5/20/20 21:30 89 16 108/50 (69) 100 5/20/20 21:00 115/73 5/20/20 21:00 16 115/73 Mechanical Ventilator 100 5/20/20 21:00 90 20 115/73 (87) 100 5/20/20 20:42 101/58 5/20/20 20:30 87 18 101/58 (72) 100 5/20/20 20:00 Mechanical Ventilator 5/20/20 20:00 100/80 5/20/20 20:00 15 100/80 Mechanical Ventilator 100 5/20/20 20:00 86 5/20/20 20:00 100.0 89 16 100/80 (87) 100 5/20/20 20:00 100 5/20/20 19:30 86 18 95/63 (74) 100 5/20/20 19:10 86 22 100 5/20/20 19:00 86 16 114/68 (83) 100 5/20/20 19:00 95/63 5/20/20 19:00 20 95/63 Mechanical Ventilator 100 5/20/20 18:30 94 21 86/66 (73) 99 5/20/20 18:00 93 19 91/72 (78) 99 5/20/20 18:00 91/72 5/20/20 18:00 21 91/72 Mechanical Ventilator 100 5/20/20 17:39 93 25 100 5/20/20 17:30 80 16 127/64 (85) 100 5/20/20 17:00 120 18 114/61 (78) 100 5/20/20 17:00 127/64 5/20/20 17:00 16 127/64 Mechanical Ventilator 100 5/20/20 16:30 131 16 79/59 (66) 99 5/20/20 16:00 99.7 142 13 91/63 (72) 100 5/20/20 16:00 114/61 5/20/20 16:00 17 91/63 Mechanical Ventilator 100 09/08/19 16:00 100 09/08/19 16:00 Mechanical Ventilator 09/08/19 16:00 148 09/08/19 15:30 137 17 98/63 (75) 100 09/08/19 15:05 128 25 100 09/08/19 15:00 91/63 09/08/19 15:00 17 98/63 Mechanical Ventilator 100 09/08/19 15:00 131 14 107/80 (89) 100 09/08/19 14:51 130 20 89/69 (76) 100 09/08/19 14:44 12 86/48 Mechanical Ventilator 15.0 100 09/08/19 14:30 123 14 77/62 (67) 99 09/08/19 14:00 128 14 87/53 (64) 100 09/08/19 14:00 77/62 09/08/19 14:00 15 87/53 Mechanical Ventilator 30 09/08/19 13:30 133 12 86/48 (61) 100 09/08/19 13:00 139 12 108/70 (83) 100 09/08/19 13:00 86/38 09/08/19 13:00 24 107/60 Mechanical Ventilator 100 09/08/19 12:30 80 12 108/69 (82) 100 09/08/19 12:00 100 09/08/19 12:00 100.3 87 19 86/38 (54) 100 09/08/19 12:00 Mechanical Ventilator 09/08/19 12:00 91 09/08/19 12:00 86/38 09/08/19 12:00 19 86/38 Mechanical Ventilator 100 09/08/19 12:00 96 09/08/19 11:37 81 28 100 09/08/19 11:30 80 12 108/69 (82) 100 09/08/19 11:00 83 8 101/49 (66) 100 09/08/19 11:00 101/49 09/08/19 11:00 11 101/49 Mechanical Ventilator 100 09/08/19 10:30 88 18 96/43 (60) 100 Intake and Output 09/08/19 09/09/19 19:00 07:00 Intake Total 1225.00 ml 1407.42 ml Balance 1225.00 ml 1407.42 ml Free Water 60 ml IV Total 1015.00 ml 1087.42 ml Tube Feeding 150 ml 320 ml # Voids 300 280 Laboratory Tests 09/09/19 03:35: White Blood Count 13.1#H, Red Blood Count 3.65L, Hemoglobin 10.5L, Hematocrit 31.4L, Mean Corpuscular Volume 86, Mean Corpuscular Hemoglobin 28.7, Mean Corpuscular Hemoglobin Concent 33.4, Red Cell Distribution Width 14.1, Platelet Count 77L, Mean Platelet Volume 10.1, Neutrophils (%) (Auto) , Lymphocytes (%) ( Auto) , Monocytes (%) (Auto) , Eosinophils (%) (Auto) , Basophils (%) (Auto) , Sodium Level 146H, Potassium Level 4.9, Chloride Level 109H, Carbon Dioxide Level 16L, Anion Gap 21H, Blood Urea Nitrogen 43H, Creatinine 4.2#H, Estimat Glomerular Filtration Rate 13.8, Glucose Level 123H, Calcium Level 6.9L, Phosphorus Level 5.1H, Magnesium Level 2.0, Total Bilirubin 0.8, Aspartate Amino Transf (AST/SGOT) 122H, Alanine Aminotransferase (ALT/SGPT) 53, Alkaline Phosphatase 51, Total Protein 5.9L, Albumin 1.8L, Globulin 4.1, Albumin/ Globulin Ratio 0.4L, Digoxin Level 0.7 Height (Feet): 5 Height (Inches): 7.00 Weight (Pounds): 135 Janelle Guzman M.D. September 09, 2019 10:14
--- NOTE | 2019-09-09 10:46 | Pulmonology Progress Note ---
Subjective ROS Limited/Unobtainable: Yes Interval Events: S/p intubation 09/06/19 Constitutional: Reports: fever, other - on pressors, [id number]%, doing poorly, on vent HEENT: Repors: no symptoms Respiratory: Reports: no symptoms Cardiovascular: Reports: no symptoms Gastrointestinal/Abdominal: Denies: nausea, vomiting, diarrhea Genitourinary: Reports: no symptoms Psychiatric: Reports: other - NA Skin: Denies: rash Musculoskeletal: Reports: other - NA Allergies: Coded Allergies: No Known Allergies (Unverified , 01/19/13) All Systems: reviewed and negative except above Objective Last 24 Hour Vital Signs Date Time Temp Pulse Resp B/P (MAP) Pulse Ox O2 Delivery O2 Flow Rate FiO2 09/09/19 09:14 100.1 09/09/19 08:00 100.5 84 16 104/47 (66) 100 09/09/19 08:00 100 09/09/19 08:00 Mechanical Ventilator 09/09/19 07:30 100 23 104/55 (71) 92 09/09/19 07:28 88 19 100 09/09/19 07:25 17 86/32 Mechanical Ventilator 100 09/09/19 07:00 97 21 86/53 (64) 94 09/09/19 07:00 86/53 09/09/19 07:00 17 86/53 Mechanical Ventilator 100 09/09/19 06:30 113 21 115/52 (73) 88 09/09/19 06:00 112 22 116/89 (98) 90 09/09/19 06:00 116/89 09/09/19 06:00 22 116/89 Mechanical Ventilator 100 09/09/19 05:30 111 19 105/52 (69) 82 09/09/19 05:00 112 21 121/94 (103) 80 09/09/19 05:00 121/94 09/09/19 05:00 21 121/94 Mechanical Ventilator 100 09/09/19 04:30 117 20 127/101 (110) 88 09/09/19 04:00 100 09/09/19 04:00 115 09/09/19 04:00 99.5 119 20 112/80 (91) 93 09/09/19 04:00 112/80 09/09/19 04:00 20 112/80 Mechanical Ventilator 100 09/09/19 04:00 Mechanical Ventilator 09/09/19 03:30 115 22 106/72 (83) 98 09/09/19 03:04 106 28 100 09/09/19 03:00 106/72 09/09/19 03:00 22 106/72 Mechanical Ventilator 100 09/09/19 03:00 115 22 106/72 (83) 98 09/09/19 02:30 111 23 113/83 (93) 99 09/09/19 02:00 107 20 117/59 (78) 100 09/09/19 02:00 117/59 09/09/19 02:00 21 117/59 Mechanical Ventilator 100 09/09/19 01:30 100 20 105/46 (65) 100 09/09/19 01:00 117/46 09/09/19 01:00 21 105/46 Mechanical Ventilator 100 09/09/19 01:00 105 22 111/80 (90) 98 09/09/19 00:30 98 20 138/60 (86) 99 09/09/19 00:00 100.3 75 18 108/54 (72) 100 09/09/19 00:00 Mechanical Ventilator 09/09/19 00:00 138/60 09/09/19 00:00 21 138/60 Mechanical Ventilator 100 09/09/19 00:00 75 09/08/19 23:30 75 20 109/62 (78) 100 09/08/19 23:20 16 109/58 Mechanical Ventilator 100 09/08/19 23:00 75 17 109/58 (75) 100 09/08/19 23:00 109/58 09/08/19 23:00 17 109/58 Mechanical Ventilator 100 09/08/19 22:50 74 22 100 09/08/19 22:30 75 14 96/55 (69) 100 09/08/19 22:00 100/53 09/08/19 22:00 15 100/53 Mechanical Ventilator 100 09/08/19 22:00 80 15 100/53 (69) 100 09/08/19 21:30 89 16 108/50 (69) 100 09/08/19 21:00 115/73 09/08/19 21:00 16 115/73 Mechanical Ventilator 100 09/08/19 21:00 90 20 115/73 (87) 100 09/08/19 20:42 101/58 5/20/20 20:30 87 18 101/58 (72) 100 5/20/20 20:00 Mechanical Ventilator 5/20/20 20:00 100/80 5/20/20 20:00 15 100/80 Mechanical Ventilator 100 5/20/20 20:00 86 5/20/20 20:00 100.0 89 16 100/80 (87) 100 5/20/20 20:00 100 5/20/20 19:30 86 18 95/63 (74) 100 5/20/20 19:10 86 22 100 5/20/20 19:00 86 16 114/68 (83) 100 5/20/20 19:00 95/63 5/20/20 19:00 20 95/63 Mechanical Ventilator 100 5/20/20 18:30 94 21 86/66 (73) 99 5/20/20 18:00 93 19 91/72 (78) 99 5/20/20 18:00 91/72 5/20/20 18:00 21 91/72 Mechanical Ventilator 100 5/20/20 17:39 93 25 100 5/20/20 17:30 80 16 127/64 (85) 100 5/20/20 17:00 120 18 114/61 (78) 100 5/20/20 17:00 127/64 5/20/20 17:00 16 127/64 Mechanical Ventilator 100 5/20/20 16:30 131 16 79/59 (66) 99 5/20/20 16:00 99.7 142 13 91/63 (72) 100 5/20/20 16:00 114/61 5/20/20 16:00 17 91/63 Mechanical Ventilator 100 5/20/20 16:00 100 5/20/20 16:00 Mechanical Ventilator 5/20/20 16:00 148 5/20/20 15:30 137 17 98/63 (75) 100 5/20/20 15:05 128 25 100 5/20/20 15:00 91/63 5/20/20 15:00 17 98/63 Mechanical Ventilator 100 5/20/20 15:00 131 14 107/80 (89) 100 5/20/20 14:51 130 20 89/69 (76) 100 5/20/20 14:44 12 86/48 Mechanical Ventilator 15.0 100 5/20/20 14:30 123 14 77/62 (67) 99 5/20/20 14:00 128 14 87/53 (64) 100 09/08/19 14:00 77/62 09/08/19 14:00 15 87/53 Mechanical Ventilator 30 09/08/19 13:30 133 12 86/48 (61) 100 09/08/19 13:00 139 12 108/70 (83) 100 09/08/19 13:00 86/38 09/08/19 13:00 24 107/60 Mechanical Ventilator 100 09/08/19 12:30 80 12 108/69 (82) 100 09/08/19 12:00 100 09/08/19 12:00 100.3 87 19 86/38 (54) 100 09/08/19 12:00 Mechanical Ventilator 09/08/19 12:00 91 09/08/19 12:00 86/38 09/08/19 12:00 19 86/38 Mechanical Ventilator 100 09/08/19 12:00 96 09/08/19 11:37 81 28 100 09/08/19 11:30 80 12 108/69 (82) 100 09/08/19 11:00 83 8 101/49 (66) 100 09/08/19 11:00 101/49 09/08/19 11:00 11 101/49 Mechanical Ventilator 100 Intake and Output 09/08/19 09/09/19 19:00 07:00 Intake Total 1225.00 ml 1407.42 ml Balance 1225.00 ml 1407.42 ml Free Water 60 ml IV Total 1015.00 ml 1087.42 ml Tube Feeding 150 ml 320 ml # Voids 300 280 General Appearance: no acute distress HEENT: normocephalic Respiratory: chest wall non-tender, decreased breath sounds Cardiovascular: normal peripheral pulses Abdomen: normal bowel sounds Microbiology Date/Time Source Procedure Growth Status 09/07/19 04:15 Blood Blood Culture - Preliminary NO GROWTH AFTER 48 HOURS Resulted 09/07/19 04:15 Blood Blood Culture - Preliminary NO GROWTH AFTER 48 HOURS Resulted 09/07/19 17:00 Sputum Expectorated Gram Stain Pending Resulted 09/07/19 17:00 Sputum Expectorated Sputum Culture - Preliminary NORMAL UPPER RESPIRATORY AZUCENA AT 24 ... Resulted 09/06/19 22:30 Urine,Clean Catch Urine Culture - Final NO GROWTH AFTER 48 HOURS Complete Laboratory Tests 09/09/19 03:35: White Blood Count 13.1#H, Red Blood Count 3.65L, Hemoglobin 10.5L, Hematocrit 31.4L, Mean Corpuscular Volume 86, Mean Corpuscular Hemoglobin 28.7, Mean Corpuscular Hemoglobin Concent 33.4, Red Cell Distribution Width 14.1, Platelet Count 77L, Mean Platelet Volume 10.1, Neutrophils (%) (Auto) , Lymphocytes (%) ( Auto) , Monocytes (%) (Auto) , Eosinophils (%) (Auto) , Basophils (%) (Auto) , Sodium Level 146H, Potassium Level 4.9, Chloride Level 109H, Carbon Dioxide Level 16L, Anion Gap 21H, Blood Urea Nitrogen 43H, Creatinine 4.2#H, Estimat Glomerular Filtration Rate 13.8, Glucose Level 123H, Calcium Level 6.9L, Phosphorus Level 5.1H, Magnesium Level 2.0, Total Bilirubin 0.8, Aspartate Amino Transf (AST/SGOT) 122H, Alanine Aminotransferase (ALT/SGPT) 53, Alkaline Phosphatase 51, Total Protein 5.9L, Albumin 1.8L, Globulin 4.1, Albumin/ Globulin Ratio 0.4L, Digoxin Level 0.7 Current Medications Medications (Trade) Dose Ordered Sig/Karlos Route PRN Reason Start Time Stop Time Status Last Admin Dose Admin Acetaminophen (Tylenol) 650 mg Q4H PRN ORAL Mild Pain (Pain Scale 1-3) 09/07/19 03:45 10/03/19 11:44 09/09/19 08:44 Acetaminophen (Tylenol) 650 mg Q4H PRN ORAL Temp >100.5 09/07/19 03:45 10/03/19 11:44 Acetaminophen (Tylenol) 650 mg Q4H PRN RECTAL Temp >100.5 09/07/19 04:30 10/06/19 16:29 Bisacodyl (Dulcolax) 10 mg DAILYPRN PRN RECTAL Constipation 09/07/19 11:45 12/02/19 11:44 Chlorhexidine Gluconate (Nely-Hex 2%) 1 applic DAILY@2000 TOPIC 09/08/19 21:00 12/07/19 20:59 09/08/19 21:35 Dextrose (Dextrose 50%) 25 ml Q30M PRN IV Hypoglycemia 09/07/19 00:45 12/02/19 11:44 Dextrose (Dextrose 50%) 50 ml Q30M PRN IV Hypoglycemia 09/07/19 00:45 12/02/19 11:44 Docusate Sodium (Colace) 100 mg Q12HR NG 09/08/19 09:15 10/08/19 09:14 09/09/19 08:43 Doxycycline Monohydrate (Doxycycline Monohydrate) 100 mg EVERY 12 HOURS ORAL 09/08/19 21:00 09/15/19 20:59 09/09/19 08:44 Fentanyl Citrate 250 ml @ 0 mls/hr Q24H IV 09/07/19 12:45 12/06/19 12:44 09/09/19 07:25 Insulin Aspart (NovoLOG) BEFORE MEALS AND HS SUBQ 09/07/19 06:30 12/04/19 11:29 Linezolid 300 ml @ 300 mls/hr EVERY 12 HOURS IVPB 09/08/19 21:00 09/15/19 20:59 09/09/19 08:43 Magnesium Hydroxide (Mom) 30 ml HSPRN PRN ORAL Constipation 09/07/19 11:45 10/03/19 11:44 Norepinephrine Bitartrate 8 mg/ Dextrose 508 ml @ 0 mls/hr Q24H IV 09/08/19 21:00 10/08/19 20:59 09/08/19 20:42 Piperacillin Sod/ Tazobactam Sod 3.375 gm/Sodium Chloride 110 ml @ 27.5 mls/hr Q12H IVPB 09/08/19 13:00 09/15/19 12:59 09/09/19 00:16 Polyethylene Glycol (Miralax) 17 gm DAILYPRN PRN ORAL Constipation 09/07/19 11:45 10/03/19 11:44 Assessment/Plan Assessment/Plan IMPRESSION: 1. Confirmed COVID-19 pneumonia. 2. Diabetes mellitus. 3. Hypertension. 4. Hyperlipidemia. 5. Thrombocytopenia. 6. Respiratory failure DISCUSSION: Continue vent as is Doing very poorly On Ac, 100% FiO2; PEEP 15 Propofol switched to Fentanyl due to high TG On Levophed I will follow as inspector chief. Now DNR Tresa Mcclellan Omar Syed MD September 09, 2019 10:46
--- NOTE | 2019-09-09 11:30 | NUR ---
NURSE NOTES: left telephone message for Dr Guzman to call family, Leigh Ann Devonte, regarding hemodialysis per family request.
--- NOTE | 2019-09-09 11:58 | NUR ---
CASE MANAGEMENT: REVIEW 09/09/2019 SI:COVID-19 pneumonia. VS: T 100.1 HR 108 RR 16 B/P 97/55 SATS 100% ON MECH VENT FIO2 100 LABS: WBC 13.1 NA 146 CL 109 BUN 43 CR 4.2 AST 122 ABGs PH 7.177 PO2 44.5 HCO3 15 O2 SAT 75.6 BE - 12.8 IS: LINEZOLID IV Q12H DOXYCYCLINE PO Q12H INSULIN ASPART SUBQ AC/HS ZOSYN IV Q12H FENTANYL IV PER PARAMETERS LEVOPHED IV PER PARAMETERS ICU PLAN OF CARE: CXR 09/09
--- NOTE | 2019-09-09 12:00 | NUR ---
NURSE NOTES: Patient sedated with RASS score +2 on fentanyl now increased to 400mcg/hr. Patient remains orally intubated with ventilator setting AC 16, tidal volume 450mL, FiO2 100%, and PEEP 15. SpO2 100%. Blood pressure low at 71/45. levophed running at this time. Will titrate per protocol. Nasal gastric tube remains patent, asymptomatic, and running glucerna 1.2 at 30mL/hr with 30mL residual noted. Gregorio remains patent and draining. Left hand 20 gauge peripheral IV remains patent, asymptomatic and saline locked. Left femoral triple lumen catheter remains patent, asymptomatic, and running fentanyl at 400mcg/hr and levophed. Patient remains on bilateral soft wrist restraint due to patient pulling on medical devices. Peripheral pulses present. Bed in low position with bed alarm on and call light in reach. Will continue to monitor. Oral care and repositioning done at this time.
--- NOTE | 2019-09-09 13:33 | NUR ---
NURSE NOTES: Spoke with Dr Marie via telephone call. Notified him that patient on max fentanyl dose at this time but still restless with SpO2 55% and blood pressure 79/32 on max dose of Levophed. Received telephone order for Morphine 2mg IV Q2HR PRN for pain. Order read back, verified, and placed.
[2019-09-09] MEDS ORDERED: Morphine Sulfate 2mg/ml Inj(IV/IM USE ONLY) IVP PRN (13:45)
--- NOTE | 2019-09-09 13:58 | General Progress Note ---
Assessment/Plan Assessment/Plan: 79-year-old male with PMH of T2DM, COPD, dysphasia, HLD, HTN, thrombocytopenia, hx of APL and dementia who presents from senior living for fevers and hypoxia. On admission, pt w/fever 101.5, thrombocytopenia, and elevated d-dimer. #Severe sepsis progressing to septic shock #Acute hypoxic respiratory failure, present on admission #COVID19 positive #Elevated d-dimer #Possible HCAP/asp PNA -Continue ICU level of care -COVID isolation protocol -elevated d-dimer, 7.0, and CRP -Vent management as per [facility] -monitor predictive parameters q3d, CRP, d-dimer, lactic acid -Pulm and ID following -Cont broad spectrum antibiotics #ALEXUS -Renal following -Spoke with Dr. Guzman, plan for initiation of HD once he has access #H/o COPD -currently not in exacerbation -ctm, management as above #HTN #HLD -atenolol stopped -amlodipine stopped #elevated AST -likely 2/2 to infection #Thrombocytopenia, improved counts #Hx of Acute Promyelocytic Leukemia -pt f/u w/Dr. Jose as o/p, on danazol 200 mg PO q daily for thrombocytopenia and tretinoin 10 mg PO BID for APL -medications not on formulary per pharmacy -Heme following -monitor CBC .I spent 75 minutes on this patient's case, and 39 mins was dedicated to critical care Critical Care Services performed include: Telemetry Review Hemodynamic measurement interpretation Laboratory data review and interpretation Radiology image review and interpretation Ventilator setting review, management, and adjustment Interpretation of ABG's Discussion of patient's care with ICU team, ICU Nursing staff and/or consulting services Subjective Date patient seen: September 09, 2019 Time patient seen: 10:29 ROS Limited/Unobtainable: Yes Allergies: Coded Allergies: No Known Allergies (Unverified , 01/19/13) Subjective Follow up for sepsis, acute hypoxic respiratory failure, COVID19+ Remains intubated, on max fiO2 and peep 15 Creatinine increased to 4.2 today Objective Last 24 Hour Vital Signs Date Time Temp Pulse Resp B/P (MAP) Pulse Ox O2 Delivery O2 Flow Rate FiO2 09/09/19 13:15 125/54 09/09/19 13:00 103/37 09/09/19 13:00 16 122/79 Mechanical Ventilator 100 5/21/20 12:45 85/51 09/09/19 12:30 72/45 09/09/19 12:20 64/43 09/09/19 12:16 71/45 09/09/19 12:00 71/45 09/09/19 12:00 16 64/43 Mechanical Ventilator 100 09/09/19 11:01 109 21 100 09/09/19 11:00 92/64 09/09/19 11:00 20 92/70 Mechanical Ventilator 100 09/09/19 11:00 110 19 92/64 (73) 85 09/09/19 10:45 109 20 114/72 (86) 83 09/09/19 10:30 109 20 100/48 (65) 86 09/09/19 10:15 106 17 124/76 (92) 94 09/09/19 10:00 106 17 124/76 (92) 94 09/09/19 10:00 124/76 09/09/19 10:00 19 124/76 Mechanical Ventilator 100 09/09/19 09:45 108 16 120/78 (92) 95 09/09/19 09:30 108 16 120/78 (92) 95 09/09/19 09:15 81 15 97/55 (69) 100 09/09/19 09:14 100.1 09/09/19 09:00 81 15 97/55 (69) 100 09/09/19 09:00 97/44 09/09/19 09:00 16 97/55 Mechanical Ventilator 100 09/09/19 08:30 84 14 104/66 (79) 100 09/09/19 08:00 100.5 84 16 104/47 (66) 100 09/09/19 08:00 104/47 09/09/19 08:00 15 104/47 Mechanical Ventilator 100 09/09/19 08:00 100 09/09/19 08:00 Mechanical Ventilator 09/09/19 08:00 84 09/09/19 07:30 100 23 104/55 (71) 92 09/09/19 07:28 88 19 100 09/09/19 07:25 17 86/32 Mechanical Ventilator 100 09/09/19 07:00 97 21 86/53 (64) 94 09/09/19 07:00 86/53 09/09/19 07:00 17 86/53 Mechanical Ventilator 100 09/09/19 06:30 113 21 115/52 (73) 88 09/09/19 06:00 112 22 116/89 (98) 90 09/09/19 06:00 116/89 09/09/19 06:00 22 116/89 Mechanical Ventilator 100 09/09/19 05:30 111 19 105/52 (69) 82 09/09/19 05:00 112 21 121/94 (103) 80 09/09/19 05:00 121/94 09/09/19 05:00 21 121/94 Mechanical Ventilator 100 09/09/19 04:30 117 20 127/101 (110) 88 09/09/19 04:00 100 09/09/19 04:00 115 09/09/19 04:00 99.5 119 20 112/80 (91) 93 09/09/19 04:00 112/80 09/09/19 04:00 20 112/80 Mechanical Ventilator 100 09/09/19 04:00 Mechanical Ventilator 09/09/19 03:30 115 22 106/72 (83) 98 09/09/19 03:04 106 28 100 09/09/19 03:00 106/72 09/09/19 03:00 22 106/72 Mechanical Ventilator 100 09/09/19 03:00 115 22 106/72 (83) 98 09/09/19 02:30 111 23 113/83 (93) 99 09/09/19 02:00 107 20 117/59 (78) 100 09/09/19 02:00 117/59 09/09/19 02:00 21 117/59 Mechanical Ventilator 100 09/09/19 01:30 100 20 105/46 (65) 100 09/09/19 01:00 117/46 09/09/19 01:00 21 105/46 Mechanical Ventilator 100 09/09/19 01:00 105 22 111/80 (90) 98 09/09/19 00:30 98 20 138/60 (86) 99 09/09/19 00:00 100.3 75 18 108/54 (72) 100 09/09/19 00:00 Mechanical Ventilator 09/09/19 00:00 138/60 09/09/19 00:00 21 138/60 Mechanical Ventilator 100 09/09/19 00:00 75 09/08/19 23:30 75 20 109/62 (78) 100 5/20/20 23:20 16 109/58 Mechanical Ventilator 100 5/20/20 23:00 75 17 109/58 (75) 100 5/20/20 23:00 109/58 5/20/20 23:00 17 109/58 Mechanical Ventilator 100 5/20/20 22:50 74 22 100 5/20/20 22:30 75 14 96/55 (69) 100 5/20/20 22:00 100/53 5/20/20 22:00 15 100/53 Mechanical Ventilator 100 5/20/20 22:00 80 15 100/53 (69) 100 5/20/20 21:30 89 16 108/50 (69) 100 5/20/20 21:00 115/73 5/20/20 21:00 16 115/73 Mechanical Ventilator 100 5/20/20 21:00 90 20 115/73 (87) 100 5/20/20 20:42 101/58 5/20/20 20:30 87 18 101/58 (72) 100 5/20/20 20:00 Mechanical Ventilator 5/20/20 20:00 100/80 5/20/20 20:00 15 100/80 Mechanical Ventilator 100 5/20/20 20:00 86 5/20/20 20:00 100.0 89 16 100/80 (87) 100 5/20/20 20:00 100 5/20/20 19:30 86 18 95/63 (74) 100 5/20/20 19:10 86 22 100 5/20/20 19:00 86 16 114/68 (83) 100 5/20/20 19:00 95/63 5/20/20 19:00 20 95/63 Mechanical Ventilator 100 5/20/20 18:30 94 21 86/66 (73) 99 5/20/20 18:00 93 19 91/72 (78) 99 5/20/20 18:00 91/72 5/20/20 18:00 21 91/72 Mechanical Ventilator 100 5/20/20 17:39 93 25 100 5/20/20 17:30 80 16 127/64 (85) 100 5/20/20 17:00 120 18 114/61 (78) 100 5/20/20 17:00 127/64 5/20/20 17:00 16 127/64 Mechanical Ventilator 100 5/20/20 16:30 131 16 79/59 (66) 99 5/20/20 16:00 99.7 142 13 91/63 (72) 100 09/08/19 16:00 114/61 09/08/19 16:00 17 91/63 Mechanical Ventilator 100 09/08/19 16:00 100 09/08/19 16:00 Mechanical Ventilator 09/08/19 16:00 148 09/08/19 15:30 137 17 98/63 (75) 100 09/08/19 15:05 128 25 100 09/08/19 15:00 91/63 09/08/19 15:00 17 98/63 Mechanical Ventilator 100 09/08/19 15:00 131 14 107/80 (89) 100 09/08/19 14:51 130 20 89/69 (76) 100 09/08/19 14:44 12 86/48 Mechanical Ventilator 15.0 100 09/08/19 14:30 123 14 77/62 (67) 99 09/08/19 14:00 128 14 87/53 (64) 100 09/08/19 14:00 77/62 09/08/19 14:00 15 87/53 Mechanical Ventilator 30 Intake and Output 09/08/19 09/09/19 19:00 07:00 Intake Total 1225.00 ml 1407.42 ml Balance 1225.00 ml 1407.42 ml Free Water 60 ml IV Total 1015.00 ml 1087.42 ml Tube Feeding 150 ml 320 ml # Voids 300 280 Laboratory Tests 09/09/19 03:35: White Blood Count 13.1#H, Red Blood Count 3.65L, Hemoglobin 10.5L, Hematocrit 31.4L, Mean Corpuscular Volume 86, Mean Corpuscular Hemoglobin 28.7, Mean Corpuscular Hemoglobin Concent 33.4, Red Cell Distribution Width 14.1, Platelet Count 77L, Mean Platelet Volume 10.1, Neutrophils (%) (Auto) , Lymphocytes (%) ( Auto) , Monocytes (%) (Auto) , Eosinophils (%) (Auto) , Basophils (%) (Auto) , Sodium Level 146H, Potassium Level 4.9, Chloride Level 109H, Carbon Dioxide Level 16L, Anion Gap 21H, Blood Urea Nitrogen 43H, Creatinine 4.2#H, Estimat Glomerular Filtration Rate 13.8, Glucose Level 123H, Calcium Level 6.9L, Phosphorus Level 5.1H, Magnesium Level 2.0, Total Bilirubin 0.8, Aspartate Amino Transf (AST/SGOT) 122H, Alanine Aminotransferase (ALT/SGPT) 53, Alkaline Phosphatase 51, Total Protein 5.9L, Albumin 1.8L, Globulin 4.1, Albumin/ Globulin Ratio 0.4L, Digoxin Level 0.7 09/09/19 10:55: Arterial Blood pH 7.177*L, Arterial Blood Partial Pressure CO2 41.3, Arterial Blood Partial Pressure O2 44.5*L, Arterial Blood HCO3 15.0*L, Arterial Blood Oxygen Saturation 75.6*L, Arterial Blood Base Excess -12.8*L, Freddie Test Positive Height (Feet): 5 Height (Inches): 7.00 Weight (Pounds): 135 General Appearance: alert, confused Cardiovascular: normal rate, regular rhythm Respiratory/Chest: lungs clear, normal breath sounds Seth Mullen MD September 09, 2019 13:58
--- NOTE | 2019-09-09 14:00 | NUR ---
NURSE NOTES: Patient blood pressure 103/44 on levophed at 20mcg/min. SpO2 now 94%. RASS -2 on fentanyl at 400mcg/hr. Will continue to monitor.
--- NOTE | 2019-09-09 15:25 | NUR ---
NURSE NOTES: Called Patient sister and obtained telephone consent for Hemodialysis catheter insertion and hemodialysis. Telephone consent co-signed with CECILY Milligan.
--- NOTE | 2019-09-09 16:00 | NUR ---
NURSE NOTES: Patient sedated with RASS score -2 on fentanyl at 400mcg/hr. Patient remains orally intubated with ventilator setting AC 16, tidal volume 450mL, FiO2 100%, and PEEP 15. SpO2 100%. Blood pressure low at 113/37 on levophed at 30mcg/min. Will titrate per protocol. Nasal gastric tube remains patent, asymptomatic, and running glucerna 1.2 at 30mL/hr with 30mL residual noted. Greogrio remains patent and draining. Left hand 20 gauge peripheral IV remains patent, asymptomatic and saline locked. Left femoral triple lumen catheter remains patent, asymptomatic, and running fentanyl at 400mcg/hr and levophed at 30mcg/min. Patient remains on bilateral soft wrist restraint due to patient pulling on medical devices. Peripheral pulses present. Bed in low position with bed alarm on and call light in reach. Will continue to monitor. Oral care and repositioning done at this time.
--- NOTE | 2019-09-09 16:37 | Cardiac Electrophysiology PN ---
Assessment/Plan Assessment/Plan 1. Atrial fibrillation. Off atenolol for hypotension. Got Dig 0.5 iv and Dig level is 0.7 Hold off on anticoagulation in view of patient's thrombocytopenia. 2. Troponin leak. Could be due to renal failure and septic shock 3. Septic shock on Levophed 4. Respiratory failure, on ventilator with 100% fio2 and PEEP 15 for COVID isolation. 5. Thrombocytopenia. 6. Acute promyelocytic leukemia. Further evaluation by Dr. Jose. 7. Diabetes. 8. COPD. 9. Acute renal failure with Cr 2.[address] Aguila Subjective Subjective In ICU on 100% Fio2 and 15 PEEP. Maxed out on Levo and fentanyl Objective Last 24 Hour Vital Signs Date Time Temp Pulse Resp B/P (MAP) Pulse Ox O2 Delivery O2 Flow Rate FiO2 09/09/19 16:30 67 14 112/41 (64) 100 09/09/19 16:00 100 09/09/19 16:00 68 09/09/19 16:00 67 13 113/37 (62) 100 09/09/19 15:56 16 104/27 Mechanical Ventilator 100 09/09/19 15:32 68 24 100 09/09/19 15:30 67 14 101/35 (57) 100 09/09/19 15:00 99 16 87/29 (48) 68 09/09/19 15:00 16 95/37 Mechanical Ventilator 100 09/09/19 14:36 16 104/30 Mechanical Ventilator 100 09/09/19 14:30 16 104/30 Mechanical Ventilator 100 09/09/19 14:30 73 15 104/30 (54) 100 09/09/19 14:00 111/42 09/09/19 14:00 16 111/72 Mechanical Ventilator 100 09/09/19 14:00 91 12 94/48 (63) 65 09/09/19 13:30 95 14 103/36 (58) 66 09/09/19 13:15 107 18 125/54 (77) 72 09/09/19 13:15 125/54 09/09/19 13:00 99 22 122/79 (93) 84 09/09/19 13:00 103/37 09/09/19 13:00 16 122/79 Mechanical Ventilator 100 09/09/19 12:45 63 15 103/37 (59) 100 09/09/19 12:45 85/51 09/09/19 12:44 64 14 103/37 (59) 100 09/09/19 12:37 64 14 91/37 (55) 100 09/09/19 12:34 65 14 87/33 (51) 100 09/09/19 12:33 65 14 85/51 (62) 100 09/09/19 12:30 65 16 88/29 (48) 100 09/09/19 12:30 72/45 09/09/19 12:29 64 14 80/51 (61) 100 09/09/19 12:26 65 14 75/46 (56) 100 09/09/19 12:20 64/43 09/09/19 12:16 71/45 09/09/19 12:15 67 13 66/43 (51) 09/09/19 12:00 97.9 73 14 71/45 (54) 09/09/19 12:00 83 09/09/19 12:00 71/45 09/09/19 12:00 16 64/43 Mechanical Ventilator 100 09/09/19 12:00 Mechanical Ventilator 09/09/19 12:00 100 09/09/19 11:45 105 21 97/68 (78) 09/09/19 11:30 105 21 97/68 (78) 09/09/19 11:15 110 19 92/64 (73) 85 09/09/19 11:01 109 21 100 09/09/19 11:00 92/64 09/09/19 11:00 20 92/70 Mechanical Ventilator 100 09/09/19 11:00 110 19 92/64 (73) 85 09/09/19 10:45 109 20 114/72 (86) 83 09/09/19 10:30 109 20 100/48 (65) 86 09/09/19 10:15 106 17 124/76 (92) 94 09/09/19 10:00 106 17 124/76 (92) 94 09/09/19 10:00 124/76 09/09/19 10:00 19 124/76 Mechanical Ventilator 100 09/09/19 09:45 108 16 120/78 (92) 95 09/09/19 09:30 108 16 120/78 (92) 95 09/09/19 09:15 81 15 97/55 (69) 100 09/09/19 09:14 100.1 09/09/19 09:00 81 15 97/55 (69) 100 09/09/19 09:00 97/44 09/09/19 09:00 16 97/55 Mechanical Ventilator 100 09/09/19 08:30 84 14 104/66 (79) 100 09/09/19 08:00 100.5 84 16 104/47 (66) 100 09/09/19 08:00 104/47 09/09/19 08:00 15 104/47 Mechanical Ventilator 100 09/09/19 08:00 100 09/09/19 08:00 Mechanical Ventilator 09/09/19 08:00 84 09/09/19 07:30 100 23 104/55 (71) 92 09/09/19 07:28 88 19 100 09/09/19 07:25 17 86/32 Mechanical Ventilator 100 09/09/19 07:00 97 21 86/53 (64) 94 09/09/19 07:00 86/53 09/09/19 07:00 17 86/53 Mechanical Ventilator 100 09/09/19 06:30 113 21 115/52 (73) 88 09/09/19 06:00 112 22 116/89 (98) 90 09/09/19 06:00 116/89 09/09/19 06:00 22 116/89 Mechanical Ventilator 100 09/09/19 05:30 111 19 105/52 (69) 82 09/09/19 05:00 112 21 121/94 (103) 80 09/09/19 05:00 121/94 09/09/19 05:00 21 121/94 Mechanical Ventilator 100 09/09/19 04:30 117 20 127/101 (110) 88 09/09/19 04:00 100 09/09/19 04:00 115 09/09/19 04:00 99.5 119 20 112/80 (91) 93 09/09/19 04:00 112/80 09/09/19 04:00 20 112/80 Mechanical Ventilator 100 09/09/19 04:00 Mechanical Ventilator 09/09/19 03:30 115 22 106/72 (83) 98 09/09/19 03:04 106 28 100 09/09/19 03:00 106/72 09/09/19 03:00 22 106/72 Mechanical Ventilator 100 09/09/19 03:00 115 22 106/72 (83) 98 09/09/19 02:30 111 23 113/83 (93) 99 09/09/19 02:00 107 20 117/59 (78) 100 09/09/19 02:00 117/59 09/09/19 02:00 21 117/59 Mechanical Ventilator 100 09/09/19 01:30 100 20 105/46 (65) 100 09/09/19 01:00 117/46 09/09/19 01:00 21 105/46 Mechanical Ventilator 100 09/09/19 01:00 105 22 111/80 (90) 98 09/09/19 00:30 98 20 138/60 (86) 99 09/09/19 00:00 100.3 75 18 108/54 (72) 100 09/09/19 00:00 Mechanical Ventilator 09/09/19 00:00 138/60 09/09/19 00:00 21 138/60 Mechanical Ventilator 100 09/09/19 00:00 75 09/08/19 23:30 75 20 109/62 (78) 100 09/08/19 23:20 16 109/58 Mechanical Ventilator 100 09/08/19 23:00 75 17 109/58 (75) 100 09/08/19 23:00 109/58 09/08/19 23:00 17 109/58 Mechanical Ventilator 100 09/08/19 22:50 74 22 100 09/08/19 22:30 75 14 96/55 (69) 100 09/08/19 22:00 100/53 20 22:00 15 100/53 Mechanical Ventilator 100 09/08/19 22:00 80 15 100/53 (69) 100 09/08/19 21:30 89 16 108/50 (69) 100 20 21:00 115/73 520 21:00 16 115/73 Mechanical Ventilator 100 09/08/19 21:00 90 20 115/73 (87) 100 20 20:42 101/58 20 20:30 87 18 101/58 (72) 100 20 20:00 Mechanical Ventilator 09/08/19 20:00 100/80 52020 20:00 15 100/80 Mechanical Ventilator 100 09/08/19 20:00 86 09/08/19 20:00 100.0 89 16 100/80 (87) 100 09/08/19 20:00 100 09/08/19 19:30 86 18 95/63 (74) 100 09/08/19 19:10 86 22 100 09/08/19 19:00 86 16 114/68 (83) 100 09/08/19 19:00 95/63 09/08/19 19:00 20 95/63 Mechanical Ventilator 100 09/08/19 18:30 94 21 86/66 (73) 99 09/08/19 18:00 93 19 91/72 (78) 99 09/08/19 18:00 91/72 09/08/19 18:00 21 91/72 Mechanical Ventilator 100 09/08/19 17:39 93 25 100 09/08/19 17:30 80 16 127/64 (85) 100 09/08/19 17:00 120 18 114/61 (78) 100 09/08/19 17:00 127/64 09/08/19 17:00 16 127/64 Mechanical Ventilator 100 Intake and Output 09/08/19 09/09/19 19:00 07:00 Intake Total 1225.00 ml 1407.42 ml Balance 1225.00 ml 1407.42 ml Free Water 60 ml IV Total 1015.00 ml 1087.42 ml Tube Feeding 150 ml 320 ml # Voids 300 280 Laboratory Tests Test 09/09/19 03:35 09/09/19 10:55 White Blood Count 13.1 K/UL (4.8-10.8) #H Red Blood Count 3.65 M/UL (4.70-6.10) L Hemoglobin 10.5 G/DL (14.2-18.0) L Hematocrit 31.4 % (42.0-52.0) L Mean Corpuscular Volume 86 FL (80-99) Mean Corpuscular Hemoglobin 28.7 PG (27.0-31.0) Mean Corpuscular Hemoglobin Concent 33.4 G/DL (32.0-36.0) Red Cell Distribution Width 14.1 % (11.6-14.8) Platelet Count 77 K/UL (150-450) L Mean Platelet Volume 10.1 FL (6.5-10.1) Neutrophils (%) (Auto) % (45.0-75.0) Lymphocytes (%) (Auto) % (20.0-45.0) Monocytes (%) (Auto) % (1.0-10.0) Eosinophils (%) (Auto) % (0.0-3.0) Basophils (%) (Auto) % (0.0-2.0) Sodium Level 146 MMOL/L (136-145) H Potassium Level 4.9 MMOL/L (3.5-5.1) Chloride Level 109 MMOL/L (98-107) H Carbon Dioxide Level 16 MMOL/L (21-32) L Anion Gap 21 mmol/L (5-15) H Blood Urea Nitrogen 43 mg/dL (7-18) H Creatinine 4.2 MG/DL (0.55-1.30) #H Estimat Glomerular Filtration Rate 13.8 mL/min (>60) Glucose Level 123 MG/DL (74-106) H Calcium Level 6.9 MG/DL (8.5-10.1) L Phosphorus Level 5.1 MG/DL (2.5-4.9) H Magnesium Level 2.0 MG/DL (1.8-2.4) Total Bilirubin 0.8 MG/DL (0.2-1.0) Aspartate Amino Transf (AST/SGOT) 122 U/L (15-37) H Alanine Aminotransferase (ALT/SGPT) 53 U/L (12-78) Alkaline Phosphatase 51 U/L (46-116) Total Protein 5.9 G/DL (6.4-8.2) L Albumin 1.8 G/DL (3.4-5.0) L Globulin 4.1 g/dL Albumin/Globulin Ratio 0.4 (1.0-2.7) L Digoxin Level 0.7 NG/ML (0.5-2.0) Arterial Blood pH 7.177 (7.350-7.450) Arterial Blood Partial Pressure CO2 41.3 mmHg (35.0-45.0) Arterial Blood Partial Pressure O2 44.5 mmHg (75.0-100.0) Arterial Blood HCO3 15.0 mmol/L (22.0-26.0) *L Arterial Blood Oxygen Saturation 75.6 % (95-100) *L Arterial Blood Base Excess -12.8 (-2-2) *L Freddie Test Positive Microbiology Date/Time Source Procedure Growth Status 09/07/19 04:15 Blood Blood Culture - Preliminary NO GROWTH AFTER 48 HOURS Resulted 09/07/19 04:15 Blood Blood Culture - Preliminary NO GROWTH AFTER 48 HOURS Resulted 09/07/19 17:00 Sputum Expectorated Gram Stain - Final Resulted 09/07/19 17:00 Sputum Expectorated Sputum Culture - Preliminary NORMAL UPPER RESPIRATORY AZUCENA AT 24 ... Resulted 09/06/19 22:30 Urine,Clean Catch Urine Culture - Final NO GROWTH AFTER 48 HOURS Complete Objective HEAD AND NECK: Orally intubated. LUNGS: Coarse rhonchi. CARDIOVASCULAR: Irregular S1 and S2 with no gallop. ABDOMEN: Soft. EXTREMITIES: No pitting edema. Gabriel Cantor MD September 09, 2019 16:37
--- NOTE | 2019-09-09 16:41 | Operative Note - PDOC ---
Operative Note Operative Note Date of Operation/Procedure: September 09, 2019 Pre-op Diagnosis: Sepsis, COVID, renal insufficiency, acidosis Right femoral temporary hemodialysis catheter insertion Procedure: Right femoral temporal hemodialysis catheter insertion Post-op Diagnosis: same as pre-op Surgeon: Jeremy Thao MD Anesthesia: local Complications: none Condition: unstable Estimated Blood Loss: minimal Drains: none Implant(s) used?: No Indications for Procedure 71-year-old male please see consult history as well as notes currently in ICU ill-appearing deteriorating worsening renal insufficiency 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 Considerations for hemodialysis. Patient planned dialysis soon though he is very ill currently on pressors ventilatory support and deteriorating. Potential life-saving or improvement consideration with dialysis per nephrology. Line indicated recommended and will be placed at the family's discretion given consent though with no cardiac resuscitation at this time. Description of Procedure Patient was made comfortable the bedside. The right groin is prepped draped and sent surgical fashion. Local anesthetic was infiltrated in the right femoral vein was cannulated on first stick. Good venous flow noted. Guidewire placed over the needle needle removed. Small skin incision was made and dilators were used. Following this a dual-lumen temporary hemodialysis catheter was inserted over the guidewire without complication. Guidewire removed and discarded. Both ports flushed and aspirated with good flow venous flow without complication. Line sutured in place lines flushed dressings applied patient taught procedure well will plan for dialysis per nephrology Jeremy Thao September 09, 2019 16:41
--- NOTE | 2019-09-09 18:00 | NUR ---
NURSE NOTES: Blood pressure 117/43 on levophed at 30mcg/min. RASS remains -2 at fentanyl at 400mcg/hr. patient repositioned.
--- NOTE | 2019-09-09 19:30 | NUR ---
HAND-OFF: Report given to CECILY Sigala.
--- NOTE | 2019-09-09 20:00 | NUR ---
RESPIRATORY NOTE: Received pt on AC 16, 450VT, 100%, PEEP +15. Pt intubated w/ ETT 7.5 @ 23cm lipline, secured by anchorfast. Pt sedated. B/S yolande. diminished, sxn scant amounts of thin, red specks. Vent plugged into red outlet, ambubag at bedside. Pt in no apparent distress at this time. Will continue to monitor pt.
--- NOTE | 2019-09-09 20:00 | NUR ---
NURSE NOTES: Received patient from Marisel Mead RN. Patient sedated with RASS score -2 on fentanyl at 400mcg/hr. Patient orally intubated with ET tube 7.5cm at 24cm at the lip line. Ventilator setting AC 16, tidal volume 450mL, FiO2 100%, and PEEP 15. Patient has nasal gastric tube in left nares that is patent, asymptomatic, and running glucerna 1.2 at 30mL/hr with no residual noted. Patient has sales for urine retention that is patent and draining. Patient skin intact with ecchymosis on left foot. Patient has left hand 20 gauge peripheral IV that is patent, asymptomatic and saline locked and left femoral triple lumen catheter that is patent, asymptomatic, and running fentanyl at 400mcg/hr and levophed at 30mcg/min. Will continue to monitor and titrate per protocol. Patient on bilateral soft wrist restraint due to patient pulling on medical devices. Peripheral pulses present. Bed in low position with bed alarm on and call light in reach. Will continue to monitor. Oral care and repositioning done at this time.
[2019-09-09] MEDS: Dyna-Hex 2% Top Sol 2oz TOPIC SCH (20:45)
[2019-09-09] MEDS: D5W IV SCH (21:00)
[2019-09-09] MEDS: NOREPINEPHRINE BITARTRATE IV SCH (21:00)
--- NOTE | 2019-09-09 22:00 | NUR ---
NURSE NOTES: Temperature 100.0F Tylenol 650mg via NGT Cooling measure given Decreased fentanyl gtt to 100mcg/hr Levo double conc hung at 20mcg/min RASS remains at -2
[2019-09-10] VITALS (71 sets, daily range): BP systolic 79–163; BP diastolic 30–116
--- NOTE | 2019-09-10 | NUR ---
NURSE NOTES: Repositioned Oral care provided decreasing pressors accordingly SpO2 97%
--- NOTE | 2019-09-10 02:00 | NUR ---
NURSE NOTES: Cooling measures continues Pressors titrating down accordingly RASS remains at -2 Repositioned Laved and suctioned
--- NOTE | 2019-09-10 04:00 | NUR ---
NURSE NOTES: Labs drawn and sent to lab Patient given sponge bath Gregorio care performed Increased sedation to maintain RASS of -2 Decreasing pressors accordingly Oral care performed and repositioned Cooling measures ongoing
[2019-09-10 05:30] LABS: HEMATOCRIT 30.5 % (42.0-52.0); HEMOGLOBIN 10.2 G/DL (14.2-18.0); MEAN CORPUSCULAR VOLUME 86 FL (80-99); PLATELET COUNT 81 K/UL (150-450); RED BLOOD COUNT 3.55 M/UL (4.70-6.10); RED CELL DISTRIBUTION WIDTH 14.6 % (11.6-14.8)
[2019-09-10] MEDS: NovoLOG Insulin Flexpen SUBQ SCH ×4 (05:52→21:00)
[2019-09-10 05:57] LABS: WHITE BLOOD COUNT 24.1 K/UL (4.8-10.8)
--- NOTE | 2019-09-10 06:00 | NUR ---
NURSE NOTES: Increased sedation to maintain RASS of -2 Decreasing pressors accordingly Oral care performed and repositioned Glucose is 85, no coverage indicated.
[2019-09-10 06:15] LABS: ALANINE AMINOTRANSFERASE 57 U/L (12-78); ALBUMIN 1.7 G/DL (3.4-5.0); ALBUMIN/GLOBULIN RATIO 0.4 (1.0-2.7); ALKALINE PHOSPHATASE 57 U/L (46-116); ANION GAP 20 mmol/L (5-15); ASPARTATE AMINO TRANSFERASE 169 U/L (15-37); BILIRUBIN,TOTAL 0.9 MG/DL (0.2-1.0); BLOOD UREA NITROGEN 57 mg/dL (7-18); CALCIUM 6.6 MG/DL (8.5-10.1); CARBON DIOXIDE 17 MMOL/L (21-32); CHLORIDE 104 MMOL/L (98-107); CREATININE 5.7 MG/DL (0.55-1.30); PHOSPHORUS 5.4 MG/DL (2.5-4.9); POTASSIUM 4.9 MMOL/L (3.5-5.1); SODIUM 141 MMOL/L (136-145)
--- NOTE | 2019-09-10 07:00 | NUR ---
NURSE NOTES: Clinical Data Analyst at bedside recommending changing tube feeds to Nepro at goal rate of 35 due that patients renal parameters and in consideration of am chem panel
--- NOTE | 2019-09-10 07:18 | NUR ---
HAND-OFF: Report given to Marisel TONY.
--- NOTE | 2019-09-10 07:19 | NUR ---
NURSE NOTES: Received patient from CECILY Sigala. Patient restless at this time with RASS +2 on fentanyl at 200mcg/hr. Will titrate to maintain RASS of -2. Patient showing sinus rhythm on the tax collector at this time. Patient SpO2 84%. Will continue to monitor and notify MD. Patient orally intubated with size 7.5cm ET tube with 24cm at the lip line with ventilator setting AC 16, tidal volume 450mL, FiO2 100%, and PEEP 15. Patient left nares NGT patent, in place, asymptomatic, and running Glucerna 1.2 at 35mL/hr at this time. Tube feeding order changed. Will follow up. Patient has sales for urine retention that is patent, asymptomatic, and draining dark [place] urine. Patient skin intact except ecchymosis noted on left foot. Patient has left hand 20 gauge peripheral IV that is patent, asymptomatic, and saline locked. Patient has left femoral TLC that is patent, asymptomatic, and running levophed at 9mcg/min and fentanyl at 200mcg/hr. Patient has right femoral grey catheter with dressing dry, intact, and asymptomatic. Will follow up with attendant arcade regarding order for hemodialysis. Patient bed in low position with bed alarm on and call light in reach at this time. Bilateral soft wrist restraint in place at this time as patient witnessed attempting to remove ET tube. Peripheral pulses present and skin intact. Will continue to monitor. Oral care and repositioning done at this time.
[2019-09-10] MEDS: Doxycycline Monohydrate 100mg ORAL SCH ×2 (08:39→20:54)
[2019-09-10] MEDS: Docusate 100mg/10ml Liq NG SCH ×3 (08:39→20:54)
--- NOTE | 2019-09-10 09:28 | NUR ---
CASE MANAGEMENT: REVIEW 09/10/2019 SI:COVID-19 pneumonia. VS: T 99.6 HR 86 RR 20 B/P 82/56 SATS 91% ON MECH VENT FIO2 100 LABS: WBC 24.1 BUN 57 CR 5.7 ABGs PH 7.170 PO2 42.6 HCO3 14.5 O2 SAT 72.7 BE -13.3 IS: LINEZOLID IV Q12H DOXYCYCLINE PO Q12H INSULIN ASPART SUBQ AC/HS ZOSYN IV Q12H FENTANYL IV PER PARAMETERS LEVOPHED IV PER [facility]AMETERS ICU
--- NOTE | 2019-09-10 09:32 | NUR ---
RD ASSESSMENT & RECOMMENDATIONS SEE CARE ACTIVITY FOR COMPLETE ASSESSMENT DAILY ESTIMATED NEEDS: Needs based on Critical care 56.7kg 22-28 kcals/kg [id number] total kcals 1.2-1.5 (renal/ No HD) g protein/kg 68-85 g total protein Fluid per MD mL/kg NUTRITION DIAGNOSIS: Swallowing difficulty r/t respiratory failure as evidenced by pt is covid pna++, s/p emergency intubation, on NGT feeds. CURRENT TF: now Nepro goal of 35ml/hr ENTERAL NUTRITION RECOMMENDATIONS: TF change to NEPRO goal 35ml/hr x24 hrs d/t worsening renal labs to provide 840ml, 1512 kcal, 68g pro, 611ml free H2O - Rec TF change to NEPRO d/t worsening renal status, possible need for HD - Start @15ml/hr for 6hrs, advance as tolerated 10ml/hr q4-6 hrs to goal. - Flush per MD. HOB over 30 degrees. * TF at goal meets 100% est kcal and pro needs. ADDITIONAL RECOMMENDATIONS: 1) Maintain calibrated bed scale wts 2) Updated TF recs above, rec Nepro for renal parameters 3) rec WC RN for wound photo 4) Feed w/ hemodynamic stability
--- NOTE | 2019-09-10 10:00 | NUR ---
NURSE NOTES: Patient restless with RASS -1. SpO2 85%. Fentanyl increased to 400mcg/hr. Blood pressure 88/48. Levophed increased to 12mcg/min. Patient had a large, loose bowel movement. Patient cleaned and repositioned. Will continue to monitor.
--- NOTE | 2019-09-10 10:07 | Cardiac Electrophysiology PN ---
Assessment/Plan Assessment/Plan 1. Atrial fibrillation. Off atenolol for hypotension. Got Dig 0.5 iv and Dig level is 0.7 Hold off on anticoagulation in view of patient's thrombocytopenia. 2. Troponin leak. Could be due to renal failure and septic shock 3. Septic shock on Levophed 10 Mc. WBC up to 24 K 4. Respiratory failure, on ventilator with 100% fio2 and PEEP 15 for COVID isolation. 5. Thrombocytopenia. 6. Acute promyelocytic leukemia. Further evaluation by Dr. Jose. 7. Diabetes. 8. COPD. 9. Acute renal failure with Cr 2.0. On HD now LEWIS RN and Dr Aguila Subjective Subjective In ICU on 100% Fio2 and 15 PEEP. On Levo 10 and fentanyl 300. Scheduled for HD today Objective Last 24 Hour Vital Signs Date Time Temp Pulse Resp B/P (MAP) Pulse Ox O2 Delivery O2 Flow Rate FiO2 09/10/19 07:45 23 102/48 Mechanical Ventilator 100 09/10/19 07:30 91 19 100 09/10/19 07:15 86/72 09/10/19 07:15 23 86/72 Mechanical Ventilator 100 09/10/19 07:00 93 21 89/77 (81) 75 09/10/19 07:00 89/77 09/10/19 07:00 20 89/77 Mechanical Ventilator 100 09/10/19 06:45 94 24 97/62 (74) 78 09/10/19 06:30 97 23 108/64 (79) 78 09/10/19 06:00 103 29 102/82 (89) 76 09/10/19 06:00 102/82 09/10/19 06:00 21 102/82 Mechanical Ventilator 100 09/10/19 05:30 101 26 102/71 (81) 80 09/10/19 05:15 102 27 92/74 (80) 79 09/10/19 05:00 100/73 09/10/19 05:00 16 100/73 Mechanical Ventilator 100 09/10/19 05:00 99 26 100/73 (82) 81 09/10/19 04:45 97 23 94/67 (76) 87 09/10/19 04:30 95 24 109/57 (74) 90 09/10/19 04:15 96 19 98/55 (69) 91 09/10/19 04:00 100 09/10/19 04:00 Mechanical Ventilator 09/10/19 04:00 99.6 101 24 82/56 (65) 91 09/10/19 04:00 103/52 09/10/19 04:00 20 102/50 Mechanical Ventilator 100 09/10/19 04:00 86 09/10/19 03:45 107 26 91/37 (55) 88 09/10/19 03:30 108 25 106/81 (89) 88 09/10/19 03:15 110 27 112/69 (83) 81 09/10/19 03:00 96/52 09/10/19 03:00 16 96/52 Mechanical Ventilator 100 09/10/19 03:00 90 25 129/116 (120) 95 09/10/19 02:56 87 23 100 09/10/19 02:45 87 23 116/79 (91) 96 09/10/19 02:30 77 16 95/52 (66) 100 09/10/19 02:15 71 18 109/34 (59) 100 09/10/19 02:00 71 17 111/35 (60) 100 09/10/19 02:00 111/35 09/10/19 02:00 16 111/35 Mechanical Ventilator 100 09/10/19 01:45 70 19 107/37 (60) 100 09/10/19 01:30 71 23 104/44 (64) 100 09/10/19 01:15 71 18 101/53 (69) 100 09/10/19 01:00 105/37 09/10/19 01:00 16 105/37 Mechanical Ventilator 100 09/10/19 01:00 71 18 105/37 (59) 100 09/10/19 00:45 72 22 103/39 (60) 100 09/10/19 00:30 72 12 103/39 (60) 100 09/10/19 00:15 73 15 98/43 (61) 100 09/10/19 00:00 67 09/10/19 00:00 100.4 74 14 105/42 (63) 100 09/10/19 00:00 Mechanical Ventilator 09/10/19 00:00 103/29 09/10/19 00:00 16 103/29 Mechanical Ventilator 100 09/10/19 00:00 100 09/09/19 23:45 76 16 110/55 (73) 100 5/21/20 23:30 78 13 93/71 (78) 100 521/20 23:15 78 15 119/33 (61) 100 5/20 23:15 81 25 100 5/20 23:00 78 16 113/43 (66) 100 521/20 23:00 113/43 5/20 23:00 16 113/43 Mechanical Ventilator 100 20 22:30 69 15 127/27 (60) 100 52120 22:00 119/36 520 22:00 16 119/31 Mechanical Ventilator 100 20 22:00 99.8 67 16 106/32 (56) 100 20 21:30 66 16 117/29 (58) 100 20 21:16 16 112/29 Mechanical Ventilator 100 20 21:16 99.8 09/09/19 21:15 67 15 118/32 (60) 100 20 21:00 117/29 520 21:00 67 15 110/45 (66) 100 520 20:56 68 18 120/31 (60) 100 20 20:45 66 15 119/37 (64) 100 20 20:30 66 13 118/33 (61) 100 20 20:15 67 12 110/37 (61) 100 09/08/20 20:00 100.0 68 13 117/20 (52) 100 21/20 20:00 Mechanical Ventilator 20 20:00 121/39 520 20:00 16 121/39 Mechanical Ventilator 100 09/08/20 20:00 100 521/20 20:00 62 5/20 19:57 66 21 100 5/20 19:30 67 16 121/29 (59) 100 09/08/20 19:00 116/28 5/20 19:00 16 116/28 Mechanical Ventilator 100 09/08/20 19:00 67 15 116/28 (57) 100 09/08/20 18:30 67 14 122/26 (58) 100 521/20 18:30 67 14 118/43 (68) 100 5/20 18:00 68 14 117/43 (67) 100 5/20 18:00 66 14 117/43 (67) 100 20 18:00 117/43 09/09/19 18:00 16 117/43 Mechanical Ventilator 100 09/09/19 17:30 69 14 119/32 (61) 100 20 17:30 67 14 114/35 (61) 100 09/08/20 17:12 114/35 09/09/19 17:10 114/35 09/09/19 17:10 16 114/35 Mechanical Ventilator 100 09/09/19 17:00 67 13 114/35 (61) 100 09/09/19 17:00 13 114/35 Mechanical Ventilator 100 09/09/19 17:00 66 14 125/26 (59) 100 09/09/19 16:30 67 14 112/41 (64) 100 09/09/19 16:00 97.9 09/09/19 16:00 100 09/09/19 16:00 68 09/09/19 16:00 Mechanical Ventilator 09/09/19 16:00 67 13 113/37 (62) 100 09/09/19 15:56 113/37 09/09/19 15:56 16 104/27 Mechanical Ventilator 100 09/09/19 15:32 68 24 100 09/09/19 15:30 67 14 101/35 (57) 100 09/09/19 15:00 99 16 87/29 (48) 68 09/09/19 15:00 95/37 09/09/19 15:00 16 95/37 Mechanical Ventilator 100 09/09/19 14:36 16 104/30 Mechanical Ventilator 100 09/09/19 14:30 16 104/30 Mechanical Ventilator 100 09/09/19 14:30 73 15 104/30 (54) 100 09/09/19 14:00 111/42 09/09/19 14:00 16 111/72 Mechanical Ventilator 100 09/09/19 14:00 91 12 94/48 (63) 65 09/09/19 13:30 95 14 103/36 (58) 66 09/09/19 13:15 107 18 125/54 (77) 72 09/09/19 13:15 125/54 09/09/19 13:00 99 22 122/79 (93) 84 09/09/19 13:00 103/37 09/09/19 13:00 16 122/79 Mechanical Ventilator 100 09/09/19 12:45 63 15 103/37 (59) 100 09/09/19 12:45 85/51 09/09/19 12:44 64 14 103/37 (59) 100 09/09/19 12:37 64 14 91/37 (55) 100 09/09/19 12:34 65 14 87/33 (51) 100 09/09/19 12:33 65 14 85/51 (62) 100 09/09/19 12:30 65 16 88/29 (48) 100 09/09/19 12:30 72/45 09/09/19 12:29 64 14 80/51 (61) 100 09/09/19 12:26 65 14 75/46 (56) 100 09/09/19 12:20 64/43 09/09/19 12:16 71/45 09/09/19 12:15 67 13 66/43 (51) 09/09/19 12:00 97.9 73 14 71/45 (54) 09/09/19 12:00 83 09/09/19 12:00 71/45 09/09/19 12:00 16 64/43 Mechanical Ventilator 100 09/09/19 12:00 Mechanical Ventilator 09/09/19 12:00 100 09/09/19 11:45 105 21 97/68 (78) 09/09/19 11:30 105 21 97/68 (78) 09/09/19 11:15 110 19 92/64 (73) 85 09/09/19 11:01 109 21 100 09/09/19 11:00 92/64 09/09/19 11:00 20 92/70 Mechanical Ventilator 100 09/09/19 11:00 110 19 92/64 (73) 85 09/09/19 10:45 109 20 114/72 (86) 83 09/09/19 10:30 109 20 100/48 (65) 86 09/09/19 10:15 106 17 124/76 (92) 94 Intake and Output 09/09/19 09/10/19 19:00 07:00 Intake Total 2159.160 ml 1457.85 ml Balance 2159.160 ml 1457.85 ml Free Water 50 ml 40 ml IV Total 1749.160 ml 1057.85 ml Tube Feeding 360 ml 360 ml # Voids 90 115 Laboratory Tests Test 09/09/19 10:55 09/10/19 04:00 09/10/19 07:40 Arterial Blood pH 7.177 (7.350-7.450) 7.170 (7.350-7.450) Arterial Blood Partial Pressure CO2 41.3 mmHg (35.0-45.0) 40.7 mmHg (35.0-45.0) Arterial Blood Partial Pressure O2 44.5 mmHg (75.0-100.0) 42.6 mmHg (75.0-100.0) Arterial Blood HCO3 15.0 mmol/L (22.0-26.0) *L 14.5 mmol/L (22.0-26.0) *L Arterial Blood Oxygen Saturation 75.6 % (95-100) *L 72.7 % (95-100) *L Arterial Blood Base Excess -12.8 (-2-2) *L -13.3 (-2-2) *L Freddie Test Positive Positive White Blood Count 24.1 K/UL (4.8-10.8) #*H Red Blood Count 3.55 M/UL (4.70-6.10) L Hemoglobin 10.2 G/DL (14.2-18.0) L Hematocrit 30.5 % (42.0-52.0) L Mean Corpuscular Volume 86 FL (80-99) Mean Corpuscular Hemoglobin 28.8 PG (27.0-31.0) Mean Corpuscular Hemoglobin Concent 33.5 G/DL (32.0-36.0) Red Cell Distribution Width 14.6 % (11.6-14.8) Platelet Count 81 K/UL (150-450) L Mean Platelet Volume 11.2 FL (6.5-10.1) H Neutrophils (%) (Auto) % (45.0-75.0) Lymphocytes (%) (Auto) % (20.0-45.0) Monocytes (%) (Auto) % (1.0-10.0) Eosinophils (%) (Auto) % (0.0-3.0) Basophils (%) (Auto) % (0.0-2.0) Differential Total Cells Counted 100 Neutrophils % (Manual) 71 % (45-75) Lymphocytes % (Manual) 9 % (20-45) L Monocytes % (Manual) 20 % (1-10) H Eosinophils % (Manual) 0 % (0-3) Basophils % (Manual) 0 % (0-2) Band Neutrophils 0 % (0-8) Platelet Estimate Decreased L Platelet Morphology Normal Hypochromasia 1+ Anisocytosis 1+ Sodium Level 141 MMOL/L (136-145) Potassium Level 4.9 MMOL/L (3.5-5.1) Chloride Level 104 MMOL/L (98-107) Carbon Dioxide Level 17 MMOL/L (21-32) L Anion Gap 20 mmol/L (5-15) H Blood Urea Nitrogen 57 mg/dL (7-18) H Creatinine 5.7 MG/DL (0.55-1.30) H Estimat Glomerular Filtration Rate 9.7 mL/min (>60) Glucose Level 101 MG/DL (74-106) Calcium Level 6.6 MG/DL (8.5-10.1) L Phosphorus Level 5.4 MG/DL (2.5-4.9) H Magnesium Level 2.1 MG/DL (1.8-2.4) Total Bilirubin 0.9 MG/DL (0.2-1.0) Aspartate Amino Transf (AST/SGOT) 169 U/L (15-37) H Alanine Aminotransferase (ALT/SGPT) 57 U/L (12-78) Alkaline Phosphatase 57 U/L (46-116) Total Protein 5.6 G/DL (6.4-8.2) L Albumin 1.7 G/DL (3.4-5.0) L Globulin 3.9 g/dL Albumin/Globulin Ratio 0.4 (1.0-2.7) L Microbiology Date/Time Source Procedure Growth Status 09/07/19 17:00 Sputum Expectorated Gram Stain - Final Complete 09/07/19 17:00 Sputum Culture - Final Melissa Albicans Usual Respiratory Susan Complete Objective HEAD AND NECK: Orally intubated. LUNGS: Coarse rhonchi. CARDIOVASCULAR: Irregular S1 and S2 with no gallop. ABDOMEN: Soft. EXTREMITIES: No pitting edema. Gabriel Cantor MD September 10, 2019 10:07
[2019-09-10] MEDS: fentaNYL 2500mcg/NS 250ml 250 ML IV SCH ×2 (10:23→16:57)
--- NOTE | 2019-09-10 10:41 | Diagnostic Imaging Report ---
Procedure: XRAY Chest 1v Reason for study: Shortness of breath. Comparison films: 09/08/2019. FINDINGS: Compared to prior exam, the endotracheal tube appears to been pulled back and is now at the level of the thoracic inlet 9.9 cm above the delroy. NG tube remains in place. Vascularity is normal. Bilateral alveolar densities unchanged. Cardiac and mediastinal silhouette are within normal limits. Small right effusion unchanged. The bony thorax appear unremarkable. IMPRESSION: Endotracheal tube appears to have been pulled back and the tip is now 9.9 cm above the delroy. Recommend advancement approximately 6 cm. Otherwise no change.
--- NOTE | 2019-09-10 11:07 | Hematology/Onc Progress Note ---
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 Greatly appreciate consultation. Subjective Allergies: Coded Allergies: No Known Allergies (Unverified , 01/19/13) All Systems: reviewed and negative except above Subjective 09/05 remains confused, as per cards, pulm and id recs, with tachycardia, plt stable 09/06 icu, no overnight events, vent, iv abx 09/07 no overnight events, levo gtt, labs reviewed 09/08 icu, no acute events, bp stable 09/09 in icu needs pressors, wbc higher 24k, is on doxy/zosyn per id, with ng, on vent Objective Objective Current Medications Medications (Trade) Dose Ordered Sig/Karlos Route PRN Reason Start Time Stop Time Status Last Admin Dose Admin Acetaminophen (Tylenol) 650 mg Q4H PRN ORAL Mild Pain (Pain Scale 1-3) 09/07/19 03:45 10/03/19 11:44 09/09/19 20:45 Acetaminophen (Tylenol) 650 mg Q4H PRN ORAL Temp >100.5 09/07/19 03:45 10/03/19 11:44 Acetaminophen (Tylenol) 650 mg Q4H PRN RECTAL Temp >100.5 09/07/19 04:30 10/06/19 16:29 Bisacodyl (Dulcolax) 10 mg DAILYPRN PRN RECTAL Constipation 09/07/19 11:45 12/02/19 11:44 Chlorhexidine Gluconate (Nely-Hex 2%) 1 applic DAILY@2000 TOPIC 09/08/19 21:00 12/07/19 20:59 09/09/19 20:45 Dextrose (Dextrose 50%) 25 ml Q30M PRN IV Hypoglycemia 09/07/19 00:45 12/02/19 11:44 Dextrose (Dextrose 50%) 50 ml Q30M PRN IV Hypoglycemia 09/07/19 00:45 12/02/19 11:44 Docusate Sodium (Colace) 100 mg Q12HR NG 09/08/19 09:15 10/08/19 09:14 09/09/19 20:45 Doxycycline Monohydrate (Doxycycline Monohydrate) 100 mg EVERY 12 HOURS ORAL 09/08/19 21:00 09/15/19 20:59 09/10/19 08:39 Fentanyl Citrate 250 ml @ 0 mls/hr Q24H IV 09/07/19 12:45 12/06/19 12:44 09/10/19 10:23 Insulin Aspart (NovoLOG) BEFORE MEALS AND HS SUBQ 09/07/19 06:30 12/04/19 11:29 09/09/19 21:11 Linezolid 300 ml @ 300 mls/hr EVERY 12 HOURS IVPB 09/08/19 21:00 09/15/19 20:59 09/10/19 08:40 Magnesium Hydroxide (Mom) 30 ml HSPRN PRN ORAL Constipation 09/07/19 11:45 10/03/19 11:44 Morphine Sulfate (Morphine Sulfate) 2 mg Q2H PRN IVP Breakthru pain 09/09/19 13:45 09/16/19 13:44 09/10/19 07:27 Norepinephrine Bitartrate 16 mg/ Dextrose 566 ml @ 0 mls/hr Q24H IV 09/09/19 21:00 10/09/19 20:59 09/09/19 21:00 Piperacillin Sod/ Tazobactam Sod 3.375 gm/Sodium Chloride 110 ml @ 27.5 mls/hr Q12H IVPB 09/08/19 13:00 09/15/19 12:59 09/09/19 20:46 Polyethylene Glycol (Miralax) 17 gm DAILYPRN PRN ORAL Constipation 09/07/19 11:45 10/03/19 11:44 Last 24 Hour Vital Signs Date Time Temp Pulse Resp B/P (MAP) Pulse Ox O2 Delivery O2 Flow Rate FiO2 09/10/19 10:45 87 18 109/61 (77) 95 09/10/19 10:30 88 21 96/59 (71) 95 09/10/19 10:25 83 18 119/60 (79) 98 09/10/19 10:23 20 88/48 Mechanical Ventilator 100 09/10/19 10:20 20 88/48 Mechanical Ventilator 100 09/10/19 10:15 82 16 88/48 (61) 99 09/10/19 10:00 88/48 09/10/19 10:00 20 88/48 Mechanical Ventilator 100 09/10/19 10:00 86 17 92/50 (64) 96 09/10/19 09:45 86 19 91/50 (64) 93 09/10/19 09:30 90 26 114/82 (93) 88 09/10/19 09:15 95 21 95/60 (72) 80 09/10/19 09:00 86 21 101/49 (66) 90 09/10/19 09:00 95/60 09/10/19 09:00 21 95/60 Mechanical Ventilator 100 09/10/19 08:45 91 22 95/62 (73) 78 09/10/19 08:30 87 21 105/65 (78) 87 09/10/19 08:15 88 27 96/51 (66) 85 09/10/19 08:00 97.9 94 23 97/49 (65) 78 09/10/19 08:00 96/51 09/10/19 08:00 23 96/51 Mechanical Ventilator 100 09/10/19 08:00 100 09/10/19 08:00 Mechanical Ventilator 09/10/19 07:45 89 18 102/48 (66) 85 09/10/19 07:45 23 102/48 Mechanical Ventilator 100 09/10/19 07:30 97 25 104/54 (71) 70 09/10/19 07:30 91 19 100 09/10/19 07:15 86/72 09/10/19 07:15 23 86/72 Mechanical Ventilator 100 09/10/19 07:00 93 21 89/77 (81) 75 09/10/19 07:00 89/77 09/10/19 07:00 20 89/77 Mechanical Ventilator 100 09/10/19 06:45 94 24 97/62 (74) 78 09/10/19 06:30 97 23 108/64 (79) 78 09/10/19 06:00 103 29 102/82 (89) 76 09/10/19 06:00 102/82 09/10/19 06:00 21 102/82 Mechanical Ventilator 100 09/10/19 05:30 101 26 102/71 (81) 80 09/10/19 05:15 102 27 92/74 (80) 79 09/10/19 05:00 100/73 09/10/19 05:00 16 100/73 Mechanical Ventilator 100 09/10/19 05:00 99 26 100/73 (82) 81 09/10/19 04:45 97 23 94/67 (76) 87 09/10/19 04:30 95 24 109/57 (74) 90 09/10/19 04:15 96 19 98/55 (69) 91 09/10/19 04:00 100 09/10/19 04:00 Mechanical Ventilator 09/10/19 04:00 99.6 101 24 82/56 (65) 91 09/10/19 04:00 103/52 09/10/19 04:00 20 102/50 Mechanical Ventilator 100 09/10/19 04:00 86 09/10/19 03:45 107 26 91/37 (55) 88 09/10/19 03:30 108 25 106/81 (89) 88 09/10/19 03:15 110 27 112/69 (83) 81 09/10/19 03:00 96/52 09/10/19 03:00 16 96/52 Mechanical Ventilator 100 09/10/19 03:00 90 25 129/116 (120) 95 09/10/19 02:56 87 23 100 09/10/19 02:45 87 23 116/79 (91) 96 09/10/19 02:30 77 16 95/52 (66) 100 09/10/19 02:15 71 18 109/34 (59) 100 09/10/19 02:00 71 17 111/35 (60) 100 09/10/19 02:00 111/35 09/10/19 02:00 16 111/35 Mechanical Ventilator 100 09/10/19 01:45 70 19 107/37 (60) 100 09/10/19 01:30 71 23 104/44 (64) 100 09/10/19 01:15 71 18 101/53 (69) 100 09/10/19 01:00 105/37 09/10/19 01:00 16 105/37 Mechanical Ventilator 100 09/10/19 01:00 71 18 105/37 (59) 100 09/10/19 00:45 72 22 103/39 (60) 100 09/10/19 00:30 72 12 103/39 (60) 100 09/10/19 00:15 73 15 98/43 (61) 100 09/10/19 00:00 67 09/10/19 00:00 100.4 74 14 105/42 (63) 100 09/10/19 00:00 Mechanical Ventilator 09/10/19 00:00 103/29 09/10/19 00:00 16 103/29 Mechanical Ventilator 100 09/10/19 00:00 100 09/09/19 23:45 76 16 110/55 (73) 100 09/09/19 23:30 78 13 93/71 (78) 100 09/09/19 23:15 78 15 119/33 (61) 100 09/09/19 23:15 81 25 100 09/09/19 23:00 78 16 113/43 (66) 100 09/09/19 23:00 113/43 09/09/19 23:00 16 113/43 Mechanical Ventilator 100 09/09/19 22:30 69 15 127/27 (60) 100 09/09/19 22:00 119/36 09/09/19 22:00 16 119/31 Mechanical Ventilator 100 09/09/19 22:00 99.8 67 16 106/32 (56) 100 09/09/19 21:30 66 16 117/29 (58) 100 09/09/19 21:16 16 112/29 Mechanical Ventilator 100 09/09/19 21:16 99.8 09/09/19 21:15 67 15 118/32 (60) 100 5/21/20 21:00 117/29 520 21:00 67 15 110/45 (66) 100 20 20:56 68 18 120/31 (60) 100 20 20:45 66 15 119/37 (64) 100 520 20:30 66 13 118/33 (61) 100 521/20 20:15 67 12 110/37 (61) 100 20 20:00 100.0 68 13 117/20 (52) 100 20 20:00 Mechanical Ventilator 20 20:00 121/39 520 20:00 16 121/39 Mechanical Ventilator 100 09/09/19 20:00 100 20 20:00 62 09/09/19 19:57 66 21 100 20 19:30 67 16 121/29 (59) 100 20 19:00 116/28 09/09/19 19:00 16 116/28 Mechanical Ventilator 100 09/09/19 19:00 67 15 116/28 (57) 100 20 18:30 67 14 122/26 (58) 100 20 18:30 67 14 118/43 (68) 100 09/09/19 18:00 68 14 117/43 (67) 100 09/09/19 18:00 66 14 117/43 (67) 100 20 18:00 117/43 20 18:00 16 117/43 Mechanical Ventilator 100 09/09/19 17:30 69 14 119/32 (61) 100 20 17:30 67 14 114/35 (61) 100 09/08/20 17:12 114/35 20 17:10 114/35 20 17:10 16 114/35 Mechanical Ventilator 100 20 17:00 67 13 114/35 (61) 100 20 17:00 13 114/35 Mechanical Ventilator 100 20 17:00 66 14 125/26 (59) 100 20 16:30 67 14 112/41 (64) 100 09/09/19 16:00 97.9 20 16:00 100 20 16:00 68 5 16:00 Mechanical Ventilator 09/09/19 16:00 67 13 113/37 (62) 100 09/09/19 15:56 113/37 09/09/19 15:56 16 104/27 Mechanical Ventilator 100 09/09/19 15:32 68 24 100 09/09/19 15:30 67 14 101/35 (57) 100 09/09/19 15:00 99 16 87/29 (48) 68 09/09/19 15:00 95/37 09/09/19 15:00 16 95/37 Mechanical Ventilator 100 09/09/19 14:36 16 104/30 Mechanical Ventilator 100 09/09/19 14:30 16 104/30 Mechanical Ventilator 100 09/09/19 14:30 73 15 104/30 (54) 100 09/09/19 14:00 111/42 09/09/19 14:00 16 111/72 Mechanical Ventilator 100 09/09/19 14:00 91 12 94/48 (63) 65 09/09/19 13:30 95 14 103/36 (58) 66 09/09/19 13:15 107 18 125/54 (77) 72 09/09/19 13:15 125/54 09/09/19 13:00 99 22 122/79 (93) 84 09/09/19 13:00 103/37 09/09/19 13:00 16 122/79 Mechanical Ventilator 100 09/09/19 12:45 63 15 103/37 (59) 100 09/09/19 12:45 85/51 09/09/19 12:44 64 14 103/37 (59) 100 09/09/19 12:37 64 14 91/37 (55) 100 09/09/19 12:34 65 14 87/33 (51) 100 09/09/19 12:33 65 14 85/51 (62) 100 09/09/19 12:30 65 16 88/29 (48) 100 09/09/19 12:30 72/45 09/09/19 12:29 64 14 80/51 (61) 100 09/09/19 12:26 65 14 75/46 (56) 100 09/09/19 12:20 64/43 09/09/19 12:16 71/45 09/09/19 12:15 67 13 66/43 (51) 09/09/19 12:00 97.9 73 14 71/45 (54) 09/09/19 12:00 83 09/09/19 12:00 71/45 09/09/19 12:00 16 64/43 Mechanical Ventilator 100 09/09/19 12:00 Mechanical Ventilator 09/09/19 12:00 100 09/09/19 11:45 105 21 97/68 (78) 09/09/19 11:30 105 21 97/68 (78) 09/09/19 11:15 110 19 92/64 (73) 85 09/09/19 11:01 109 21 100 09/09/19 11:00 92/64 09/09/19 11:00 20 92/70 Mechanical Ventilator 100 09/09/19 11:00 110 19 92/64 (73) 85 09/09/19 10:45 109 20 114/72 (86) 83 09/09/19 10:30 109 20 100/48 (65) 86 09/09/19 10:15 106 17 124/76 (92) 94 09/09/19 10:00 106 17 124/76 (92) 94 09/09/19 10:00 124/76 09/09/19 10:00 19 124/76 Mechanical Ventilator 100 09/09/19 09:45 108 16 120/78 (92) 95 09/09/19 09:30 108 16 120/78 (92) 95 09/09/19 09:15 81 15 97/55 (69) 100 09/09/19 09:00 81 15 97/55 (69) 100 09/09/19 09:00 97/44 09/09/19 09:00 16 97/55 Mechanical Ventilator 100 09/09/19 08:30 84 14 104/66 (79) 100 09/09/19 08:00 100.5 84 16 104/47 (66) 100 09/09/19 08:00 104/47 09/09/19 08:00 15 104/47 Mechanical Ventilator 100 09/09/19 08:00 100 09/09/19 08:00 Mechanical Ventilator 09/09/19 08:00 84 09/09/19 07:30 100 23 104/55 (71) 92 09/09/19 07:28 88 19 100 09/09/19 07:25 17 86/32 Mechanical Ventilator 100 09/09/19 07:00 97 21 86/53 (64) 94 09/09/19 07:00 86/53 09/09/19 07:00 17 86/53 Mechanical Ventilator 100 09/09/19 06:30 113 21 115/52 (73) 88 09/09/19 06:00 112 22 116/89 (98) 90 09/09/19 06:00 116/89 09/09/19 06:00 22 116/89 Mechanical Ventilator 100 09/09/19 05:30 111 19 105/52 (69) 82 09/09/19 05:00 112 21 121/94 (103) 80 09/09/19 05:00 121/94 09/09/19 05:00 21 121/94 Mechanical Ventilator 100 09/09/19 04:30 117 20 127/101 (110) 88 09/09/19 04:00 100 09/09/19 04:00 115 09/09/19 04:00 99.5 119 20 112/80 (91) 93 09/09/19 04:00 112/80 09/09/19 04:00 20 112/80 Mechanical Ventilator 100 09/09/19 04:00 Mechanical Ventilator 09/09/19 03:30 115 22 106/72 (83) 98 09/09/19 03:04 106 28 100 09/09/19 03:00 106/72 09/09/19 03:00 22 106/72 Mechanical Ventilator 100 09/09/19 03:00 115 22 106/72 (83) 98 09/09/19 02:30 111 23 113/83 (93) 99 09/09/19 02:00 107 20 117/59 (78) 100 09/09/19 02:00 117/59 09/09/19 02:00 21 117/59 Mechanical Ventilator 100 09/09/19 01:30 100 20 105/46 (65) 100 09/09/19 01:00 117/46 09/09/19 01:00 21 105/46 Mechanical Ventilator 100 09/09/19 01:00 105 22 111/80 (90) 98 09/09/19 00:30 98 20 138/60 (86) 99 09/09/19 00:00 100.3 75 18 108/54 (72) 100 09/09/19 00:00 Mechanical Ventilator 09/09/19 00:00 138/60 5/21/20 00:00 21 138/60 Mechanical Ventilator 100 5/21/20 00:00 75 5/20/20 23:30 75 20 109/62 (78) 100 5/20/20 23:20 16 109/58 Mechanical Ventilator 100 5/20/20 23:00 75 17 109/58 (75) 100 5/20/20 23:00 109/58 5/20/20 23:00 17 109/58 Mechanical Ventilator 100 5/20/20 22:50 74 22 100 5/20/20 22:30 75 14 96/55 (69) 100 5/20/20 22:00 100/53 5/20/20 22:00 15 100/53 Mechanical Ventilator 100 5/20/20 22:00 80 15 100/53 (69) 100 5/20/20 21:30 89 16 108/50 (69) 100 5/20/20 21:00 115/73 5/20/20 21:00 16 115/73 Mechanical Ventilator 100 5/20/20 21:00 90 20 115/73 (87) 100 5/20/20 20:42 101/58 5/20/20 20:30 87 18 101/58 (72) 100 5/20/20 20:00 Mechanical Ventilator 5/20/20 20:00 100/80 5/20/20 20:00 15 100/80 Mechanical Ventilator 100 5/20/20 20:00 86 5/20/20 20:00 100.0 89 16 100/80 (87) 100 5/20/20 20:00 100 5/20/20 19:30 86 18 95/63 (74) 100 5/20/20 19:10 86 22 100 5/20/20 19:00 86 16 114/68 (83) 100 5/20/20 19:00 95/63 5/20/20 19:00 20 95/63 Mechanical Ventilator 100 5/20/20 18:30 94 21 86/66 (73) 99 5/20/20 18:00 93 19 91/72 (78) 99 5/20/20 18:00 91/72 5/20/20 18:00 21 91/72 Mechanical Ventilator 100 5/20/20 17:39 93 25 100 5/20/20 17:30 80 16 127/64 (85) 100 5/20/20 17:00 120 18 114/61 (78) 100 09/08/19 17:00 127/64 5 17:00 16 127/64 Mechanical Ventilator 100 09/08/19 16:30 131 16 79/59 (66) 99 09/08/19 16:00 99.7 142 13 91/63 (72) 100 09/08/19 16:00 114/61 09/08/19 16:00 17 91/63 Mechanical Ventilator 100 09/08/19 16:00 100 09/08/19 16:00 Mechanical Ventilator 09/08/19 16:00 148 09/08/19 15:30 137 17 98/63 (75) 100 09/08/19 15:05 128 25 100 09/08/19 15:00 91/63 09/08/19 15:00 17 98/63 Mechanical Ventilator 100 09/08/19 15:00 131 14 107/80 (89) 100 09/08/19 14:51 130 20 89/69 (76) 100 09/08/19 14:44 12 86/48 Mechanical Ventilator 15.0 100 09/08/19 14:30 123 14 77/62 (67) 99 09/08/19 14:00 128 14 87/53 (64) 100 09/08/19 14:00 77/62 09/08/19 14:00 15 87/53 Mechanical Ventilator 30 09/08/19 13:30 133 12 86/48 (61) 100 09/08/19 13:00 139 12 108/70 (83) 100 09/08/19 13:00 86/38 09/08/19 13:00 24 107/60 Mechanical Ventilator 100 09/08/19 12:30 80 12 108/69 (82) 100 09/08/19 12:00 100 09/08/19 12:00 100.3 87 19 86/38 (54) 100 09/08/19 12:00 Mechanical Ventilator 09/08/19 12:00 91 09/08/19 12:00 86/38 09/08/19 12:00 19 86/38 Mechanical Ventilator 100 09/08/19 12:00 96 09/08/19 11:37 81 28 100 09/08/19 11:30 80 12 108/69 (82) 100 Intake and Output 09/09/19 09/10/19 19:00 07:00 Intake Total 2159.160 ml 1457.85 ml Balance 2159.160 ml 1457.85 ml Free Water 50 ml 40 ml IV Total 1749.160 ml 1057.85 ml Tube Feeding 360 ml 360 ml # Voids 90 115 Labs Test 09/07/19 16:00 09/08/19 00:30 09/08/19 04:00 09/08/19 08:19 Vancomycin Level Trough 15.7 ug/mL (5.0-12.0) Arterial Blood pH 7.284 (7.350-7.450) 7.237 (7.350-7.450) Arterial Blood Partial Pressure CO2 41.1 mmHg (35.0-45.0) 47.6 mmHg (35.0-45.0) Arterial Blood Partial Pressure O2 40.7 mmHg (75.0-100.0) 80.5 mmHg (75.0-100.0) Arterial Blood HCO3 19.1 mmol/L (22.0-26.0) 19.8 mmol/L (22.0-26.0) Arterial Blood Oxygen Saturation 71.0 % (95-100) 93.6 % (95-100) Arterial Blood Base Excess -7.2 (-2-2) -7.5 (-2-2) Freddie Test Positive Positive White Blood Count 6.5 K/UL (4.8-10.8) Red Blood Count 3.70 M/UL (4.70-6.10) Hemoglobin 10.4 G/DL (14.2-18.0) Hematocrit 31.6 % (42.0-52.0) Mean Corpuscular Volume 85 FL (80-99) Mean Corpuscular Hemoglobin 28.1 PG (27.0-31.0) Mean Corpuscular Hemoglobin Concent 33.0 G/DL (32.0-36.0) Red Cell Distribution Width 14.0 % (11.6-14.8) Platelet Count 62 K/UL (150-450) Mean Platelet Volume 10.8 FL (6.5-10.1) Neutrophils (%) (Auto) % (45.0-75.0) Lymphocytes (%) (Auto) % (20.0-45.0) Monocytes (%) (Auto) % (1.0-10.0) Eosinophils (%) (Auto) % (0.0-3.0) Basophils (%) (Auto) % (0.0-2.0) Differential Total Cells Counted 100 Neutrophils % (Manual) 38 % (45-75) Lymphocytes % (Manual) 26 % (20-45) Monocytes % (Manual) 35 % (1-10) Eosinophils % (Manual) 0 % (0-3) Basophils % (Manual) 0 % (0-2) Band Neutrophils 1 % (0-8) Reactive Lymphocytes Occasional Platelet Estimate Decreased Platelet Morphology Giant Platelets Occasional Polychromasia Hypochromasia 1+ Anisocytosis 1+ Sodium Level 149 MMOL/L (136-145) Potassium Level 4.1 MMOL/L (3.5-5.1) Chloride Level 113 MMOL/L (98-107) Carbon Dioxide Level 24 MMOL/L (21-32) Anion Gap 12 mmol/L (5-15) Blood Urea Nitrogen 30 mg/dL (7-18) Creatinine 2.6 MG/DL (0.55-1.30) Estimat Glomerular Filtration Rate 24.0 mL/min (>60) Glucose Level 125 MG/DL (74-106) Calcium Level 7.2 MG/DL (8.5-10.1) Phosphorus Level 4.1 MG/DL (2.5-4.9) Troponin I 0.106 ng/mL (0.000-0.056) Test 09/09/19 03:35 09/09/19 10:55 09/10/19 04:00 09/10/19 07:40 White Blood Count 13.1 K/UL (4.8-10.8) 24.1 K/UL (4.8-10.8) Red Blood Count 3.65 M/UL (4.70-6.10) 3.55 M/UL (4.70-6.10) Hemoglobin 10.5 G/DL (14.2-18.0) 10.2 G/DL (14.2-18.0) Hematocrit 31.4 % (42.0-52.0) 30.5 % (42.0-52.0) Mean Corpuscular Volume 86 FL (80-99) 86 FL (80-99) Mean Corpuscular Hemoglobin 28.7 PG (27.0-31.0) 28.8 PG (27.0-31.0) Mean Corpuscular Hemoglobin Concent 33.4 G/DL (32.0-36.0) 33.5 G/DL (32.0-36.0) Red Cell Distribution Width 14.1 % (11.6-14.8) 14.6 % (11.6-14.8) Platelet Count 77 K/UL (150-450) 81 K/UL (150-450) Mean Platelet Volume 10.1 FL (6.5-10.1) 11.2 FL (6.5-10.1) Neutrophils (%) (Auto) % (45.0-75.0) % (45.0-75.0) Lymphocytes (%) (Auto) % (20.0-45.0) % (20.0-45.0) Monocytes (%) (Auto) % (1.0-10.0) % (1.0-10.0) Eosinophils (%) (Auto) % (0.0-3.0) % (0.0-3.0) Basophils (%) (Auto) % (0.0-2.0) % (0.0-2.0) Sodium Level 146 MMOL/L (136-145) 141 MMOL/L (136-145) Potassium Level 4.9 MMOL/L (3.5-5.1) 4.9 MMOL/L (3.5-5.1) Chloride Level 109 MMOL/L (98-107) 104 MMOL/L (98-107) Carbon Dioxide Level 16 MMOL/L (21-32) 17 MMOL/L (21-32) Anion Gap 21 mmol/L (5-15) 20 mmol/L (5-15) Blood Urea Nitrogen 43 mg/dL (7-18) 57 mg/dL (7-18) Creatinine 4.2 MG/DL (0.55-1.30) 5.7 MG/DL (0.55-1.30) Estimat Glomerular Filtration Rate 13.8 mL/min (>60) 9.7 mL/min (>60) Glucose Level 123 MG/DL (74-106) 101 MG/DL (74-106) Calcium Level 6.9 MG/DL (8.5-10.1) 6.6 MG/DL (8.5-10.1) Phosphorus Level 5.1 MG/DL (2.5-4.9) 5.4 MG/DL (2.5-4.9) Magnesium Level 2.0 MG/DL (1.8-2.4) 2.1 MG/DL (1.8-2.4) Total Bilirubin 0.8 MG/DL (0.2-1.0) 0.9 MG/DL (0.2-1.0) Aspartate Amino Transf (AST/SGOT) 122 U/L (15-37) 169 U/L (15-37) Alanine Aminotransferase (ALT/SGPT) 53 U/L (12-78) 57 U/L (12-78) Alkaline Phosphatase 51 U/L (46-116) 57 U/L (46-116) Total Protein 5.9 G/DL (6.4-8.2) 5.6 G/DL (6.4-8.2) Albumin 1.8 G/DL (3.4-5.0) 1.7 G/DL (3.4-5.0) Globulin 4.1 g/dL 3.9 g/dL Albumin/Globulin Ratio 0.4 (1.0-2.7) 0.4 (1.0-2.7) Digoxin Level 0.7 NG/ML (0.5-2.0) Arterial Blood pH 7.177 (7.350-7.450) 7.170 (7.350-7.450) Arterial Blood Partial Pressure CO2 41.3 mmHg (35.0-45.0) 40.7 mmHg (35.0-45.0) Arterial Blood Partial Pressure O2 44.5 mmHg (75.0-100.0) 42.6 mmHg (75.0-100.0) Arterial Blood HCO3 15.0 mmol/L (22.0-26.0) 14.5 mmol/L (22.0-26.0) Arterial Blood Oxygen Saturation 75.6 % (95-100) 72.7 % (95-100) Arterial Blood Base Excess -12.8 (-2-2) -13.3 (-2-2) Freddie Test Positive Positive Differential Total Cells Counted 100 Neutrophils % (Manual) 71 % (45-75) Lymphocytes % (Manual) 9 % (20-45) Monocytes % (Manual) 20 % (1-10) Eosinophils % (Manual) 0 % (0-3) Basophils % (Manual) 0 % (0-2) Band Neutrophils 0 % (0-8) Platelet Estimate Decreased Platelet Morphology Normal Hypochromasia 1+ Anisocytosis 1+ Height (Feet): 5 Height (Inches): 7.00 Weight (Pounds): 136 Objective General: NAD HEENT: NCAT, EOMi, dry MM CV: RRR, no murmurs, rubs, or gallops Pulm: vent+ GI: Soft, nontender, nondistended, bowel sounds present Ext: No lower extremity edema bilaterally Skin: no rashes lesions or ulcers Msk: Joints symmetrical in upper extremity and lower extremity bilaterally Neuro: CN 2-12 grossly intact bilaterally, no focal signs. Kashmir Jose MD September 10, 2019 11:07
--- NOTE | 2019-09-10 11:20 | Nephrology Progress Note ---
Assessment/Plan Plan #Acute kidney injury due to pre- renal azotemia- concerns for vanco toxicity - now concerns for developing ischemic ATN - now with progressive ischemic ATN #hypernatremia with free water deficit #COVID infection #Hypoxemic respiratory failure now intubated #pneumonia #T2DM # COPD #Dysphasia #HLD #HTN #thrombocytopenia, #APL #dementia #hypoalbuminemia - HD today- with very slow blood flow- will given albumin prior - monitor UOP- - strict I&Os - levophed 10 - continue pressors to maintain MAP > 65 - antibiotics per ID- > on doxy, linezolid and zosyn - avoid nephrotoxins - strict I&Os - monitor weights - Defer renal imaging for now - DC atenolol 50mg daily - hold amlodipine 2.5mg daily - monitor BP closely - check BMP, mag and phos daily Time spent 70min, more than 50% on care coordination and counseling Critical Care Services performed include: Telemetry Review Hemodynamic measurement interpretation Laboratory data review and interpretation Radiology image review and interpretation Ventilator setting review, management, and adjustment Interpretation of ABG's Discussion of patient's care with ICU team, ICU Nursing staff and/or consulting services Subjective ROS Limited/Unobtainable: Yes Subjective Intubated Fio2 100 Cr uptrending UOP decreasing On Levo 10 and fentanyl 300. Objective Objective Last 24 Hour Vital Signs Date Time Temp Pulse Resp B/P (MAP) Pulse Ox O2 Delivery O2 Flow Rate FiO2 09/10/19 11:01 82 18 100 09/10/19 10:45 87 18 109/61 (77) 95 09/10/19 10:30 88 21 96/59 (71) 95 09/10/19 10:25 83 18 119/60 (79) 98 09/10/19 10:23 20 88/48 Mechanical Ventilator 100 09/10/19 10:20 20 88/48 Mechanical Ventilator 100 09/10/19 10:15 82 16 88/48 (61) 99 09/10/19 10:00 88/48 09/10/19 10:00 20 88/48 Mechanical Ventilator 100 09/10/19 10:00 86 17 92/50 (64) 96 09/10/19 09:45 86 19 91/50 (64) 93 09/10/19 09:30 90 26 114/82 (93) 88 09/10/19 09:15 95 21 95/60 (72) 80 09/10/19 09:00 86 21 101/49 (66) 90 09/10/19 09:00 95/60 09/10/19 09:00 21 95/60 Mechanical Ventilator 100 09/10/19 08:45 91 22 95/62 (73) 78 09/10/19 08:30 87 21 105/65 (78) 87 09/10/19 08:15 88 27 96/51 (66) 85 09/10/19 08:00 97.9 94 23 97/49 (65) 78 09/10/19 08:00 96/51 09/10/19 08:00 23 96/51 Mechanical Ventilator 100 09/10/19 08:00 100 09/10/19 08:00 Mechanical Ventilator 09/10/19 07:45 89 18 102/48 (66) 85 09/10/19 07:45 23 102/48 Mechanical Ventilator 100 09/10/19 07:30 97 25 104/54 (71) 70 09/10/19 07:30 91 19 100 09/10/19 07:15 86/72 09/10/19 07:15 23 86/72 Mechanical Ventilator 100 09/10/19 07:00 93 21 89/77 (81) 75 09/10/19 07:00 89/77 09/10/19 07:00 20 89/77 Mechanical Ventilator 100 09/10/19 06:45 94 24 97/62 (74) 78 09/10/19 06:30 97 23 108/64 (79) 78 09/10/19 06:00 103 29 102/82 (89) 76 09/10/19 06:00 102/82 09/10/19 06:00 21 102/82 Mechanical Ventilator 100 09/10/19 05:30 101 26 102/71 (81) 80 09/10/19 05:15 102 27 92/74 (80) 79 09/10/19 05:00 100/73 09/10/19 05:00 16 100/73 Mechanical Ventilator 100 09/10/19 05:00 99 26 100/73 (82) 81 09/10/19 04:45 97 23 94/67 (76) 87 09/10/19 04:30 95 24 109/57 (74) 90 09/10/19 04:15 96 19 98/55 (69) 91 09/10/19 04:00 100 09/10/19 04:00 Mechanical Ventilator 09/10/19 04:00 99.6 101 24 82/56 (65) 91 09/10/19 04:00 103/52 09/10/19 04:00 20 102/50 Mechanical Ventilator 100 09/10/19 04:00 86 09/10/19 03:45 107 26 91/37 (55) 88 09/10/19 03:30 108 25 106/81 (89) 88 09/10/19 03:15 110 27 112/69 (83) 81 09/10/19 03:00 96/52 09/10/19 03:00 16 96/52 Mechanical Ventilator 100 09/10/19 03:00 90 25 129/116 (120) 95 09/10/19 02:56 87 23 100 09/10/19 02:45 87 23 116/79 (91) 96 09/10/19 02:30 77 16 95/52 (66) 100 09/10/19 02:15 71 18 109/34 (59) 100 09/10/19 02:00 71 17 111/35 (60) 100 09/10/19 02:00 111/35 09/10/19 02:00 16 111/35 Mechanical Ventilator 100 09/10/19 01:45 70 19 107/37 (60) 100 09/10/19 01:30 71 23 104/44 (64) 100 09/10/19 01:15 71 18 101/53 (69) 100 09/10/19 01:00 105/37 09/10/19 01:00 16 105/37 Mechanical Ventilator 100 09/10/19 01:00 71 18 105/37 (59) 100 09/10/19 00:45 72 22 103/39 (60) 100 09/10/19 00:30 72 12 103/39 (60) 100 09/10/19 00:15 73 15 98/43 (61) 100 09/10/19 00:00 67 09/10/19 00:00 100.4 74 14 105/42 (63) 100 09/10/19 00:00 Mechanical Ventilator 09/10/19 00:00 103/29 09/10/19 00:00 16 103/29 Mechanical Ventilator 100 09/10/19 00:00 100 5/21/20 23:45 76 16 110/55 (73) 100 5/21/20 23:30 78 13 93/71 (78) 100 5/21/20 23:15 78 15 119/33 (61) 100 5//20 23:15 81 25 100 5/21/20 23:00 78 16 113/43 (66) 100 5/21/20 23:00 113/43 5/20 23:00 16 113/43 Mechanical Ventilator 100 20 22:30 69 15 127/27 (60) 100 521/20 22:00 119/36 521/20 22:00 16 119/31 Mechanical Ventilator 100 20 22:00 99.8 67 16 106/32 (56) 100 520 21:30 66 16 117/29 (58) 100 521/20 21:16 16 112/29 Mechanical Ventilator 100 20 21:16 99.8 20 21:15 67 15 118/32 (60) 100 20 21:00 117/29 5/20 21:00 67 15 110/45 (66) 100 5/20 20:56 68 18 120/31 (60) 100 520 20:45 66 15 119/37 (64) 100 20 20:30 66 13 118/33 (61) 100 5/20 20:15 67 12 110/37 (61) 100 521/20 20:00 100.0 68 13 117/20 (52) 100 5/20 20:00 Mechanical Ventilator 20 20:00 121/39 521/20 20:00 16 121/39 Mechanical Ventilator 100 5/20 20:00 100 521/20 20:00 62 5//20 19:57 66 21 100 5/20 19:30 67 16 121/29 (59) 100 5/20 19:00 116/28 5/21/20 19:00 16 116/28 Mechanical Ventilator 100 5/20 19:00 67 15 116/28 (57) 100 521/20 18:30 67 14 122/26 (58) 100 521/20 18:30 67 14 118/43 (68) 100 5//20 18:00 68 14 117/43 (67) 100 20 18:00 66 14 117/43 (67) 100 20 18:00 117/43 09/09/19 18:00 16 117/43 Mechanical Ventilator 100 20 17:30 69 14 119/32 (61) 100 20 17:30 67 14 114/35 (61) 100 09/09/19 17:12 114/35 09/09/19 17:10 114/35 09/09/19 17:10 16 114/35 Mechanical Ventilator 100 09/09/19 17:00 67 13 114/35 (61) 100 09/09/19 17:00 13 114/35 Mechanical Ventilator 100 09/09/19 17:00 66 14 125/26 (59) 100 09/09/19 16:30 67 14 112/41 (64) 100 09/09/19 16:00 97.9 09/09/19 16:00 100 09/09/19 16:00 68 09/09/19 16:00 Mechanical Ventilator 09/09/19 16:00 67 13 113/37 (62) 100 09/09/19 15:56 113/37 09/09/19 15:56 16 104/27 Mechanical Ventilator 100 09/09/19 15:32 68 24 100 09/09/19 15:30 67 14 101/35 (57) 100 09/09/19 15:00 99 16 87/29 (48) 68 09/09/19 15:00 95/37 09/09/19 15:00 16 95/37 Mechanical Ventilator 100 09/09/19 14:36 16 104/30 Mechanical Ventilator 100 09/09/19 14:30 16 104/30 Mechanical Ventilator 100 09/09/19 14:30 73 15 104/30 (54) 100 09/09/19 14:00 111/42 09/09/19 14:00 16 111/72 Mechanical Ventilator 100 09/09/19 14:00 91 12 94/48 (63) 65 09/09/19 13:30 95 14 103/36 (58) 66 09/09/19 13:15 107 18 125/54 (77) 72 09/09/19 13:15 125/54 09/09/19 13:00 99 22 122/79 (93) 84 5/21/20 13:00 103/37 09/09/19 13:00 16 122/79 Mechanical Ventilator 100 09/09/19 12:45 63 15 103/37 (59) 100 09/09/19 12:45 85/51 09/09/19 12:44 64 14 103/37 (59) 100 09/09/19 12:37 64 14 91/37 (55) 100 09/09/19 12:34 65 14 87/33 (51) 100 09/09/19 12:33 65 14 85/51 (62) 100 09/09/19 12:30 65 16 88/29 (48) 100 09/09/19 12:30 72/45 09/09/19 12:29 64 14 80/51 (61) 100 09/09/19 12:26 65 14 75/46 (56) 100 09/09/19 12:20 64/43 09/09/19 12:16 71/45 09/09/19 12:15 67 13 66/43 (51) 09/09/19 12:00 97.9 73 14 71/45 (54) 09/09/19 12:00 83 09/09/19 12:00 71/45 09/09/19 12:00 16 64/43 Mechanical Ventilator 100 09/09/19 12:00 Mechanical Ventilator 09/09/19 12:00 100 09/09/19 11:45 105 21 97/68 (78) 09/09/19 11:30 105 21 97/68 (78) Intake and Output 09/09/19 09/10/19 19:00 07:00 Intake Total 2159.160 ml 1457.85 ml Balance 2159.160 ml 1457.85 ml Free Water 50 ml 40 ml IV Total 1749.160 ml 1057.85 ml Tube Feeding 360 ml 360 ml # Voids 90 115 Laboratory Tests 09/10/19 04:00: White Blood Count 24.1#*H, Red Blood Count 3.55L, Hemoglobin 10.2L, Hematocrit 30.5L, Mean Corpuscular Volume 86, Mean Corpuscular Hemoglobin 28.8, Mean Corpuscular Hemoglobin Concent 33.5, Red Cell Distribution Width 14.6, Platelet Count 81L, Mean Platelet Volume 11.2H, Neutrophils (%) (Auto) , Lymphocytes (%) (Auto) , Monocytes (%) (Auto) , Eosinophils (%) (Auto) , Basophils (%) (Auto) , Differential Total Cells Counted 100, Neutrophils % (Manual) 71, Lymphocytes % ( Manual) 9L, Monocytes % (Manual) 20H, Eosinophils % (Manual) 0, Basophils % ( Manual) 0, Band Neutrophils 0, Platelet Estimate DecreasedL, Platelet Morphology Normal, Hypochromasia 1+, Anisocytosis 1+, Sodium Level 141, Potassium Level 4.9, Chloride Level 104, Carbon Dioxide Level 17L, Anion Gap 20H , Blood Urea Nitrogen 57H, Creatinine 5.7H, Estimat Glomerular Filtration Rate 9.7, Glucose Level 101, Calcium Level 6.6L, Phosphorus Level 5.4H, Magnesium Level 2.1, Total Bilirubin 0.9, Aspartate Amino Transf (AST/SGOT) 169H, Alanine Aminotransferase (ALT/SGPT) 57, Alkaline Phosphatase 57, Total Protein 5.6L, Albumin 1.7L, Globulin 3.9, Albumin/Globulin Ratio 0.4L 09/10/19 07:40: Arterial Blood pH 7.170*L, Arterial Blood Partial Pressure CO2 40.7, Arterial Blood Partial Pressure O2 42.6*L, Arterial Blood HCO3 14.5*L, Arterial Blood Oxygen Saturation 72.7*L, Arterial Blood Base Excess -13.3*L, Freddie Test Positive Height (Feet): 5 Height (Inches): 7.00 Weight (Pounds): 136 Janelle Guzman M.D. September 10, 2019 11:20
--- NOTE | 2019-09-10 11:42 | Pulmonology Progress Note ---
Subjective ROS Limited/Unobtainable: Yes Interval Events: S/p intubation 09/06/19 Constitutional: Reports: fever, other - on pressors, [id number] doing poorly, on vent HEENT: Repors: no symptoms Respiratory: Reports: no symptoms Cardiovascular: Reports: no symptoms Gastrointestinal/Abdominal: Denies: nausea, vomiting, diarrhea Genitourinary: Reports: no symptoms Psychiatric: Reports: other - NA Skin: Denies: rash Musculoskeletal: Reports: other - NA Allergies: Coded Allergies: No Known Allergies (Unverified , 01/19/13) All Systems: reviewed and negative except above Objective Last 24 Hour Vital Signs Date Time Temp Pulse Resp B/P (MAP) Pulse Ox O2 Delivery O2 Flow Rate FiO2 09/10/19 11:30 80 15 103/75 (84) 97 09/10/19 11:15 87 23 97/51 (66) 92 09/10/19 11:01 82 18 100 09/10/19 11:00 81 15 107/54 (71) 98 09/10/19 10:45 87 18 109/61 (77) 95 09/10/19 10:30 88 21 96/59 (71) 95 09/10/19 10:25 83 18 119/60 (79) 98 09/10/19 10:23 20 88/48 Mechanical Ventilator 100 09/10/19 10:20 20 88/48 Mechanical Ventilator 100 09/10/19 10:15 82 16 88/48 (61) 99 09/10/19 10:00 88/48 09/10/19 10:00 20 88/48 Mechanical Ventilator 100 09/10/19 10:00 86 17 92/50 (64) 96 09/10/19 09:45 86 19 91/50 (64) 93 09/10/19 09:30 90 26 114/82 (93) 88 09/10/19 09:15 95 21 95/60 (72) 80 09/10/19 09:00 86 21 101/49 (66) 90 09/10/19 09:00 95/60 09/10/19 09:00 21 95/60 Mechanical Ventilator 100 09/10/19 08:45 91 22 95/62 (73) 78 09/10/19 08:30 87 21 105/65 (78) 87 09/10/19 08:15 88 27 96/51 (66) 85 5/22/20 08:00 97.9 94 23 97/49 (65) 78 09/10/19 08:00 96/51 09/10/19 08:00 23 96/51 Mechanical Ventilator 100 09/10/19 08:00 100 09/10/19 08:00 Mechanical Ventilator 09/10/19 07:45 89 18 102/48 (66) 85 09/10/19 07:45 23 102/48 Mechanical Ventilator 100 09/10/19 07:30 97 25 104/54 (71) 70 09/10/19 07:30 91 19 100 09/10/19 07:15 86/72 09/10/19 07:15 23 86/72 Mechanical Ventilator 100 09/10/19 07:00 93 21 89/77 (81) 75 09/10/19 07:00 89/77 09/10/19 07:00 20 89/77 Mechanical Ventilator 100 09/10/19 06:45 94 24 97/62 (74) 78 09/10/19 06:30 97 23 108/64 (79) 78 09/10/19 06:00 103 29 102/82 (89) 76 09/10/19 06:00 102/82 09/10/19 06:00 21 102/82 Mechanical Ventilator 100 09/10/19 05:30 101 26 102/71 (81) 80 09/10/19 05:15 102 27 92/74 (80) 79 09/10/19 05:00 100/73 09/10/19 05:00 16 100/73 Mechanical Ventilator 100 09/10/19 05:00 99 26 100/73 (82) 81 09/10/19 04:45 97 23 94/67 (76) 87 09/10/19 04:30 95 24 109/57 (74) 90 09/10/19 04:15 96 19 98/55 (69) 91 09/10/19 04:00 100 09/10/19 04:00 Mechanical Ventilator 09/10/19 04:00 99.6 101 24 82/56 (65) 91 09/10/19 04:00 103/52 09/10/19 04:00 20 102/50 Mechanical Ventilator 100 09/10/19 04:00 86 09/10/19 03:45 107 26 91/37 (55) 88 09/10/19 03:30 108 25 106/81 (89) 88 09/10/19 03:15 110 27 112/69 (83) 81 09/10/19 03:00 96/52 09/10/19 03:00 16 96/52 Mechanical Ventilator 100 09/10/19 03:00 90 25 129/116 (120) 95 09/10/19 02:56 87 23 100 09/10/19 02:45 87 23 116/79 (91) 96 09/10/19 02:30 77 16 95/52 (66) 100 09/10/19 02:15 71 18 109/34 (59) 100 09/10/19 02:00 71 17 111/35 (60) 100 09/10/19 02:00 111/35 09/10/19 02:00 16 111/35 Mechanical Ventilator 100 09/10/19 01:45 70 19 107/37 (60) 100 09/10/19 01:30 71 23 104/44 (64) 100 09/10/19 01:15 71 18 101/53 (69) 100 09/10/19 01:00 105/37 09/10/19 01:00 16 105/37 Mechanical Ventilator 100 09/10/19 01:00 71 18 105/37 (59) 100 09/10/19 00:45 72 22 103/39 (60) 100 09/10/19 00:30 72 12 103/39 (60) 100 09/10/19 00:15 73 15 98/43 (61) 100 09/10/19 00:00 67 09/10/19 00:00 100.4 74 14 105/42 (63) 100 09/10/19 00:00 Mechanical Ventilator 09/10/19 00:00 103/29 09/10/19 00:00 16 103/29 Mechanical Ventilator 100 09/10/19 00:00 100 09/09/19 23:45 76 16 110/55 (73) 100 09/09/19 23:30 78 13 93/71 (78) 100 09/09/19 23:15 78 15 119/33 (61) 100 09/09/19 23:15 81 25 100 09/09/19 23:00 78 16 113/43 (66) 100 09/09/19 23:00 113/43 09/09/19 23:00 16 113/43 Mechanical Ventilator 100 5/21/20 22:30 69 15 127/27 (60) 100 521/20 22:00 119/36 5//20 22:00 16 119/31 Mechanical Ventilator 100 20 22:00 99.8 67 16 106/32 (56) 100 521/20 21:30 66 16 117/29 (58) 100 521/20 21:16 16 112/29 Mechanical Ventilator 100 20 21:16 99.8 520 21:15 67 15 118/32 (60) 100 52120 21:00 117/29 520 21:00 67 15 110/45 (66) 100 20 20:56 68 18 120/31 (60) 100 20 20:45 66 15 119/37 (64) 100 20 20:30 66 13 118/33 (61) 100 20 20:15 67 12 110/37 (61) 100 20 20:00 100.0 68 13 117/20 (52) 100 520 20:00 Mechanical Ventilator 09/09/19 20:00 121/39 5/20 20:00 16 121/39 Mechanical Ventilator 100 20 20:00 100 20 20:00 62 20 19:57 66 21 100 20 19:30 67 16 121/29 (59) 100 20 19:00 116/28 20 19:00 16 116/28 Mechanical Ventilator 100 20 19:00 67 15 116/28 (57) 100 5/20 18:30 67 14 122/26 (58) 100 5/20 18:30 67 14 118/43 (68) 100 5/20 18:00 68 14 117/43 (67) 100 5/20 18:00 66 14 117/43 (67) 100 5/20 18:00 117/43 5/20 18:00 16 117/43 Mechanical Ventilator 100 20 17:30 69 14 119/32 (61) 100 20 17:30 67 14 114/35 (61) 100 52120 17:12 114/35 5/21/20 17:10 114/35 09/09/19 17:10 16 114/35 Mechanical Ventilator 100 09/09/19 17:00 67 13 114/35 (61) 100 09/09/19 17:00 13 114/35 Mechanical Ventilator 100 09/09/19 17:00 66 14 125/26 (59) 100 09/09/19 16:30 67 14 112/41 (64) 100 09/09/19 16:00 97.9 09/09/19 16:00 100 09/09/19 16:00 68 09/09/19 16:00 Mechanical Ventilator 09/09/19 16:00 67 13 113/37 (62) 100 09/09/19 15:56 113/37 09/09/19 15:56 16 104/27 Mechanical Ventilator 100 09/09/19 15:32 68 24 100 09/09/19 15:30 67 14 101/35 (57) 100 09/09/19 15:00 99 16 87/29 (48) 68 09/09/19 15:00 95/37 09/09/19 15:00 16 95/37 Mechanical Ventilator 100 09/09/19 14:36 16 104/30 Mechanical Ventilator 100 09/09/19 14:30 16 104/30 Mechanical Ventilator 100 09/09/19 14:30 73 15 104/30 (54) 100 09/09/19 14:00 111/42 09/09/19 14:00 16 111/72 Mechanical Ventilator 100 09/09/19 14:00 91 12 94/48 (63) 65 09/09/19 13:30 95 14 103/36 (58) 66 09/09/19 13:15 107 18 125/54 (77) 72 09/09/19 13:15 125/54 09/09/19 13:00 99 22 122/79 (93) 84 09/09/19 13:00 103/37 09/09/19 13:00 16 122/79 Mechanical Ventilator 100 09/09/19 12:45 63 15 103/37 (59) 100 09/09/19 12:45 85/51 09/09/19 12:44 64 14 103/37 (59) 100 09/09/19 12:37 64 14 91/37 (55) 100 09/09/19 12:34 65 14 87/33 (51) 100 5/21/20 12:33 65 14 85/51 (62) 100 09/09/19 12:30 65 16 88/29 (48) 100 09/09/19 12:30 72/45 09/09/19 12:29 64 14 80/51 (61) 100 09/09/19 12:26 65 14 75/46 (56) 100 09/09/19 12:20 64/43 09/09/19 12:16 71/45 09/09/19 12:15 67 13 66/43 (51) 09/09/19 12:00 97.9 73 14 71/45 (54) 09/09/19 12:00 83 09/09/19 12:00 71/45 09/09/19 12:00 16 64/43 Mechanical Ventilator 100 09/09/19 12:00 Mechanical Ventilator 09/09/19 12:00 100 09/09/19 11:45 105 21 97/68 (78) Intake and Output 09/09/19 09/10/19 19:00 07:00 Intake Total 2159.160 ml 1457.85 ml Balance 2159.160 ml 1457.85 ml Free Water 50 ml 40 ml IV Total 1749.160 ml 1057.85 ml Tube Feeding 360 ml 360 ml # Voids 90 115 General Appearance: no acute distress HEENT: normocephalic Respiratory: chest wall non-tender, decreased breath sounds Cardiovascular: normal peripheral pulses Abdomen: normal bowel sounds Microbiology Date/Time Source Procedure Growth Status 09/07/19 17:00 Sputum Expectorated Gram Stain - Final Complete 09/07/19 17:00 Sputum Culture - Final Melissa Albicans Usual Respiratory Susan Complete Laboratory Tests 09/10/19 04:00: White Blood Count 24.1#*H, Red Blood Count 3.55L, Hemoglobin 10.2L, Hematocrit 30.5L, Mean Corpuscular Volume 86, Mean Corpuscular Hemoglobin 28.8, Mean Corpuscular Hemoglobin Concent 33.5, Red Cell Distribution Width 14.6, Platelet Count 81L, Mean Platelet Volume 11.2H, Neutrophils (%) (Auto) , Lymphocytes (%) (Auto) , Monocytes (%) (Auto) , Eosinophils (%) (Auto) , Basophils (%) (Auto) , Differential Total Cells Counted 100, Neutrophils % (Manual) 71, Lymphocytes % ( Manual) 9L, Monocytes % (Manual) 20H, Eosinophils % (Manual) 0, Basophils % ( Manual) 0, Band Neutrophils 0, Platelet Estimate DecreasedL, Platelet Morphology Normal, Hypochromasia 1+, Anisocytosis 1+, Sodium Level 141, Potassium Level 4.9, Chloride Level 104, Carbon Dioxide Level 17L, Anion Gap 20H , Blood Urea Nitrogen 57H, Creatinine 5.7H, Estimat Glomerular Filtration Rate 9.7, Glucose Level 101, Calcium Level 6.6L, Phosphorus Level 5.4H, Magnesium Level 2.1, Total Bilirubin 0.9, Aspartate Amino Transf (AST/SGOT) 169H, Alanine Aminotransferase (ALT/SGPT) 57, Alkaline Phosphatase 57, Total Protein 5.6L, Albumin 1.7L, Globulin 3.9, Albumin/Globulin Ratio 0.4L 09/10/19 07:40: Arterial Blood pH 7.170*L, Arterial Blood Partial Pressure CO2 40.7, Arterial Blood Partial Pressure O2 42.6*L, Arterial Blood HCO3 14.5*L, Arterial Blood Oxygen Saturation 72.7*L, Arterial Blood Base Excess -13.3*L, Freddie Test Positive Current Medications Medications (Trade) Dose Ordered Sig/Karlos Route PRN Reason Start Time Stop Time Status Last Admin Dose Admin Acetaminophen (Tylenol) 650 mg Q4H PRN ORAL Mild Pain (Pain Scale 1-3) 09/07/19 03:45 10/03/19 11:44 09/09/19 20:45 Acetaminophen (Tylenol) 650 mg Q4H PRN ORAL Temp >100.5 09/07/19 03:45 10/03/19 11:44 Acetaminophen (Tylenol) 650 mg Q4H PRN RECTAL Temp >100.5 09/07/19 04:30 10/06/19 16:29 Albumin Human 100 ml @ 100 mls/hr ONCE IV 09/10/19 12:00 09/10/19 13:30 Bisacodyl (Dulcolax) 10 mg DAILYPRN PRN RECTAL Constipation 09/07/19 11:45 12/02/19 11:44 Chlorhexidine Gluconate (Nely-Hex 2%) 1 applic DAILY@2000 TOPIC 09/08/19 21:00 12/07/19 20:59 09/09/19 20:45 Dextrose (Dextrose 50%) 25 ml Q30M PRN IV Hypoglycemia 09/07/19 00:45 12/02/19 11:44 Dextrose (Dextrose 50%) 50 ml Q30M PRN IV Hypoglycemia 09/07/19 00:45 12/02/19 11:44 Docusate Sodium (Colace) 100 mg Q12HR NG 09/08/19 09:15 10/08/19 09:14 09/09/19 20:45 Doxycycline Monohydrate (Doxycycline Monohydrate) 100 mg EVERY 12 HOURS ORAL 09/08/19 21:00 09/15/19 20:59 09/10/19 08:39 Fentanyl Citrate 250 ml @ 0 mls/hr Q24H IV 09/07/19 12:45 12/06/19 12:44 09/10/19 10:23 Insulin Aspart (NovoLOG) BEFORE MEALS AND HS SUBQ 09/07/19 06:30 12/04/19 11:29 09/09/19 21:11 Linezolid 300 ml @ 300 mls/hr EVERY 12 HOURS IVPB 09/08/19 21:00 09/15/19 20:59 09/10/19 08:40 Magnesium Hydroxide (Mom) 30 ml HSPRN PRN ORAL Constipation 09/07/19 11:45 10/03/19 11:44 Morphine Sulfate (Morphine Sulfate) 2 mg Q2H PRN IVP Breakthru pain 09/09/19 13:45 09/16/19 13:44 09/10/19 07:27 Norepinephrine Bitartrate 16 mg/ Dextrose 566 ml @ 0 mls/hr Q24H IV 09/09/19 21:00 10/09/19 20:59 09/09/19 21:00 Piperacillin Sod/ Tazobactam Sod 3.375 gm/Sodium Chloride 110 ml @ 27.5 mls/hr Q12H IVPB 09/08/19 13:00 09/15/19 12:59 09/09/19 20:46 Polyethylene Glycol (Miralax) 17 gm DAILYPRN PRN ORAL Constipation 09/07/19 11:45 10/03/19 11:44 Assessment/Plan Assessment/Plan IMPRESSION: 1. Confirmed COVID-19 pneumonia. 2. Diabetes mellitus. 3. Hypertension. 4. Hyperlipidemia. 5. Thrombocytopenia. 6. 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 For HD today Now DNR Tresa Mcclellan Omar Syed MD September 10, 2019 11:42
--- NOTE | 2019-09-10 11:58 | NUR ---
NURSE NOTES: Patient RASS -2 on fentanyl at 400mcg/hr. Will titrate to maintain RASS of -2. Patient showing sinus rhythm on the quality assurance monitor body at this time. Patient orally intubated with ventilator setting AC 16, tidal volume 450mL, FiO2 100%, and PEEP 15. Patient tolerating setting with SpO2 97%. Slight leak noted in the ET tube cuff. Air added to cuff by RT. Will ensure Dr Marie is aware. Left nares NGT patent, in place, asymptomatic, and running Nepro at 35mL/hr at this time with 20mL residual noted. Gregorio remains patent, asymptomatic, and draining dark [place] urine. Left hand 20 gauge peripheral IV remains patent, asymptomatic, and saline locked. Left femoral TLC remains patent, asymptomatic, and running levophed at 12mcg/min and fentanyl at 400mcg/hr. Right femoral grey catheter asymptomatic with dressing dry and intact. Hemodialysis order noted. Dialysis Nurse Thomas notified. Bed in low position with bed alarm on and call light in reach at this time. Bilateral soft wrist restraint remain in place. Peripheral pulses present and skin intact. Will continue to monitor. Oral care and repositioning done at this time.
--- NOTE | 2019-09-10 13:20 | General Progress Note ---
Assessment/Plan Assessment/Plan: 79-year-old male with PMH of T2DM, COPD, dysphasia, HLD, HTN, thrombocytopenia, hx of APL and dementia who presents from intermediate for fevers and hypoxia. On admission, pt w/fever 101.5, thrombocytopenia, and elevated d-dimer. #Severe sepsis progressing to septic shock #Acute hypoxic respiratory failure, present on admission #COVID19 positive #Elevated d-dimer #Possible HCAP/asp PNA -Continue ICU level of care -COVID isolation protocol -elevated d-dimer, 7.0, and CRP -Vent management as per [facility] -monitor predictive parameters q3d, CRP, d-dimer, lactic acid -Pulm and ID following -Cont broad spectrum antibiotics #ALEXUS -Renal following -Plan to start HD today #H/o COPD -currently not in exacerbation -ctm, management as above #HTN #HLD -atenolol stopped -amlodipine stopped #elevated AST -likely 2/2 to infection #Thrombocytopenia, improved counts #Hx of Acute Promyelocytic Leukemia -pt f/u w/Dr. Jose as o/p, on danazol 200 mg PO q daily for thrombocytopenia and tretinoin 10 mg PO BID for APL -medications not on formulary per pharmacy -Heme following -monitor CBC .I spent 75 minutes on this patient's case, and 40 mins was dedicated to critical care Critical Care Services performed include: Telemetry Review Hemodynamic measurement interpretation Laboratory data review and interpretation Radiology image review and interpretation Ventilator setting review, management, and adjustment Interpretation of ABG's Discussion of patient's care with ICU team, ICU Nursing staff and/or consulting services Subjective Date patient seen: September 10, 2019 Time patient seen: 09:38 ROS Limited/Unobtainable: Yes Allergies: Coded Allergies: No Known Allergies (Unverified , 01/19/13) Subjective Follow up for sepsis, acute hypoxic respiratory failure, COVID19+ Remains intubated, on 100% fiO2 and peep 15 Levophed at 12 mcg Plan to initiate HD today Objective Last 24 Hour Vital Signs Date Time Temp Pulse Resp B/P (MAP) Pulse Ox O2 Delivery O2 Flow Rate FiO2 09/10/19 12:00 100 09/10/19 12:00 Mechanical Ventilator 09/10/19 12:00 97/65 09/10/19 12:00 20 97/65 Mechanical Ventilator 100 09/10/19 11:30 80 15 103/75 (84) 97 09/10/19 11:15 87 23 97/51 (66) 92 09/10/19 11:01 82 18 100 09/10/19 11:00 81 15 107/54 (71) 98 09/10/19 11:00 103/75 09/10/19 11:00 20 103/75 Mechanical Ventilator 100 09/10/19 10:45 87 18 109/61 (77) 95 09/10/19 10:30 88 21 96/59 (71) 95 09/10/19 10:25 83 18 119/60 (79) 98 09/10/19 10:23 20 88/48 Mechanical Ventilator 100 09/10/19 10:20 20 88/48 Mechanical Ventilator 100 09/10/19 10:15 82 16 88/48 (61) 99 09/10/19 10:00 88/48 09/10/19 10:00 20 88/48 Mechanical Ventilator 100 09/10/19 10:00 86 17 92/50 (64) 96 09/10/19 09:45 86 19 91/50 (64) 93 09/10/19 09:30 90 26 114/82 (93) 88 09/10/19 09:15 95 21 95/60 (72) 80 09/10/19 09:00 86 21 101/49 (66) 90 09/10/19 09:00 95/60 09/10/19 09:00 21 95/60 Mechanical Ventilator 100 09/10/19 08:45 91 22 95/62 (73) 78 09/10/19 08:30 87 21 105/65 (78) 87 09/10/19 08:15 88 27 96/51 (66) 85 09/10/19 08:00 97.9 94 23 97/49 (65) 78 09/10/19 08:00 96/51 09/10/19 08:00 23 96/51 Mechanical Ventilator 100 09/10/19 08:00 100 09/10/19 08:00 Mechanical Ventilator 09/10/19 07:45 89 18 102/48 (66) 85 09/10/19 07:45 23 102/48 Mechanical Ventilator 100 09/10/19 07:30 97 25 104/54 (71) 70 09/10/19 07:30 91 19 100 09/10/19 07:15 86/72 5/22/20 07:15 23 86/72 Mechanical Ventilator 100 09/10/19 07:00 93 21 89/77 (81) 75 09/10/19 07:00 89/77 09/10/19 07:00 20 89/77 Mechanical Ventilator 100 09/10/19 06:45 94 24 97/62 (74) 78 09/10/19 06:30 97 23 108/64 (79) 78 09/10/19 06:00 103 29 102/82 (89) 76 09/10/19 06:00 102/82 09/10/19 06:00 21 102/82 Mechanical Ventilator 100 09/10/19 05:30 101 26 102/71 (81) 80 09/10/19 05:15 102 27 92/74 (80) 79 09/10/19 05:00 100/73 09/10/19 05:00 16 100/73 Mechanical Ventilator 100 09/10/19 05:00 99 26 100/73 (82) 81 09/10/19 04:45 97 23 94/67 (76) 87 09/10/19 04:30 95 24 109/57 (74) 90 09/10/19 04:15 96 19 98/55 (69) 91 09/10/19 04:00 100 09/10/19 04:00 Mechanical Ventilator 09/10/19 04:00 99.6 101 24 82/56 (65) 91 09/10/19 04:00 103/52 09/10/19 04:00 20 102/50 Mechanical Ventilator 100 09/10/19 04:00 86 09/10/19 03:45 107 26 91/37 (55) 88 09/10/19 03:30 108 25 106/81 (89) 88 09/10/19 03:15 110 27 112/69 (83) 81 09/10/19 03:00 96/52 09/10/19 03:00 16 96/52 Mechanical Ventilator 100 09/10/19 03:00 90 25 129/116 (120) 95 09/10/19 02:56 87 23 100 09/10/19 02:45 87 23 116/79 (91) 96 09/10/19 02:30 77 16 95/52 (66) 100 09/10/19 02:15 71 18 109/34 (59) 100 09/10/19 02:00 71 17 111/35 (60) 100 09/10/19 02:00 111/35 09/10/19 02:00 16 111/35 Mechanical Ventilator 100 09/10/19 01:45 70 19 107/37 (60) 100 09/10/19 01:30 71 23 104/44 (64) 100 09/10/19 01:15 71 18 101/53 (69) 100 09/10/19 01:00 105/37 09/10/19 01:00 16 105/37 Mechanical Ventilator 100 09/10/19 01:00 71 18 105/37 (59) 100 09/10/19 00:45 72 22 103/39 (60) 100 09/10/19 00:30 72 12 103/39 (60) 100 09/10/19 00:15 73 15 98/43 (61) 100 09/10/19 00:00 67 09/10/19 00:00 100.4 74 14 105/42 (63) 100 09/10/19 00:00 Mechanical Ventilator 09/10/19 00:00 103/29 09/10/19 00:00 16 103/29 Mechanical Ventilator 100 09/10/19 00:00 100 09/09/19 23:45 76 16 110/55 (73) 100 09/09/19 23:30 78 13 93/71 (78) 100 09/09/19 23:15 78 15 119/33 (61) 100 09/09/19 23:15 81 25 100 09/09/19 23:00 78 16 113/43 (66) 100 09/09/19 23:00 113/43 09/09/19 23:00 16 113/43 Mechanical Ventilator 100 09/09/19 22:30 69 15 127/27 (60) 100 09/09/19 22:00 119/36 09/09/19 22:00 16 119/31 Mechanical Ventilator 100 09/09/19 22:00 99.8 67 16 106/32 (56) 100 09/09/19 21:30 66 16 117/29 (58) 100 20 21:16 16 112/29 Mechanical Ventilator 100 09/09/19 21:16 99.8 09/09/19 21:15 67 15 118/32 (60) 100 09/09/19 21:00 117/29 09/09/19 21:00 67 15 110/45 (66) 100 520 20:56 68 18 120/31 (60) 100 20 20:45 66 15 119/37 (64) 100 20 20:30 66 13 118/33 (61) 100 20 20:15 67 12 110/37 (61) 100 20 20:00 100.0 68 13 117/20 (52) 100 09/09/19 20:00 Mechanical Ventilator 09/09/19 20:00 121/39 5 20:00 16 121/39 Mechanical Ventilator 100 09/09/19 20:00 100 09/09/19 20:00 62 09/09/19 19:57 66 21 100 09/09/19 19:30 67 16 121/29 (59) 100 09/09/19 19:00 116/28 09/09/19 19:00 16 116/28 Mechanical Ventilator 100 09/09/19 19:00 67 15 116/28 (57) 100 09/09/19 18:30 67 14 122/26 (58) 100 20 18:30 67 14 118/43 (68) 100 20 18:00 68 14 117/43 (67) 100 09/09/19 18:00 66 14 117/43 (67) 100 09/09/19 18:00 117/43 09/09/19 18:00 16 117/43 Mechanical Ventilator 100 09/09/19 17:30 69 14 119/32 (61) 100 09/09/19 17:30 67 14 114/35 (61) 100 09/09/19 17:12 114/35 20 17:10 114/35 09/09/19 17:10 16 114/35 Mechanical Ventilator 100 20 17:00 67 13 114/35 (61) 100 09/09/19 17:00 13 114/35 Mechanical Ventilator 100 09/09/19 17:00 66 14 125/26 (59) 100 20 16:30 67 14 112/41 (64) 100 09/09/19 16:00 97.9 09/09/19 16:00 100 09/09/19 16:00 68 09/09/19 16:00 Mechanical Ventilator 09/09/19 16:00 67 13 113/37 (62) 100 09/09/19 15:56 113/37 09/09/19 15:56 16 104/27 Mechanical Ventilator 100 09/09/19 15:32 68 24 100 09/09/19 15:30 67 14 101/35 (57) 100 09/09/19 15:00 99 16 87/29 (48) 68 09/09/19 15:00 95/37 09/09/19 15:00 16 95/37 Mechanical Ventilator 100 09/09/19 14:36 16 104/30 Mechanical Ventilator 100 09/09/19 14:30 16 104/30 Mechanical Ventilator 100 09/09/19 14:30 73 15 104/30 (54) 100 09/09/19 14:00 111/42 09/09/19 14:00 16 111/72 Mechanical Ventilator 100 09/09/19 14:00 91 12 94/48 (63) 65 09/09/19 13:30 95 14 103/36 (58) 66 Intake and Output 09/09/19 09/10/19 19:00 07:00 Intake Total 2159.160 ml 1457.85 ml Balance 2159.160 ml 1457.85 ml Free Water 50 ml 40 ml IV Total 1749.160 ml 1057.85 ml Tube Feeding 360 ml 360 ml # Voids 90 115 Laboratory Tests 09/10/19 04:00: White Blood Count 24.1#*H, Red Blood Count 3.55L, Hemoglobin 10.2L, Hematocrit 30.5L, Mean Corpuscular Volume 86, Mean Corpuscular Hemoglobin 28.8, Mean Corpuscular Hemoglobin Concent 33.5, Red Cell Distribution Width 14.6, Platelet Count 81L, Mean Platelet Volume 11.2H, Neutrophils (%) (Auto) , Lymphocytes (%) (Auto) , Monocytes (%) (Auto) , Eosinophils (%) (Auto) , Basophils (%) (Auto) , Differential Total Cells Counted 100, Neutrophils % (Manual) 71, Lymphocytes % ( Manual) 9L, Monocytes % (Manual) 20H, Eosinophils % (Manual) 0, Basophils % ( Manual) 0, Band Neutrophils 0, Platelet Estimate DecreasedL, Platelet Morphology Normal, Hypochromasia 1+, Anisocytosis 1+, Sodium Level 141, Potassium Level 4.9, Chloride Level 104, Carbon Dioxide Level 17L, Anion Gap 20H , Blood Urea Nitrogen 57H, Creatinine 5.7H, Estimat Glomerular Filtration Rate 9.7, Glucose Level 101, Calcium Level 6.6L, Phosphorus Level 5.4H, Magnesium Level 2.1, Total Bilirubin 0.9, Aspartate Amino Transf (AST/SGOT) 169H, Alanine Aminotransferase (ALT/SGPT) 57, Alkaline Phosphatase 57, Total Protein 5.6L, Albumin 1.7L, Globulin 3.9, Albumin/Globulin Ratio 0.4L, Hepatitis B Surface Antigen [Pending] 09/10/19 07:40: Arterial Blood pH 7.170*L, Arterial Blood Partial Pressure CO2 40.7, Arterial Blood Partial Pressure O2 42.6*L, Arterial Blood HCO3 14.5*L, Arterial Blood Oxygen Saturation 72.7*L, Arterial Blood Base Excess -13.3*L, Freddie Test Positive Height (Feet): 5 Height (Inches): 7.00 Weight (Pounds): 136 General Appearance: no apparent distress, lethargic Neck: normal alignment, supple Cardiovascular: normal rate, regular rhythm Respiratory/Chest: lungs clear, normal breath sounds Abdomen: non tender, soft Seth Mullen MD September 10, 2019 13:20
--- NOTE | 2019-09-10 13:36 | Surgery Progress Note ---
Surgery Progress Note Subjective Procedure Performed Right femoral temporal hemodialysis catheter insertion Symptoms: improved Objective Last 24 Hour Vital Signs Date Time Temp Pulse Resp B/P (MAP) Pulse Ox O2 Delivery O2 Flow Rate FiO2 09/10/19 12:00 100 09/10/19 12:00 Mechanical Ventilator 09/10/19 12:00 97/65 09/10/19 12:00 20 97/65 Mechanical Ventilator 100 09/10/19 11:30 80 15 103/75 (84) 97 09/10/19 11:15 87 23 97/51 (66) 92 09/10/19 11:01 82 18 100 09/10/19 11:00 81 15 107/54 (71) 98 09/10/19 11:00 103/75 09/10/19 11:00 20 103/75 Mechanical Ventilator 100 09/10/19 10:45 87 18 109/61 (77) 95 09/10/19 10:30 88 21 96/59 (71) 95 09/10/19 10:25 83 18 119/60 (79) 98 09/10/19 10:23 20 88/48 Mechanical Ventilator 100 09/10/19 10:20 20 88/48 Mechanical Ventilator 100 09/10/19 10:15 82 16 88/48 (61) 99 09/10/19 10:00 88/48 09/10/19 10:00 20 88/48 Mechanical Ventilator 100 09/10/19 10:00 86 17 92/50 (64) 96 09/10/19 09:45 86 19 91/50 (64) 93 09/10/19 09:30 90 26 114/82 (93) 88 09/10/19 09:15 95 21 95/60 (72) 80 09/10/19 09:00 86 21 101/49 (66) 90 09/10/19 09:00 95/60 09/10/19 09:00 21 95/60 Mechanical Ventilator 100 09/10/19 08:45 91 22 95/62 (73) 78 09/10/19 08:30 87 21 105/65 (78) 87 09/10/19 08:15 88 27 96/51 (66) 85 09/10/19 08:00 97.9 94 23 97/49 (65) 78 09/10/19 08:00 96/51 09/10/19 08:00 23 96/51 Mechanical Ventilator 100 09/10/19 08:00 100 09/10/19 08:00 Mechanical Ventilator 09/10/19 07:45 89 18 102/48 (66) 85 09/10/19 07:45 23 102/48 Mechanical Ventilator 100 09/10/19 07:30 97 25 104/54 (71) 70 09/10/19 07:30 91 19 100 09/10/19 07:15 86/72 09/10/19 07:15 23 86/72 Mechanical Ventilator 100 09/10/19 07:00 93 21 89/77 (81) 75 09/10/19 07:00 89/77 09/10/19 07:00 20 89/77 Mechanical Ventilator 100 09/10/19 06:45 94 24 97/62 (74) 78 09/10/19 06:30 97 23 108/64 (79) 78 09/10/19 06:00 103 29 102/82 (89) 76 09/10/19 06:00 102/82 09/10/19 06:00 21 102/82 Mechanical Ventilator 100 09/10/19 05:30 101 26 102/71 (81) 80 09/10/19 05:15 102 27 92/74 (80) 79 09/10/19 05:00 100/73 09/10/19 05:00 16 100/73 Mechanical Ventilator 100 09/10/19 05:00 99 26 100/73 (82) 81 09/10/19 04:45 97 23 94/67 (76) 87 09/10/19 04:30 95 24 109/57 (74) 90 09/10/19 04:15 96 19 98/55 (69) 91 09/10/19 04:00 100 09/10/19 04:00 Mechanical Ventilator 09/10/19 04:00 99.6 101 24 82/56 (65) 91 09/10/19 04:00 103/52 09/10/19 04:00 20 102/50 Mechanical Ventilator 100 09/10/19 04:00 86 09/10/19 03:45 107 26 91/37 (55) 88 09/10/19 03:30 108 25 106/81 (89) 88 09/10/19 03:15 110 27 112/69 (83) 81 09/10/19 03:00 96/52 09/10/19 03:00 16 96/52 Mechanical Ventilator 100 09/10/19 03:00 90 25 129/116 (120) 95 09/10/19 02:56 87 23 100 09/10/19 02:45 87 23 116/79 (91) 96 09/10/19 02:30 77 16 95/52 (66) 100 09/10/19 02:15 71 18 109/34 (59) 100 09/10/19 02:00 71 17 111/35 (60) 100 09/10/19 02:00 111/35 09/10/19 02:00 16 111/35 Mechanical Ventilator 100 09/10/19 01:45 70 19 107/37 (60) 100 09/10/19 01:30 71 23 104/44 (64) 100 09/10/19 01:15 71 18 101/53 (69) 100 09/10/19 01:00 105/37 09/10/19 01:00 16 105/37 Mechanical Ventilator 100 09/10/19 01:00 71 18 105/37 (59) 100 09/10/19 00:45 72 22 103/39 (60) 100 09/10/19 00:30 72 12 103/39 (60) 100 09/10/19 00:15 73 15 98/43 (61) 100 09/10/19 00:00 67 09/10/19 00:00 100.4 74 14 105/42 (63) 100 09/10/19 00:00 Mechanical Ventilator 09/10/19 00:00 103/29 09/10/19 00:00 16 103/29 Mechanical Ventilator 100 09/10/19 00:00 100 09/09/19 23:45 76 16 110/55 (73) 100 09/09/19 23:30 78 13 93/71 (78) 100 09/09/19 23:15 78 15 119/33 (61) 100 09/09/19 23:15 81 25 100 09/09/19 23:00 78 16 113/43 (66) 100 09/09/19 23:00 113/43 09/09/19 23:00 16 113/43 Mechanical Ventilator 100 09/09/19 22:30 69 15 127/27 (60) 100 09/09/19 22:00 119/36 09/09/19 22:00 16 119/31 Mechanical Ventilator 100 09/09/19 22:00 99.8 67 16 106/32 (56) 100 20 21:30 66 16 117/29 (58) 100 20 21:16 16 112/29 Mechanical Ventilator 100 09/09/19 21:16 99.8 5 21:15 67 15 118/32 (60) 100 20 21:00 117/29 09/09/19 21:00 67 15 110/45 (66) 100 09/09/19 20:56 68 18 120/31 (60) 100 09/09/19 20:45 66 15 119/37 (64) 100 09/09/19 20:30 66 13 118/33 (61) 100 09/09/19 20:15 67 12 110/37 (61) 100 09/09/19 20:00 100.0 68 13 117/20 (52) 100 09/09/19 20:00 Mechanical Ventilator 09/09/19 20:00 121/39 09/09/19 20:00 16 121/39 Mechanical Ventilator 100 09/09/19 20:00 100 09/09/19 20:00 62 09/09/19 19:57 66 21 100 09/09/19 19:30 67 16 121/29 (59) 100 09/09/19 19:00 116/28 09/09/19 19:00 16 116/28 Mechanical Ventilator 100 09/09/19 19:00 67 15 116/28 (57) 100 09/09/19 18:30 67 14 122/26 (58) 100 09/09/19 18:30 67 14 118/43 (68) 100 09/09/19 18:00 68 14 117/43 (67) 100 20 18:00 66 14 117/43 (67) 100 20 18:00 117/43 09/09/19 18:00 16 117/43 Mechanical Ventilator 100 09/09/19 17:30 69 14 119/32 (61) 100 09/09/19 17:30 67 14 114/35 (61) 100 20 17:12 114/35 09/09/19 17:10 114/35 09/09/19 17:10 16 114/35 Mechanical Ventilator 100 09/09/19 17:00 67 13 114/35 (61) 100 09/09/19 17:00 13 114/35 Mechanical Ventilator 100 09/09/19 17:00 66 14 125/26 (59) 100 09/09/19 16:30 67 14 112/41 (64) 100 09/09/19 16:00 97.9 09/09/19 16:00 100 09/09/19 16:00 68 09/09/19 16:00 Mechanical Ventilator 09/09/19 16:00 67 13 113/37 (62) 100 09/09/19 15:56 113/37 09/09/19 15:56 16 104/27 Mechanical Ventilator 100 09/09/19 15:32 68 24 100 09/09/19 15:30 67 14 101/35 (57) 100 09/09/19 15:00 99 16 87/29 (48) 68 09/09/19 15:00 95/37 09/09/19 15:00 16 95/37 Mechanical Ventilator 100 09/09/19 14:36 16 104/30 Mechanical Ventilator 100 09/09/19 14:30 16 104/30 Mechanical Ventilator 100 09/09/19 14:30 73 15 104/30 (54) 100 09/09/19 14:00 111/42 09/09/19 14:00 16 111/72 Mechanical Ventilator 100 09/09/19 14:00 91 12 94/48 (63) 65 I&O Intake and Output 09/09/19 09/10/19 19:00 07:00 Intake Total 2159.160 ml 1457.85 ml Balance 2159.160 ml 1457.85 ml Free Water 50 ml 40 ml IV Total 1749.160 ml 1057.85 ml Tube Feeding 360 ml 360 ml # Voids 90 115 Dressing: dry, other Wound: clean, other Drains: other Cardiovascular: RSR Respiratory: decreased breath sounds Abdomen: soft, non-tender, present bowel sounds Extremities: no cyanosis Laboratory Tests Test 09/10/19 04:00 09/10/19 07:40 White Blood Count 24.1 K/UL (4.8-10.8) #*H Red Blood Count 3.55 M/UL (4.70-6.10) L Hemoglobin 10.2 G/DL (14.2-18.0) L Hematocrit 30.5 % (42.0-52.0) L Mean Corpuscular Volume 86 FL (80-99) Mean Corpuscular Hemoglobin 28.8 PG (27.0-31.0) Mean Corpuscular Hemoglobin Concent 33.5 G/DL (32.0-36.0) Red Cell Distribution Width 14.6 % (11.6-14.8) Platelet Count 81 K/UL (150-450) L Mean Platelet Volume 11.2 FL (6.5-10.1) H Neutrophils (%) (Auto) % (45.0-75.0) Lymphocytes (%) (Auto) % (20.0-45.0) Monocytes (%) (Auto) % (1.0-10.0) Eosinophils (%) (Auto) % (0.0-3.0) Basophils (%) (Auto) % (0.0-2.0) Differential Total Cells Counted 100 Neutrophils % (Manual) 71 % (45-75) Lymphocytes % (Manual) 9 % (20-45) L Monocytes % (Manual) 20 % (1-10) H Eosinophils % (Manual) 0 % (0-3) Basophils % (Manual) 0 % (0-2) Band Neutrophils 0 % (0-8) Platelet Estimate Decreased L Platelet Morphology Normal Hypochromasia 1+ Anisocytosis 1+ Sodium Level 141 MMOL/L (136-145) Potassium Level 4.9 MMOL/L (3.5-5.1) Chloride Level 104 MMOL/L (98-107) Carbon Dioxide Level 17 MMOL/L (21-32) L Anion Gap 20 mmol/L (5-15) H Blood Urea Nitrogen 57 mg/dL (7-18) H Creatinine 5.7 MG/DL (0.55-1.30) H Estimat Glomerular Filtration Rate 9.7 mL/min (>60) Glucose Level 101 MG/DL (74-106) Calcium Level 6.6 MG/DL (8.5-10.1) L Phosphorus Level 5.4 MG/DL (2.5-4.9) H Magnesium Level 2.1 MG/DL (1.8-2.4) Total Bilirubin 0.9 MG/DL (0.2-1.0) Aspartate Amino Transf (AST/SGOT) 169 U/L (15-37) H Alanine Aminotransferase (ALT/SGPT) 57 U/L (12-78) Alkaline Phosphatase 57 U/L (46-116) Total Protein 5.6 G/DL (6.4-8.2) L Albumin 1.7 G/DL (3.4-5.0) L Globulin 3.9 g/dL Albumin/Globulin Ratio 0.4 (1.0-2.7) L Hepatitis B Surface Antigen Pending Arterial Blood pH 7.170 (7.350-7.450) Arterial Blood Partial Pressure CO2 40.7 mmHg (35.0-45.0) Arterial Blood Partial Pressure O2 42.6 mmHg (75.0-100.0) Arterial Blood HCO3 14.5 mmol/L (22.0-26.0) *L Arterial Blood Oxygen Saturation 72.7 % (95-100) *L Arterial Blood Base Excess -13.3 (-2-2) *L Freddie Test Positive Plan Problems: (1) Fever (2) Thrombocytopenia (3) Hypoxia (4) Sepsis Assessment & Plan: Patient severely septic in ICU on pressors on vent supportMaximal support PEEP 15 FiO2 100% Labs noted worsening acute renal insufficiency potentially requiring hemodialysis Patient with significant deterioration initially admitted on 2 L nasal cannula with hypoxia and now intubated on very high vent support. Prognosis very guarded currently DNR discussed with family and discussion with PCP and considerations for no escalation of care will hold on placement of temporal hemodialysis access until further evaluation and patient did show improvement prior to proceeding with further intervention Patient is currently very sick and prognosis is guarded given his CODE STATUS current status and he would not tolerate dialysis so we will hold on placement of line plan for HD today as per discussion with Renal (5) HTN (hypertension) (6) Diabetes type 2, controlled (7) Suspected 2019 novel coronavirus infection (8) COVID-19 ruled out Jeremy Thao September 10, 2019 13:36
[2019-09-10] MEDS: Piperacillin/Tazobactam 3.375 GM in NS 110 ML IVPB SCH (13:51)
--- NOTE | 2019-09-10 14:00 | NUR ---
NURSE NOTES: Blood pressure 100/58. Levophed running at 16mcg/min. RASS score -2 with fentanyl at 400mg/hr. Patient repositioned. Will continue to monitor.
--- NOTE | 2019-09-10 16:00 | NUR ---
NURSE NOTES: Patient RASS -2 on fentanyl at 400mcg/hr. Will titrate to maintain RASS of -2. Patient showing sinus rhythm on the cafeteria monitor at this time. Patient remains orally intubated with ventilator setting AC 16, tidal volume 450mL, FiO2 100%, and PEEP 15. Patient tolerating setting with SpO2 97%. Left nares NGT patent, in place, asymptomatic, and clamped due to high residual >100. Will continue to monitor and resume tube feeding later, Gregorio remains patent, asymptomatic, and draining dark [place] urine. Left hand 20 gauge peripheral IV remains patent, asymptomatic, and saline locked. Left femoral TLC remains patent, asymptomatic, and running Levophed at 20mcg/min and fentanyl at 400mcg/hr. Right femoral [place] catheter asymptomatic with dressing dry and intact. Bed in low position with bed alarm on and call light in reach at this time. Bilateral soft wrist restraint remain in place. Peripheral pulses present and skin intact. Will continue to monitor. Oral care and repositioning done at this time.
[2019-09-10] MEDS: NOREPINEPHRINE BITARTRATE IV SCH (16:03)
[2019-09-10] MEDS: D5W IV SCH (16:03)
--- NOTE | 2019-09-10 16:18 | Infectious Diseases Prog Note ---
Assessment/Plan Assessment/Plan ASSESSMENT AND PLAN: 1. covid-19 virus infection/pna, ? aspiration pna/HCAP, ? cap, sepsis, respiratory failure, vent, fevers, leukocytosis coag neg staph blood cultures - contaminant > bacteremia, ? 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 respiratory failure, vent, icu care 3. COPD. 4. Dysphagia. 5. Aspiration risk. 6. Hyperlipidemia. 7. Hypertension - treatment per primary team 8. Diabetes type 2- tx per primary team 9. Thrombocytopenia. 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 11. No known drug allergies. 12. Social history is negative. 13. Family history noncontributory. 14. MAR was noted. 15. Case discussed with RN. 16. Continue treatment per primary consultants. 17. Case communicated with primary care team Subjective Constitutional: Reports: fever, other - lethargic, on vent and pressors HEENT: Reports: congestion Respiratory: Reports: shortness of breath Cardiovascular: Reports: other - + pressors Gastrointestinal/Abdominal: Denies: nausea, vomiting Genitourinary: Reports: other - + sales Neurologic: Reports: weakness Psychiatric: Reports: other - NA Skin: Denies: rash Hematologic: Denies: bleeding Musculoskeletal: Reports: other - NA Allergies: Coded Allergies: No Known Allergies (Unverified , 01/19/13) Objective Vital Signs Last 24 Hour Vital Signs Date Time Temp Pulse Resp B/P (MAP) Pulse Ox O2 Delivery O2 Flow Rate FiO2 09/10/19 15:00 70 11 88/45 (59) 100 09/10/19 14:45 73 12 97/52 (67) 100 09/10/19 14:30 71 12 96/54 (68) 100 09/10/19 14:27 70 12 93/45 (61) 100 09/10/19 14:15 71 13 89/51 (64) 100 09/10/19 14:00 71 12 87/52 (64) 100 09/10/19 13:45 71 12 87/47 (60) 100 09/10/19 13:30 72 16 88/48 (61) 100 09/10/19 13:00 72 16 95/50 (65) 100 09/10/19 12:30 75 16 98/48 (65) 100 09/10/19 12:00 71 09/10/19 12:00 100 09/10/19 12:00 Mechanical Ventilator 09/10/19 12:00 97/65 09/10/19 12:00 20 97/65 Mechanical Ventilator 100 09/10/19 12:00 77 16 99/50 (66) 97 09/10/19 12:00 97.9 09/10/19 11:30 80 15 103/75 (84) 97 09/10/19 11:15 87 23 97/51 (66) 92 09/10/19 11:01 82 18 100 09/10/19 11:00 81 15 107/54 (71) 98 09/10/19 11:00 103/75 09/10/19 11:00 20 103/75 Mechanical Ventilator 100 09/10/19 10:45 87 18 109/61 (77) 95 09/10/19 10:30 88 21 96/59 (71) 95 09/10/19 10:25 83 18 119/60 (79) 98 09/10/19 10:23 20 88/48 Mechanical Ventilator 100 09/10/19 10:20 20 88/48 Mechanical Ventilator 100 09/10/19 10:15 82 16 88/48 (61) 99 09/10/19 10:00 88/48 09/10/19 10:00 20 88/48 Mechanical Ventilator 100 09/10/19 10:00 86 17 92/50 (64) 96 09/10/19 09:45 86 19 91/50 (64) 93 09/10/19 09:30 90 26 114/82 (93) 88 09/10/19 09:15 95 21 95/60 (72) 80 09/10/19 09:00 86 21 101/49 (66) 90 09/10/19 09:00 95/60 09/10/19 09:00 21 95/60 Mechanical Ventilator 100 09/10/19 08:45 91 22 95/62 (73) 78 09/10/19 08:30 87 21 105/65 (78) 87 09/10/19 08:15 88 27 96/51 (66) 85 09/10/19 08:00 97.9 94 23 97/49 (65) 78 09/10/19 08:00 96/51 09/10/19 08:00 23 96/51 Mechanical Ventilator 100 09/10/19 08:00 72 09/10/19 08:00 100 09/10/19 08:00 Mechanical Ventilator 09/10/19 07:45 89 18 102/48 (66) 85 09/10/19 07:45 23 102/48 Mechanical Ventilator 100 09/10/19 07:30 97 25 104/54 (71) 70 09/10/19 07:30 91 19 100 09/10/19 07:15 86/72 09/10/19 07:15 23 86/72 Mechanical Ventilator 100 09/10/19 07:00 93 21 89/77 (81) 75 09/10/19 07:00 89/77 09/10/19 07:00 20 89/77 Mechanical Ventilator 100 09/10/19 06:45 94 24 97/62 (74) 78 09/10/19 06:30 97 23 108/64 (79) 78 09/10/19 06:00 103 29 102/82 (89) 76 09/10/19 06:00 102/82 09/10/19 06:00 21 102/82 Mechanical Ventilator 100 09/10/19 05:30 101 26 102/71 (81) 80 09/10/19 05:15 102 27 92/74 (80) 79 09/10/19 05:00 100/73 09/10/19 05:00 16 100/73 Mechanical Ventilator 100 09/10/19 05:00 99 26 100/73 (82) 81 09/10/19 04:45 97 23 94/67 (76) 87 09/10/19 04:30 95 24 109/57 (74) 90 09/10/19 04:15 96 19 98/55 (69) 91 09/10/19 04:00 100 09/10/19 04:00 Mechanical Ventilator 09/10/19 04:00 99.6 101 24 82/56 (65) 91 09/10/19 04:00 103/52 09/10/19 04:00 20 102/50 Mechanical Ventilator 100 09/10/19 04:00 86 09/10/19 03:45 107 26 91/37 (55) 88 09/10/19 03:30 108 25 106/81 (89) 88 09/10/19 03:15 110 27 112/69 (83) 81 09/10/19 03:00 96/52 09/10/19 03:00 16 96/52 Mechanical Ventilator 100 09/10/19 03:00 90 25 129/116 (120) 95 09/10/19 02:56 87 23 100 09/10/19 02:45 87 23 116/79 (91) 96 09/10/19 02:30 77 16 95/52 (66) 100 09/10/19 02:15 71 18 109/34 (59) 100 09/10/19 02:00 71 17 111/35 (60) 100 09/10/19 02:00 111/35 09/10/19 02:00 16 111/35 Mechanical Ventilator 100 09/10/19 01:45 70 19 107/37 (60) 100 09/10/19 01:30 71 23 104/44 (64) 100 09/10/19 01:15 71 18 101/53 (69) 100 09/10/19 01:00 105/37 09/10/19 01:00 16 105/37 Mechanical Ventilator 100 09/10/19 01:00 71 18 105/37 (59) 100 09/10/19 00:45 72 22 103/39 (60) 100 09/10/19 00:30 72 12 103/39 (60) 100 09/10/19 00:15 73 15 98/43 (61) 100 09/10/19 00:00 67 09/10/19 00:00 100.4 74 14 105/42 (63) 100 09/10/19 00:00 Mechanical Ventilator 09/10/19 00:00 103/29 09/10/19 00:00 16 103/29 Mechanical Ventilator 100 09/10/19 00:00 100 09/09/19 23:45 76 16 110/55 (73) 100 09/09/19 23:30 78 13 93/71 (78) 100 09/09/19 23:15 78 15 119/33 (61) 100 09/09/19 23:15 81 25 100 09/09/19 23:00 78 16 113/43 (66) 100 09/09/19 23:00 113/43 09/09/19 23:00 16 113/43 Mechanical Ventilator 100 5/21/20 22:30 69 15 127/27 (60) 100 52120 22:00 119/36 52120 22:00 16 119/31 Mechanical Ventilator 100 20 22:00 99.8 67 16 106/32 (56) 100 52120 21:30 66 16 117/29 (58) 100 520 21:16 16 112/29 Mechanical Ventilator 100 20 21:16 99.8 520 21:15 67 15 118/32 (60) 100 520 21:00 117/29 520 21:00 67 15 110/45 (66) 100 20 20:56 68 18 120/31 (60) 100 20 20:45 66 15 119/37 (64) 100 20 20:30 66 13 118/33 (61) 100 20 20:15 67 12 110/37 (61) 100 09/09/19 20:00 100.0 68 13 117/20 (52) 100 20 20:00 Mechanical Ventilator 09/09/19 20:00 121/39 520 20:00 16 121/39 Mechanical Ventilator 100 20 20:00 100 20 20:00 62 09/09/19 19:57 66 21 100 09/09/19 19:30 67 16 121/29 (59) 100 20 19:00 116/28 20 19:00 16 116/28 Mechanical Ventilator 100 20 19:00 67 15 116/28 (57) 100 20 18:30 67 14 122/26 (58) 100 20 18:30 67 14 118/43 (68) 100 5/20 18:00 68 14 117/43 (67) 100 20 18:00 66 14 117/43 (67) 100 20 18:00 117/43 520 18:00 16 117/43 Mechanical Ventilator 100 09/09/19 17:30 69 14 119/32 (61) 100 20 17:30 67 14 114/35 (61) 100 20 17:12 114/35 520 17:10 114/35 09/09/19 17:10 16 114/35 Mechanical Ventilator 100 09/09/19 17:00 67 13 114/35 (61) 100 09/09/19 17:00 13 114/35 Mechanical Ventilator 100 09/09/19 17:00 66 14 125/26 (59) 100 09/09/19 16:30 67 14 112/41 (64) 100 Height (Feet): 5 Height (Inches): 7.00 Weight (Pounds): 136 General Appearance: other - + vent and pressors HEENT: normocephalic, atraumatic, no JVD, other - oral - intubated Respiratory/Chest: crackles/rales, rhonchi - bilaterally Cardiovascular: normal rate, regular rhythm, no gallop/murmur Abdomen: normal bowel sounds, soft, non tender, no organomegaly, non distended Genitourinary: other - + sales - urine slt cloudy Extremities: no cyanosis Skin: no rash Neurologic/Psychiatric: other - lethargic Lymphatic: no neck adenopathy Musculoskeletal: no effusion Objective CLINICAL HISTORY: Tube placement TECHNIQUE: Frontal view of the chest. COMPARISON: 09/06/19 at 0939 hours. FINDINGS: Interval intubation. The tip of the endotracheal tube is appropriately positioned, projecting 2.2 cm above the delroy. Redemonstrated extensive pulmonary parenchymal consolidation, most pronounced in the upper lobes, right greater than left. Atypical gas densities projecting over the right upper arm. I spoke with the nurse, who states there isn't been a procedure in this area. This could be from overlying materials. Recommend a single frontal humerus view with all materials removed to ensure that there are sternotomy more sinister process such as gas-forming infection. IMPRESSION: Appropriately positioned ET tube. Stable upper lobe-predominant airspace consolidation. Chest x-ray - 09/08/19 - Procedure: XRAY Chest 1v Procedure: XRAY Chest 1v Reason for study: Shortness of breath. Comparison films: 09/06/2019. FINDINGS: Endotracheal tube remains in place. There is a new NG tube. Bilateral hazy infiltrates not significantly changed. Cardiac and mediastinal silhouette are within normal limits. CP angles are sharp. Old left rib fracture noted. IMPRESSION: New NG tube in good position. Otherwise no significant change. Chest x-ray - 09/10/19 - Procedure: XRAY Chest 1v Procedure: XRAY Chest 1v Reason for study: Shortness of breath. Comparison films: 09/08/2019. FINDINGS: Compared to prior exam, the endotracheal tube appears to been pulled back and is now at the level of the thoracic inlet 9.9 cm above the delroy. NG tube remains in place. Vascularity is normal. Bilateral alveolar densities unchanged. Cardiac and mediastinal silhouette are within normal limits. Small right effusion unchanged. The bony thorax appear unremarkable. IMPRESSION: Endotracheal tube appears to have been pulled back and the tip is now 9.9 cm above the delroy. Recommend advancement approximately 6 cm. Otherwise no change. Microbiology Date/Time Source Procedure Growth Status 09/07/19 04:15 Blood Blood Culture - Preliminary NO GROWTH AFTER 72 HOURS Resulted 09/07/19 17:00 Sputum Expectorated Gram Stain - Final Complete 09/07/19 17:00 Sputum Culture - Final Melissa Albicans Usual Respiratory Susan Complete 09/06/19 22:30 Urine,Clean Catch Urine Culture - Final NO GROWTH AFTER 48 HOURS Complete Microbiology Date/Time Source Procedure Growth Status 09/07/19 17:00 Sputum Expectorated Gram Stain - Final Complete 09/07/19 17:00 Sputum Culture - Final Melissa Albicans Usual Respiratory Susan Complete Laboratory Tests Test 09/10/19 04:00 09/10/19 07:40 White Blood Count 24.1 K/UL (4.8-10.8) #*H Red Blood Count 3.55 M/UL (4.70-6.10) L Hemoglobin 10.2 G/DL (14.2-18.0) L Hematocrit 30.5 % (42.0-52.0) L Mean Corpuscular Volume 86 FL (80-99) Mean Corpuscular Hemoglobin 28.8 PG (27.0-31.0) Mean Corpuscular Hemoglobin Concent 33.5 G/DL (32.0-36.0) Red Cell Distribution Width 14.6 % (11.6-14.8) Platelet Count 81 K/UL (150-450) L Mean Platelet Volume 11.2 FL (6.5-10.1) H Neutrophils (%) (Auto) % (45.0-75.0) Lymphocytes (%) (Auto) % (20.0-45.0) Monocytes (%) (Auto) % (1.0-10.0) Eosinophils (%) (Auto) % (0.0-3.0) Basophils (%) (Auto) % (0.0-2.0) Differential Total Cells Counted 100 Neutrophils % (Manual) 71 % (45-75) Lymphocytes % (Manual) 9 % (20-45) L Monocytes % (Manual) 20 % (1-10) H Eosinophils % (Manual) 0 % (0-3) Basophils % (Manual) 0 % (0-2) Band Neutrophils 0 % (0-8) Platelet Estimate Decreased L Platelet Morphology Normal Hypochromasia 1+ Anisocytosis 1+ Sodium Level 141 MMOL/L (136-145) Potassium Level 4.9 MMOL/L (3.5-5.1) Chloride Level 104 MMOL/L (98-107) Carbon Dioxide Level 17 MMOL/L (21-32) L Anion Gap 20 mmol/L (5-15) H Blood Urea Nitrogen 57 mg/dL (7-18) H Creatinine 5.7 MG/DL (0.55-1.30) H Estimat Glomerular Filtration Rate 9.7 mL/min (>60) Glucose Level 101 MG/DL (74-106) Calcium Level 6.6 MG/DL (8.5-10.1) L Phosphorus Level 5.4 MG/DL (2.5-4.9) H Magnesium Level 2.1 MG/DL (1.8-2.4) Total Bilirubin 0.9 MG/DL (0.2-1.0) Aspartate Amino Transf (AST/SGOT) 169 U/L (15-37) H Alanine Aminotransferase (ALT/SGPT) 57 U/L (12-78) Alkaline Phosphatase 57 U/L (46-116) Total Protein 5.6 G/DL (6.4-8.2) L Albumin 1.7 G/DL (3.4-5.0) L Globulin 3.9 g/dL Albumin/Globulin Ratio 0.4 (1.0-2.7) L Hepatitis B Surface Antigen Pending Arterial Blood pH 7.170 (7.350-7.450) Arterial Blood Partial Pressure CO2 40.7 mmHg (35.0-45.0) Arterial Blood Partial Pressure O2 42.6 mmHg (75.0-100.0) Arterial Blood HCO3 14.5 mmol/L (22.0-26.0) *L Arterial Blood Oxygen Saturation 72.7 % (95-100) *L Arterial Blood Base Excess -13.3 (-2-2) *L Freddie Test Positive Current Medications Medications (Trade) Dose Ordered Sig/Karlos Route PRN Reason Start Time Stop Time Status Last Admin Dose Admin Acetaminophen (Tylenol) 650 mg Q4H PRN ORAL Mild Pain (Pain Scale 1-3) 09/07/19 03:45 10/03/19 11:44 09/09/19 20:45 Acetaminophen (Tylenol) 650 mg Q4H PRN ORAL Temp >100.5 09/07/19 03:45 10/03/19 11:44 Acetaminophen (Tylenol) 650 mg Q4H PRN RECTAL Temp >100.5 09/07/19 04:30 10/06/19 16:29 Bisacodyl (Dulcolax) 10 mg DAILYPRN PRN RECTAL Constipation 09/07/19 11:45 12/02/19 11:44 Chlorhexidine Gluconate (Nely-Hex 2%) 1 applic DAILY@2000 TOPIC 09/08/19 21:00 12/07/19 20:59 09/09/19 20:45 Dextrose (Dextrose 50%) 25 ml Q30M PRN IV Hypoglycemia 09/07/19 00:45 12/02/19 11:44 Dextrose (Dextrose 50%) 50 ml Q30M PRN IV Hypoglycemia 09/07/19 00:45 12/02/19 11:44 Docusate Sodium (Colace) 100 mg Q12HR NG 09/08/19 09:15 10/08/19 09:14 09/09/19 20:45 Doxycycline Monohydrate (Doxycycline Monohydrate) 100 mg EVERY 12 HOURS ORAL 09/08/19 21:00 09/15/19 20:59 09/10/19 08:39 Fentanyl Citrate 250 ml @ 0 mls/hr Q24H IV 09/07/19 12:45 12/06/19 12:44 09/10/19 10:23 Insulin Aspart (NovoLOG) BEFORE MEALS AND HS SUBQ 09/07/19 06:30 12/04/19 11:29 09/09/19 21:11 Linezolid 300 ml @ 300 mls/hr EVERY 12 HOURS IVPB 09/08/19 21:00 09/15/19 20:59 09/10/19 08:40 Magnesium Hydroxide (Mom) 30 ml HSPRN PRN ORAL Constipation 09/07/19 11:45 10/03/19 11:44 Morphine Sulfate (Morphine Sulfate) 2 mg Q2H PRN IVP Breakthru pain 09/09/19 13:45 09/16/19 13:44 09/10/19 07:27 Norepinephrine Bitartrate 16 mg/ Dextrose 566 ml @ 0 mls/hr Q24H IV 09/09/19 21:00 10/09/19 20:59 09/09/19 21:00 Piperacillin Sod/ Tazobactam Sod 3.375 gm/Sodium Chloride 110 ml @ 27.5 mls/hr Q12H IVPB 09/08/19 13:00 09/15/19 12:59 09/10/19 13:51 Polyethylene Glycol (Miralax) 17 gm DAILYPRN PRN ORAL Constipation 09/07/19 11:45 10/03/19 11:44 Lb Solo MD September 10, 2019 16:17
--- NOTE | 2019-09-10 18:36 | NUR ---
NURSE NOTES: Patient on dialysis at this time. patient blood pressure low at this time at 87/54. Levophed increased to 24mcg/min by dialysis nurse. Will continue to monitor and titrate medication per protocol.
[2019-09-10] MEDS ORDERED: Cathflo Alteplase 2mg Inj INJ SCH (19:15)
--- NOTE | 2019-09-10 19:15 | NUR ---
hd STARTED AT 1740 WITH HIGH VENOUS PRESSURE SINCE STARTED HD , KEEP ON FLUSHED WITH NS 10ML SYRING,CAN NOT CONTINUE BECAUSE HIGH VENOUE PRESSURE AFTER 1,5 HOURS ,INSTILLED TPA 2MG EACH PORT BY DR DELGADO TO ,HD AGAIN TMW INFORMED TO DR SINGER AND MATTHEW
--- NOTE | 2019-09-10 19:15 | NUR ---
NURSE NOTES: CECILY Guzmanendodontic assistant nurse unable to complete dialysis due to [place] catheter malfunction. TPA administered by fan engine engineer. She reported that she will attempt to complete dialysis tomorrow. Thomas and Master notified by CECILY Guzman.
--- NOTE | 2019-09-10 19:30 | NUR ---
HAND-OFF: Report given to CECILY Perez.
--- NOTE | 2019-09-10 20:00 | NUR ---
NURSE NOTES: Received pt in no acute distress, currently undergoing hemodialysis. Calm, asleep sedated. Orally intubated and appears to be tolerating current vent settings. Saturating 96-100% on fiO2 of 1.0. Levophed gtt infuses at 24mcg/min via left femoral TLC as well as Fentanyl gtt at 400mcg/h. Right femoral grey cath being used by HD. NGT to left nare in situ, TF with Nepro running at 35ml/h with 0 residuals. Bilat soft wrist restraints in place.
--- NOTE | 2019-09-10 20:20 | NUR ---
NURSE NOTES: HD nurse reports problem with blood flow from grey cath and had to abort treatment. She reported the problem to Jovany Thao and Thomas and acknowledged the problem. HD RN declotted the cath per protocol and will be back in AM to resume dialysis. Pt remains calm with VS being monitored q 30 mins.
[2019-09-10] MEDS: Dyna-Hex 2% Top Sol 2oz TOPIC SCH (20:53)
--- NOTE | 2019-09-10 22:00 | NUR ---
NURSE NOTES: Calm, asleep, sedated; no distress. Fentanyl gtt continues at 400mcg/h. VSS
[2019-09-11] VITALS (13 sets, daily range): BP systolic 71–115; BP diastolic 18–58
[2019-09-11] MEDS: fentaNYL 2500mcg/NS 250ml 250 ML IV SCH
--- NOTE | 2019-09-11 | NUR ---
NURSE NOTES: O2 sats dropped to 69-74, changed sat probe and placed to fingers, ear lobe. obtained good waveform, pt's volume fluctuating. Called RT to check. Remains afebrile, sedated.
[2019-09-11] MEDS: Piperacillin/Tazobactam 3.375 GM in NS 110 ML IVPB SCH (00:36)
--- NOTE | 2019-09-11 02:00 | NUR ---
NURSE NOTES: O2 sats 65% on fiO2 of 1.0. Suctioned via ETT but unable to push the cath all the way in. Repositioned. Called RT to check
[2019-09-11] MEDS: D5W IV SCH ×2 (03:22→11:42)
[2019-09-11] MEDS: NOREPINEPHRINE BITARTRATE IV SCH ×2 (03:22→11:42)
--- NOTE | 2019-09-11 04:00 | NUR ---
NURSE NOTES: BP now 85 systolic. Increased Levophed gtt to 30mcg/min. Breathing labored. Dr Marie informed by charge nurse.
--- NOTE | 2019-09-11 04:28 | NUR ---
NURSE NOTES: Called and spoke with sister Leigh Ann Whitney about the possibility of her brother needing to be reintubated. Stated she is okay with reintubation if needed just to keep him comfortable.
--- NOTE | 2019-09-11 04:30 | NUR ---
NURSE NOTES: Called and notified MD Marie about patient current HR 130, Sat 70%. Patient is not getting volumes on the vent. RT has assessed the patient. MD stated " to high of a risk, no reintubation at this time".
--- NOTE | 2019-09-11 06:00 | NUR ---
NURSE NOTES: Hypotensive, hypoxic and breathing is agonal using accesory muscles. O2 sats unreadable. Pt not getting his volumes. Pt DNR and Dr Marie aware of the events,"pt is high risk for reintubation". Levophed gtt at 30mcg/min. Will continue to monitor. Fentanyl gtt turned off, restraints DC'd
[2019-09-11] MEDS: NovoLOG Insulin Flexpen SUBQ SCH ×2 (06:33→11:59)
--- NOTE | 2019-09-11 07:16 | NUR ---
HAND-OFF: Report given to CECILY Mo.
--- NOTE | 2019-09-11 08:00 | NUR ---
NURSE NOTES: Received change of shift report from Elio TONY. Pt is lethargic, and orally intubated, ETT 7.5 at 24cm lipline, with vent settings AC16, VT450, Peep 15, FIO2 100% with O2Sat dropped to 80's %. Pt has left nare NGT with feeding Nepro infusing at 35ml/hour, no residual noted when checked. Gregorio catheter is present, draining clear/dark yellow urine to gravity. Pt has right femoral grey catheter for hemodialysis treatment, with dry/intact dressing. Pt also has left femoral central line TLC with Levophed drip infusing at 30mcg/min to maintain SBP above 90. Pt has left foot bruise, scattered ecchymosis on body. Cooling blanket is currently on pt, for previous uncontrolled Fever, however now, pt's body temp is below 95F rectal. Cooling blanket is turned off, and pt is now covered with blanket and warming measures are in place. HOB at 30 degrees, bed in lowest position and locked, with three side rails up. Will continue to monitor pt and follow plan of care per MD orders and protocol.
[2019-09-11] MEDS: Docusate 100mg/10ml Liq NG SCH (08:29)
[2019-09-11] MEDS: Doxycycline Monohydrate 100mg ORAL SCH (08:29)
--- NOTE | 2019-09-11 10:00 | NUR ---
NURSE NOTES: AM meds were administered. Levophed is maintained at 30mcg/min to maintain SBP above 90. Albumin IV was administered per MD order. Warming measures remain to increase body temp above 95F, however pt is nonresponsive to treatment. Pt was seen by Dr Marie and updated on pt's condition and current status. divider operator is now at bedside, however received order from Dr Guzman to hold dialysis due to pt being hemodynamically unstable. No additional orders were received at this time. Oral care was done, and pt cleaned and repositioned in bed for comfort.
--- NOTE | 2019-09-11 10:32 | Hematology/Onc Progress Note ---
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 Greatly appreciate consultation. Subjective Allergies: Coded Allergies: No Known Allergies (Unverified , 01/19/13) Subjective 09/05 remains confused, as per cards, pulm and id recs, with tachycardia, plt stable 09/06 icu, no overnight events, vent, iv abx 09/07 no overnight events, levo gtt, labs reviewed 09/08 icu, no acute events, bp stable 09/09 in icu needs pressors, wbc higher 24k, is on doxy/zosyn per id, with ng, on vent 09/10 hypotensive, dnr, on levophed, vent, cxr with no changes Objective Objective Current Medications Medications (Trade) Dose Ordered Sig/Karlos Route PRN Reason Start Time Stop Time Status Last Admin Dose Admin Acetaminophen (Tylenol) 650 mg Q4H PRN ORAL Mild Pain (Pain Scale 1-3) 09/07/19 03:45 10/03/19 11:44 09/09/19 20:45 Acetaminophen (Tylenol) 650 mg Q4H PRN ORAL Temp >100.5 09/07/19 03:45 10/03/19 11:44 Acetaminophen (Tylenol) 650 mg Q4H PRN RECTAL Temp >100.5 09/07/19 04:30 10/06/19 16:29 Bisacodyl (Dulcolax) 10 mg DAILYPRN PRN RECTAL Constipation 09/07/19 11:45 12/02/19 11:44 Chlorhexidine Gluconate (Nely-Hex 2%) 1 applic DAILY@2000 TOPIC 09/08/19 21:00 12/07/19 20:59 09/10/19 20:53 Dextrose (Dextrose 50%) 25 ml Q30M PRN IV Hypoglycemia 09/07/19 00:45 12/02/19 11:44 Dextrose (Dextrose 50%) 50 ml Q30M PRN IV Hypoglycemia 09/07/19 00:45 12/02/19 11:44 Docusate Sodium (Colace) 100 mg Q12HR NG 09/08/19 09:15 10/08/19 09:14 09/11/19 08:29 Doxycycline Monohydrate (Doxycycline Monohydrate) 100 mg EVERY 12 HOURS ORAL 09/08/19 21:00 09/15/19 20:59 09/11/19 08:29 Fentanyl Citrate 250 ml @ 0 mls/hr Q24H IV 09/07/19 12:45 12/06/19 12:44 09/11/19 00:00 Insulin Aspart (NovoLOG) BEFORE MEALS AND HS SUBQ 09/07/19 06:30 12/04/19 11:29 09/11/19 06:33 Linezolid 300 ml @ 300 mls/hr EVERY 12 HOURS IVPB 09/08/19 21:00 09/15/19 20:59 09/11/19 08:28 Magnesium Hydroxide (Mom) 30 ml HSPRN PRN ORAL Constipation 09/07/19 11:45 10/03/19 11:44 Morphine Sulfate (Morphine Sulfate) 2 mg Q2H PRN IVP Breakthru pain 09/09/19 13:45 09/16/19 13:44 09/10/19 07:27 Norepinephrine Bitartrate 16 mg/ Dextrose 566 ml @ 0 mls/hr Q24H IV 09/09/19 21:00 10/09/19 20:59 09/11/19 03:22 Piperacillin Sod/ Tazobactam Sod 3.375 gm/Sodium Chloride 110 ml @ 27.5 mls/hr Q12H IVPB 09/08/19 13:00 09/15/19 12:59 09/11/19 00:36 Polyethylene Glycol (Miralax) 17 gm DAILYPRN PRN ORAL Constipation 09/07/19 11:45 10/03/19 11:44 Last 24 Hour Vital Signs Date Time Temp Pulse Resp B/P (MAP) Pulse Ox O2 Delivery O2 Flow Rate FiO2 09/11/19 07:18 60 28 100 09/11/19 06:00 71/57 09/11/19 06:00 68 20 71/57 (62) 93 09/11/19 05:00 77 20 115/18 (50) 82 09/11/19 05:00 115/18 09/11/19 05:00 20 115/18 Mechanical Ventilator 100 09/11/19 04:00 95.0 128 14 87/58 (68) 82 09/11/19 04:00 Mechanical Ventilator 09/11/19 04:00 133 09/11/19 04:00 109/72 09/11/19 04:00 21 100/72 Mechanical Ventilator 100 09/11/19 04:00 100 09/11/19 03:36 112 25 100 09/11/19 03:22 65/33 09/11/19 03:00 89 19 90/57 (68) 66 09/11/19 03:00 90/57 09/11/19 03:00 18 90/57 Mechanical Ventilator 100 09/11/19 02:00 91/53 09/11/19 02:00 19 91/53 Mechanical Ventilator 100 09/11/19 02:00 92 19 91/53 (66) 65 09/11/19 01:00 97 22 71/57 (62) 65 09/11/19 01:00 110/77 09/11/19 01:00 23 110/77 Mechanical Ventilator 100 09/11/19 00:30 97.0 09/11/19 00:00 Mechanical Ventilator 09/11/19 00:00 23 92/47 Mechanical Ventilator 100 09/11/19 00:00 78 09/11/19 00:00 100 09/11/19 00:00 99 22 107/43 (64) 69 09/10/19 23:00 89 21 119/46 (70) 90 09/10/19 23:00 21 119/46 Mechanical Ventilator 100 09/10/19 22:39 85 19 100 09/10/19 22:00 16 94/49 Mechanical Ventilator 100 09/10/19 22:00 79 16 94/49 (64) 98 09/10/19 21:30 76 15 86/45 (59) 98 09/10/19 21:00 82 19 163/87 (112) 96 09/10/19 21:00 163/87 09/10/19 21:00 15 163/87 Mechanical Ventilator 100 09/10/19 20:30 85 19 101/46 (64) 90 09/10/19 20:00 100 09/10/19 20:00 83 16 125/30 (61) 94 09/10/19 20:00 75 09/10/19 20:00 88/57 09/10/19 20:00 20 88/57 Mechanical Ventilator 100 09/10/19 20:00 Mechanical Ventilator 09/10/19 19:37 76 21 100 09/10/19 19:30 97.7 73 13 114/59 (77) 100 09/10/19 19:00 80 14 79/49 (59) 95 09/10/19 18:53 97/65 09/10/19 18:53 20 97/65 Mechanical Ventilator 100 09/10/19 18:30 82 23 87/54 (65) 94 09/10/19 18:30 92/65 09/10/19 18:00 96/49 09/10/19 18:00 20 96/49 Mechanical Ventilator 100 09/10/19 18:00 77 12 96/49 (65) 100 09/10/19 17:38 72 16 96/52 (67) 100 09/10/19 17:07 71 16 94/52 (66) 100 09/10/19 17:00 86/48 09/10/19 16:57 20 95/48 Mechanical Ventilator 100 09/10/19 16:45 20 86/48 Mechanical Ventilator 100 09/10/19 16:30 73 10 95/51 (66) 100 09/10/19 16:03 101/54 09/10/19 16:00 98.3 5/22/20 16:00 Mechanical Ventilator 09/10/19 16:00 72 14 101/54 (70) 100 09/10/19 16:00 91/49 09/10/19 16:00 20 91/49 Mechanical Ventilator 100 09/10/19 16:00 73 09/10/19 16:00 100 09/10/19 15:30 73 14 91/49 (63) 100 09/10/19 15:02 71 23 100 09/10/19 15:00 92/50 09/10/19 15:00 20 92/50 Mechanical Ventilator 100 09/10/19 15:00 70 11 88/45 (59) 100 09/10/19 14:45 73 12 97/52 (67) 100 09/10/19 14:30 71 12 96/54 (68) 100 09/10/19 14:27 70 12 93/45 (61) 100 09/10/19 14:15 71 13 89/51 (64) 100 09/10/19 14:00 71 12 87/52 (64) 100 09/10/19 14:00 89/51 09/10/19 14:00 20 89/51 Mechanical Ventilator 100 09/10/19 13:45 71 12 87/47 (60) 100 09/10/19 13:30 72 16 88/48 (61) 100 09/10/19 13:00 72 16 95/50 (65) 100 09/10/19 13:00 95/50 09/10/19 13:00 20 95/50 Mechanical Ventilator 100 09/10/19 12:30 75 16 98/48 (65) 100 09/10/19 12:00 71 09/10/19 12:00 100 09/10/19 12:00 Mechanical Ventilator 09/10/19 12:00 97/65 09/10/19 12:00 20 97/65 Mechanical Ventilator 100 09/10/19 12:00 77 16 99/50 (66) 97 09/10/19 12:00 97.9 09/10/19 11:30 80 15 103/75 (84) 97 09/10/19 11:15 87 23 97/51 (66) 92 09/10/19 11:01 82 18 100 09/10/19 11:00 81 15 107/54 (71) 98 09/10/19 11:00 103/75 09/10/19 11:00 20 103/75 Mechanical Ventilator 100 09/10/19 10:45 87 18 109/61 (77) 95 09/10/19 10:30 88 21 96/59 (71) 95 09/10/19 10:25 83 18 119/60 (79) 98 09/10/19 10:23 20 88/48 Mechanical Ventilator 100 09/10/19 10:20 20 88/48 Mechanical Ventilator 100 09/10/19 10:15 82 16 88/48 (61) 99 09/10/19 10:00 88/48 09/10/19 10:00 20 88/48 Mechanical Ventilator 100 09/10/19 10:00 86 17 92/50 (64) 96 09/10/19 09:45 86 19 91/50 (64) 93 09/10/19 09:30 90 26 114/82 (93) 88 09/10/19 09:15 95 21 95/60 (72) 80 09/10/19 09:00 86 21 101/49 (66) 90 09/10/19 09:00 95/60 09/10/19 09:00 21 95/60 Mechanical Ventilator 100 09/10/19 08:45 91 22 95/62 (73) 78 09/10/19 08:30 87 21 105/65 (78) 87 09/10/19 08:15 88 27 96/51 (66) 85 09/10/19 08:00 97.9 94 23 97/49 (65) 78 09/10/19 08:00 96/51 09/10/19 08:00 23 96/51 Mechanical Ventilator 100 09/10/19 08:00 72 09/10/19 08:00 100 09/10/19 08:00 Mechanical Ventilator 09/10/19 07:45 89 18 102/48 (66) 85 09/10/19 07:45 23 102/48 Mechanical Ventilator 100 09/10/19 07:30 97 25 104/54 (71) 70 09/10/19 07:30 91 19 100 09/10/19 07:15 86/72 09/10/19 07:15 23 86/72 Mechanical Ventilator 100 09/10/19 07:00 93 21 89/77 (81) 75 09/10/19 07:00 89/77 09/10/19 07:00 20 89/77 Mechanical Ventilator 100 09/10/19 06:45 94 24 97/62 (74) 78 09/10/19 06:30 97 23 108/64 (79) 78 09/10/19 06:00 103 29 102/82 (89) 76 09/10/19 06:00 102/82 09/10/19 06:00 21 102/82 Mechanical Ventilator 100 09/10/19 05:30 101 26 102/71 (81) 80 09/10/19 05:15 102 27 92/74 (80) 79 09/10/19 05:00 100/73 09/10/19 05:00 16 100/73 Mechanical Ventilator 100 09/10/19 05:00 99 26 100/73 (82) 81 09/10/19 04:45 97 23 94/67 (76) 87 09/10/19 04:30 95 24 109/57 (74) 90 09/10/19 04:15 96 19 98/55 (69) 91 09/10/19 04:00 100 09/10/19 04:00 Mechanical Ventilator 09/10/19 04:00 99.6 101 24 82/56 (65) 91 09/10/19 04:00 103/52 09/10/19 04:00 20 102/50 Mechanical Ventilator 100 09/10/19 04:00 86 09/10/19 03:45 107 26 91/37 (55) 88 09/10/19 03:30 108 25 106/81 (89) 88 09/10/19 03:15 110 27 112/69 (83) 81 09/10/19 03:00 96/52 09/10/19 03:00 16 96/52 Mechanical Ventilator 100 09/10/19 03:00 90 25 129/116 (120) 95 09/10/19 02:56 87 23 100 09/10/19 02:45 87 23 116/79 (91) 96 09/10/19 02:30 77 16 95/52 (66) 100 09/10/19 02:15 71 18 109/34 (59) 100 09/10/19 02:00 71 17 111/35 (60) 100 09/10/19 02:00 111/35 09/10/19 02:00 16 111/35 Mechanical Ventilator 100 09/10/19 01:45 70 19 107/37 (60) 100 09/10/19 01:30 71 23 104/44 (64) 100 09/10/19 01:15 71 18 101/53 (69) 100 09/10/19 01:00 105/37 09/10/19 01:00 16 105/37 Mechanical Ventilator 100 09/10/19 01:00 71 18 105/37 (59) 100 09/10/19 00:45 72 22 103/39 (60) 100 09/10/19 00:30 72 12 103/39 (60) 100 09/10/19 00:15 73 15 98/43 (61) 100 09/10/19 00:00 67 09/10/19 00:00 100.4 74 14 105/42 (63) 100 09/10/19 00:00 Mechanical Ventilator 09/10/19 00:00 103/29 09/10/19 00:00 16 103/29 Mechanical Ventilator 100 09/10/19 00:00 100 09/09/19 23:45 76 16 110/55 (73) 100 09/09/19 23:30 78 13 93/71 (78) 100 09/09/19 23:15 78 15 119/33 (61) 100 09/09/19 23:15 81 25 100 09/09/19 23:00 78 16 113/43 (66) 100 09/09/19 23:00 113/43 09/09/19 23:00 16 113/43 Mechanical Ventilator 100 09/09/19 22:30 69 15 127/27 (60) 100 09/09/19 22:00 119/36 09/09/19 22:00 16 119/31 Mechanical Ventilator 100 09/09/19 22:00 99.8 67 16 106/32 (56) 100 09/09/19 21:30 66 16 117/29 (58) 100 09/09/19 21:16 16 112/29 Mechanical Ventilator 100 09/09/19 21:16 99.8 09/09/19 21:15 67 15 118/32 (60) 100 09/09/19 21:00 117/29 09/09/19 21:00 67 15 110/45 (66) 100 09/09/19 20:56 68 18 120/31 (60) 100 09/09/19 20:45 66 15 119/37 (64) 100 09/09/19 20:30 66 13 118/33 (61) 100 09/09/19 20:15 67 12 110/37 (61) 100 20 20:00 100.0 68 13 117/20 (52) 100 09/09/19 20:00 Mechanical Ventilator 09/09/19 20:00 121/39 09/09/19 20:00 16 121/39 Mechanical Ventilator 100 20 20:00 100 20 20:00 62 09/09/19 19:57 66 21 100 09/09/19 19:30 67 16 121/29 (59) 100 20 19:00 116/28 09/09/19 19:00 16 116/28 Mechanical Ventilator 100 09/09/19 19:00 67 15 116/28 (57) 100 09/09/19 18:30 67 14 122/26 (58) 100 20 18:30 67 14 118/43 (68) 100 09/09/19 18:00 68 14 117/43 (67) 100 09/09/19 18:00 66 14 117/43 (67) 100 09/09/19 18:00 117/43 09/09/19 18:00 16 117/43 Mechanical Ventilator 100 09/09/19 17:30 69 14 119/32 (61) 100 09/09/19 17:30 67 14 114/35 (61) 100 09/09/19 17:12 114/35 09/09/19 17:10 114/35 09/09/19 17:10 16 114/35 Mechanical Ventilator 100 09/09/19 17:00 67 13 114/35 (61) 100 09/09/19 17:00 13 114/35 Mechanical Ventilator 100 09/09/19 17:00 66 14 125/26 (59) 100 09/09/19 16:30 67 14 112/41 (64) 100 09/09/19 16:00 97.9 09/09/19 16:00 100 09/09/19 16:00 68 09/09/19 16:00 Mechanical Ventilator 09/09/19 16:00 67 13 113/37 (62) 100 09/09/19 15:56 113/37 09/09/19 15:56 16 104/27 Mechanical Ventilator 100 09/09/19 15:32 68 24 100 09/09/19 15:30 67 14 101/35 (57) 100 5/21/20 15:00 99 16 87/29 (48) 68 09/09/19 15:00 95/37 09/09/19 15:00 16 95/37 Mechanical Ventilator 100 09/09/19 14:36 16 104/30 Mechanical Ventilator 100 09/09/19 14:30 16 104/30 Mechanical Ventilator 100 09/09/19 14:30 73 15 104/30 (54) 100 09/09/19 14:00 111/42 09/09/19 14:00 16 111/72 Mechanical Ventilator 100 09/09/19 14:00 91 12 94/48 (63) 65 09/09/19 13:30 95 14 103/36 (58) 66 09/09/19 13:15 107 18 125/54 (77) 72 09/09/19 13:15 125/54 09/09/19 13:00 99 22 122/79 (93) 84 09/09/19 13:00 103/37 09/09/19 13:00 16 122/79 Mechanical Ventilator 100 09/09/19 12:45 63 15 103/37 (59) 100 09/09/19 12:45 85/51 09/09/19 12:44 64 14 103/37 (59) 100 09/09/19 12:37 64 14 91/37 (55) 100 09/09/19 12:34 65 14 87/33 (51) 100 09/09/19 12:33 65 14 85/51 (62) 100 09/09/19 12:30 65 16 88/29 (48) 100 09/09/19 12:30 72/45 09/09/19 12:29 64 14 80/51 (61) 100 09/09/19 12:26 65 14 75/46 (56) 100 09/09/19 12:20 64/43 09/09/19 12:16 71/45 09/09/19 12:15 67 13 66/43 (51) 09/09/19 12:00 97.9 73 14 71/45 (54) 09/09/19 12:00 83 09/09/19 12:00 71/45 09/09/19 12:00 16 64/43 Mechanical Ventilator 100 09/09/19 12:00 Mechanical Ventilator 09/09/19 12:00 100 09/09/19 11:45 105 21 97/68 (78) 09/09/19 11:30 105 21 97/68 (78) 09/09/19 11:15 110 19 92/64 (73) 85 09/09/19 11:01 109 21 100 09/09/19 11:00 92/64 09/09/19 11:00 20 92/70 Mechanical Ventilator 100 09/09/19 11:00 110 19 92/64 (73) 85 09/09/19 10:45 109 20 114/72 (86) 83 09/09/19 10:30 109 20 100/48 (65) 86 Intake and Output 09/10/19 09/11/19 19:00 07:00 Intake Total 1650.203 ml 1752.00 ml Output Total 60 ml 35 ml Balance 1590.203 ml 1717.00 ml Free Water 50 ml IV Total 1360.203 ml 1337.00 ml Tube Feeding 240 ml 385 ml Other 30 ml Output Urine Total 60 ml 35 ml # Bowel Movements 2 Labs Test 09/09/19 03:35 09/09/19 10:55 09/10/19 04:00 09/10/19 07:40 White Blood Count 13.1 K/UL (4.8-10.8) 24.1 K/UL (4.8-10.8) Red Blood Count 3.65 M/UL (4.70-6.10) 3.55 M/UL (4.70-6.10) Hemoglobin 10.5 G/DL (14.2-18.0) 10.2 G/DL (14.2-18.0) Hematocrit 31.4 % (42.0-52.0) 30.5 % (42.0-52.0) Mean Corpuscular Volume 86 FL (80-99) 86 FL (80-99) Mean Corpuscular Hemoglobin 28.7 PG (27.0-31.0) 28.8 PG (27.0-31.0) Mean Corpuscular Hemoglobin Concent 33.4 G/DL (32.0-36.0) 33.5 G/DL (32.0-36.0) Red Cell Distribution Width 14.1 % (11.6-14.8) 14.6 % (11.6-14.8) Platelet Count 77 K/UL (150-450) 81 K/UL (150-450) Mean Platelet Volume 10.1 FL (6.5-10.1) 11.2 FL (6.5-10.1) Neutrophils (%) (Auto) % (45.0-75.0) % (45.0-75.0) Lymphocytes (%) (Auto) % (20.0-45.0) % (20.0-45.0) Monocytes (%) (Auto) % (1.0-10.0) % (1.0-10.0) Eosinophils (%) (Auto) % (0.0-3.0) % (0.0-3.0) Basophils (%) (Auto) % (0.0-2.0) % (0.0-2.0) Sodium Level 146 MMOL/L (136-145) 141 MMOL/L (136-145) Potassium Level 4.9 MMOL/L (3.5-5.1) 4.9 MMOL/L (3.5-5.1) Chloride Level 109 MMOL/L (98-107) 104 MMOL/L (98-107) Carbon Dioxide Level 16 MMOL/L (21-32) 17 MMOL/L (21-32) Anion Gap 21 mmol/L (5-15) 20 mmol/L (5-15) Blood Urea Nitrogen 43 mg/dL (7-18) 57 mg/dL (7-18) Creatinine 4.2 MG/DL (0.55-1.30) 5.7 MG/DL (0.55-1.30) Estimat Glomerular Filtration Rate 13.8 mL/min (>60) 9.7 mL/min (>60) Glucose Level 123 MG/DL (74-106) 101 MG/DL (74-106) Calcium Level 6.9 MG/DL (8.5-10.1) 6.6 MG/DL (8.5-10.1) Phosphorus Level 5.1 MG/DL (2.5-4.9) 5.4 MG/DL (2.5-4.9) Magnesium Level 2.0 MG/DL (1.8-2.4) 2.1 MG/DL (1.8-2.4) Total Bilirubin 0.8 MG/DL (0.2-1.0) 0.9 MG/DL (0.2-1.0) Aspartate Amino Transf (AST/SGOT) 122 U/L (15-37) 169 U/L (15-37) Alanine Aminotransferase (ALT/SGPT) 53 U/L (12-78) 57 U/L (12-78) Alkaline Phosphatase 51 U/L (46-116) 57 U/L (46-116) Total Protein 5.9 G/DL (6.4-8.2) 5.6 G/DL (6.4-8.2) Albumin 1.8 G/DL (3.4-5.0) 1.7 G/DL (3.4-5.0) Globulin 4.1 g/dL 3.9 g/dL Albumin/Globulin Ratio 0.4 (1.0-2.7) 0.4 (1.0-2.7) Digoxin Level 0.7 NG/ML (0.5-2.0) Arterial Blood pH 7.177 (7.350-7.450) 7.170 (7.350-7.450) Arterial Blood Partial Pressure CO2 41.3 mmHg (35.0-45.0) 40.7 mmHg (35.0-45.0) Arterial Blood Partial Pressure O2 44.5 mmHg (75.0-100.0) 42.6 mmHg (75.0-100.0) Arterial Blood HCO3 15.0 mmol/L (22.0-26.0) 14.5 mmol/L (22.0-26.0) Arterial Blood Oxygen Saturation 75.6 % (95-100) 72.7 % (95-100) Arterial Blood Base Excess -12.8 (-2-2) -13.3 (-2-2) Freddie Test Positive Positive Differential Total Cells Counted 100 Neutrophils % (Manual) 71 % (45-75) Lymphocytes % (Manual) 9 % (20-45) Monocytes % (Manual) 20 % (1-10) Eosinophils % (Manual) 0 % (0-3) Basophils % (Manual) 0 % (0-2) Band Neutrophils 0 % (0-8) Platelet Estimate Decreased Platelet Morphology Normal Hypochromasia 1+ Anisocytosis 1+ Height (Feet): 5 Height (Inches): 7.00 Weight (Pounds): 140 Objective General: NAD HEENT: NCAT, EOMi, dry MM CV: RRR, no murmurs, rubs, or gallops Pulm: vent+ GI: Soft, nontender, nondistended, bowel sounds present Ext: No lower extremity edema bilaterally Skin: no rashes lesions or ulcers Msk: Joints symmetrical in upper extremity and lower extremity bilaterally Neuro: CN 2-12 grossly intact bilaterally, no focal signs. Kashmir Jose MD September 11, 2019 10:32
--- NOTE | 2019-09-11 10:56 | Surgery Progress Note ---
Surgery Progress Note Subjective Procedure Performed Right femoral temporal hemodialysis catheter insertion Additional Comments ill appearing Objective Last 24 Hour Vital Signs Date Time Temp Pulse Resp B/P (MAP) Pulse Ox O2 Delivery O2 Flow Rate FiO2 09/11/19 10:00 64 17 91/49 (63) 86 09/11/19 09:00 90 26 100/52 (68) 86 09/11/19 08:00 Mechanical Ventilator 09/11/19 08:00 95.0 100 22 87/58 (68) 88 09/11/19 08:00 70 09/11/19 08:00 100 09/11/19 07:18 60 28 100 09/11/19 07:00 102 26 80/57 (65) 90 09/11/19 06:00 71/57 09/11/19 06:00 68 20 71/57 (62) 93 09/11/19 05:00 77 20 115/18 (50) 82 09/11/19 05:00 115/18 09/11/19 05:00 20 115/18 Mechanical Ventilator 100 09/11/19 04:00 95.0 128 14 87/58 (68) 82 09/11/19 04:00 Mechanical Ventilator 09/11/19 04:00 133 09/11/19 04:00 109/72 09/11/19 04:00 21 100/72 Mechanical Ventilator 100 09/11/19 04:00 100 09/11/19 03:36 112 25 100 09/11/19 03:22 65/33 09/11/19 03:00 89 19 90/57 (68) 66 09/11/19 03:00 90/57 09/11/19 03:00 18 90/57 Mechanical Ventilator 100 09/11/19 02:00 91/53 09/11/19 02:00 19 91/53 Mechanical Ventilator 100 09/11/19 02:00 92 19 91/53 (66) 65 09/11/19 01:00 97 22 71/57 (62) 65 09/11/19 01:00 110/77 09/11/19 01:00 23 110/77 Mechanical Ventilator 100 09/11/19 00:30 97.0 09/11/19 00:00 Mechanical Ventilator 09/11/19 00:00 23 92/47 Mechanical Ventilator 100 09/11/19 00:00 78 09/11/19 00:00 100 09/11/19 00:00 99 22 107/43 (64) 69 09/10/19 23:00 89 21 119/46 (70) 90 09/10/19 23:00 21 119/46 Mechanical Ventilator 100 09/10/19 22:39 85 19 100 09/10/19 22:00 16 94/49 Mechanical Ventilator 100 09/10/19 22:00 79 16 94/49 (64) 98 09/10/19 21:30 76 15 86/45 (59) 98 09/10/19 21:00 82 19 163/87 (112) 96 09/10/19 21:00 163/87 09/10/19 21:00 15 163/87 Mechanical Ventilator 100 09/10/19 20:30 85 19 101/46 (64) 90 09/10/19 20:00 100 09/10/19 20:00 83 16 125/30 (61) 94 09/10/19 20:00 75 09/10/19 20:00 88/57 09/10/19 20:00 20 88/57 Mechanical Ventilator 100 09/10/19 20:00 Mechanical Ventilator 09/10/19 19:37 76 21 100 09/10/19 19:30 97.7 73 13 114/59 (77) 100 09/10/19 19:00 80 14 79/49 (59) 95 09/10/19 18:53 97/65 09/10/19 18:53 20 97/65 Mechanical Ventilator 100 09/10/19 18:30 82 23 87/54 (65) 94 09/10/19 18:30 92/65 09/10/19 18:00 96/49 09/10/19 18:00 20 96/49 Mechanical Ventilator 100 09/10/19 18:00 77 12 96/49 (65) 100 09/10/19 17:38 72 16 96/52 (67) 100 09/10/19 17:07 71 16 94/52 (66) 100 09/10/19 17:00 86/48 09/10/19 16:57 20 95/48 Mechanical Ventilator 100 09/10/19 16:45 20 86/48 Mechanical Ventilator 100 09/10/19 16:30 73 10 95/51 (66) 100 09/10/19 16:03 101/54 09/10/19 16:00 98.3 09/10/19 16:00 Mechanical Ventilator 09/10/19 16:00 72 14 101/54 (70) 100 09/10/19 16:00 91/49 09/10/19 16:00 20 91/49 Mechanical Ventilator 100 09/10/19 16:00 73 09/10/19 16:00 100 09/10/19 15:30 73 14 91/49 (63) 100 09/10/19 15:02 71 23 100 09/10/19 15:00 92/50 09/10/19 15:00 20 92/50 Mechanical Ventilator 100 09/10/19 15:00 70 11 88/45 (59) 100 09/10/19 14:45 73 12 97/52 (67) 100 09/10/19 14:30 71 12 96/54 (68) 100 09/10/19 14:27 70 12 93/45 (61) 100 09/10/19 14:15 71 13 89/51 (64) 100 09/10/19 14:00 71 12 87/52 (64) 100 09/10/19 14:00 89/51 09/10/19 14:00 20 89/51 Mechanical Ventilator 100 09/10/19 13:45 71 12 87/47 (60) 100 09/10/19 13:30 72 16 88/48 (61) 100 09/10/19 13:00 72 16 95/50 (65) 100 09/10/19 13:00 95/50 09/10/19 13:00 20 95/50 Mechanical Ventilator 100 09/10/19 12:30 75 16 98/48 (65) 100 09/10/19 12:00 71 09/10/19 12:00 100 09/10/19 12:00 Mechanical Ventilator 09/10/19 12:00 97/65 09/10/19 12:00 20 97/65 Mechanical Ventilator 100 09/10/19 12:00 77 16 99/50 (66) 97 09/10/19 12:00 97.9 09/10/19 11:30 80 15 103/75 (84) 97 09/10/19 11:15 87 23 97/51 (66) 92 09/10/19 11:01 82 18 100 09/10/19 11:00 81 15 107/54 (71) 98 09/10/19 11:00 103/75 09/10/19 11:00 20 103/75 Mechanical Ventilator 100 I&O Intake and Output 09/10/19 09/11/19 19:00 07:00 Intake Total 1650.203 ml 1787.00 ml Output Total 60 ml 35 ml Balance 1590.203 ml 1752.00 ml Free Water 50 ml IV Total 1360.203 ml 1337.00 ml Tube Feeding 240 ml 420 ml Other 30 ml Output Urine Total 60 ml 35 ml # Bowel Movements 2 Dressing: other Wound: other Drains: other Cardiovascular: RSR Respiratory: decreased breath sounds Abdomen: soft, non-tender, present bowel sounds Extremities: no cyanosis Plan Problems: (1) Fever (2) Thrombocytopenia (3) Hypoxia (4) Sepsis Assessment & Plan: Patient severely septic in ICU on pressors on vent supportMaximal support PEEP 15 FiO2 100% Labs noted worsening acute renal insufficiency potentially requiring hemodialysis Patient with significant deterioration initially admitted on 2 L nasal cannula with hypoxia and now intubated on very high vent support. Prognosis very guarded currently DNR discussed with family and discussion with PCP and considerations for no escalation of care will hold on placement of temporal hemodialysis access until further evaluation and patient did show improvement prior to proceeding with further intervention Patient is currently very sick and prognosis is guarded given his CODE STATUS current status and he would not tolerate dialysis so we will hold on placement of line plan for HD today as per discussion with Renal (5) HTN (hypertension) (6) Diabetes type 2, controlled (7) Suspected 2018 novel coronavirus infection (8) COVID-19 ruled out Jeremy Thao September 11, 2019 10:56
--- NOTE | 2019-09-11 11:11 | NUR ---
HAND-OFF: Report given to Patrick TONY. Endorsed plan of care.
--- NOTE | 2019-09-11 11:12 | NUR ---
NURSE NOTES: Received report from CECILY Mo. Patient is lethargic. ETT 7.5/24cm at lip line. AC 16, VT 450, Peep 15 and FiO2 100%. Left NGT intact and running with nepro 30ml/hr. Gregorio intact and patent. Left femoral TLC intact and running with levophed 30mcg/min. Right femoral grey cath intact and clean. O2 sat 80s on the monitor and Dr. Marie made aware. Will continue plan of care.
--- NOTE | 2019-09-11 11:25 | General Progress Note ---
Assessment/Plan Assessment/Plan: Assessment RESP/ID #Acute Hypoxic Respiratory Failure #COVID + #HCAP #Septic Shock NEPHRO #Acute Renal Failure, now requiring HD HEME/ONC #PML hx w/ Thrombocytopenia Plan Appreciate consultants --> ID, Heme/Onc,Pulm,Nephro, Heme/Onc Pressor suppor to maintain Map > 65, CVC monitor Continue Vent management, Prone as appropriate, Trend predictivee markers Initiate HD per nephro Current AB include Zosyn, Doxycycline, Linezolid NG tube/Tube Feeds DVT and GI PPX Subjective Allergies: Coded Allergies: No Known Allergies (Unverified , 01/19/13) Objective Last 24 Hour Vital Signs Date Time Temp Pulse Resp B/P (MAP) Pulse Ox O2 Delivery O2 Flow Rate FiO2 09/11/19 11:04 62 17 100 09/11/19 10:00 64 17 91/49 (63) 86 09/11/19 10:00 84/56 09/11/19 09:00 90/54 09/11/19 09:00 90 26 100/52 (68) 86 09/11/19 08:00 Mechanical Ventilator 09/11/19 08:00 95.0 100 22 87/58 (68) 88 09/11/19 08:00 70 09/11/19 08:00 86/52 09/11/19 08:00 100 09/11/19 07:18 60 28 100 09/11/19 07:00 102 26 80/57 (65) 90 09/11/19 07:00 82/52 09/11/19 06:00 71/57 09/11/19 06:00 68 20 71/57 (62) 93 09/11/19 05:00 77 20 115/18 (50) 82 09/11/19 05:00 115/18 09/11/19 05:00 20 115/18 Mechanical Ventilator 100 09/11/19 04:00 95.0 128 14 87/58 (68) 82 09/11/19 04:00 Mechanical Ventilator 09/11/19 04:00 133 09/11/19 04:00 109/72 09/11/19 04:00 21 100/72 Mechanical Ventilator 100 09/11/19 04:00 100 09/11/19 03:36 112 25 100 09/11/19 03:22 65/33 09/11/19 03:00 89 19 90/57 (68) 66 09/11/19 03:00 90/57 09/11/19 03:00 18 90/57 Mechanical Ventilator 100 09/11/19 02:00 91/53 09/11/19 02:00 19 91/53 Mechanical Ventilator 100 09/11/19 02:00 92 19 91/53 (66) 65 09/11/19 01:00 97 22 71/57 (62) 65 09/11/19 01:00 110/77 09/11/19 01:00 23 110/77 Mechanical Ventilator 100 09/11/19 00:30 97.0 09/11/19 00:00 Mechanical Ventilator 09/11/19 00:00 23 92/47 Mechanical Ventilator 100 09/11/19 00:00 78 09/11/19 00:00 100 09/11/19 00:00 99 22 107/43 (64) 69 09/10/19 23:00 89 21 119/46 (70) 90 09/10/19 23:00 21 119/46 Mechanical Ventilator 100 09/10/19 22:39 85 19 100 09/10/19 22:00 16 94/49 Mechanical Ventilator 100 09/10/19 22:00 79 16 94/49 (64) 98 09/10/19 21:30 76 15 86/45 (59) 98 09/10/19 21:00 82 19 163/87 (112) 96 09/10/19 21:00 163/87 09/10/19 21:00 15 163/87 Mechanical Ventilator 100 09/10/19 20:30 85 19 101/46 (64) 90 09/10/19 20:00 100 09/10/19 20:00 83 16 125/30 (61) 94 09/10/19 20:00 75 09/10/19 20:00 88/57 09/10/19 20:00 20 88/57 Mechanical Ventilator 100 09/10/19 20:00 Mechanical Ventilator 09/10/19 19:37 76 21 100 09/10/19 19:30 97.7 73 13 114/59 (77) 100 09/10/19 19:00 80 14 79/49 (59) 95 09/10/19 18:53 97/65 09/10/19 18:53 20 97/65 Mechanical Ventilator 100 09/10/19 18:30 82 23 87/54 (65) 94 09/10/19 18:30 92/65 09/10/19 18:00 96/49 09/10/19 18:00 20 96/49 Mechanical Ventilator 100 09/10/19 18:00 77 12 96/49 (65) 100 09/10/19 17:38 72 16 96/52 (67) 100 09/10/19 17:07 71 16 94/52 (66) 100 09/10/19 17:00 86/48 09/10/19 16:57 20 95/48 Mechanical Ventilator 100 09/10/19 16:45 20 86/48 Mechanical Ventilator 100 09/10/19 16:30 73 10 95/51 (66) 100 09/10/19 16:03 101/54 09/10/19 16:00 98.3 09/10/19 16:00 Mechanical Ventilator 09/10/19 16:00 72 14 101/54 (70) 100 09/10/19 16:00 91/49 09/10/19 16:00 20 91/49 Mechanical Ventilator 100 09/10/19 16:00 73 09/10/19 16:00 100 09/10/19 15:30 73 14 91/49 (63) 100 09/10/19 15:02 71 23 100 09/10/19 15:00 92/50 09/10/19 15:00 20 92/50 Mechanical Ventilator 100 09/10/19 15:00 70 11 88/45 (59) 100 09/10/19 14:45 73 12 97/52 (67) 100 09/10/19 14:30 71 12 96/54 (68) 100 09/10/19 14:27 70 12 93/45 (61) 100 09/10/19 14:15 71 13 89/51 (64) 100 09/10/19 14:00 71 12 87/52 (64) 100 09/10/19 14:00 89/51 09/10/19 14:00 20 89/51 Mechanical Ventilator 100 09/10/19 13:45 71 12 87/47 (60) 100 09/10/19 13:30 72 16 88/48 (61) 100 09/10/19 13:00 72 16 95/50 (65) 100 09/10/19 13:00 95/50 09/10/19 13:00 20 95/50 Mechanical Ventilator 100 09/10/19 12:30 75 16 98/48 (65) 100 09/10/19 12:00 71 09/10/19 12:00 100 09/10/19 12:00 Mechanical Ventilator 09/10/19 12:00 97/65 09/10/19 12:00 20 97/65 Mechanical Ventilator 100 09/10/19 12:00 77 16 99/50 (66) 97 09/10/19 12:00 97.9 09/10/19 11:30 80 15 103/75 (84) 97 Intake and Output 09/10/19 09/11/19 19:00 07:00 Intake Total 1650.203 ml 1850.67 ml Output Total 60 ml 35 ml Balance 1590.203 ml 1815.67 ml Free Water 50 ml IV Total 1360.203 ml 1400.67 ml Tube Feeding 240 ml 420 ml Other 30 ml Output Urine Total 60 ml 35 ml # Bowel Movements 2 Height (Feet): 5 Height (Inches): 7.00 Weight (Pounds): 140 Wanda Guzman D.O. September 11, 2019 11:25
--- NOTE | 2019-09-11 11:30 | Pulmonology Progress Note ---
Subjective ROS Limited/Unobtainable: Yes Interval Events: S/p intubation 09/06/19 Constitutional: Reports: fever, other - lethargic, on vent and pressors HEENT: Repors: no symptoms Respiratory: Reports: no symptoms Cardiovascular: Reports: no symptoms Gastrointestinal/Abdominal: Denies: nausea, vomiting Genitourinary: Reports: no symptoms Psychiatric: Reports: other - NA Skin: Denies: rash Musculoskeletal: Reports: other - NA Allergies: Coded Allergies: No Known Allergies (Unverified , 01/19/13) All Systems: reviewed and negative except above Objective Last 24 Hour Vital Signs Date Time Temp Pulse Resp B/P (MAP) Pulse Ox O2 Delivery O2 Flow Rate FiO2 09/11/19 11:04 62 17 100 09/11/19 10:00 64 17 91/49 (63) 86 09/11/19 10:00 84/56 09/11/19 09:00 90/54 09/11/19 09:00 90 26 100/52 (68) 86 09/11/19 08:00 Mechanical Ventilator 09/11/19 08:00 95.0 100 22 87/58 (68) 88 09/11/19 08:00 70 09/11/19 08:00 86/52 09/11/19 08:00 100 09/11/19 07:18 60 28 100 09/11/19 07:00 102 26 80/57 (65) 90 09/11/19 07:00 82/52 09/11/19 06:00 71/57 09/11/19 06:00 68 20 71/57 (62) 93 09/11/19 05:00 77 20 115/18 (50) 82 09/11/19 05:00 115/18 09/11/19 05:00 20 115/18 Mechanical Ventilator 100 09/11/19 04:00 95.0 128 14 87/58 (68) 82 09/11/19 04:00 Mechanical Ventilator 09/11/19 04:00 133 09/11/19 04:00 109/72 09/11/19 04:00 21 100/72 Mechanical Ventilator 100 09/11/19 04:00 100 09/11/19 03:36 112 25 100 09/11/19 03:22 65/33 09/11/19 03:00 89 19 90/57 (68) 66 09/11/19 03:00 90/57 09/11/19 03:00 18 90/57 Mechanical Ventilator 100 09/11/19 02:00 91/53 09/11/19 02:00 19 91/53 Mechanical Ventilator 100 09/11/19 02:00 92 19 91/53 (66) 65 09/11/19 01:00 97 22 71/57 (62) 65 09/11/19 01:00 110/77 09/11/19 01:00 23 110/77 Mechanical Ventilator 100 09/11/19 00:30 97.0 09/11/19 00:00 Mechanical Ventilator 09/11/19 00:00 23 92/47 Mechanical Ventilator 100 09/11/19 00:00 78 09/11/19 00:00 100 09/11/19 00:00 99 22 107/43 (64) 69 09/10/19 23:00 89 21 119/46 (70) 90 09/10/19 23:00 21 119/46 Mechanical Ventilator 100 09/10/19 22:39 85 19 100 09/10/19 22:00 16 94/49 Mechanical Ventilator 100 09/10/19 22:00 79 16 94/49 (64) 98 09/10/19 21:30 76 15 86/45 (59) 98 09/10/19 21:00 82 19 163/87 (112) 96 09/10/19 21:00 163/87 09/10/19 21:00 15 163/87 Mechanical Ventilator 100 09/10/19 20:30 85 19 101/46 (64) 90 09/10/19 20:00 100 09/10/19 20:00 83 16 125/30 (61) 94 09/10/19 20:00 75 09/10/19 20:00 88/57 09/10/19 20:00 20 88/57 Mechanical Ventilator 100 09/10/19 20:00 Mechanical Ventilator 09/10/19 19:37 76 21 100 09/10/19 19:30 97.7 73 13 114/59 (77) 100 09/10/19 19:00 80 14 79/49 (59) 95 09/10/19 18:53 97/65 09/10/19 18:53 20 97/65 Mechanical Ventilator 100 09/10/19 18:30 82 23 87/54 (65) 94 09/10/19 18:30 92/65 5/22/20 18:00 96/49 09/10/19 18:00 20 96/49 Mechanical Ventilator 100 09/10/19 18:00 77 12 96/49 (65) 100 09/10/19 17:38 72 16 96/52 (67) 100 09/10/19 17:07 71 16 94/52 (66) 100 09/10/19 17:00 86/48 09/10/19 16:57 20 95/48 Mechanical Ventilator 100 09/10/19 16:45 20 86/48 Mechanical Ventilator 100 09/10/19 16:30 73 10 95/51 (66) 100 09/10/19 16:03 101/54 09/10/19 16:00 98.3 09/10/19 16:00 Mechanical Ventilator 09/10/19 16:00 72 14 101/54 (70) 100 09/10/19 16:00 91/49 09/10/19 16:00 20 91/49 Mechanical Ventilator 100 09/10/19 16:00 73 09/10/19 16:00 100 09/10/19 15:30 73 14 91/49 (63) 100 09/10/19 15:02 71 23 100 09/10/19 15:00 92/50 09/10/19 15:00 20 92/50 Mechanical Ventilator 100 09/10/19 15:00 70 11 88/45 (59) 100 09/10/19 14:45 73 12 97/52 (67) 100 09/10/19 14:30 71 12 96/54 (68) 100 09/10/19 14:27 70 12 93/45 (61) 100 09/10/19 14:15 71 13 89/51 (64) 100 09/10/19 14:00 71 12 87/52 (64) 100 09/10/19 14:00 89/51 09/10/19 14:00 20 89/51 Mechanical Ventilator 100 09/10/19 13:45 71 12 87/47 (60) 100 09/10/19 13:30 72 16 88/48 (61) 100 09/10/19 13:00 72 16 95/50 (65) 100 09/10/19 13:00 95/50 09/10/19 13:00 20 95/50 Mechanical Ventilator 100 5/22/20 12:30 75 16 98/48 (65) 100 09/10/19 12:00 71 09/10/19 12:00 100 09/10/19 12:00 Mechanical Ventilator 09/10/19 12:00 97/65 09/10/19 12:00 20 97/65 Mechanical Ventilator 100 09/10/19 12:00 77 16 99/50 (66) 97 09/10/19 12:00 97.9 Intake and Output 09/10/19 09/11/19 19:00 07:00 Intake Total 1650.203 ml 1850.67 ml Output Total 60 ml 35 ml Balance 1590.203 ml 1815.67 ml Free Water 50 ml IV Total 1360.203 ml 1400.67 ml Tube Feeding 240 ml 420 ml Other 30 ml Output Urine Total 60 ml 35 ml # Bowel Movements 2 General Appearance: no acute distress HEENT: normocephalic Respiratory: chest wall non-tender, decreased breath sounds Cardiovascular: normal peripheral pulses Abdomen: normal bowel sounds Current Medications Medications (Trade) Dose Ordered Sig/Karlos Route PRN Reason Start Time Stop Time Status Last Admin Dose Admin Acetaminophen (Tylenol) 650 mg Q4H PRN ORAL Mild Pain (Pain Scale 1-3) 09/07/19 03:45 10/03/19 11:44 09/09/19 20:45 Acetaminophen (Tylenol) 650 mg Q4H PRN ORAL Temp >100.5 09/07/19 03:45 10/03/19 11:44 Acetaminophen (Tylenol) 650 mg Q4H PRN RECTAL Temp >100.5 09/07/19 04:30 10/06/19 16:29 Bisacodyl (Dulcolax) 10 mg DAILYPRN PRN RECTAL Constipation 09/07/19 11:45 12/02/19 11:44 Chlorhexidine Gluconate (Nely-Hex 2%) 1 applic DAILY@2000 TOPIC 09/08/19 21:00 12/07/19 20:59 09/10/19 20:53 Dextrose (Dextrose 50%) 25 ml Q30M PRN IV Hypoglycemia 09/07/19 00:45 12/02/19 11:44 Dextrose (Dextrose 50%) 50 ml Q30M PRN IV Hypoglycemia 09/07/19 00:45 12/02/19 11:44 Docusate Sodium (Colace) 100 mg Q12HR NG 09/08/19 09:15 10/08/19 09:14 09/11/19 08:29 Doxycycline Monohydrate (Doxycycline Monohydrate) 100 mg EVERY 12 HOURS ORAL 09/08/19 21:00 09/15/19 20:59 09/11/19 08:29 Fentanyl Citrate 250 ml @ 0 mls/hr Q24H IV 09/07/19 12:45 12/06/19 12:44 09/11/19 00:00 Insulin Aspart (NovoLOG) BEFORE MEALS AND HS SUBQ 09/07/19 06:30 12/04/19 11:29 09/11/19 06:33 Linezolid 300 ml @ 300 mls/hr EVERY 12 HOURS IVPB 09/08/19 21:00 09/15/19 20:59 09/11/19 08:28 Magnesium Hydroxide (Mom) 30 ml HSPRN PRN ORAL Constipation 09/07/19 11:45 10/03/19 11:44 Morphine Sulfate (Morphine Sulfate) 2 mg Q2H PRN IVP Breakthru pain 09/09/19 13:45 09/16/19 13:44 09/10/19 07:27 Norepinephrine Bitartrate 16 mg/ Dextrose 566 ml @ 0 mls/hr Q24H IV 09/09/19 21:00 10/09/19 20:59 09/11/19 03:22 Piperacillin Sod/ Tazobactam Sod 3.375 gm/Sodium Chloride 110 ml @ 27.5 mls/hr Q12H IVPB 09/08/19 13:00 09/15/19 12:59 09/11/19 00:36 Polyethylene Glycol (Miralax) 17 gm DAILYPRN PRN ORAL Constipation 09/07/19 11:45 10/03/19 11:44 Assessment/Plan Assessment/Plan IMPRESSION: 1. Confirmed COVID-19 pneumonia. 2. Diabetes mellitus. 3. Hypertension. 4. Hyperlipidemia. 5. Thrombocytopenia. 6. 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 Grave prognosis Now DNR Tresa Mcclellan Omar Syed MD September 11, 2019 11:30
--- NOTE | 2019-09-11 11:32 | NUR ---
NURSE NOTES: Patient SBP low 80s on the monitor. Still on levophed 30mcg/min. Held tube feeding and put supine position. Kept comfortable.
--- NOTE | 2019-09-11 11:42 | Nephrology Progress Note ---
Assessment/Plan Plan #Acute kidney injury due to pre- renal azotemia- concerns for vanco toxicity - now concerns for developing ischemic ATN - now with progressive ischemic ATN #hypernatremia with free water deficit #COVID infection #Hypoxemic respiratory failure now intubated #pneumonia #T2DM # COPD #Dysphasia #HLD #HTN #thrombocytopenia, #APL #dementia #hypoalbuminemia - will plan for HD again today if tolerated - monitor UOP- - strict I&Os - levophed 10 - continue pressors to maintain MAP > 65 - antibiotics per ID- > on doxy, linezolid and zosyn - avoid nephrotoxins - strict I&Os - monitor weights - Defer renal imaging for now - DC atenolol 50mg daily - hold amlodipine 2.5mg daily - monitor BP closely - check BMP, mag and phos daily Time spent 70min, more than 50% on care coordination and counseling Critical Care Services performed include: Telemetry Review Hemodynamic measurement interpretation Laboratory data review and interpretation Radiology image review and interpretation Ventilator setting review, management, and adjustment Interpretation of ABG's Discussion of patient's care with ICU team, ICU Nursing staff and/or consulting services Subjective ROS Limited/Unobtainable: Yes Subjective Intubated Fio2 100 Cr uptrending attempted HD oliguric increasing pressor requirement Objective Objective Last 24 Hour Vital Signs Date Time Temp Pulse Resp B/P (MAP) Pulse Ox O2 Delivery O2 Flow Rate FiO2 09/11/19 11:04 62 17 100 09/11/19 10:00 64 17 91/49 (63) 86 09/11/19 10:00 84/56 09/11/19 09:00 90/54 09/11/19 09:00 90 26 100/52 (68) 86 09/11/19 08:00 Mechanical Ventilator 09/11/19 08:00 95.0 100 22 87/58 (68) 88 09/11/19 08:00 70 09/11/19 08:00 86/52 09/11/19 08:00 100 09/11/19 07:18 60 28 100 09/11/19 07:00 102 26 80/57 (65) 90 09/11/19 07:00 82/52 09/11/19 06:00 71/57 09/11/19 06:00 68 20 71/57 (62) 93 09/11/19 05:00 77 20 115/18 (50) 82 09/11/19 05:00 115/18 09/11/19 05:00 20 115/18 Mechanical Ventilator 100 09/11/19 04:00 95.0 128 14 87/58 (68) 82 09/11/19 04:00 Mechanical Ventilator 09/11/19 04:00 133 09/11/19 04:00 109/72 09/11/19 04:00 21 100/72 Mechanical Ventilator 100 09/11/19 04:00 100 09/11/19 03:36 112 25 100 09/11/19 03:22 65/33 09/11/19 03:00 89 19 90/57 (68) 66 09/11/19 03:00 90/57 09/11/19 03:00 18 90/57 Mechanical Ventilator 100 09/11/19 02:00 91/53 09/11/19 02:00 19 91/53 Mechanical Ventilator 100 09/11/19 02:00 92 19 91/53 (66) 65 09/11/19 01:00 97 22 71/57 (62) 65 09/11/19 01:00 110/77 09/11/19 01:00 23 110/77 Mechanical Ventilator 100 09/11/19 00:30 97.0 09/11/19 00:00 Mechanical Ventilator 09/11/19 00:00 23 92/47 Mechanical Ventilator 100 09/11/19 00:00 78 09/11/19 00:00 100 09/11/19 00:00 99 22 107/43 (64) 69 09/10/19 23:00 89 21 119/46 (70) 90 09/10/19 23:00 21 119/46 Mechanical Ventilator 100 09/10/19 22:39 85 19 100 09/10/19 22:00 16 94/49 Mechanical Ventilator 100 09/10/19 22:00 79 16 94/49 (64) 98 09/10/19 21:30 76 15 86/45 (59) 98 09/10/19 21:00 82 19 163/87 (112) 96 09/10/19 21:00 163/87 09/10/19 21:00 15 163/87 Mechanical Ventilator 100 09/10/19 20:30 85 19 101/46 (64) 90 09/10/19 20:00 100 09/10/19 20:00 83 16 125/30 (61) 94 09/10/19 20:00 75 09/10/19 20:00 88/57 09/10/19 20:00 20 88/57 Mechanical Ventilator 100 09/10/19 20:00 Mechanical Ventilator 09/10/19 19:37 76 21 100 09/10/19 19:30 97.7 73 13 114/59 (77) 100 09/10/19 19:00 80 14 79/49 (59) 95 09/10/19 18:53 97/65 09/10/19 18:53 20 97/65 Mechanical Ventilator 100 09/10/19 18:30 82 23 87/54 (65) 94 09/10/19 18:30 92/65 09/10/19 18:00 96/49 09/10/19 18:00 20 96/49 Mechanical Ventilator 100 09/10/19 18:00 77 12 96/49 (65) 100 09/10/19 17:38 72 16 96/52 (67) 100 09/10/19 17:07 71 16 94/52 (66) 100 09/10/19 17:00 86/48 09/10/19 16:57 20 95/48 Mechanical Ventilator 100 09/10/19 16:45 20 86/48 Mechanical Ventilator 100 09/10/19 16:30 73 10 95/51 (66) 100 09/10/19 16:03 101/54 09/10/19 16:00 98.3 09/10/19 16:00 Mechanical Ventilator 09/10/19 16:00 72 14 101/54 (70) 100 09/10/19 16:00 91/49 09/10/19 16:00 20 91/49 Mechanical Ventilator 100 09/10/19 16:00 73 09/10/19 16:00 100 09/10/19 15:30 73 14 91/49 (63) 100 09/10/19 15:02 71 23 100 09/10/19 15:00 92/50 09/10/19 15:00 20 92/50 Mechanical Ventilator 100 09/10/19 15:00 70 11 88/45 (59) 100 09/10/19 14:45 73 12 97/52 (67) 100 09/10/19 14:30 71 12 96/54 (68) 100 09/10/19 14:27 70 12 93/45 (61) 100 09/10/19 14:15 71 13 89/51 (64) 100 09/10/19 14:00 71 12 87/52 (64) 100 09/10/19 14:00 89/51 09/10/19 14:00 20 89/51 Mechanical Ventilator 100 09/10/19 13:45 71 12 87/47 (60) 100 09/10/19 13:30 72 16 88/48 (61) 100 09/10/19 13:00 72 16 95/50 (65) 100 09/10/19 13:00 95/50 09/10/19 13:00 20 95/50 Mechanical Ventilator 100 09/10/19 12:30 75 16 98/48 (65) 100 09/10/19 12:00 71 09/10/19 12:00 100 09/10/19 12:00 Mechanical Ventilator 09/10/19 12:00 97/65 09/10/19 12:00 20 97/65 Mechanical Ventilator 100 09/10/19 12:00 77 16 99/50 (66) 97 09/10/19 12:00 97.9 Intake and Output 09/10/19 09/11/19 19:00 07:00 Intake Total 1650.203 ml 1850.67 ml Output Total 60 ml 35 ml Balance 1590.203 ml 1815.67 ml Free Water 50 ml IV Total 1360.203 ml 1400.67 ml Tube Feeding 240 ml 420 ml Other 30 ml Output Urine Total 60 ml 35 ml # Bowel Movements 2 Height (Feet): 5 Height (Inches): 7.00 Weight (Pounds): 140 Janelle Guzman M.D. September 11, 2019 11:42
--- NOTE | 2019-09-11 12:25 | NUR ---
NURSE NOTES: Charge nurse talked with Leigh Ann/sister. Patient is DNR/DNI.
--- NOTE | 2019-09-11 12:50 | NUR ---
NURSE NOTES: Asystole on the monitor. Charge nurse called ER Dr to pronounce.
--- NOTE | 2019-09-11 13:10 | NUR ---
NURSE NOTES: Charge nurse notified Leigh Ann/Sister. [facility] [employer] will warehouse order picker the body.
[2019-09-11] MEDS ORDERED: Tubing IV Secondary IV ONE ×2 (13:14→14:10)
[2019-09-11] MEDS ORDERED: Sterile Water Irrig 1000ml IRRIG ONE ×2 (13:14→13:25)
--- NOTE | 2019-09-11 13:45 | Cardiac Electrophysiology PN ---
Assessment/Plan Assessment/Plan 1. Atrial fibrillation. Off atenolol for hypotension. Got Dig 0.5 iv and Dig level is 0.7 Off anticoagulation in view of patient's thrombocytopenia. 2. Troponin leak. Could be due to renal failure and septic shock 3. Septic shock on Levophed 10 Mc. 4. Respiratory failure due to Covid PNA, on ventilator with 100% fio2 and PEEP 15 5. Thrombocytopenia. 6. Acute promyelocytic leukemia. Further evaluation by Dr. Jose. 7. Diabetes. 8. COPD. 9. Acute renal failure with Cr 2.0. On HD DW RN Extremely poor prognosis DNR Subjective Subjective In ICU on 100% Fio2 and 15 PEEP. On Levo 10 and fentanyl 300 Objective Last 24 Hour Vital Signs Date Time Temp Pulse Resp B/P (MAP) Pulse Ox O2 Delivery O2 Flow Rate FiO2 09/11/19 12:00 59 09/11/19 12:00 59 17 72/49 (57) 80 09/11/19 12:00 Mechanical Ventilator 09/11/19 12:00 100 09/11/19 11:42 83/48 09/11/19 11:04 62 17 100 09/11/19 11:00 62 17 86/49 (61) 86 09/11/19 10:00 64 17 91/49 (63) 86 09/11/19 10:00 84/56 09/11/19 09:00 90/54 09/11/19 09:00 90 26 100/52 (68) 86 09/11/19 08:00 Mechanical Ventilator 09/11/19 08:00 95.0 100 22 87/58 (68) 88 09/11/19 08:00 70 09/11/19 08:00 86/52 09/11/19 08:00 100 09/11/19 07:18 60 28 100 09/11/19 07:00 102 26 80/57 (65) 90 09/11/19 07:00 82/52 09/11/19 06:00 71/57 09/11/19 06:00 68 20 71/57 (62) 93 09/11/19 05:00 77 20 115/18 (50) 82 09/11/19 05:00 115/18 09/11/19 05:00 20 115/18 Mechanical Ventilator 100 09/11/19 04:00 95.0 128 14 87/58 (68) 82 09/11/19 04:00 Mechanical Ventilator 09/11/19 04:00 133 09/11/19 04:00 109/72 09/11/19 04:00 21 100/72 Mechanical Ventilator 100 09/11/19 04:00 100 09/11/19 03:36 112 25 100 09/11/19 03:22 65/33 09/11/19 03:00 89 19 90/57 (68) 66 09/11/19 03:00 90/57 09/11/19 03:00 18 90/57 Mechanical Ventilator 100 09/11/19 02:00 91/53 09/11/19 02:00 19 91/53 Mechanical Ventilator 100 09/11/19 02:00 92 19 91/53 (66) 65 09/11/19 01:00 97 22 71/57 (62) 65 09/11/19 01:00 110/77 09/11/19 01:00 23 110/77 Mechanical Ventilator 100 09/11/19 00:30 97.0 09/11/19 00:00 Mechanical Ventilator 09/11/19 00:00 23 92/47 Mechanical Ventilator 100 09/11/19 00:00 78 09/11/19 00:00 100 09/11/19 00:00 99 22 107/43 (64) 69 09/10/19 23:00 89 21 119/46 (70) 90 09/10/19 23:00 21 119/46 Mechanical Ventilator 100 09/10/19 22:39 85 19 100 09/10/19 22:00 16 94/49 Mechanical Ventilator 100 09/10/19 22:00 79 16 94/49 (64) 98 09/10/19 21:30 76 15 86/45 (59) 98 09/10/19 21:00 82 19 163/87 (112) 96 09/10/19 21:00 163/87 09/10/19 21:00 15 163/87 Mechanical Ventilator 100 09/10/19 20:30 85 19 101/46 (64) 90 09/10/19 20:00 100 09/10/19 20:00 83 16 125/30 (61) 94 09/10/19 20:00 75 09/10/19 20:00 88/57 09/10/19 20:00 20 88/57 Mechanical Ventilator 100 09/10/19 20:00 Mechanical Ventilator 09/10/19 19:37 76 21 100 09/10/19 19:30 97.7 73 13 114/59 (77) 100 09/10/19 19:00 80 14 79/49 (59) 95 09/10/19 18:53 97/65 09/10/19 18:53 20 97/65 Mechanical Ventilator 100 09/10/19 18:30 82 23 87/54 (65) 94 09/10/19 18:30 92/65 09/10/19 18:00 96/49 09/10/19 18:00 20 96/49 Mechanical Ventilator 100 09/10/19 18:00 77 12 96/49 (65) 100 09/10/19 17:38 72 16 96/52 (67) 100 09/10/19 17:07 71 16 94/52 (66) 100 09/10/19 17:00 86/48 09/10/19 16:57 20 95/48 Mechanical Ventilator 100 09/10/19 16:45 20 86/48 Mechanical Ventilator 100 09/10/19 16:30 73 10 95/51 (66) 100 09/10/19 16:03 101/54 09/10/19 16:00 98.3 09/10/19 16:00 Mechanical Ventilator 09/10/19 16:00 72 14 101/54 (70) 100 09/10/19 16:00 91/49 09/10/19 16:00 20 91/49 Mechanical Ventilator 100 09/10/19 16:00 73 09/10/19 16:00 100 09/10/19 15:30 73 14 91/49 (63) 100 09/10/19 15:02 71 23 100 09/10/19 15:00 92/50 09/10/19 15:00 20 92/50 Mechanical Ventilator 100 09/10/19 15:00 70 11 88/45 (59) 100 09/10/19 14:45 73 12 97/52 (67) 100 09/10/19 14:30 71 12 96/54 (68) 100 09/10/19 14:27 70 12 93/45 (61) 100 09/10/19 14:15 71 13 89/51 (64) 100 09/10/19 14:00 71 12 87/52 (64) 100 09/10/19 14:00 89/51 09/10/19 14:00 20 89/51 Mechanical Ventilator 100 09/10/19 13:45 71 12 87/47 (60) 100 Intake and Output 09/10/19 09/11/19 19:00 07:00 Intake Total 1650.203 ml 1850.67 ml Output Total 60 ml 35 ml Balance 1590.203 ml 1815.67 ml Free Water 50 ml IV Total 1360.203 ml 1400.67 ml Tube Feeding 240 ml 420 ml Other 30 ml Output Urine Total 60 ml 35 ml # Bowel Movements 2 Objective HEAD AND NECK: Orally intubated. LUNGS: Coarse rhonchi. CARDIOVASCULAR: Irregular S1 and S2 with no gallop. ABDOMEN: Soft. EXTREMITIES: No pitting edema. Gabriel Cantor MD September 11, 2019 13:45
--- NOTE | 2019-09-11 14:01 | NUR ---
NURSE NOTES: Seen by Dr. Horn.
[2019-09-11] MEDS ORDERED: D5W 550ml IV ONE (14:10)
[2019-09-11] MEDS ORDERED: NS 275ml ONE (14:10)
--- NOTE | 2019-09-11 14:13 | Emergency Room Report ---
History of Present Illness General Chief Complaint: Fever Source: Medical Record, PMD Present Illness Allergies: Coded Allergies: No Known Allergies (Unverified , 01/19/13) COVID-19 Screening Contact w/high risk pt: No Recent Travel to affected area: No Experienced COVID-19 symptoms?: Yes COVID-19 symptoms experienced: Fever (T>100.4F or >38C), Shortness of Breath, Cough COVID-19 Testing performed [employer]: No COVID-19 Screening: Positive COVID-19 Nursing Documentation-PM Past Medical History Deferred: Pt Cognitively Impaired Past Medical History: No History, Except For Hx Cardiac Problems: Yes Hx Hypertension: Yes Hx COPD: Yes Hx Diabetes: Yes Hx Cancer: No Hx Gastrointestinal Problems: No Hx Cerebrovascular Accident: Yes Physical Exam Vital Signs Date Time Temp Pulse Resp B/P (MAP) Pulse Ox O2 Delivery O2 Flow Rate FiO2 09/07/19 07:00 31 99/61 Mechanical Ventilator 60 09/07/19 07:00 83 99 09/07/19 08:00 99.8 09/07/19 21:22 15.0 Medical Decision Making Diagnostic Impression: Primary Impression: Suspected 2019 novel coronavirus infection Additional Impressions: Fever Hypoxia ER Course I was called to the ICU to pronounce this patient. Patient on ventilator. Patient DNR/DNI. Patient went into asystole today. Rhythm on monitor shows asystole. Patient is COVID positive. In isolation. I evaluated him rhythm strip and vitals and determined that patient has . TOD 12:50pm Last Vital Signs Date Time Temp Pulse Resp B/P (MAP) Pulse Ox O2 Delivery O2 Flow Rate FiO2 09/11/19 12:00 59 09/11/19 12:00 17 72/49 (57) 80 09/11/19 12:00 Mechanical Ventilator 09/11/19 12:00 100 09/11/19 08:00 95.0 09/08/19 14:44 15.0 Disposition: ADMITTED INPATIENT Condition: Serious Referrals: Edwardo Langley MD (PCP) Ryan Napoles MD September 11, 2019 14:13
--- NOTE | 2019-09-11 14:31 | NUR ---
NURSE NOTES: Postmortem care done.
--- NOTE | 2019-09-11 16:00 | NUR ---
NURSE NOTES: Released body to [facility].
--- NOTE | 2019-09-11 16:21 | NUR ---
@1442 [facility] /NOTIFIED PT,EXPIERED SPOKE TO FLEX SHELL
--- NOTE | 2019-09-13 18:59 | Discharge Summary ---
Discharge Summary Hospital Course Date of Admission September 03, 2019 at 12:28 Date of Discharge September 11, 2019 at 12:50 Admitting Diagnosis sepsis, suspected covid 19 HPI 79-year-old male with PMH of T2DM, COPD, dysphasia, HLD, HTN, thrombocytopenia, APL and dementia who presents from alf for fevers and hypoxia. Patient poor historian due to history of dementia, history obtained via chart review and patient. According to records, patient was found hypoxic at alf, SPO2 88%, with fevers of 102. Patient has known exposure to COVID as his roommate at the facility was tested COVID positive. Pt currently denies any GRAF, SOB, cough, f/c, CP, abd pain, dysuria, hematuria/hematochezia, pt states he is "thirsty". ED course: On admission, pt w/fever 101.5, thrombocytopenia, and elevated d- dimer. Pt admitted for further treatment and evaluation and for COVID rule out. Hospital Course Assessment RESP/ID #Acute Hypoxic Respiratory Failure #COVID + #HCAP #Septic Shock NEPHRO #Acute Renal Failure, now requiring HD HEME/ONC #PML hx w/ Thrombocytopenia Plan Appreciate consultants --> ID, Heme/Onc,Pulm,Nephro, Heme/Onc Pressor suppor to maintain Map > 65, CVC monitor Continue Vent management, Prone as appropriate, Trend predictivee markers Initiate HD per nephro Current AB include Zosyn, Doxycycline, Linezolid NG tube/Tube Feeds DVT and GI PPX On 09/11 patient experienced Cardiopulmonary Arrest and . Discharge Condition Upon Discharge: other Discharge Vital Signs Last Vital Signs Date Time Temp Pulse Resp B/P (MAP) Pulse Ox O2 Delivery O2 Flow Rate FiO2 09/11/19 12:00 59 09/11/19 12:00 17 72/49 (57) 80 09/11/19 12:00 Mechanical Ventilator 09/11/19 12:00 100 09/11/19 08:00 95.0 09/08/19 14:44 15.0 Discharge Disposition Patient was discharged to Wanda Guzman D.O. September 13, 2019 18:59
== END 2019-09-11 12:50 | disposition expired | DRG 870 ==
LOC: EDBD 10:41 → EMR 11:35 → 2E 12:28 → EDBEDREQ 12:53 → 2E 09-04 06:19 → ICU 09-06 14:44
PROC: 0BH17EZ Insertion of Endotracheal Airway into Trachea, Via Natural or Artificial Opening (ICD-10-PCS; principal; 2019-09-06)
PROC: 5A1955Z Respiratory Ventilation, Greater than 96 Consecutive Hours (ICD-10-PCS; principal; 2019-09-06)
PROC: 06HN33Z Insertion of Infusion Device into Left Femoral Vein, Percutaneous Approach (ICD-10-PCS; 2019-09-07)
PROC: 06HM33Z Insertion of Infusion Device into Right Femoral Vein, Percutaneous Approach (ICD-10-PCS; 2019-09-09)
PROC: 5A1D70Z Performance of Urinary Filtration, Intermittent, Less than 6 Hours Per Day (ICD-10-PCS; 2019-09-09)
DX: A41.89 Other specified sepsis (principal); U07.1 COVID-19; R65.21 Severe sepsis with septic shock; N17.0 Acute kidney failure with tubular necrosis; J12.9 Viral pneumonia, unspecified; J96.01 Acute respiratory failure with hypoxia; C92.40 Acute promyelocytic leukemia, not having achieved remission; E87.0 Hyperosmolality and hypernatremia; D69.6 Thrombocytopenia, unspecified; I48.91 Unspecified atrial fibrillation; E11.9 Type 2 diabetes mellitus without complications; E78.5 Hyperlipidemia, unspecified; F03.90 Unspecified dementia, unspecified severity, without behavioral disturbance, psychotic disturbance, mood disturbance, and anxiety; F32.9 Major depressive disorder, single episode, unspecified; Z85.028 Personal history of other malignant neoplasm of stomach; R47.02 Dysphasia; R00.1 Bradycardia, unspecified; Z66 Do not resuscitate
CPT/HCPCS: 36415; 36600; 71045; 74018; 80048; 80053; 80162; 80202; 81003; 82550; 82553; 82570; 82803; 82962; 83036; 83605; 83735; 84100; 84300; 84478; 84484; 85007; 85025; 85379; 85610; 85730; 86140; 86706; 87040; 87070; 87086; 87181; 87205; 87635; 93005; 93306; 94002; 94003; 94664; 99285; J1815